=== PATIENT | female | born 1955 | race Caucasian/White ===

== ENCOUNTER 2018-05-04 01:37 | Outpatient (RCR) | payer MEDICARE, MEDICAID, SELFPAY | END 2018-05-29 01:37 | LOC: INF 01:37 | PROVIDERS: PCP General Practice; Visit Provider Internal Medicine Medical Oncology | DX: R69 Illness, unspecified (principal) ==

== ENCOUNTER 2018-06-25 01:37 | Outpatient (RCR) | payer MEDICARE, MEDICAID, SELFPAY ==
[2018-06-04 07:31] LABS: Abs Immature Grans 0.02 k/cumm (0.0-0.09); Absolute Basophil Count 0.03 k/cumm (0.0-0.2); Absolute Eosinophil Count 0.48 k/cumm (0.0-0.7); Absolute Lymphocyte Count 0.65 k/cumm (1.2-3.4); Absolute Monocyte Count 0.53 k/cumm (0.11-0.7); Basophils % 0.5; Eosinophils % 7.3; HCT 29.2 % (36.0-46.0); HGB 9.2 g/dL (12.0-15.5); Immature Grans % 0.3; Lymphocytes % 9.8; Mean Corp. HGB Concentration 31.5 g/dL (32.0-36.0); Mean Corpuscular Hemoglobin 34.3 pg (27.0-33.0); Mean Platelet Volume 8.9 fL (8.0-11.0); Neutrophils % 74.1; Platelet Count 253 x1000/uL (130-400); RBC 2.68 m/cumm (4.00-5.20); White Blood Cell Count 6.61 k/cumm (4.4-10.8)
[2018-06-04 07:45] LABS: ALT 14 U/L (12-78); AST 11 U/L (15-37); Albumin 3.4 g/dL (3.4-5.0); Alkaline Phosphatase 70 U/L (46-116); Anion Gap 6.7 mmol/L (3-11); BUN 18 mg/dL (7-18); Bilirubin, Total 0.5 mg/dL (0.2-1.0); CO2 29.3 mmol/L (21.0-32.0); CREATININE 1.54 mg/dL (0.55-1.02); Calcium 8.4 mg/dL (8.5-10.1); Chloride 104 mmol/L (98-107); Estimated GFR 33.92 (mL/min/1.73m2); Glucose 116 mg/dL (70-100); Potassium 4.2 mmol/L (3.5-5.1); Sodium 140 mmol/L (136-145)
[2018-06-04 07:49] LABS: Basophilic Stippling Present; Macrocytosis 1+; Polychromasia Present
[2018-06-04] MEDS: Normal Saline Flush 10 ML SYR IVP (13:23)
[2018-06-25] MEDS: Normal Saline Flush 10 ML SYR IVP (07:15)
[2018-06-25 07:29] LABS: Abs Immature Grans 0.02 k/cumm (0.0-0.09); Absolute Basophil Count 0.07 k/cumm (0.0-0.2); Absolute Eosinophil Count 0.04 k/cumm (0.0-0.7); Absolute Lymphocyte Count 0.68 k/cumm (1.2-3.4); Absolute Monocyte Count 0.74 k/cumm (0.11-0.7); Basophils % 1.1; Eosinophils % 0.6; HCT 26.1 % (36.0-46.0); HGB 8.2 g/dL (12.0-15.5); Immature Grans % 0.3; Lymphocytes % 10.2; Mean Corp. HGB Concentration 31.4 g/dL (32.0-36.0); Mean Corpuscular Hemoglobin 33.9 pg (27.0-33.0); Mean Corpuscular Volume 107.9 fL (80-95); Mean Platelet Volume 8.8 fL (8.0-11.0); Monocytes % 11.1; Neutrophils % 76.7; Platelet Count 236 x1000/uL (130-400); RBC 2.42 m/cumm (4.00-5.20); RBC Distribution Width 14.9 % (11.7-14.6); White Blood Cell Count 6.65 k/cumm (4.4-10.8)
[2018-06-25 07:39] LABS: ALT 14 U/L (12-78); AST 11 U/L (15-37); Albumin 3.3 g/dL (3.4-5.0); Alkaline Phosphatase 70 U/L (46-116); BUN 25 mg/dL (7-18); Bilirubin, Total 0.5 mg/dL (0.2-1.0); CREATININE 1.67 mg/dL (0.55-1.02); Calcium 8.7 mg/dL (8.5-10.1); Chloride 102 mmol/L (98-107); Estimated GFR 30.89 (mL/min/1.73m2); Glucose 131 mg/dL (70-100); Potassium 3.6 mmol/L (3.5-5.1); Sodium 140 mmol/L (136-145); Total Protein 6.8 g/dL (6.4-8.2)
== END 2018-06-28 23:59 | disposition home or self-care (01) ==
LOC: INF 01:37
PROVIDERS: PCP General Practice; Visit Provider Internal Medicine Medical Oncology
DX: C54.1 Malignant neoplasm of endometrium (principal); Z45.2 Encounter for adjustment and management of vascular access device
CPT/HCPCS: 36591; 80053; 85025

== ENCOUNTER 2018-07-13 11:47 | Emergency (ER) | payer MEDICARE, MEDICAID, SELFPAY ==
[2018-07-13] VITALS (36 sets, daily range): BP systolic 81–128; BP diastolic 46–81; PULSE 58–80; RESP 16–28; TEMP 36.1–36.4; O2SAT 84–100
--- NOTE | 2018-07-13 12:33 | DI.CT_ITS ---
SYMPTOM/DIAGNOSIS: H/O UTERINE CA, VERTIGO NONCONTRAST HEAD CT: A noncontrast cranial CT was performed. No previous examinations available for comparison. There is an area of decreased attenuation in the right frontotemporal region with question mild ex vacuo phenomenon of the right lateral ventricle frontal horn. The findings may represent an old infarction. The possibility that the findings are associated with a mass are not entirely excluded, particularly with patient's known history of uterine carcinoma. No evidence of acute hemorrhage. No midline shift. The orbital and temporal bone structures appear intact and visualized paranasal sinuses and mastoid air cells are well aerated. 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 Mass lesion not entirely excluded and correlation with brain MRI including post contrast imaging would be recommended.
--- NOTE | 2018-07-13 12:36 | W.ED.GENAD ---
Discharge Plan Disposition Patient Disposition: HOME Condition: Improving Discharge Details Chief Complaint: Dizzy/Sync Clinical Impression: Acute anemia Reason For Visit: dizzy Primary Care Provider: Ron De La Rosa ED Provider: Shayne Hobbs Home Meds and New Rx's Prescriptions: Continue losartan [Cozaar] 50 MG tablet 100 mg PO DAILY RF: 0 furosemide [Lasix] 40 MG tablet 80 mg PO DAILY RF: 0 metoprolol succinate [Toprol XL] 50 MG tablet extended release 24 hr 50 mg PO BID RF: 0 citalopram [Celexa] 10 MG tablet 30 mg PO DAILY RF: 0 isosorbide mononitrate 30 MG tablet extended release 24 hr 30 mg PO DAILY Qty: 0.5 RF: 0 simvastatin [Zocor] 10 MG tablet 20 mg PO DAILY RF: 0 metformin 1,000 MG tablet 1,000 mg PO BID RF: 0 loratadine 10 MG tablet 10 mg PO DAILY RF: 0 glipizide 5 MG tablet 2.5 mg PO DAILY Qty: 0.5 RF: 0 Discharge Instructions Instructions: Anemia (ED) Additional Instructions: Your MRI did not show any new findings. I discussed your case with the cancer center who will see on for your planned chemotherapy. Continue regular medications. Return to the emergency department for any acute concerns. Discharge Data Discharge Date/Time-TO BE ENTERED AT DEPARTURE: 07/13/18 19:10 Medical Decision Making <Nain Avitia MD - Last Filed: 07/13/18 15:11> This is a 62-year-old female who presents with intermittent episodes of vertiginous type symptoms over the weekend. She is being treated for uterine cancer. She is pleasant, afebrile, well-appearing. Exam is notable only for subtle left horizontal nystagmus. She does report recent URI symptoms. She has an exam consistent with peripheral vertigo. Differential diagnosis would include metastatic mass, bleed, dehydration, anemia. Patient IV access established, given small fluid bolus, 12.5 mg of meclizine, referred for noncontrast CT scan of the head. This reveals what appears to be old right frontal area of decreased attenuation. MRI was obtained which confirmed no evidence of acute findings. Labs are notable for new anemia with a hemoglobin of 6.9. She does not have depressed white blood cell count or thrombocytopenia. Case discussed with cancer center who recommended 2 units of packed red blood cells that do not need to be irradiated. Patient is stable for follow-up with them on for completion of her chemotherapy. Patient be signed out to Dr. Hobbs pending completion of her transfusion which I consented her for in the written form. Lab Data Lab results reviewed: Yes I reviewed the patient's lab results. Laboratory Tests Range/Units 07/13/18 07/13/18 07/13/18 13:20 13:20 13:41 WBC (4.4-10.8) k/cumm 5.85 RBC (4.00-5.20) m/cumm 1.97 L Hgb (12.0-15.5) g/dL 6.9 L* Hct (36.0-46.0) % 21.5 L MCV (80-95) fL 109.1 H MCH (27.0-33.0) pg 35.0 H MCHC (32.0-36.0) g/dL 32.1 RDW (11.7-14.6) % 17.8 H Plt Count (130-400) x1000/uL 175 MPV (8.0-11.0) fL 9.3 Immature Gran % 0.7 Neutrophils % 80.2 Lymphocytes % 9.2 Monocytes % 8.9 Eosinophils % 0.5 Basophils % 0.5 Absolute Neutrophils (1.2-6.7) k/cumm 4.69 Absolute Lymphocytes (1.2-3.4) k/cumm 0.54 L Absolute Monocytes (0.11-0.7) k/cumm 0.52 Absolute Eosinophils (0.0-0.7) k/cumm 0.03 Absolute Basophils (0.0-0.2) k/cumm 0.03 Differential Comment Rbc morph reviewed RBC Morphology See below Polychromasia Present Poikilocytosis 1+ Anisocytosis 2+ Microcytosis 1+ Macrocytosis 2+ Sodium (136-145) mmol/L 139 Potassium (3.5-5.1) mmol/L 4.5 Chloride (98-107) mmol/L 101 Carbon Dioxide (21.0-32.0) mmol/L 26.0 Anion Gap (3-11) mmol/L 12.0 H BUN (7-18) mg/dL 21 H Creatinine (0.55-1.02) mg/dL 1.69 H Estimated GFR/1.73 m2 (mL/min/1.73m2) 30.47 Glucose (70-100) mg/dL 171 H Calcium (8.5-10.1) mg/dL 8.0 L Magnesium (1.8-2.4) mg/dL 1.1 L Total Bilirubin (0.2-1.0) mg/dL 0.6 AST (15-37) U/L 12 L ALT (12-78) U/L 17 Alkaline Phosphatase (46-116) U/L 67 Total Protein (6.4-8.2) g/dL 6.5 Albumin (3.4-5.0) g/dL 3.1 L Crossmatch See Detail <Shayne Hobbs DO - Last Filed: 07/14/18 15:43> The patient has completed her transfusion. She appears hemodynamically stable, shows no signs of reaction, and appears very well. Patient will be discharged with the plan set and placed by Dr. Avitia. I have extensively reviewed the treatment plan and discharge instructions with the patient and their family. I have addressed all patient concerns at this time. The patient and family was made aware of what symptoms to monitor for that would warrant a return to the emergency department. Discussed the plan with the patient and family, they demonstrate verbal understanding and agreement with our assessment and plan at this time. HPI <Nain Avitia MD - Last Filed: 07/13/18 15:11> General Mode of arrival: wheelchair. Date/Time Provider Initiated Documentation: 07/13/18 12:21. Limitations to Documentation: no limitations. Information obtained by: patient and family. History of Present Illness 62 year old F presents to the emergency department with the chief complaint of Intermittent vertigo, described as moderate, Quality is described as other (Spinning), and is localized to the head. Patient reports no radiation. Patient started experiencing this day(s) and it has been intermittent and now resolved. Rest improves symptom(s), Movement worsens symptoms . HPI Narrative: This is a 62-year-old female who is undergoing her last round of chemotherapy for uterine cancer. She presents emerged from today on referral from her therapist. She states that over the course of the week and she said intermittent episodes of motion sensation is worse with movement of the head. It lasts 10-20 minutes and resolves on its own. She does not have a headache. She did not fall. Said no chest pain or palpitations. States she has had decreased p.o. intake. Related Data Home Medications Medication Instructions Recorded Confirmed citalopram [Celexa] 30 mg PO DAILY tab-cap 07/21/13 furosemide [Lasix] 80 mg PO DAILY tab-cap 07/21/13 07/13/18 glipizide 2.5 mg PO DAILY #0.5 07/21/13 07/13/18 isosorbide mononitrate 30 mg PO DAILY #0.5 tab-cap 07/21/13 07/13/18 loratadine 10 mg PO DAILY tab-cap 07/21/13 07/13/18 losartan [Cozaar] 100 mg PO DAILY tab-cap 07/21/13 07/13/18 metformin 1,000 mg PO BID tab-cap 07/21/13 07/13/18 metoprolol succinate [Toprol XL] 50 mg PO BID 07/21/13 07/13/18 simvastatin [Zocor] 20 mg PO DAILY tab-cap 07/21/13 07/13/18 Allergies Allergy/AdvReac Type Severity Reaction Status Date / Time Penicillins Allergy Severe ANAPHYLAXIS Unverified 11/13/17 13:07 acetaminophen [From Vicodin] AdvReac Unverified 07/13/18 12:03 hydrocodone [From Vicodin] AdvReac Unverified 07/13/18 12:03 General Stated Complaint: Dizzy/Sync RENY: 3 Review of Systems <Nain Avitia MD - Last Filed: 07/13/18 15:11> Review of Systems 8 systems reviewed and otherwise negative Exam <Nain Avitia MD - Last Filed: 07/13/18 15:11> Narrative Exam Narrative: GEN: awake, alert, oriented 3. Pleasant, well groomed, interactive. HEAD: Normocephalic, atraumatic ENT: Mucous membranes moist, oropharynx unremarkable, External ear exam unremarkable EYES: PERRL, EOMI, left lateral 2 beat horizontal nystatin NECK: Full ROM, no BERTRAND, no menigismus CHEST/RESP: Nontender, clear to auscultation bilateral, no wheeze/rhonchi/rales CARDIOVASCULAR: RRR, no murmur, rub claernce. 2+ Rad pulse bilateral ABDOMEN: Soft, nontender, no mass. +Bowel sounds EXT: Full ROM, no edema, no rash Neuro: Grossly normal neurologic exam, conversant, interactive. Cranial nerves II through XII grossly intact. Psych: Speech fluent, thoughts congruent, affect normal Course <Nain Avitia MD - Last Filed: 07/13/18 15:11> Vital Signs Temperature 36.1 C L 07/13/18 11:58 Pulse 78 07/13/18 11:58 Respiratory Rate 18 07/13/18 11:58 Blood Pressure 124/46 L 07/13/18 11:58 Pulse Oximetry 100 07/13/18 11:58 Temperature 36.1 C L 07/13/18 11:58 Temperature Source Temporal Artery Scan 07/13/18 11:58 Pulse 78 07/13/18 11:58 Respiratory Rate 18 07/13/18 11:58 Blood Pressure 124/46 L 07/13/18 11:58 Pulse Oximetry 100 07/13/18 11:58 Oxygen Delivery Method Room Air 07/13/18 11:58 Oxygen Flow Rate 0 07/13/18 11:58
--- NOTE | 2018-07-13 12:39 | ED.GENADUL_ITS ---
Discharge Plan Disposition Patient Disposition: HOME Condition: Improving Discharge Details Chief Complaint: Dizzy/Sync Clinical Impression: Acute anemia Reason For Visit: dizzy Primary Care Provider: Ron De La Rosa ED Provider: Shayne Hobbs Home Meds and New Rx's Prescriptions: Continue losartan [Cozaar] 50 MG tablet 100 mg PO DAILY RF: 0 furosemide [Lasix] 40 MG tablet 80 mg PO DAILY RF: 0 metoprolol succinate [Toprol XL] 50 MG tablet extended release 24 hr 50 mg PO BID RF: 0 citalopram [Celexa] 10 MG tablet 30 mg PO DAILY RF: 0 isosorbide mononitrate 30 MG tablet extended release 24 hr 30 mg PO DAILY Qty: 0.5 RF: 0 simvastatin [Zocor] 10 MG tablet 20 mg PO DAILY RF: 0 metformin 1,000 MG tablet 1,000 mg PO BID RF: 0 loratadine 10 MG tablet 10 mg PO DAILY RF: 0 glipizide 5 MG tablet 2.5 mg PO DAILY Qty: 0.5 RF: 0 Discharge Instructions Instructions: Anemia (ED) Additional Instructions: Your MRI did not show any new findings. I discussed your case with the cancer center who will see on for your planned chemotherapy. Continue regular medications. Return to the emergency department for any acute concerns. Discharge Data Discharge Date/Time-TO BE ENTERED AT DEPARTURE: 07/13/18 19:10 Medical Decision Making <Nain Avitia MD - Last Filed: 07/13/18 15:11> This is a 62-year-old female who presents with intermittent episodes of vertiginous type symptoms over the weekend. She is being treated for uterine cancer. She is pleasant, afebrile, well-appearing. Exam is notable only for subtle left horizontal nystagmus. She does report recent URI symptoms. She has an exam consistent with peripheral vertigo. Differential diagnosis would include metastatic mass, bleed , dehydration, anemia. Patient IV access established, given small fluid bolus, 12.5 mg of meclizine, referred for noncontrast CT scan of the head. This reveals what appears to be old right frontal area of decreased attenuation. MRI was obtained which confirmed no evidence of acute findings. Labs are notable for new anemia with a hemoglobin of 6.9. She does not have depressed white blood cell count or thrombocytopenia. Case discussed with cancer center who recommended 2 units of packed red blood cells that do not need to be irradiated. Patient is stable for follow-up with them on for completion of her chemotherapy. Patient be signed out to Dr. Hobbs pending completion of her transfusion which I consented her for in the written form. Lab Data Lab results reviewed: Yes I reviewed the patient's lab results. Laboratory Tests Range/Units 07/13/18 07/13/18 07/13/18 13:20 13:20 13:41 WBC (4.4-10.8) k/cumm 5.85 RBC (4.00-5.20) m/cumm 1.97 L Hgb (12.0-15.5) g/dL 6.9 L* Hct (36.0-46.0) % 21.5 L MCV (80-95) fL 109.1 H MCH (27.0-33.0) pg 35.0 H MCHC (32.0-36.0) g/dL 32.1 RDW (11.7-14.6) % 17.8 H Plt Count (130-400) x1000/uL 175 MPV (8.0-11.0) fL 9.3 Immature Gran % 0.7 Neutrophils % 80.2 Lymphocytes % 9.2 Monocytes % 8.9 Eosinophils % 0.5 Basophils % 0.5 Absolute Neutrophils (1.2-6.7) k/cumm 4.69 Absolute Lymphocytes (1.2-3.4) k/cumm 0.54 L Absolute Monocytes (0.11-0.7) k/cumm 0.52 Absolute Eosinophils (0.0-0.7) k/cumm 0.03 Absolute Basophils (0.0-0.2) k/cumm 0.03 Differential Comment Rbc morph reviewed RBC Morphology See below Polychromasia Present Poikilocytosis 1+ Anisocytosis 2+ Microcytosis 1+ Macrocytosis 2+ Sodium (136-145) mmol/L 139 Potassium (3.5-5.1) mmol/L 4.5 Chloride (98-107) mmol/L 101 Carbon Dioxide (21.0-32.0) mmol/L 26.0 Anion Gap (3-11) mmol/L 12.0 H BUN (7-18) mg/dL 21 H Creatinine (0.55-1.02) mg/dL 1.69 H Estimated GFR/1.73 m2 (mL/min/1.73m2) 30.47 Glucose (70-100) mg/dL 171 H Calcium (8.5-10.1) mg/dL 8.0 L Magnesium (1.8-2.4) mg/dL 1.1 L Total Bilirubin (0.2-1.0) mg/dL 0.6 AST (15-37) U/L 12 L ALT (12-78) U/L 17 Alkaline Phosphatase (46-116) U/L 67 Total Protein (6.4-8.2) g/dL 6.5 Albumin (3.4-5.0) g/dL 3.1 L Crossmatch See Detail <Shayne Hobbs DO - Last Filed: 07/14/18 15:43> The patient has completed her transfusion. She appears hemodynamically stable, shows no signs of reaction, and appears very well. Patient will be discharged with the plan set and placed by Dr. Avitia. I have extensively reviewed the treatment plan and discharge instructions with the patient and their family. I have addressed all patient concerns at this time. The patient and family was made aware of what symptoms to monitor for that would warrant a return to the emergency department. Discussed the plan with the patient and family, they demonstrate verbal understanding and agreement with our assessment and plan at this time. HPI <Nain Avitia MD - Last Filed: 07/13/18 15:11> General Mode of arrival: wheelchair . Date/Time Provider Initiated Documentation: 07/13/18 12:21 . Limitations to Documentation: no limitations . Information obtained by: patient and family . History of Present Illness 62 year old F presents to the emergency department with the chief complaint of Intermittent vertigo, described as moderate, Quality is described as other ( Spinning), and is localized to the head. Patient reports no radiation. Patient started experiencing this day(s) and it has been intermittent and now resolved. Rest improves symptom(s), Movement worsens symptoms . HPI Narrative: This is a 62-year-old female who is undergoing her last round of chemotherapy for uterine cancer. She presents emerged from today on referral from her therapist. She states that over the course of the week and she said intermittent episodes of motion sensation is worse with movement of the head. It lasts 10-20 minutes and resolves on its own. She does not have a headache. She did not fall. Said no chest pain or palpitations. States she has had decreased p.o. intake. Related Data Home Medications Medication Instructions Recorded Confirmed citalopram [Celexa] 30 mg PO DAILY tab-cap 07/21/13 furosemide [Lasix] 80 mg PO DAILY tab-cap 07/21/13 07/13/18 glipizide 2.5 mg PO DAILY #0.5 07/21/13 07/13/18 isosorbide mononitrate 30 mg PO DAILY #0.5 tab-cap 07/21/13 07/13/18 loratadine 10 mg PO DAILY tab-cap 07/21/13 07/13/18 losartan [Cozaar] 100 mg PO DAILY tab-cap 07/21/13 07/13/18 metformin 1,000 mg PO BID tab-cap 07/21/13 07/13/18 metoprolol succinate [Toprol XL] 50 mg PO BID 07/21/13 07/13/18 simvastatin [Zocor] 20 mg PO DAILY tab-cap 07/21/13 07/13/18 Allergies Allergy/AdvReac Type Severity Reaction Status Date / Time Penicillins Allergy Severe ANAPHYLAXIS Unverified 11/13/17 13:07 acetaminophen [From Vicodin] AdvReac Unverified 07/13/18 12:03 hydrocodone [From Vicodin] AdvReac Unverified 07/13/18 12:03 General Stated Complaint: Dizzy/Sync RENY: 3 Review of Systems <Nain Avitia MD - Last Filed: 07/13/18 15:11> Review of Systems 8 systems reviewed and otherwise negative Exam <Nain Avitia MD - Last Filed: 07/13/18 15:11> Narrative Exam Narrative: GEN: awake, alert, oriented 3. Pleasant, well groomed, interactive. HEAD: Normocephalic, atraumatic ENT: Mucous membranes moist, oropharynx unremarkable, External ear exam unremarkable EYES: PERRL, EOMI, left lateral 2 beat horizontal nystatin NECK: Full ROM, no BERTRAND, no menigismus CHEST/RESP: Nontender, clear to auscultation bilateral, no wheeze/rhonchi/rales CARDIOVASCULAR: RRR, no murmur, rub clarence. 2+ Rad pulse bilateral ABDOMEN: Soft, nontender, no mass. +Bowel sounds EXT: Full ROM, no edema, no rash Neuro: Grossly normal neurologic exam, conversant, interactive. Cranial nerves II through XII grossly intact. Psych: Speech fluent, thoughts congruent, affect normal Course <Nain Avitia MD - Last Filed: 07/13/18 15:11> Vital Signs Temperature 36.1 C L 07/13/18 11:58 Pulse 78 07/13/18 11:58 Respiratory Rate 18 07/13/18 11:58 Blood Pressure 124/46 L 07/13/18 11:58 Pulse Oximetry 100 07/13/18 11:58 Temperature 36.1 C L 07/13/18 11:58 Temperature Source Temporal Artery Scan 07/13/18 11:58 Pulse 78 07/13/18 11:58 Respiratory Rate 18 07/13/18 11:58 Blood Pressure 124/46 L 07/13/18 11:58 Pulse Oximetry 100 07/13/18 11:58 Oxygen Delivery Method Room Air 07/13/18 11:58 Oxygen Flow Rate 0 07/13/18 11:58
[2018-07-13] MEDS: Meclizine 12.5 MG TAB PO (12:43)
[2018-07-13 13:28] LABS: Abs Immature Grans 0.04 k/cumm (0.0-0.09); Absolute Basophil Count 0.03 k/cumm (0.0-0.2); Absolute Eosinophil Count 0.03 k/cumm (0.0-0.7); Absolute Lymphocyte Count 0.54 k/cumm (1.2-3.4); Absolute Monocyte Count 0.52 k/cumm (0.11-0.7); Absolute Neutrophil Count 4.69 k/cumm (1.2-6.7); Basophils % 0.5; Eosinophils % 0.5; HCT 21.5 % (36.0-46.0); Immature Grans % 0.7; Lymphocytes % 9.2; Mean Corp. HGB Concentration 32.1 g/dL (32.0-36.0); Mean Corpuscular Volume 109.1 fL (80-95); Mean Platelet Volume 9.3 fL (8.0-11.0); Monocytes % 8.9; Neutrophils % 80.2; Platelet Count 175 x1000/uL (130-400); RBC 1.97 m/cumm (4.00-5.20); RBC Distribution Width 17.8 % (11.7-14.6); White Blood Cell Count 5.85 k/cumm (4.4-10.8)
[2018-07-13] MEDS: Normal Saline 1,000 ML 500 ML IV (13:37)
[2018-07-13 13:41] LABS: HGB 6.9 g/dL (12.0-15.5)
[2018-07-13 13:42] LABS: Anisocytosis 2+; Diff Comment RBC Morph Reviewed; Macrocytosis 2+; Microcytosis 1+; Poikilocytes 1+; Polychromasia Present
[2018-07-13 13:43] LABS: ALT 17 U/L (12-78); AST 12 U/L (15-37); Albumin 3.1 g/dL (3.4-5.0); Alkaline Phosphatase 67 U/L (46-116); BUN 21 mg/dL (7-18); Bilirubin, Total 0.6 mg/dL (0.2-1.0); CREATININE 1.69 mg/dL (0.55-1.02); Chloride 101 mmol/L (98-107); Estimated GFR 30.47 (mL/min/1.73m2); Glucose 171 mg/dL (70-100); Magnesium 1.1 mg/dL (1.8-2.4); Potassium 4.5 mmol/L (3.5-5.1); Sodium 139 mmol/L (136-145); Total Protein 6.5 g/dL (6.4-8.2)
[2018-07-13] MEDS: LORazepam 2 MG/ML VIAL 0.5 MG IVP (14:05)
--- NOTE | 2018-07-13 15:00 | DI.MRI_ITS ---
SYMPTOMS/DIAGNOSIS: RT FRONTAL ABNORMALITY ON CT, VERTIGO SYMPTOMS BRAIN MRI: MRI examination of the brain was performed according to the usual protocol. There is mild generalized cerebral atrophy. There is an area of encephalomalacia involving the right frontal lobe with associated mildly abnormal signal seen on T 2 weight and FLAIR imaging consistent with an old infarct with areas of surrounding chronic ischemia. Diffusion weighted imaging shows no diffusion restriction in this area to suggest the presence of a subacute or acute infarction. No other focal signal abnormality identified in the brain. The orbital and temporal bone structures are grossly intact as visualized. There is normal flow void in the [place] vasculature. The pituitary appears intact as visualized. The examination is somewhat limited by motion artifact. Susceptibility weighted imaging is unremarkable. CONCLUSION: Findings consistent with old right frontal infarct with associated areas of chronic ischemia. No evidence of acute infarction or hemorrhage.
[2018-07-13] MEDS: Heparin 500 UNITS/5 ML SYRINGE (18:50)
== END 2018-07-13 19:10 | disposition home or self-care (01) ==
PROVIDERS: Emergency Medicine; Emergency Provider Student in an Organized Health Care Education/Training Program; PCP General Practice
DX: D64.9 Anemia, unspecified (principal); Z79.899 Other long term (current) drug therapy; C55 Malignant neoplasm of uterus, part unspecified
CPT/HCPCS: 36430; 36591; 80053; 86850; 86900; 86901; 86920; 96361; 96374; 99285; 70450; 70551; 83735; 85025; J2060; P9016

== ENCOUNTER 2018-07-16 01:59 | Outpatient (RCR) | payer MEDICARE, MEDICAID, SELFPAY ==
[2018-07-16] MEDS: Normal Saline Flush 10 ML SYR IVP (07:40)
[2018-07-16 08:02] LABS: Abs Immature Grans 0.01 k/cumm (0.0-0.09); Absolute Basophil Count 0.03 k/cumm (0.0-0.2); Absolute Eosinophil Count 0.01 k/cumm (0.0-0.7); Absolute Lymphocyte Count 0.47 k/cumm (1.2-3.4); Absolute Neutrophil Count 4.02 k/cumm (1.2-6.7); Basophils % 0.6; Eosinophils % 0.2; HCT 26.7 % (36.0-46.0); HGB 8.5 g/dL (12.0-15.5); Immature Grans % 0.2; Lymphocytes % 9.3; Mean Corp. HGB Concentration 31.8 g/dL (32.0-36.0); Mean Corpuscular Hemoglobin 32.6 pg (27.0-33.0); Mean Corpuscular Volume 102.3 fL (80-95); Mean Platelet Volume 8.8 fL (8.0-11.0); Monocytes % 9.9; Neutrophils % 79.8; Platelet Count 167 x1000/uL (130-400); RBC 2.61 m/cumm (4.00-5.20); RBC Distribution Width 21.3 % (11.7-14.6); White Blood Cell Count 5.04 k/cumm (4.4-10.8)
[2018-07-16 08:14] LABS: ALT 17 U/L (12-78); AST 13 U/L (15-37); Albumin 3.2 g/dL (3.4-5.0); Alkaline Phosphatase 63 U/L (46-116); Anion Gap 11.4 mmol/L (3-11); BUN 27 mg/dL (7-18); Bilirubin, Total 0.7 mg/dL (0.2-1.0); CO2 25.6 mmol/L (21.0-32.0); CREATININE 1.74 mg/dL (0.55-1.02); Calcium 8.3 mg/dL (8.5-10.1); Chloride 103 mmol/L (98-107); Estimated GFR 29.46 (mL/min/1.73m2); Glucose 133 mg/dL (70-100); Potassium 4.3 mmol/L (3.5-5.1); Sodium 140 mmol/L (136-145); Total Protein 6.4 g/dL (6.4-8.2)
== END 2018-07-29 23:59 | disposition home or self-care (01) ==
LOC: INF 01:59
PROVIDERS: PCP General Practice; Visit Provider Internal Medicine Medical Oncology
DX: C54.1 Malignant neoplasm of endometrium (principal); Z45.2 Encounter for adjustment and management of vascular access device
CPT/HCPCS: 36591; 80053; 85025

== ENCOUNTER 2018-07-27 17:42 | Emergency (ER) | payer MEDICARE, MEDICAID, SELFPAY ==
[2018-07-27] VITALS (18 sets, daily range): BP systolic 96–128; BP diastolic 38–60; PULSE 70–103; RESP 16–32; TEMP 36.5–37.6; O2SAT 90–99
--- NOTE | 2018-07-27 18:09 | W.ED.GENAD ---
Discharge Plan Disposition Patient Disposition: OTHER Condition: Stable Discharge Details Chief Complaint: Fever Clinical Impression: Anemia, Pyelonephritis, Hypomagnesemia, Generalized weakness, Fatigue Primary Care Provider: Ron De La Rosa ED Provider: Eufemia Montes Home Meds and New Rx's Prescriptions: No Action losartan [Cozaar] 50 MG tablet 100 mg PO DAILY RF: 0 furosemide [Lasix] 40 MG tablet 80 mg PO DAILY RF: 0 metoprolol succinate [Toprol XL] 50 MG tablet extended release 24 hr 50 mg PO BID RF: 0 citalopram [Celexa] 10 MG tablet 30 mg PO DAILY RF: 0 isosorbide mononitrate 30 MG tablet extended release 24 hr 30 mg PO DAILY Qty: 0.5 RF: 0 metformin 1,000 MG tablet 1,000 mg PO BID RF: 0 loratadine 10 MG tablet 10 mg PO DAILY RF: 0 glipizide 5 MG tablet 2.5 mg PO DAILY Qty: 0.5 RF: 0 simvastatin [Zocor] 40 mg Tablet 40 mg PO HS RF: 0 Medical Decision Making 62yo F w/ a h/o DM and endometrial cancer who recently finished chemo 07/16 at [facility] who presents for chills since yesterday, dysuria and urinary hesitancy times 1 month as well as cough with white/yellow sputum. Patient was seen here 2 weeks ago for dizziness and had hemoglobin of 6.9 for which she was given 2 units PRBCs and was discharged to home. Vitals within normal limits on arrival. Patient appears pale but otherwise nontoxic. Considering patient's history, will order an infectious and cardiac workup and give small bolus IV fluid. EKG notes a rate of 92, sinus, no acute ST elevation or depression, QTc 458, QRS 100. 2045: Labs and imaging reviewed. White blood cell count 8.06. Hemoglobin 7. Hematocrit 21.5. Platelets 129. Potassium 3.4. Creatinine 1.76. GFR 29. Magnesium 0.9. Troponin negative. Urinalysis notes greater than 50 WBCs, many bacteria, negative epithelial cells. Chest x-ray negative. 2 units PRBCs ordered. Will replete magnesium. With complaint of chills, nausea, vomiting, evidence of UTI, will treat for possible pyelonephritis. Patient is allergic to penicillin which causes anaphylaxis. There is an interaction with fluoroquinolones with her Celexa. We will give a dose of gentamicin IV. There are no beds available here. Will call area hospitals for transfer. Patient is okay with transfer to [facility] or [facility]. 2144 -- case d/w Dr. Serrano at [facility] - no beds available. 2199 --case discussed w/ MANAGER TALENT MANAGEMENT Humble Rush at [facility] - accepts pt for transfer. Informed that patient does not appear septic at this time. She is not neutropenic. Her abdomen was soft and very minimally tender in lower abdomen, no CT scan ordered at this time. 1 unit of PRBC running at this time. BP 102/44. Calyx likely may not be here for an hour. Do not want to push the first unit PRBC any faster as patient has a history of CHF. Goldy discussed with nursing supervisor keymodule assembly at [facility] and they likely will not take the second unit of blood with the patient. HPI General Mode of arrival: ambulatory. Date/Time Provider Initiated Documentation: 07/27/18 17:56. Limitations to Documentation: no limitations. Information obtained by: patient. HPI Narrative: Patient is a 62-year-old female with a history of diabetes and endometrial cancer who recently finished chemotherapy on July 16 who presents for chills since yesterday. Patient also states she has had a harsh cough with white and yellow sputum. She also admits to dysuria and sensation of decreased bladder emptying over the past month. She also admits to fatigue. Patient was seen here on July 13 for dizziness and was noted to be anemic and was given 2 units PRBCs blood transfusion. Patient states she is followed at [facility] and her last chemotherapy was July 16. States her next appointment with them is on July. Patient states her last radiation was on May 01, 2018. She also admits to decreased appetite over the past few days, 2 episodes of vomiting over the past 2 days. She states she has been drinking well. She denies chest pain, shortness of breath, diarrhea, recent antibiotics. Past medical history: Asthma, obesity, hypertension, hyperlipidemia, depression, anxiety, diabetes, endometrial cancer diagnosed in October 2017, CHF Surgical history: Tubal ligation, tonsillectomy, , carpal tunnel release, mitral valve replacement, CABG Social history: Denies tobacco, alcohol or drugs Medications: See list Allergies: See list PCP: Dr. De La Rosa Oncologist: Dr. Dasilva (spelling?) Related Data Home Medications Medication Instructions Recorded Confirmed citalopram [Celexa] 30 mg PO DAILY tab-cap 07/21/13 furosemide [Lasix] 80 mg PO DAILY tab-cap 07/21/13 07/27/18 glipizide 2.5 mg PO DAILY #0.5 07/21/13 07/27/18 isosorbide mononitrate 30 mg PO DAILY #0.5 tab-cap 07/21/13 07/27/18 loratadine 10 mg PO DAILY tab-cap 07/21/13 07/13/18 losartan [Cozaar] 100 mg PO DAILY tab-cap 07/21/13 07/27/18 metformin 1,000 mg PO BID tab-cap 07/21/13 07/27/18 metoprolol succinate [Toprol XL] 50 mg PO BID 07/21/13 07/27/18 simvastatin [Zocor] 40 mg PO HS 07/27/18 07/27/18 Allergies Allergy/AdvReac Type Severity Reaction Status Date / Time bee venom protein (honey bee) Allergy Severe anaphylaxis Unverified 07/27/18 17:51 Penicillins Allergy Severe anaphylaxis Unverified 07/27/18 17:51 hydrocodone [From Vicodin] AdvReac Intermediate vomiting Unverified 07/27/18 17:52 acetaminophen [From Vicodin] AdvReac Mild no problem Unverified 07/27/18 17:52 with tylenol General Stated Complaint: Fever RENY: 3 Review of Systems Review of Systems All systems reviewed & are unremarkable except as noted in HPI and below Constitutional Reports as per HPI, Reports chills, Reports fatigue, Denies fever(s) and Reports weakness Eyes Denies blurry vision ENT Denies dizziness, Denies sore throat and Denies throat swelling Cardiovascular Denies chest pain and Denies dyspnea Respiratory Denies dyspnea Gastrointestinal Denies abdominal pain, Denies diarrhea and Denies vomiting Genitourinary Denies hematuria, Reports dysuria and Reports urinary hesitancy Musculoskeletal Denies back pain and Denies numbness Integumentary/Breasts Denies lesions and Denies rash Neurologic Denies dizziness, Denies numbness and Reports weakness Endocrine Reports fatigue Allergic/Immunologic Denies throat swelling PFSH Family History Mother Diabetes Father Hyperlipidemia Sister Lung cancer Other Personal history of malignant neoplasm Medical History Anxiety Asthma Depression Diabetes mellitus, type 2 Hyperlipidemia Hypertension Obesity Seasonal allergic rhinitis Surgical History section Ligation of fallopian tube Mitral valve repair Open Carpal Tunnel release Tonsillectomy Exam Const General: cooperative Orientation: alert, awake and oriented x3 HENMT Head: normal to inspection Ears: hearing grossly normal bilaterally and external ears normal General nose exam: external nose normal Face and sinus: normal facial exam Mouth: oral mucosae normal Eyes General: appearance normal, both eyes and all related structures Eyelids: eyelids normal EOM: EOM intact bilaterally Neck Neck: normal visual inspection Lymphatic: no lymphadenopathy noted Chest Chest: normal inspection of the chest Resp Effort & Inspection: normal respiratory effort and able to speak in complete sentences Auscultation: clear to auscultation bilaterally Cardio Rate: regular rate Rhythm: regular rhythm GI Inspection: normal to inspection Palpation: soft, not firm, no guarding, no hepatosplenomegaly, no masses and tender (mild across lower abdomen) Auscultation: normal bowel sounds Back/Spine/Pelvis Back: CVA tenderness (R side) Skin General skin exam: no rashes or lesions noted Neuro General: alert and awake Cognition: normal cognition Speech: speech normal Gait: normal gait Motor: muscle tone normal throughout Sensory Exam: no sensory deficits noted Extrem General: normal to inspection, full ROM and normal capillary refill Psych Appearance: grossly normal Mental Status: mental status grossly normal Speech and Movement: speech and movement normal Affect: normal affect Thought Process: normal Course 07/27/18 19:15 Urine - Reflex from Ua Urine Culture - Pending 07/27/18 19:00 Nasopharynx Influenza Types A,B Antigen - Final - negative Laboratory Tests Range/Units 07/27/18 07/27/18 07/27/18 19:00 19:00 19:15 WBC (4.4-10.8) k/cumm 8.06 RBC (4.00-5.20) m/cumm 2.15 L Hgb (12.0-15.5) g/dL 7.0 L Hct (36.0-46.0) % 21.5 L MCV (80-95) fL 100.0 H MCH (27.0-33.0) pg 32.6 MCHC (32.0-36.0) g/dL 32.6 RDW (11.7-14.6) % 20.2 H Plt Count (130-400) x1000/uL 129 L MPV (8.0-11.0) fL 9.7 Immature Gran % 0.0 Neutrophils % 81.0 Lymphocytes % 11.0 Monocytes % 8.0 Eosinophils % 0.0 Basophils % 0.0 Absolute Neutrophils (1.2-6.7) k/cumm 6.53 Band Neutrophils % 0.0 Absolute Lymphocytes (1.2-3.4) k/cumm 0.89 L Absolute Monocytes (0.11-0.7) k/cumm 0.64 Absolute Eosinophils (0.0-0.7) k/cumm 0.00 Absolute Basophils (0.0-0.2) k/cumm 0.00 Nucleated RBCs /100WBC 1 Differential Comment Manual differential Atypical Lymphocytes 0 RBC Morphology See below Polychromasia Present Anisocytosis 1+ Sodium (136-145) mmol/L 136 Potassium (3.5-5.1) mmol/L 3.4 L Chloride (98-107) mmol/L 100 Carbon Dioxide (21.0-32.0) mmol/L 23.0 Anion Gap (3-11) mmol/L 13.0 H BUN (7-18) mg/dL 30 H Creatinine (0.55-1.02) mg/dL 1.76 H Estimated GFR/1.73 m2 (mL/min/1.73m2) 29.07 Glucose (70-100) mg/dL 190 H Calcium (8.5-10.1) mg/dL 8.6 Magnesium (1.8-2.4) mg/dL 0.9 L Total Bilirubin (0.2-1.0) mg/dL 0.6 Conjugated Bilirubin (0.00-0.20) mg/dL 0.22 H AST (15-37) U/L 11 L ALT (12-78) U/L 18 Alkaline Phosphatase (46-116) U/L 69 Troponin I (0.00-0.06) ng/mL < 0.02 Total Protein (6.4-8.2) g/dL 6.6 Albumin (3.4-5.0) g/dL 3.0 L Urine Color (Yellow) Yellow Urine Clarity Cloudy Urine pH (5-8) 6.0 Ur Specific [place] (1.005-1.025) 1.020 Urine Protein (Negative) mg/dL >=300 H Urine Ketones (Negative) mg/dL Negative Urine Blood (Negative) Moderate H Urine Nitrite (Negative) Negative Urine Bilirubin (Negative) Negative Urine Urobilinogen (Up TO 0.2) EU/dL 0.2 Ur Leukocyte Esterase (Negative) Small H Urine RBC (0-2) >50 H Urine WBC (0-5) HPF >50 Ur Epithelial Cells (Negative) HPF Negative Urine Crystals (Negative) HPF Negative Urine Bacteria (Negative) HPF Many Urine Casts (Negative) LPF Negative Urine Mucus (Negative) Negative Urine Other (Negative) Negative Ur Culture Indicated? Yes Urine Glucose (Negative) mg/dL Negative Patient ABO/Rh Antibody Screen Crossmatch Range/Units 07/27/18 07/27/18 19:50 19:50 WBC (4.4-10.8) k/cumm RBC (4.00-5.20) m/cumm Hgb (12.0-15.5) g/dL Hct (36.0-46.0) % MCV (80-95) fL MCH (27.0-33.0) pg MCHC (32.0-36.0) g/dL RDW (11.7-14.6) % Plt Count (130-400) x1000/uL MPV (8.0-11.0) fL Immature Gran % Neutrophils % Lymphocytes % Monocytes % Eosinophils % Basophils % Absolute Neutrophils (1.2-6.7) k/cumm Band Neutrophils % Absolute Lymphocytes (1.2-3.4) k/cumm Absolute Monocytes (0.11-0.7) k/cumm Absolute Eosinophils (0.0-0.7) k/cumm Absolute Basophils (0.0-0.2) k/cumm Nucleated RBCs /100WBC Differential Comment Atypical Lymphocytes RBC Morphology Polychromasia Anisocytosis Sodium (136-145) mmol/L Potassium (3.5-5.1) mmol/L Chloride (98-107) mmol/L Carbon Dioxide (21.0-32.0) mmol/L Anion Gap (3-11) mmol/L BUN (7-18) mg/dL Creatinine (0.55-1.02) mg/dL Estimated GFR/1.73 m2 (mL/min/1.73m2) Glucose (70-100) mg/dL Calcium (8.5-10.1) mg/dL Magnesium (1.8-2.4) mg/dL Total Bilirubin (0.2-1.0) mg/dL Conjugated Bilirubin (0.00-0.20) mg/dL AST (15-37) U/L ALT (12-78) U/L Alkaline Phosphatase (46-116) U/L Troponin I (0.00-0.06) ng/mL Total Protein (6.4-8.2) g/dL Albumin (3.4-5.0) g/dL Urine Color (Yellow) Urine Clarity Urine pH (5-8) Ur Specific [place] (1.005-1.025) Urine Protein (Negative) mg/dL Urine Ketones (Negative) mg/dL Urine Blood (Negative) Urine Nitrite (Negative) Urine Bilirubin (Negative) Urine Urobilinogen (Up TO 0.2) EU/dL Ur Leukocyte Esterase (Negative) Urine RBC (0-2) Urine WBC (0-5) HPF Ur Epithelial Cells (Negative) HPF Urine Crystals (Negative) HPF Urine Bacteria (Negative) HPF Urine Casts (Negative) LPF Urine Mucus (Negative) Urine Other (Negative) Ur Culture Indicated? Urine Glucose (Negative) mg/dL Patient ABO/Rh O Positive Cancelled Antibody Screen Negative Crossmatch See Detail See Detail Vital Signs Temperature 97.7 F 07/27/18 17:44 Pulse 103 H 07/27/18 17:44 Respiratory Rate 18 07/27/18 17:44 Blood Pressure 128/60 07/27/18 17:44 Pulse Oximetry 99 07/27/18 17:44 Temperature 97.7 F 07/27/18 17:44 Temperature Source Skin 07/27/18 17:44 Pulse 103 H 07/27/18 17:44 Respiratory Rate 18 07/27/18 17:44 Blood Pressure 128/60 07/27/18 17:44 Blood Pressure Position Sitting 07/27/18 17:44 Pulse Oximetry 99 07/27/18 17:44 Oxygen Delivery Method Room Air 10/29/18 17:44 Oxygen Flow Rate 0 07/27/18 17:44 Pain Level 0 07/27/18 17:44
[2018-07-27 19:14] LABS: Abs Immature Grans 0.13 k/cumm (0.0-0.09); HCT 21.5 % (36.0-46.0); Mean Corp. HGB Concentration 32.6 g/dL (32.0-36.0); Mean Corpuscular Hemoglobin 32.6 pg (27.0-33.0); Mean Platelet Volume 9.7 fL (8.0-11.0); Platelet Count 129 x1000/uL (130-400); RBC 2.15 m/cumm (4.00-5.20); RBC Distribution Width 20.2 % (11.7-14.6); White Blood Cell Count 8.06 k/cumm (4.4-10.8)
[2018-07-27 19:30] LABS: Bilirubin Negative (Negative); Blood Moderate (Negative); Clarity Cloudy; Glucose Negative (Negative); Ketones Negative (Negative); Leukocyte Esterase Small (Negative); Nitrite Negative (Negative); Urobilinogen 0.2 EU/dL (Up TO 0.2)
[2018-07-27 19:31] LABS: ALT 18 U/L (12-78); AST 11 U/L (15-37); Alkaline Phosphatase 69 U/L (46-116); BUN 30 mg/dL (7-18); Bilirubin, Direct 0.22 mg/dL (0.00-0.20); Bilirubin, Total 0.6 mg/dL (0.2-1.0); CREATININE 1.76 mg/dL (0.55-1.02); Calcium 8.6 mg/dL (8.5-10.1); Chloride 100 mmol/L (98-107); Estimated GFR 29.07 (mL/min/1.73m2); Glucose 190 mg/dL (70-100); Magnesium 0.9 mg/dL (1.8-2.4); Potassium 3.4 mmol/L (3.5-5.1); Sodium 136 mmol/L (136-145); Total Protein 6.6 g/dL (6.4-8.2)
[2018-07-27 19:38] LABS: Troponin I < 0.02 ng/mL (0.00-0.06)
--- NOTE | 2018-07-27 19:42 | DI.RAD_ITS ---
SYMPTOM/DIAGNOSIS: COUGH, FEVER, H/O CANCER PA AND LATERAL CHEST: Comparison CT is 09/01/12. Heart size and pulmonary vasculature are within normal limits. Note is made of a mitral valve replacement. Sternal wires are in place. There is a central venous catheter, the tip is seen in good position in the superior vena cava. The lungs are clear. No effusions or pneumothoraces are identified. Degenerative changes are seen in the spine. IMPRESSION: No acute pulmonary process.
[2018-07-27 19:49] LABS: Bacteria Many HPF (Negative); C & S Indicated? Yes; Casts Negative LPF (Negative); Crystals Negative HPF (Negative); Epithelial Cells Negative HPF (Negative); Mucus Negative (Negative); Other Cells Negative (Negative); RBC >50 (0-2); WBC >50 HPF (0-5)
[2018-07-27 19:54] LABS: Absolute Lymphocyte Count 0.89 k/cumm (1.2-3.4); Absolute Neutrophil Count 6.53 k/cumm (1.2-6.7)
[2018-07-27 19:55] LABS: Absolute Monocyte Count 0.64 k/cumm (0.11-0.7); Anisocytosis 1+; Atypical Lymphocytes % 0; Diff Comment Manual Differential; Nucleated RBC 1 /100WBC; Polychromasia Present
[2018-07-27] MEDS: Normal Saline 250 ML 500 ML IV (20:02)
--- NOTE | 2018-07-27 20:24 | DI.VRAD_ITS ---
EXAM: XR Chest, 2 Views EXAM DATE/TIME: 07/27/2018 6:09 PM CLINICAL HISTORY: 62 years old, female; Cough and fever; Prior surgery; HX cancer TECHNIQUE: XR of the chest, 2 views. COMPARISON: CT CHEST WITHOUT CONTRAST 09/01/2012 12:53 PM FINDINGS: Tubes, catheters and devices: Tip of right Yoodwe-h-Sjcy catheter in the SVC. Lungs: Unremarkable. No consolidation. Pleural space: Unremarkable. No pleural effusion. No pneumothorax. Heart/Mediastinum: Prior median sternotomy with mitral valve replacement. Bones/joints: Spinal degenerative changes. Soft tissues: Small calcification lateral to the right humeral head which could reflect calcific bursitis or calcific tendinitis. IMPRESSION: No active pulmonary disease. Dictated and Authenticated by: Matt Mac MD. Ordering:SHANDA GEIGER MD
[2018-07-27] MEDS: NORMAL SALINE IVPB (21:53)
[2018-07-27] MEDS: GENTAMICIN IVPB (21:53)
== END 2018-07-27 23:28 | disposition other institution (70) ==
PROVIDERS: Emergency Provider Physician Assistant; PCP General Practice
DX: D64.9 Anemia, unspecified (principal); E83.42 Hypomagnesemia; N10 Acute pyelonephritis; B96.1 Klebsiella pneumoniae [K. pneumoniae] as the cause of diseases classified elsewhere; R53.1 Weakness; R53.83 Other fatigue; C54.1 Malignant neoplasm of endometrium; Z79.899 Other long term (current) drug therapy; Z95.828 Presence of other vascular implants and grafts; E11.9 Type 2 diabetes mellitus without complications; Z79.84 Long term (current) use of oral hypoglycemic drugs; I10 Essential (primary) hypertension
CPT/HCPCS: 36430; 36591; 80053; 80076; 86850; 86900; 86901; 86920; 87077; 87449; 93005; 96361; 96365; 96367; 99285; 71046; 81003; 81015; 83735; 84484; 85025; 87086; 87186; 93010; J1580; J3475; P9016

== ENCOUNTER 2018-08-06 00:55 | Outpatient (RCR) | payer MEDICARE, MEDICAID, SELFPAY ==
[2018-08-06] MEDS: Normal Saline Flush 10 ML SYR IVP (08:20)
[2018-08-06 08:35] LABS: Abs Immature Grans 0.02 k/cumm (0.0-0.09); Absolute Basophil Count 0.04 k/cumm (0.0-0.2); Absolute Eosinophil Count 0.01 k/cumm (0.0-0.7); Absolute Lymphocyte Count 0.66 k/cumm (1.2-3.4); Absolute Neutrophil Count 3.35 k/cumm (1.2-6.7); Basophils % 0.9; Eosinophils % 0.2; HCT 29.2 % (36.0-46.0); HGB 9.2 g/dL (12.0-15.5); Immature Grans % 0.4; Lymphocytes % 14.4; Mean Corp. HGB Concentration 31.5 g/dL (32.0-36.0); Mean Corpuscular Hemoglobin 30.4 pg (27.0-33.0); Mean Corpuscular Volume 96.4 fL (80-95); Mean Platelet Volume 8.9 fL (8.0-11.0); Monocytes % 10.9; Neutrophils % 73.2; Platelet Count 171 x1000/uL (130-400); RBC 3.03 m/cumm (4.00-5.20); RBC Distribution Width 20.2 % (11.7-14.6); White Blood Cell Count 4.58 k/cumm (4.4-10.8)
[2018-08-06 08:53] LABS: ALT 17 U/L (12-78); AST 13 U/L (15-37); Albumin 2.8 g/dL (3.4-5.0); Alkaline Phosphatase 67 U/L (46-116); Anion Gap 13.9 mmol/L (3-11); BUN 20 mg/dL (7-18); Bilirubin, Total 0.6 mg/dL (0.2-1.0); CO2 22.1 mmol/L (21.0-32.0); CREATININE 1.94 mg/dL (0.55-1.02); Calcium 8.7 mg/dL (8.5-10.1); Chloride 104 mmol/L (98-107); Estimated GFR 25.98 (mL/min/1.73m2); Glucose 199 mg/dL (70-100); Potassium 3.6 mmol/L (3.5-5.1); Sodium 140 mmol/L (136-145); Total Protein 6.7 g/dL (6.4-8.2)
== END 2018-08-28 23:59 | disposition home or self-care (01) ==
LOC: INF 00:55
PROVIDERS: Internal Medicine Medical Oncology; PCP General Practice; Visit Provider General Practice
DX: C54.1 Malignant neoplasm of endometrium (principal); Z45.2 Encounter for adjustment and management of vascular access device
CPT/HCPCS: 36591; 80053; 86900; 86901; 85025

== ENCOUNTER 2018-08-13 14:47 | Emergency (ER) | payer MEDICARE, MEDICAID, SELFPAY ==
--- NOTE | 2018-08-13 15:11 | W.ED.GENAD ---
Discharge Plan Disposition Patient Disposition: HOME Condition: Good Discharge Details Chief Complaint: Dizzy/Sync Clinical Impression: Syncope Primary Care Provider: Ron De La Rosa ED Provider: Rigoberto Schmitt Home Meds and New Rx's Prescriptions: Continue losartan [Cozaar] 50 MG tablet 100 mg PO DAILY RF: 0 furosemide [Lasix] 40 MG tablet 80 mg PO DAILY RF: 0 metoprolol succinate [Toprol XL] 50 MG tablet extended release 24 hr 50 mg PO BID RF: 0 citalopram [Celexa] 10 MG tablet 30 mg PO DAILY RF: 0 isosorbide mononitrate 30 MG tablet extended release 24 hr 30 mg PO DAILY Qty: 0.5 RF: 0 metformin 1,000 MG tablet 1,000 mg PO BID RF: 0 loratadine 10 MG tablet 10 mg PO DAILY RF: 0 glipizide 5 MG tablet 2.5 mg PO DAILY Qty: 0.5 RF: 0 simvastatin [Zocor] 40 mg Tablet 40 mg PO HS RF: 0 Discharge Instructions Instructions: Syncope (ED), Hypomagnesemia (ED) Additional Instructions: follow up with your primary care provider within 2 weeks if you have chest pain/pressure, difficulty breathing, severe abdominal pain or back pain return to the emergency department Medical Decision Making 62 yo female with hx of ckd, endometrial cancer (last chemotherapy a month ago), dm, htn, who comes in with complaint of syncope x2 today. She states while getting up in the pcp's office she felt lightheaded and passed out for a few seconds. This also happened at home. She denies any symptoms such as chest pain or sob or [place] or abd pain or back pain. She is noted to be orthostatic on vitals, will give IVF. She did require transfusion a month ago for anemia so will check a cbc. No infectious symptoms to suggest underlying infection at this time. No chest pain/sob and unchanged ecg so doubt acs. No hypoxia, tachycardia or evidence of dvt and no cp/sob so do not feel eval for Pe indicated at this time pt's tele has remained normal here. She remains asymptomatic, labs show chronically low mag and otherwise no acute findings, chronic anemia without need for transfusion at this time. no pericardial effusion, no obvious wall motion abnormalities or dilated rv on bedside cardiac u/s. Will d/c home on zio patch after discussion of this vs admission pt after shared decision making chose d/c with zio. Advised f/u with pcp and return precautions given Differential Diagnosis syncope, anemia, orthostasis, acs Lab Data Lab results reviewed: Yes I reviewed the patient's lab results. ECG Data Attestation: I personally reviewed and interpreted this ECG (s) as follows: Prior ECG tracings: available for review Interpretation: sinus rhythm, rate of 76, normal pr, no acute st t wave changes HPI General Mode of arrival: ambulatory. Date/Time Provider Initiated Documentation: 08/13/18 14:48. Limitations to Documentation: no limitations. Information obtained by: patient. History of Present Illness 62 year old F presents to the emergency department with the chief complaint of syncope, Patient started experiencing this hour(s) (1) and it has been now resolved. No relieving factors improve symptom(s), Other factors that worsen symptoms (standing up ) . Patient did receive the following treatments prior to arrival, none Related Data Home Medications Medication Instructions Recorded Confirmed citalopram [Celexa] 30 mg PO DAILY tab-cap 07/21/13 furosemide [Lasix] 80 mg PO DAILY tab-cap 07/21/13 07/27/18 glipizide 2.5 mg PO DAILY #0.5 07/21/13 07/27/18 isosorbide mononitrate 30 mg PO DAILY #0.5 tab-cap 07/21/13 07/27/18 loratadine 10 mg PO DAILY tab-cap 07/21/13 07/13/18 losartan [Cozaar] 100 mg PO DAILY tab-cap 07/21/13 07/27/18 metformin 1,000 mg PO BID tab-cap 07/21/13 07/27/18 metoprolol succinate [Toprol XL] 50 mg PO BID 07/21/13 07/27/18 simvastatin [Zocor] 40 mg PO HS 07/27/18 07/27/18 Allergies Allergy/AdvReac Type Severity Reaction Status Date / Time bee venom protein (honey bee) Allergy Severe anaphylaxis Unverified 07/27/18 17:51 Penicillins Allergy Severe anaphylaxis Unverified 07/27/18 17:51 hydrocodone [From Vicodin] AdvReac Intermediate vomiting Unverified 07/27/18 17:52 acetaminophen [From Vicodin] AdvReac Mild no problem Unverified 07/27/18 17:52 with tylenol General RENY: 3 Review of Systems Review of Systems All systems reviewed & are unremarkable except as noted in HPI and below Constitutional Denies chills, Denies fever(s) and Denies weakness ENT Denies change in voice Cardiovascular Denies chest pain and Denies dyspnea Respiratory Denies dyspnea Gastrointestinal Denies abdominal pain, Denies nausea and Denies vomiting Genitourinary Denies dysuria Musculoskeletal Denies joint swelling Integumentary/Breasts Denies rash Neurologic Denies weakness Exam Const General: no acute distress Orientation: alert HENNE Head: normal to inspection Ears: external ears normal General nose exam: external nose normal Mouth: moist mucous membranes Eyes General: appearance normal, both eyes and all related structures Neck Neck: normal visual inspection Resp Effort & Inspection: normal respiratory effort and able to speak in complete sentences Cardio Rate: regular rate Skin General skin exam: no rashes or lesions noted Neuro General: alert and oriented x3 Extrem General: normal to inspection Psych Mental Status: mental status grossly normal
--- NOTE | 2018-08-13 15:20 | ED.GENADUL_ITS ---
Discharge Plan Disposition Patient Disposition: HOME Condition: Good Discharge Details Chief Complaint: Dizzy/Sync Clinical Impression: Syncope Primary Care Provider: Ron De La Rosa ED Provider: Rigoberto Schmitt Home Meds and New Rx's Prescriptions: Continue losartan [Cozaar] 50 MG tablet 100 mg PO DAILY RF: 0 furosemide [Lasix] 40 MG tablet 80 mg PO DAILY RF: 0 metoprolol succinate [Toprol XL] 50 MG tablet extended release 24 hr 50 mg PO BID RF: 0 citalopram [Celexa] 10 MG tablet 30 mg PO DAILY RF: 0 isosorbide mononitrate 30 MG tablet extended release 24 hr 30 mg PO DAILY Qty: 0.5 RF: 0 metformin 1,000 MG tablet 1,000 mg PO BID RF: 0 loratadine 10 MG tablet 10 mg PO DAILY RF: 0 glipizide 5 MG tablet 2.5 mg PO DAILY Qty: 0.5 RF: 0 simvastatin [Zocor] 40 mg Tablet 40 mg PO HS RF: 0 Discharge Instructions Instructions: Syncope (ED), Hypomagnesemia (ED) Additional Instructions: follow up with your primary care provider within 2 weeks if you have chest pain/pressure, difficulty breathing, severe abdominal pain or back pain return to the emergency department Medical Decision Making 62 yo female with hx of ckd, endometrial cancer (last chemotherapy a month ago) , dm, htn, who comes in with complaint of syncope x2 today. She states while getting up in the pcp's office she felt lightheaded and passed out for a few seconds. This also happened at home. She denies any symptoms such as chest pain or sob or [place] or abd pain or back pain. She is noted to be orthostatic on vitals , will give IVF. She did require transfusion a month ago for anemia so will check a cbc. No infectious symptoms to suggest underlying infection at this time. No chest pain/sob and unchanged ecg so doubt acs. No hypoxia, tachycardia or evidence of dvt and no cp/sob so do not feel eval for Pe indicated at this time pt's tele has remained normal here. She remains asymptomatic, labs show chronically low mag and otherwise no acute findings, chronic anemia without need for transfusion at this time. no pericardial effusion, no obvious wall motion abnormalities or dilated rv on bedside cardiac u/s. Will d/c home on zio patch after discussion of this vs admission pt after shared decision making chose d/c with zio. Advised f/u with pcp and return precautions given Differential Diagnosis syncope, anemia, orthostasis, acs Lab Data Lab results reviewed: Yes I reviewed the patient's lab results. ECG Data Attestation: I personally reviewed and interpreted this ECG (s) as follows: Prior ECG tracings: available for review Interpretation: sinus rhythm, rate of 76, normal pr, no acute st t wave changes HPI General Mode of arrival: ambulatory . Date/Time Provider Initiated Documentation: 08/13/18 14:48 . Limitations to Documentation: no limitations . Information obtained by: patient . History of Present Illness 62 year old F presents to the emergency department with the chief complaint of syncope, Patient started experiencing this hour(s) (1) and it has been now resolved. No relieving factors improve symptom(s), Other factors that worsen symptoms (standing up ) . Patient did receive the following treatments prior to arrival, none Related Data Home Medications Medication Instructions Recorded Confirmed citalopram [Celexa] 30 mg PO DAILY tab-cap 07/21/13 furosemide [Lasix] 80 mg PO DAILY tab-cap 07/21/13 07/27/18 glipizide 2.5 mg PO DAILY #0.5 07/21/13 07/27/18 isosorbide mononitrate 30 mg PO DAILY #0.5 tab-cap 07/21/13 07/27/18 loratadine 10 mg PO DAILY tab-cap 07/21/13 07/13/18 losartan [Cozaar] 100 mg PO DAILY tab-cap 07/21/13 07/27/18 metformin 1,000 mg PO BID tab-cap 07/21/13 07/27/18 metoprolol succinate [Toprol XL] 50 mg PO BID 07/21/13 07/27/18 simvastatin [Zocor] 40 mg PO HS 07/27/18 07/27/18 Allergies Allergy/AdvReac Type Severity Reaction Status Date / Time bee venom protein (honey bee) Allergy Severe anaphylaxis Unverified 07/27/18 17: 51 Penicillins Allergy Severe anaphylaxis Unverified 07/27/18 17:51 hydrocodone [From Vicodin] AdvReac Intermediate vomiting Unverified 07/27/18 17: 52 acetaminophen [From Vicodin] AdvReac Mild no problem Unverified 07/27/18 17:52 with tylenol General RENY: 3 Review of Systems Review of Systems All systems reviewed & are unremarkable except as noted in HPI and below Constitutional Denies chills, Denies fever(s) and Denies weakness ENT Denies change in voice Cardiovascular Denies chest pain and Denies dyspnea Respiratory Denies dyspnea Gastrointestinal Denies abdominal pain, Denies nausea and Denies vomiting Genitourinary Denies dysuria Musculoskeletal Denies joint swelling Integumentary/Breasts Denies rash Neurologic Denies weakness Exam Const General: no acute distress Orientation: alert HENAL Head: normal to inspection Ears: external ears normal General nose exam: external nose normal Mouth: moist mucous membranes Eyes General: appearance normal, both eyes and all related structures Neck Neck: normal visual inspection Resp Effort & Inspection: normal respiratory effort and able to speak in complete sentences Cardio Rate: regular rate Skin General skin exam: no rashes or lesions noted Neuro General: alert and oriented x3 Extrem General: normal to inspection Psych Mental Status: mental status grossly normal
[2018-08-13] MEDS: Normal Saline 1,000 ML 1000 ML IV (15:40)
[2018-08-13 15:44] VITALS: BP 103/38; PULSE 71; RESP 18; TEMP 36.8; O2SAT 95
[2018-08-13 15:52] LABS: Abs Immature Grans 0.05 k/cumm (0.0-0.09); Absolute Basophil Count 0.02 k/cumm (0.0-0.2); Absolute Eosinophil Count 0.14 k/cumm (0.0-0.7); Absolute Lymphocyte Count 0.73 k/cumm (1.2-3.4); Absolute Monocyte Count 0.48 k/cumm (0.11-0.7); Absolute Neutrophil Count 3.42 k/cumm (1.2-6.7); Basophils % 0.4; Eosinophils % 2.9; HCT 27.8 % (36.0-46.0); HGB 9.2 g/dL (12.0-15.5); Lymphocytes % 15.1; Mean Corp. HGB Concentration 33.1 g/dL (32.0-36.0); Mean Corpuscular Hemoglobin 32.2 pg (27.0-33.0); Mean Corpuscular Volume 97.2 fL (80-95); Mean Platelet Volume 9.2 fL (8.0-11.0); Monocytes % 9.9; Neutrophils % 70.7; Platelet Count 170 x1000/uL (130-400); RBC 2.86 m/cumm (4.00-5.20); RBC Distribution Width 21.5 % (11.7-14.6); White Blood Cell Count 4.84 k/cumm (4.4-10.8)
[2018-08-13 16:07] LABS: INR 1.1 (1.0-3.5); PTT Activated 28.2 sec (21.0-31.4); Prothrombin Time 10.5 sec (9.3-10.8)
[2018-08-13 16:08] LABS: ALT 19 U/L (12-78); AST 21 U/L (15-37); Albumin 3.3 g/dL (3.4-5.0); Alkaline Phosphatase 72 U/L (46-116); Anion Gap 10.6 mmol/L (3-11); BUN 40 mg/dL (7-18); Bilirubin, Total 0.9 mg/dL (0.2-1.0); CO2 25.4 mmol/L (21.0-32.0); CREATININE 1.94 mg/dL (0.55-1.02); Calcium 9.4 mg/dL (8.5-10.1); Chloride 99 mmol/L (98-107); Estimated GFR 25.98 (mL/min/1.73m2); Glucose 155 mg/dL (70-100); Magnesium 1.2 mg/dL (1.8-2.4); Sodium 135 mmol/L (136-145); Total Protein 6.8 g/dL (6.4-8.2)
[2018-08-13 16:10] LABS: Troponin I < 0.02 ng/mL (0.00-0.06)
[2018-08-13 17:56] VITALS: BP 133/85; PULSE 80; RESP 18; TEMP 36.9; O2SAT 99
--- NOTE | 2018-09-07 09:50 | ZIOP_ITS ---
ZIO Patch MONITOR DATE OF DICTATION September 07, [address] 12 days 23 hours, August 13-2017 INTERPRETATION Baseline rhythm sinus. Frequent single PAC. 106 burst SVT, longest 11.7 seconds, fastest 197 beats per minute. Rare single PVC. Rare couplet. 1 burst nonsustained VT, 4 beat duration at 162 beats per minute. No bradycardia or block. 3 triggered events all during sinus rhythm +/- single PAC, 73-89 beats per minute. SYMPTOMS No symptoms. Triggered events x2 during sinus rhythm. Average heart rate sinus 76 beats per minute, range 65-106 beats per minute. Rigoberto Leiva M.D. ZAYDA/inge T- 09/07/2018
== END 2018-08-13 17:17 | disposition home or self-care (01) ==
PROVIDERS: Emergency Provider Emergency Medicine; PCP General Practice
DX: R42 Dizziness and giddiness (principal); I10 Essential (primary) hypertension; E11.9 Type 2 diabetes mellitus without complications; Z79.84 Long term (current) use of oral hypoglycemic drugs
CPT/HCPCS: 36415; 80053; 86850; 86900; 86901; 93005; 93225; 96360; 99284; 83735; 84484; 85025; 85610; 85730; 86870; 93010

== ENCOUNTER 2018-09-07 08:50 | Outpatient (CLI) | payer MEDICARE, MEDICAID, SELFPAY | END 2018-09-07 09:10 | PROVIDERS: PCP General Practice; Referring Provider Emergency Medicine; Visit Provider Internal Medicine Interventional Cardiology | DX: R42 Dizziness and giddiness (principal); I49.1 Atrial premature depolarization; I47.1 Supraventricular tachycardia | CPT/HCPCS: 0298T ==

== ENCOUNTER 2018-10-26 12:21 | Outpatient (CLI) | payer MEDICARE, MEDICAID, SELFPAY ==
[2018-10-26 13:00] LABS: Abs Immature Grans 0.01 k/cumm (0.0-0.09); Absolute Basophil Count 0.03 k/cumm (0.0-0.2); Absolute Eosinophil Count 0.22 k/cumm (0.0-0.7); Absolute Lymphocyte Count 0.66 k/cumm (1.2-3.4); Absolute Monocyte Count 0.54 k/cumm (0.11-0.7); Absolute Neutrophil Count 3.82 k/cumm (1.2-6.7); Basophils % 0.6; Eosinophils % 4.2; HCT 31.4 % (36.0-46.0); HGB 9.7 g/dL (12.0-15.5); Immature Grans % 0.2; Lymphocytes % 12.5; Mean Corp. HGB Concentration 30.9 g/dL (32.0-36.0); Mean Corpuscular Hemoglobin 33.4 pg (27.0-33.0); Mean Corpuscular Volume 108.3 fL (80-95); Mean Platelet Volume 9.5 fL (8.0-11.0); Monocytes % 10.2; Neutrophils % 72.3; Platelet Count 194 x1000/uL (130-400); RBC Distribution Width 13.8 % (11.7-14.6); White Blood Cell Count 5.28 k/cumm (4.4-10.8)
[2018-10-26 14:57] LABS: Diff Comment RBC Morph Reviewed
[2018-10-26 14:58] LABS: Macrocytosis 2+; Polychromasia Present
== END 2018-10-26 12:41 ==
PROVIDERS: PCP General Practice; Visit Provider General Practice
DX: R06.02 Shortness of breath (principal)
CPT/HCPCS: 36415; 85025

== ENCOUNTER 2018-11-02 11:29 | Outpatient (CLI) | payer MEDICARE, MEDICAID, SELFPAY ==
[2018-11-02 14:28] LABS: Folate 17.2 ng/mL (8.6-20.0); Vitamin B12 247 pg/mL (193-986)
== END 2018-11-02 11:49 ==
PROVIDERS: PCP General Practice; Visit Provider General Practice
DX: D75.89 Other specified diseases of blood and blood-forming organs (principal); D64.9 Anemia, unspecified
CPT/HCPCS: 36415; 82607; 82746

== ENCOUNTER 2018-11-12 00:27 | Outpatient (CLI) | payer MEDICARE, MEDICAID, SELFPAY ==
--- NOTE | 2018-11-12 09:25 | DI.MAMMO_ITS ---
SYMPTOM/DIAGNOSIS: SCREENING, Z12.31 MAMMOGRAMS: Mammograms were interpreted according to the usual protocol including computer analysis with CAD system, tomosynthesis and C view imaging. The breasts are of moderate density with fairly symmetrical distribution of fibroglandular tissue. No dominant mass or clumped microcalcification is identified in either breast. The current examination is compared with the previous examinations including 10/2017 and there has been no gross interval change in appearance in comparison with the previous studies. CONCLUSION: No specific evidence of malignancy at this time. Routine screening examinations are suggested at yearly intervals due to the family history of breast carcinoma. Category 1. Breast density, category B. MQSA ASSESSMENT OF FINDINGS: Negative. Category 1. Patient will receive a letter notifying them of these results. BI-RADS category B. There are scattered areas of fibroglandular density.
== END 2018-11-12 00:47 ==
PROVIDERS: PCP General Practice; Visit Provider Nurse Practitioner Family
DX: Z12.31 Encounter for screening mammogram for malignant neoplasm of breast (principal); Z80.3 Family history of malignant neoplasm of breast
CPT/HCPCS: 77063; 77067

== ENCOUNTER 2019-01-01 10:33 | Outpatient (CLI) | payer MEDICARE, MEDICAID, SELFPAY ==
[2019-01-01 12:11] LABS: Albumin 3.4 g/dL (3.4-5.0); NT-proBNP 6505 pg/mL
== END 2019-01-01 10:53 ==
PROVIDERS: PCP General Practice; Visit Provider General Practice
DX: I50.9 Heart failure, unspecified (principal); R18.8 Other ascites
CPT/HCPCS: 36415; 82040; 83880

== ENCOUNTER 2019-01-19 00:35 | Outpatient (CLI) | payer MEDICARE, MEDICAID, SELFPAY ==
--- NOTE | 2019-01-19 13:55 | MERGE_ITS ---
*[facility]* *[facility]* [address] [place] [address] Date of study: 01/19/2019 Transthoracic Echocardiography M-mode, complete 2D, complete spectral Doppler, and color Doppler *STUDY CONCLUSIONS* Summary: 1. Left ventricle: The cavity size was normal. Wall thickness was normal. Systolic function was at the lower limits of normal. The estimated ejection fraction was 50-55%. Wall motion was normal; there were no regional wall motion abnormalities. Doppler parameters are consistent with high ventricular filling pressure. 2. Mitral valve: Prior procedures included surgical repair. An annular ring prosthesis was present. Mean gradient (D): 2.7mm Hg. 3. Left atrium: The atrium was severely dilated. 4. Right ventricle: The cavity size was severely dilated (apex forming). Wall thickness was normal. Systolic function was low normal by visual assessment. 5. Right atrium: The atrium was severely dilated. 6. Tricuspid valve: There was malcoaptation of the valve leaflets. There was severe regurgitation. 7. Pulmonic valve: There was moderate regurgitation. 8. Pulmonary arteries: Pulmonary systolic pressure was severely increased. PA peak pressure: 70mm Hg (S) plus right atrial pressure. *PATIENT PRESENTATION* Height: 157.5cm ((62in) ) S/D Pressure: 125 / 76 Weight: 108.9kg ((239.5lb) ) BSA: 2.25m^2 Test start time: 02:10 PM. Test stop time: 03:15 PM. ORDERING Ron De La Rosa REFERRING Ron De La Rosa PERFORMING Unknown PERFORMING [facility] [employer]ONEC[employer] RT Natali (R)(CT), RDCS *PROCEDURE DATA* Procedure information: The patient was identified by two identifiers. This study was interpreted by [facility]. Pertinent images and digital data are archived for permanent storage and are available for subsequent review. Comparison was made to the study of 2009. Study status: Routine. Transthoracic echocardiography. M-mode, complete 2D, complete spectral Doppler, and color Doppler. A Transthoracic Echocardiogram was performed. Scanning was performed from the parasternal, apical, subcostal, and suprasternal notch acoustic windows. Images were obtained using an [id number] cardiac ultrasound machine. Study completion: The patient tolerated the procedure well. There were no complications. History: PMH: CHF I50.9 *CARDIAC ANATOMY* Left ventricle: The cavity size was normal. Wall thickness was normal. Systolic function was at the lower limits of normal. The estimated ejection fraction was 50-55%. Wall motion was normal; there were no regional wall motion abnormalities. Findings consistent with diastolic dysfunction. Doppler parameters are consistent with high ventricular filling pressure. Aortic valve: Trileaflet; normal thickness leaflets. Mobility was not restricted. Doppler: Transvalvular velocity was within the normal range. There was no stenosis. There was no significant regurgitation. VTI ratio of LVOT to aortic valve: 0.67. Valve area (VTI): 2.5cm^2. Indexed valve area (VTI): 1.1cm^2/m^2. Peak velocity ratio of LVOT to aortic valve: 0.64. Valve area (Vmax): 2.4cm^2. Indexed valve area (Vmax): 1.1cm^2/m^2. Mean velocity ratio of LVOT to aortic valve: 0.65. Valve area (Vmean): 2.4cm^2. Indexed valve area (Vmean): 1.1cm^2/m^2. Mean gradient (S): 4.1mm Hg. Peak gradient (S): 6.5mm Hg. Aorta: Aortic root: The aortic root was normal in size. Mitral valve: Prior procedures included surgical repair. An annular ring prosthesis was present. Mobility was not restricted. Doppler: There was no evidence for stenosis. There was no significant regurgitation. Valve area by pressure half-time: 4cm^2. Indexed valve area by pressure half-time: 1.8cm^2/m^2. Mean gradient (D): 2.7mm Hg. Peak gradient (D): 8.2mm Hg. Left atrium: The atrium was severely dilated. Right ventricle: The cavity size was severely dilated (apex forming). Wall thickness was normal. Systolic function was low normal by visual assessment. Pulmonic valve: The pulmonary valve appears to be grossly normal. Doppler: Transvalvular velocity was within the normal range. There was no evidence for stenosis. There was moderate regurgitation. Tricuspid valve: Structurally normal valve. There was malcoaptation of the valve leaflets. Doppler: Transvalvular velocity was within the normal range. There was no evidence for stenosis. There was severe regurgitation. Pulmonary artery: Pulmonary systolic pressure was severely increased. Right atrium: The atrium was severely dilated. Pericardium: There was no pericardial effusion. Systemic veins: Inferior vena cava: Well visualized. The vessel was patent and normal in size. The respirophasic diameter changes were blunted (less than 50%). Measurements Left ventricle Value Reference LV ID, ED, PLAX 4.7 cm 3.5 - 6.0 LV ID, ES, PLAX 3.7 cm 2.1 - 4.0 LV PW thickness, ED, PLAX 1.2 cm LV end-diastolic volume, 1-p A2C 68 ml LV ejection fraction, 1-p A2C 51 % LV end-diastolic volume, 1-p A4C 75 ml LV ejection fraction, 1-p A4C 56 % LV e', lateral 0.106 m/sec LV E/e', lateral 14 LV e', medial 0.084 m/sec LV E/e', medial 17 LV e', average 0.095 m/sec LV E/e', average 15 Ventricular septum Value Reference IVS thickness, ED, PLAX 1.0 cm LVOT Value Reference LVOT ID, A-P 2.2 cm LVOT area 3.7 cm^2 LVOT peak velocity, S 0.81 m/sec LVOT mean velocity, S 0.62 m/sec LVOT VTI, S 16.8 cm LVOT peak gradient, S 2.7 mm Hg LVOT mean gradient, S 1.7 mm Hg Stroke volume (SV), LVOT DP 62 ml Stroke index (SV/bsa), LVOT DP 28 ml/m^2 Aortic valve Value Reference Aortic valve peak velocity, S 1.3 m/sec Aortic valve mean velocity, S 0.96 m/sec Aortic valve VTI, S 25.0 cm Aortic mean gradient, S 4.1 mm Hg Aortic peak gradient, S 6.5 mm Hg VTI ratio, LVOT/AV 0.67 Aortic valve area, VTI 2.5 cm^2 Velocity ratio, peak, LVOT/AV 0.64 Aortic valve area, peak velocity 2.4 cm^2 Velocity ratio, mean, LVOT/AV 0.65 Aortic valve area, mean velocity 2.4 cm^2 Aortic valve area/bsa, mean velocity 1.1 cm^2/m^2 Aorta Value Reference Aortic root ID, ED 3.2 cm Ascending aorta ID, A-P, S 3.3 cm Left atrium Value Reference LA ID, A-P, ES 4.5 cm LA ID/bsa, A-P 2.0 cm/m^2 <=2.2 LA area, ES, A4C (H) 28.1 cm^2 8.8 - 23.4 LA area, ES, A2C 18 cm^2 LA volume/bsa, ES, 1-p A4C 52 ml/m^2 LA volume, ES, 2-p 77 ml LA volume/bsa, ES, 2-p 34 ml/m^2 LA/aortic root ratio 1.38 Mitral valve Value Reference Mitral E-wave peak velocity 1.43 m/sec Mitral A-wave peak velocity 0.8 m/sec Mitral deceleration time 189 ms 150 - 230 Mitral pressure half-time 55 ms Mitral mean gradient, D 2.7 mm Hg Mitral peak gradient, D 8.2 mm Hg Mitral E/A ratio, peak 1.78 Mitral valve area, PHT, DP 4 cm^2 Pulmonary arteries Value Reference PA pressure, S, DP (H) 70 mm Hg <=30 Tricuspid valve Value Reference Tricuspid regurg peak velocity 4.9 m/sec Tricuspid peak RV-RA gradient 95.6 mm Hg Right atrium Value Reference RA area, ES, A4C (H) 27.4 cm^2 8.3 - 19.5 Pulmonic valve Value Reference Pulmonic regurg velocity, ED 1.63 m/sec Pulmonic regurg gradient, ED 11 mm Hg Legend: (L) and (H) hina values outside specified reference range. I have personally reviewed the images and have reviewed and edited the reported findings. Electronically signed by Darnell Reyes 01/19/2019 16:22
== END 2019-01-19 00:55 ==
PROVIDERS: PCP General Practice; Visit Provider General Practice
DX: I50.9 Heart failure, unspecified (principal); I51.7 Cardiomegaly; I10 Essential (primary) hypertension; Z95.828 Presence of other vascular implants and grafts
CPT/HCPCS: 93306

== ENCOUNTER 2019-01-21 11:04 | Outpatient (CLI) | payer MEDICARE, MEDICAID, SELFPAY ==
--- NOTE | 2019-01-21 12:00 | DI.US_ITS ---
SYMPTOMS/DIAGNOSIS: BILATERAL LEG SWELLING, COR PULMONALE, ? DVT BILATERAL LEG ULTRASOUND: The study was limited due to the presence of bilateral leg edema. There is no evidence of DVT, or superficial thrombophlebitis or a Pike's cyst involving the right or left leg.
[2019-01-21 13:01] LABS: Anion Gap 11.5 mmol/L (3-11); BUN 15 mg/dL (7-18); CO2 25.5 mmol/L (21.0-32.0); Chloride 104 mmol/L (98-107); Estimated GFR 34.85 (mL/min/1.73m2); Sodium 141 mmol/L (136-145)
== END 2019-01-21 11:24 ==
PROVIDERS: PCP General Practice; Visit Provider General Practice
DX: R22.43 Localized swelling, mass and lump, lower limb, bilateral (principal); R60.0 Localized edema; I27.81 Cor pulmonale (chronic)
CPT/HCPCS: 36415; 80051; 84520; 82565; 93970

== ENCOUNTER 2019-02-02 02:57 | Outpatient (CLI) | payer OTHER, MEDICAID, SELFPAY ==
--- NOTE | 2019-02-02 | PFT_ITS ---
PULMONARY FUNCTION TEST REPORT Patient - Anjana Cobian 1955 DATE OF SERVICE February 02, 2019 REQUESTING PROVIDER Ron De La Rosa M.D. INTERPRETATION OF STUDY Spirometry shows moderately severe obstructive airways disease with no significant bronchodilator response. LUNG VOLUMES - Lung volumes show no evidence of restriction. DIFFUSION CAPACITY- Severely reduced, which is mildly reduced when corrected to alveolar volume. AIRWAY RESISTANCE Normal. IMPRESSION Moderately severe obstructive airways disease with no significant bronchodilator response. This is associated with severe diffusion defect. Clinical correlation recommended. Demetrice Castro M.D. Stephane DD 02/03/2019 DT - 02/03/2019
[2019-02-02] MEDS: Inhaler, Assist Device 1 EACH MC (14:36)
[2019-02-02] MEDS: Albuterol HFA 18 GM 200 PUFF INH IH (14:36)
== END 2019-02-02 03:17 ==
PROVIDERS: PCP General Practice; Visit Provider General Practice
DX: R06.09 Other forms of dyspnea (principal); I27.81 Cor pulmonale (chronic); Z87.891 Personal history of nicotine dependence
CPT/HCPCS: 94060; 94150; 94726; 94729

== ENCOUNTER → 2019-03-01 02:27 | Outpatient (CLI) | payer OTHER, MEDICAID, SELFPAY ==
[2019-03-01 10:21] LABS: HCO3 20 mmol/L (22-28); pCO2 36 mmHg (34-47); pH 7.37 (7.35-7.45); pO2 74 mmHg (83-108); sO2 95 % (94-98); tCO2 20 mmol/L (22-29)
[2019-03-01 10:32] LABS: BE -4.9 mmol/L (-3-3)
[2019-03-01 10:33] LABS: FIO2 RA %
[2019-03-01 10:34] LABS: Site Right Radial
== END ==
PROVIDERS: PCP General Practice; Visit Provider General Practice
DX: I27.20 Pulmonary hypertension, unspecified (principal)
CPT/HCPCS: 82805; 36600

== ENCOUNTER 2019-03-29 10:32 | Outpatient (CLI) | payer OTHER, MEDICAID, SELFPAY ==
[2019-03-29 12:08] LABS: Anion Gap 13.2 mmol/L (3-11); BUN 23 mg/dL (7-18); CO2 25.8 mmol/L (21.0-32.0); CREATININE 1.98 mg/dL (0.55-1.02); Chloride 106 mmol/L (98-107); Potassium 3.7 mmol/L (3.5-5.1); Sodium 145 mmol/L (136-145)
== END 2019-03-29 10:52 ==
PROVIDERS: PCP General Practice; Visit Provider General Practice
DX: I50.9 Heart failure, unspecified (principal)
CPT/HCPCS: 36415; 80051; 84520; 82565

== ENCOUNTER 2019-04-07 13:13 | Emergency (ER) | payer OTHER, MEDICAID, SELFPAY ==
[2019-04-07 13:21] VITALS: BP 133/60; PULSE 73; RESP 20; TEMP 36.8; O2SAT 94
[2019-04-07 13:26] VITALS: RESP 24
--- NOTE | 2019-04-07 13:37 | ED.GENADUL_ITS ---
Discharge Plan Disposition Patient Disposition: HOME Condition: Stable Discharge Details Chief Complaint: SOB Clinical Impression: Ascites Primary Care Provider: Ron De La Rosa ED Provider: Rigoberto Schmitt Home Meds and New Rx's Prescriptions: No Action metoprolol succinate [Toprol XL] 50 MG tablet extended release 24 hr 50 mg PO BID RF: 0 metformin 1,000 MG tablet 1,000 mg PO BID RF: 0 loratadine 10 MG tablet 10 mg PO DAILY RF: 0 glipizide 5 MG tablet 2.5 mg PO DAILY Qty: 0.5 RF: 0 simvastatin [Zocor] 40 mg Tablet 40 mg PO HS RF: 0 furosemide [Lasix] 40 mg Tablet 40 mg PO BID RF: 0 Viibryd 10 mg Tablet 20 mg PO DAILY RF: 0 Discharge Instructions Instructions: Ascites (ED), Hypomagnesemia (ED) Additional Instructions: you have an appointment on Friday at 945am with Dr. Nichols, the general surgeon If you have high fevers, severe abdominal pain or feel more ill return to the emergency department for reevaluation follow up with your primary care provider in 1-2 weeks and discuss repeating your thyroid function studies Medical Decision Making 63 yo female with hx of endometrial cancer who finished chemotherpay last june per pt, DM, htn, who has had fluid drained from her abdomen in the past comes in with increasing shortness of breath and general weakness over a month. She states her pcp started her on lasix last week but still has symptoms and was seeing [facility] today who sent her here. She denies fevers, chest pain or pressure. She is in no distress with clear lungs on exam, does have significant abdominal distention on exam without tenderness. Suspect her symptoms are due to recurrent ascites. No fevers or pain so doubt sbp. Will obtain lab work and imaging and monitor. No evidence of dvt on exam and no tachycardia so doubt PE at this time. labs show chronically low magnesium and free t4 of 16 with normal free t4, and ct confirms ascites without other acute pathology per Dr. Owen. She remains stable and at this time would prefer to have this drained with a surgeon outpatient. Given lack of fever and abdominal pain do not feel she requires emergent drainage. She had ascites drained twice at [facility] [place], [place] last year but would prefer to have it done up here so will refer to gen surgery here. Return precautions given to the patient Differential Diagnosis ascites, chf, asthma Medical Records Medical records reviewed: Yes I reviewed the patient's medical records. Imaging Data Radiologic Study: Attestation: I personally reviewed and interpreted this imaging study as follows: Imaging: X-Ray My impression: no acute findings Radiologic Study #2: Attestation: I personally reviewed and interpreted this imaging study as follows: Imaging: CT Scan Radiologist's impression: ascites Lab Data Lab results reviewed: Yes I reviewed the patient's lab results. ECG Data Attestation: I personally reviewed and interpreted this ECG (s) as follows: Prior ECG tracings: available for review Interpretation: sinus rhythm, rate of 70, no acute st t wave ischemic changes HPI General Mode of arrival: wheelchair . Date/Time Provider Initiated Documentation: 04/07/19 13:17 . Limitations to Documentation: no limitations . Information obtained by: patient . History of Present Illness 63 year old F presents to the emergency department with the chief complaint of shortness of breath, described as moderate, Patient reports no radiation. Patient started experiencing this month(s) (1) and it has been constant. No reli eving factors improve symptom(s), No exacerbating factors reported . Patient notes weakness. Patient did receive the following treatments prior to arrival, none Related Data Home Medications Medication Instructions Recorded Confirmed glipizide 2.5 mg PO DAILY #0.5 07/21/13 04/07/19 loratadine 10 mg PO DAILY tab-cap 07/21/13 04/07/19 metformin 1,000 mg PO BID tab-cap 07/21/13 04/07/19 metoprolol succinate [Toprol XL] 50 mg PO BID 07/21/13 04/07/19 simvastatin [Zocor] 40 mg PO HS 07/27/18 04/07/19 furosemide [Lasix] 40 mg PO BID 04/07/19 04/07/19 vilazodone [Viibryd] 20 mg PO DAILY 04/07/19 04/07/19 Allergies Allergy/AdvReac Type Severity Reaction Status Date / Time bee venom protein (honey bee) Allergy Severe anaphylaxis Verified 04/07/19 13:24 Penicillins Allergy Severe anaphylaxis Verified 04/07/19 13:24 hydrocodone [From Vicodin] AdvReac Intermediate vomiting Verified 04/07/19 13:24 acetaminophen [From Vicodin] AdvReac Mild no problem Verified 04/07/19 13:24 with tylenol General Stated Complaint: SOB RENY: 3 Review of Systems Review of Systems All systems reviewed & are unremarkable except as noted in HPI and below Constitutional Denies chills, Denies fever(s) and Denies weakness ENT Denies change in voice Cardiovascular Denies chest pain and Denies dyspnea Respiratory Denies dyspnea Gastrointestinal Denies abdominal pain, Denies nausea and Denies vomiting Integumentary/Breasts Denies rash Neurologic Denies weakness PFSH Medical History History of endometrial cancer (Chronic) Diabetes mellitus, type 2 (Acute) Anxiety (Acute) Depression (Acute) Hyperlipidemia (Acute) Seasonal allergic rhinitis (Acute) Hypertension (Acute) Obesity (Acute) Asthma (Acute) Surgical History section Ligation of fallopian tube Mitral valve repair Open Carpal Tunnel release Tonsillectomy Social History Smoking/Tobacco Use Status: Never Alcohol Intake: never Drug use: Never Substance use type: does not use Do you feel safe at home: Yes Do you feel safe in your relationship?: Yes History History 2 Para 2 Hx # Term Pregnancies Multiple births Hx # Pregnancies Ectopic pregnancies AB induced Hx Number of Living Children AB spontaneous Exam Const General: no acute distress Orientation: alert HENMT Head: normal to inspection Ears: external ears normal General nose exam: external nose normal Mouth: moist mucous membranes Eyes General: appearance normal, both eyes and all related structures Neck Neck: normal visual inspection Resp Effort & Inspection: normal respiratory effort and able to speak in complete sentences Cardio Rate: regular rate Skin General skin exam: no rashes or lesions noted Neuro General: alert and oriented x3 Extrem General: normal to inspection Psych Mental Status: mental status grossly normal Course Vital Signs Temperature 36.8 C 04/07/19 13:21 Pulse 73 04/07/19 13:21 Respiratory Rate 20 04/07/19 13:21 Blood Pressure 133/60 04/07/19 13:21 Pulse Oximetry 94 L 04/07/19 13:21 Temperature 36.8 C 04/07/19 13:21 Temperature Source Temporal Artery Scan 04/07/19 13:21 Pulse 73 04/07/19 13:21 Respiratory Rate 24 04/07/19 13:26 Respiratory Effort 04/07/19 13:26 Respiratory Depth Normal 04/07/19 13:26 Respiratory Pattern Normal 04/07/19 13:26 Blood Pressure 133/60 04/07/19 13:21 Pulse Oximetry 94 L 04/07/19 13:21 Oxygen Delivery Method Room Air 04/07/19 13:21 Oxygen Flow Rate 0 04/07/19 13:21 Pain Level 0 04/07/19 13:21
[2019-04-07 13:54] LABS: Abs Immature Grans 0.01 k/cumm (0.0-0.09); Absolute Basophil Count 0.04 k/cumm (0.0-0.2); Absolute Eosinophil Count 0.48 k/cumm (0.0-0.7); Absolute Lymphocyte Count 0.45 k/cumm (1.2-3.4); Absolute Monocyte Count 0.47 k/cumm (0.11-0.7); Absolute Neutrophil Count 3.76 k/cumm (1.2-6.7); Basophils % 0.8; Eosinophils % 9.2; HCT 29.7 % (36.0-46.0); HGB 8.8 g/dL (12.0-15.5); Immature Grans % 0.2; Lymphocytes % 8.6; Mean Corp. HGB Concentration 29.6 g/dL (32.0-36.0); Mean Corpuscular Hemoglobin 30.4 pg (27.0-33.0); Mean Corpuscular Volume 102.8 fL (80-95); Mean Platelet Volume 9.5 fL (8.0-11.0); Neutrophils % 72.2; Platelet Count 248 x1000/uL (130-400); RBC 2.89 m/cumm (4.00-5.20); RBC Distribution Width 15.8 % (11.7-14.6); White Blood Cell Count 5.21 k/cumm (4.4-10.8)
[2019-04-07 14:08] LABS: INR 1.2 (0.9-1.1); PTT Activated 23.4 sec (21.0-31.4)
[2019-04-07 14:10] LABS: Anisocytosis 1+; Diff Comment RBC Morph Reviewed; Hypochromasia 1+; Macrocytosis 1+; Polychromasia Present
--- NOTE | 2019-04-07 14:11 | DI.CT_ITS ---
SYMPTOMS/DIAGNOSIS: ABDOMINAL DISTENTION, ASCITES ABDOMINAL AND PELVIC CT: CT examination of the abdomen and pelvis was performed without contrast administration. Images obtained through the lung bases are unremarkable. There is cardiomegaly and apparent mitral valvular replacement. There is marked abdominal ascites. No bowel distention seen. No gross abdominal mass. Question nodular hepatic contour, consider cirrhosis. Pancreas grossly unremarkable. No biliary dilatation. Left renal low attenuation mass noted measuring about 3 cm in diameter consistent with cyst. No nephrolithiasis or hydronephrosis. Abdominal aorta is of normal diameter. No gross abdominal or pelvic adenopathy. Adrenals are unremarkable in appearance. No significant abdominal wall hernia seen. Diffuse soft tissue edema noted. CONCLUSION: Limited scan due to patient body habitus. Marked ascites, question hepatic cirrhosis.
[2019-04-07 14:18] LABS: ALT 7 U/L (12-78); AST 16 U/L (15-37); Albumin 3.5 g/dL (3.4-5.0); Alkaline Phosphatase 111 U/L (46-116); Anion Gap 12.9 mmol/L (3-11); BUN 27 mg/dL (7-18); Bilirubin, Total 0.8 mg/dL (0.2-1.0); CO2 24.1 mmol/L (21.0-32.0); CREATININE 2.12 mg/dL (0.55-1.02); Calcium 8.4 mg/dL (8.5-10.1); Chloride 106 mmol/L (98-107); Estimated GFR 23.38 (mL/min/1.73m2); Glucose 83 mg/dL (70-100); Magnesium 1.1 mg/dL (1.8-2.4); NT-proBNP 6669 pg/mL; Potassium 3.9 mmol/L (3.5-5.1); Sodium 143 mmol/L (136-145); TSH (W/Ref FT4) 16.16 uIU/mL (0.358-3.74); Total Protein 7.3 g/dL (6.4-8.2)
[2019-04-07 14:19] LABS: Troponin I < 0.05 ng/mL (0.00-0.06)
--- NOTE | 2019-04-07 14:19 | DI.RAD_ITS ---
SYMPTOMS/DIAGNOSIS: SHORTNESS OF BREATH PA AND LATERAL CHEST: The heart is enlarged. There is a mitral valve prosthesis. Lungs are grossly clear. No pleural effusion seen. CONCLUSION: No evidence of acute intrapulmonary process.
[2019-04-07 14:36] LABS: FREE T4 1.35 ng/dL (0.76-1.46)
[2019-04-07 15:26] VITALS: BP 133/60; PULSE 73; RESP 24; TEMP 36.8; O2SAT 94
== END 2019-04-07 15:10 | disposition home or self-care (01) ==
PROVIDERS: Emergency Provider Emergency Medicine; PCP General Practice
DX: R18.8 Other ascites (principal); E83.42 Hypomagnesemia; Z92.21 Personal history of antineoplastic chemotherapy; E11.9 Type 2 diabetes mellitus without complications; Z79.84 Long term (current) use of oral hypoglycemic drugs; I10 Essential (primary) hypertension
CPT/HCPCS: 36415; 80053; 93005; 99285; 71046; 74176; 83735; 83880; 84439; 84443; 84484; 85025; 85610; 85730; 93010

== ENCOUNTER → 2019-04-13 11:07 | Outpatient (BNVA) | payer OTHER, MEDICAID, SELFPAY | PROVIDERS: PCP General Practice; Visit Provider Surgery | DX: R69 Illness, unspecified (principal) ==

== ENCOUNTER 2019-05-04 12:10 | Outpatient (REF) | payer OTHER, MEDICAID, SELFPAY ==
[2019-05-04 13:05] LABS: Anion Gap 13.4 mmol/L (3-11); BUN 47 mg/dL (7-18); CO2 23.6 mmol/L (21.0-32.0); Calcium 8.7 mg/dL (8.5-10.1); Chloride 102 mmol/L (98-107); Glucose 70 mg/dL (70-100); Sodium 139 mmol/L (136-145)
[2019-05-04 14:05] LABS: CREATININE 3.98 mg/dL (0.55-1.02)
== END 2019-05-04 12:30 ==
LOC: LBN 12:10
PROVIDERS: PCP General Practice; Visit Provider General Practice
DX: I50.33 Acute on chronic diastolic (congestive) heart failure (principal); N18.3 Chronic kidney disease, stage 3 (moderate)
CPT/HCPCS: 36415; 80048

== ENCOUNTER 2019-05-05 11:18 | Inpatient (IN) | payer OTHER, MEDICAID, SELFPAY ==
[2019-05-05] VITALS (76 sets, daily range): BP systolic 82–125; BP diastolic 46–96; PULSE 78–153; RESP 14–30; TEMP 35.8–36.9; O2SAT 90–97
--- NOTE | 2019-05-05 11:26 | DI.RAD_ITS ---
SYMPTOMS/DIAGNOSIS: SHORTNESS OF BREATH, WEIGHT GAIN PA AND LATERAL CHEST: Comparison is made with [id number]. The heart is grossly enlarged, unchanged. Sternal wires and mitral valve prosthesis are again noted. There are tiny bilateral pleural effusions. There is mild vascular prominence. There is no overt pulmonary edema. No focal infiltrate is seen. IMPRESSION: Cardiomegaly and tiny bilateral pleural effusions.
--- NOTE | 2019-05-05 11:29 | ED.GENADUL_ITS ---
Discharge Plan Disposition Patient Disposition: [facility] INPATIENT Condition: Improving Discharge Details Chief Complaint: SOB Clinical Impression: Acute diastolic CHF (congestive heart failure) Admit Date/Time: 05/05/19 15:22 Admit Provider: Salas Lamb Attending Provider: Salas Lamb Primary Care Provider: Ron De La Rosa ED Provider: Nain Avitia Discharge Data Discharge Date/Time-TO BE ENTERED AT DEPARTURE: 05/05/19 17:09 Medical Decision Making 63-year-old female referred by cardiology. She has had slow and chronic weight gain of 20 to 30 pounds over weeks time with associated orthopnea. Her outpatient oral diuretics were increased (Bumex and every 3 day metolazone ) 1 week ago and while she has had some good urine output, she had ongoing fluid retention and therefore recommended by cardiology that she present for admission for IV diuresis. Recent Echo in December: 1. Left ventricle: The cavity size was normal. Wall thickness was normal. Systolic function was at the lower limits of normal. The estimated ejection fraction was 50-55%. Wall motion was normal; there were no regional wall motion abnormalities. Doppler parameters are consistent with high ventricular filling pressure. 2. Mitral valve: Prior procedures included surgical repair. An annular ring prosthesis was present. Mean gradient (D): 2.7mm Hg. 3. Left atrium: The atrium was severely dilated. 4. Right ventricle: The cavity size was severely dilated (apex forming). Wall thickness was normal. Systolic function was low normal by visual assessment 5. Right atrium: The atrium was severely dilated. 6. Tricuspid valve: There was malcoaptation of the valve leaflets. There was severe regurgitation. 7. Pulmonic valve: There was moderate regurgitation. 8. Pulmonary arteries: Pulmonary systolic pressure was severely increased. PA peak pressure: 70mm Hg (S) plus right atrial pressure. She arrives with mild tachycardia approximately 110, blood pressure 114/73, speaking in full sentences with good oxygenation. She has underlying atrial fibrillation, status post sternotomy, status post endometrial cancer. Her differential diagnosis today includes worsening acute on chronic congestive heart failure, cor pulmonale, acute renal failure, electrode abnormality. She certainly does appear fluid overloaded. Her exam is notable for a right pretibial shallow ulceration. IV placed, labs obtained, referred for chest x- ray. Diuresis initiated with 100 mg of Lasix. +UOP. Labs are notable for a BNP of nearly 18,000. Her renal function is somewhat worsened with a creatinine of 4. I did discuss the case with Dr. Reyes of cardiology who feels a trial of inpatient, parenteral diuresis is the best next step given the chronicity of her fluid retention. Discussed with Dr Lamb, and given rising Cr, I discussed the patients findings, hx, and presentation with on-call Cardiology at [facility] ([facility]). As patient has made urine in the emergency department, [facility] cardiology service feels local admission for ongoing parenteral diuretics including lasix drip plus metolazone as indicated. They state that she has rising creatinine, hyperkalemia, develops pulmonary edema or other acute changes, that they should be contacted. Lab Data Lab results reviewed: Yes I reviewed the patient's lab results. Laboratory Results - last 24 hr 05/05/19 05/05/19 05/05/19 11:50 11:50 11:50 WBC RBC Hgb Hct MCV MCH MCHC RDW Plt Count MPV Immature Gran % Neutrophils % Lymphocytes % Monocytes % Eosinophils % Basophils % Absolute Neutrophils Absolute Lymphocytes Absolute Monocytes Absolute Eosinophils Absolute Basophils Differential Comment RBC Morphology Polychromasia Anisocytosis PT 15.5 H INR 1.5 H APTT 28.4 Sodium 138 Potassium 3.8 Chloride 101 Carbon Dioxide 21.6 Anion Gap 15.4 H BUN 48 H Creatinine 4.24 H* Estimated GFR/1.73 m2 10.51 Glucose 69 L Calcium 8.7 Magnesium 1.6 L Total Bilirubin 0.8 AST 11 L ALT 8 L Alkaline Phosphatase 101 Troponin I < 0.05 NT-Pro-B Natriuret Pep 40366 H Total Protein 7.2 Albumin 3.4 05/05/19 11:50 WBC 5.14 RBC 3.16 L Hgb 9.7 L Hct 31.6 L MCV 100.0 H MCH 30.7 MCHC 30.7 L RDW 15.6 H Plt Count 261 MPV 9.8 Immature Gran % 0.0 Neutrophils % 76.6 Lymphocytes % 7.6 Monocytes % 10.7 Eosinophils % 4.5 Basophils % 0.6 Absolute Neutrophils 3.94 Absolute Lymphocytes 0.39 L Absolute Monocytes 0.55 Absolute Eosinophils 0.23 Absolute Basophils 0.03 Differential Comment Rbc morph reviewed RBC Morphology See below Polychromasia Present Anisocytosis 1+ PT INR APTT Sodium Potassium Chloride Carbon Dioxide Anion Gap BUN Creatinine Estimated GFR/1.73 m2 Glucose Calcium Magnesium Total Bilirubin AST ALT Alkaline Phosphatase Troponin I NT-Pro-B Natriuret Pep Total Protein Albumin ECG Data Attestation: I personally reviewed and interpreted this ECG (s) as follows: Interpretation: Irregularly irregular with a rate of 120, QRS is narrow, there is no ST segment elevation HPI General Mode of arrival: ambulatory . Date/Time Provider Initiated Documentation: 05/05/19 11:24 . Limitations to Documentation: no limitations . Information obtained by: patient . History of Present Illness 63 year old F presents to the emergency department with the chief complaint of Referred by cardiology for SOB, weight gain, described as mild and similar to prior episodes, and is localized to the chest. Patient reports no radiation. Patient started experiencing this week(s) and it has been intermittent. Rest improves symptom(s), Movement worsens symptoms . Patient notes other (Lower extremity and abdominal swelling); denies chest pain, cough and fever/chills. Patient did receive the following treatments prior to arrival, other (1 week increased diuretics) Related Data Home Medications Medication Instructions Recorded Confirmed glipizide 2.5 mg PO DAILY #0.5 07/21/13 05/05/19 loratadine 10 mg PO DAILY tab-cap 07/21/13 05/05/19 metformin 1,000 mg PO BID tab-cap 07/21/13 05/05/19 metoprolol succinate [Toprol XL] 50 mg PO BID 07/21/13 05/05/19 simvastatin [Zocor] 40 mg PO HS 07/27/18 05/05/19 furosemide [Lasix] 40 mg PO BID 04/07/19 05/05/19 vilazodone [Viibryd] 20 mg PO DAILY 04/07/19 05/05/19 apixaban [Eliquis] 5 mg PO BID 05/05/19 05/05/19 bumetanide 1 mg PO BID 05/05/19 05/05/19 isosorbide mononitrate 30 mg PO DAILY 05/05/19 05/05/19 metolazone See Rx Instructions .ROUTE .COMPLEX 05/05/19 05/05/19 Allergies Allergy/AdvReac Type Severity Reaction Status Date / Time bee venom protein (honey bee) Allergy Severe anaphylaxis Verified 05/05/19 12:48 Penicillins Allergy Severe anaphylaxis Verified 05/05/19 12:48 hydrocodone [From Vicodin] AdvReac Intermediate vomiting Verified 05/05/19 12:48 acetaminophen [From Vicodin] AdvReac Mild no problem Verified 05/05/19 12:48 with tylenol General RENY: 3 Review of Systems Review of Systems 6 systems reviewed and otherwise negative. [facility] Medical History Anxiety (Acute) Asthma (Acute) Depression (Acute) Diabetes mellitus, type 2 (Acute) History of endometrial cancer (Chronic) Hyperlipidemia (Acute) Hypertension (Acute) Obesity (Acute) Seasonal allergic rhinitis (Acute) Surgical History section Ligation of fallopian tube Mitral valve repair Open Carpal Tunnel release Tonsillectomy Family History Mother Diabetes Father Hyperlipidemia Sister Lung cancer Endometrial cancer Other Personal history of malignant neoplasm Social History Smoking/Tobacco Use Status: Never Alcohol Intake: never Drug use: Never Substance use type: does not use Do you feel safe at home: Yes Do you feel safe in your relationship?: Yes History History 2 Para 2 Hx # Term Pregnancies Multiple births Hx # Pregnancies Ectopic pregnancies AB induced Hx Number of Living Children AB spontaneous Exam Narrative Exam Narrative: GEN: awake, alert, oriented 3. Pleasant, well groomed, interactive. HEAD: Normocephalic, atraumatic ENT: Mucous membranes moist, oropharynx unremarkable, External ear exam unremarkable EYES: PERRL, EOMI NECK: Full ROM, no BERTRAND, no menigismus CHEST/RESP: Nontender, fine bibasilar rales CARDIOVASCULAR: Distant, irregularly irregular, no murmur, rub clarence. 2+ Rad pulse bilateral ABDOMEN: Soft, nontender, no mass. Distended +Bowel sounds EXT: Full ROM, 3+ symmetric bilateral pretibial edema, no rash. Right lower pretibial area with small 1 to 2 cm ulceration that is covered by Mepilex with border. No significant surrounding erythema or tenderness. Neuro: Grossly normal neurologic exam, conversant, interactive. Psych: Speech fluent, thoughts congruent, affect normal
[2019-05-05 11:59] LABS: Absolute Basophil Count 0.03 k/cumm (0.0-0.2); Absolute Eosinophil Count 0.23 k/cumm (0.0-0.7); Absolute Lymphocyte Count 0.39 k/cumm (1.2-3.4); Absolute Monocyte Count 0.55 k/cumm (0.11-0.7); Absolute Neutrophil Count 3.94 k/cumm (1.2-6.7); Basophils % 0.6; Eosinophils % 4.5; HCT 31.6 % (36.0-46.0); HGB 9.7 g/dL (12.0-15.5); Lymphocytes % 7.6; Mean Corp. HGB Concentration 30.7 g/dL (32.0-36.0); Mean Corpuscular Hemoglobin 30.7 pg (27.0-33.0); Mean Platelet Volume 9.8 fL (8.0-11.0); Monocytes % 10.7; Neutrophils % 76.6; Platelet Count 261 x1000/uL (130-400); RBC 3.16 m/cumm (4.00-5.20); RBC Distribution Width 15.6 % (11.7-14.6); White Blood Cell Count 5.14 k/cumm (4.4-10.8)
[2019-05-05 12:09] LABS: INR 1.5 (0.9-1.1); PTT Activated 28.4 sec (21.0-31.4); Prothrombin Time 15.5 sec (9.3-11.0)
[2019-05-05 12:13] LABS: Anisocytosis 1+; Diff Comment RBC Morph Reviewed
[2019-05-05 12:14] LABS: Polychromasia Present
[2019-05-05 12:19] LABS: ALT 8 U/L (12-78); AST 11 U/L (15-37); Albumin 3.4 g/dL (3.4-5.0); Alkaline Phosphatase 101 U/L (46-116); Anion Gap 15.4 mmol/L (3-11); BUN 48 mg/dL (7-18); Bilirubin, Total 0.8 mg/dL (0.2-1.0); CO2 21.6 mmol/L (21.0-32.0); Calcium 8.7 mg/dL (8.5-10.1); Chloride 101 mmol/L (98-107); Estimated GFR 10.51 (mL/min/1.73m2); Glucose 69 mg/dL (70-100); Potassium 3.8 mmol/L (3.5-5.1); Sodium 138 mmol/L (136-145); Total Protein 7.2 g/dL (6.4-8.2)
[2019-05-05 12:21] LABS: Troponin I < 0.05 ng/mL (0.00-0.06)
[2019-05-05 12:22] LABS: CREATININE 4.24 mg/dL (0.55-1.02)
[2019-05-05 12:25] LABS: Magnesium 1.6 mg/dL (1.8-2.4); NT-proBNP 17919 pg/mL
[2019-05-05] MEDS: Furosemide 100 MG/10 ML VIAL IVP (12:43)
[2019-05-05 16:39] LABS: TSH (W/Ref FT4) 8.76 uIU/mL (0.36-3.74)
[2019-05-05 16:57] LABS: FREE T4 1.65 ng/dL (0.76-1.46)
--- NOTE | 2019-05-05 18:06 | W.PM.HP.N ---
Date of service: 05/05/19 Time of Service: 18:06 Assessment and Plan (1) CHF (congestive heart failure): Current visit: Yes Status: Chronic History of Diastolic CHF, with MV repair and no mention of dysfunction by last ECHO. However, patient also with significantly elevated PA Pressures and severe Tricuspid Valve Regurgitation, with complaints of significant LE edema and ascites. - Failed outpatient oral diuretic therapy with change to Bumex and addition of Metolazone. - Initiate Furosemide gtt in attempt for more effective diuresis, especially in setting of AMBREEN. Titrate to maintain 100 cc/hr UOP to start. - Will benefit from improved rate control. Will continue BB therapy, and initiate Cardizem gtt as well, and monitor closely in the ICU. (2) AMBREEN (acute kidney injury): Current visit: Yes Status: Acute AMBREEN superimposed on CKD. In setting of attempts at diuresis and Afib with RVR. Patient likely with component of cardiorenal syndrome at baseline, now with worsening renal function. - Attempt gentle diuresis and improved HR control, with hopes that decrease in volume and improved rate will increase forward flow and improve renal function. Lytes appear normal. Low threshold for transfer if renal function worsens. (3) Atrial fibrillation: Current visit: Yes Status: Chronic Continue BB and initiate Cardizem gtt as above. Also on Apixaban - creatinine is >1.5, but age and weight appropriate for full dose administration. (4) History of endometrial cancer: Current visit: No Status: Chronic S/p Lap Hysterectomy, with adjuvant chemotherapy consisting of 3 cycles of Carbo/Taxol prior to and after XRT. Follows at [facility]. (5) Diabetes mellitus, type 2: Current visit: No Status: Acute Hold Metformin and Glipizide, initiate sensitive scale ISS, and ADA diet. (6) DVT prophylaxis: Current visit: Yes Status: Acute On active anticoagulation. Continue PPI therapy. History of Present Illness Chief Complaint: Worsening Edema Narrative: 63 year old woman with a prior history significant for Diastolic CHF, PHTN, and Tricuspid Regurg, admitted from [facility] Emergency Department on 05/05 with a diagnosis of CHF Exacerbation. Mrs. Cobian has a past Medical History significant for Diastolic CHF, MV Repair, significant PHTN, and severe TR. She was treated for Endometrial Ca with a laparoscopic Hysterectomy and Chemo/XRT, and reportedly has been having difficulty with swelling, Fluid retention, and ascites since that time. She has undergone treatment with diuretic therapy, and prior Paracenteses X3 for this. Her other medical history included untreated VIMAL (CPAP intolerant), Obesity, COPD, CKD 3, HTN, DM, and recently diagnosed Afib on anticoagulation. The patient has been struggling with edema, ascites, and overall fluid retention since her cancer diagnosis in 2018. However, over the recent weeks her symptoms have been gradually worsening, to include orthopnea necessitating use of her recliner, as well as worsening abdominal distention. She was seen by her Commercial Driver Dr. Darnell Reyes in his office on 04/30, and at that time her furosemide was changed to low dose Bumetanide. She was also initiated on Q72 hour Metolazone 3 days prior to that office visit. Despite this she presented to the ED with continued and worsening edema and dyspnea, with what her also described as overall fatigue. Labwork was remarkable for a significant climb in creatinine (1.5 in December, 2 in March, 4.24 today) but with stable electrolytes, significantly worsening BNP, and normal troponin. EKG was interpreted as Afib with Tachycardia, and troponin was negative. She was referred for admission for further evaluation and treatment. Review of Systems Review of Systems All systems reviewed & are unremarkable except as noted in HPI and below PFSH Medical History Anxiety (Acute) Asthma (Acute) Depression (Acute) Diabetes mellitus, type 2 (Acute) History of endometrial cancer (Chronic) Hyperlipidemia (Acute) Hypertension (Acute) Obesity (Acute) Seasonal allergic rhinitis (Acute) Surgical History section Ligation of fallopian tube Mitral valve repair Open Carpal Tunnel release Tonsillectomy Family History Mother Diabetes Father Hyperlipidemia Sister Lung cancer Endometrial cancer Other Personal history of malignant neoplasm Social History Smoking/Tobacco Use Status: Never Alcohol Intake: never Drug use: Never Substance use type: does not use Do you feel safe at home: Yes Do you feel safe in your relationship?: Yes History History 2 Para 2 Hx # Term Pregnancies Multiple births Hx # Pregnancies Ectopic pregnancies AB induced Hx Number of Living Children AB spontaneous Meds Home Medications Medication Instructions Recorded Confirmed Type glipizide 2.5 mg PO DAILY #0.5 07/21/13 05/05/19 History loratadine 10 mg PO DAILY tab-cap 07/21/13 05/05/19 History metformin 1,000 mg PO BID tab-cap 07/21/13 05/05/19 History metoprolol succinate [Toprol XL] 50 mg PO BID 07/21/13 05/05/19 History simvastatin [Zocor] 40 mg PO HS 07/27/18 05/05/19 History furosemide [Lasix] 40 mg PO BID 04/07/19 05/05/19 History vilazodone [Viibryd] 20 mg PO DAILY 04/07/19 05/05/19 History apixaban [Eliquis] 5 mg 05/05/19 History bumetanide 1 mg PO BID 05/05/19 05/05/19 History isosorbide mononitrate 30 mg PO DAILY 05/05/19 05/05/19 History metolazone See Rx Instructions .ROUTE .COMPLEX 05/05/19 05/05/19 History Allergies Allergy/AdvReac Type Severity Reaction Status Date / Time bee venom protein (honey bee) Allergy Severe anaphylaxis Verified 05/05/19 12:48 Penicillins Allergy Severe anaphylaxis Verified 05/05/19 12:48 hydrocodone [From Vicodin] AdvReac Intermediate vomiting Verified 05/05/19 12:48 acetaminophen [From Vicodin] AdvReac Mild no problem Verified 05/05/19 12:48 with tylenol Exam Narrative Exam Narrative: General: Patient appears comfortable, AAOX3, NAD Neck: Supple CV: Regular at time of exam, tachycardic, S1S2, 3/6 LLSB murmur. Pulmonary: Clear to auscultation bilaterally, no crackles, wheezing, or rhonchi Abdomen: + Bowel Sounds, soft, nontender, nondistended Vascular: No lower extremity edema Psych: Normal mood and affect. Results Imaging Chest x-ray: report reviewed Additional studies: Exam(s) a RAD:XR chest 2V PA & lateral SYMPTOMS/DIAGNOSIS: SHORTNESS OF BREATH, WEIGHT GAIN PA AND LATERAL CHEST: Comparison is made with [id number]. The heart is grossly enlarged, unchanged. Sternal wires and mitral valve prosthesis are again noted. There are tiny bilateral pleural effusions. There is mild vascular prominence. There is no overt pulmonary edema. No focal infiltrate is seen. IMPRESSION: Cardiomegaly and tiny bilateral pleural effusions. Labs : 05/05/19 11:50 05/05/19 11:50 Laboratory Results - last 24 hr 05/05/19 05/05/19 05/05/19 11:50 11:50 11:50 WBC RBC Hgb Hct MCV MCH MCHC RDW Plt Count MPV Immature Gran % Neutrophils % Lymphocytes % Monocytes % Eosinophils % Basophils % Absolute Neutrophils Absolute Lymphocytes Absolute Monocytes Absolute Eosinophils Absolute Basophils Differential Comment RBC Morphology Polychromasia Anisocytosis PT 15.5 H INR 1.5 H APTT 28.4 Sodium 138 Potassium 3.8 Chloride 101 Carbon Dioxide 21.6 Anion Gap 15.4 H BUN 48 H Creatinine 4.24 H* Estimated GFR/1.73 m2 10.51 Glucose 69 L Calcium 8.7 Magnesium 1.6 L Total Bilirubin 0.8 AST 11 L ALT 8 L Alkaline Phosphatase 101 Troponin I < 0.05 NT-Pro-B Natriuret Pep 56661 H Total Protein 7.2 Albumin 3.4 TSH Free T4 05/05/19 05/05/19 11:50 11:50 WBC 5.14 RBC 3.16 L Hgb 9.7 L Hct 31.6 L MCV 100.0 H MCH 30.7 MCHC 30.7 L RDW 15.6 H Plt Count 261 MPV 9.8 Immature Gran % 0.0 Neutrophils % 76.6 Lymphocytes % 7.6 Monocytes % 10.7 Eosinophils % 4.5 Basophils % 0.6 Absolute Neutrophils 3.94 Absolute Lymphocytes 0.39 L Absolute Monocytes 0.55 Absolute Eosinophils 0.23 Absolute Basophils 0.03 Differential Comment Rbc morph reviewed RBC Morphology See below Polychromasia Present Anisocytosis 1+ PT INR APTT Sodium Potassium Chloride Carbon Dioxide Anion Gap BUN Creatinine Estimated GFR/1.73 m2 Glucose Calcium Magnesium Total Bilirubin AST ALT Alkaline Phosphatase Troponin I NT-Pro-B Natriuret Pep Total Protein Albumin TSH 8.76 H Free T4 1.65 H Last Vital Signs Pulse 120 H 05/05/19 17:22 Resp 19 05/05/19 17:22 BP 97/80 L 05/05/19 17:22 Pulse Ox 94 L 05/05/19 13:41
[2019-05-05] MEDS: dilTIAZem 125 MG in Normal Saline 100 ML 7.5 MG IV (19:04)
[2019-05-05] MEDS: Normal Saline Flush 10 ML SYR IVP (20:01)
[2019-05-05] MEDS: Pantoprazole 40 MG VIAL IVP (20:03)
[2019-05-05] MEDS: Simvastatin 40 MG TAB PO (21:02)
[2019-05-05] MEDS: Apixaban 5 MG TAB PO (21:02)
[2019-05-06] VITALS (69 sets, daily range): BP systolic 83–110; BP diastolic 45–75; PULSE 73–116; RESP 15–30; TEMP 36.3–36.6; O2SAT 89–97
[2019-05-06] MEDS: metOLazone 2.5 MG TAB 5 MG PO (00:10)
[2019-05-06 07:25] LABS: Abs Immature Grans 0.01 k/cumm (0.0-0.09); Absolute Basophil Count 0.02 k/cumm (0.0-0.2); Absolute Eosinophil Count 0.23 k/cumm (0.0-0.7); Absolute Lymphocyte Count 0.36 k/cumm (1.2-3.4); Absolute Monocyte Count 0.55 k/cumm (0.11-0.7); Absolute Neutrophil Count 3.62 k/cumm (1.2-6.7); Basophils % 0.4; Eosinophils % 4.8; HCT 29.3 % (36.0-46.0); HGB 8.9 g/dL (12.0-15.5); Immature Grans % 0.2; Lymphocytes % 7.5; Mean Corp. HGB Concentration 30.4 g/dL (32.0-36.0); Mean Corpuscular Hemoglobin 30.4 pg (27.0-33.0); Mean Platelet Volume 9.9 fL (8.0-11.0); Monocytes % 11.5; Neutrophils % 75.6; Platelet Count 219 x1000/uL (130-400); RBC 2.93 m/cumm (4.00-5.20); RBC Distribution Width 15.6 % (11.7-14.6); White Blood Cell Count 4.79 k/cumm (4.4-10.8)
--- NOTE | 2019-05-06 07:28 | SAO2N_ITS ---
SAO2 with Exercise Patient:FRANCIS COLON Date/Time: 05/06/19 0728 [id number] Tech: KT
[2019-05-06 07:40] LABS: Anion Gap 15.9 mmol/L (3-11); BUN 52 mg/dL (7-18); CO2 20.1 mmol/L (21.0-32.0); Calcium 8.5 mg/dL (8.5-10.1); Chloride 102 mmol/L (98-107); Estimated GFR 10.17 (mL/min/1.73m2); Glucose 97 mg/dL (70-100); Magnesium 1.4 mg/dL (1.8-2.4); Potassium 3.8 mmol/L (3.5-5.1); Sodium 138 mmol/L (136-145)
[2019-05-06 07:44] LABS: CREATININE 4.36 mg/dL (0.55-1.02)
[2019-05-06] MEDS: Loratidine 10 MG TAB PO (08:15)
[2019-05-06] MEDS: Metoprolol CR 50 MG TABCR PO (08:15)
[2019-05-06] MEDS: Apixaban 5 MG TAB PO (08:15)
--- NOTE | 2019-05-06 08:24 | PDOC.CMIN ---
- If Service Date Differs Date of service: 05/06/19 Time of Service: 08:24 Care Management Initial Assess REASON FOR HOSPITALIZATION:: CHF PAST MEDICAL HISTORY/PAST SURGICAL HISTORY:: Medical History: Anxiety (Acute). Asthma (Acute). Depression (Acute). Diabetes mellitus, type 2 (Acute). History of endometrial cancer (Chronic). Hyperlipidemia (Acute). Hypertension (Acute). Obesity (Acute). Seasonal allergic rhinitis (Acute). Surgical History: section. Ligation of fallopian tube. Mitral valve repair. Open Carpal Tunnel release. Tonsillectomy PREVIOUS FUNCTIONAL STATUS/SOCIAL/FAMILY SUPPORTS:: Anjana lives with her partner Nain in [place], [place] She states she has not felt really well for the past year since she was treated for endometrial cancer. She describes Brady as being very supportive and helpful. He assists with housework, meal preparation and shopping when needed. Anjana has 2 children and Brady has 2 daughters. She is able to care for herself but tires easily . CURRENT FUNCTIONAL STATUS:: Anjana was sitting up in a chair having lunch when CM came to visit. She was pleasant and friendly and readily engaged in conversation. She is waiting for a bed at [facility] [place] has been accepted in transfer. She states she really hopes that they can figure out what is wrong and treat it so that she can enjoy life more. She shared that she longs to be outside working in her garden. ADVANCE DIRECTIVES:: none on file at [facility] Has patient been provided with information about the portal?: No Did the patient sign up for the portal?: No CODE STATUS:: Full Code INSURANCE COVERAGE / FINANCIAL ISSUES:: [facility] MCR replacement. Medicaid [place] CURRENT HOME/COMMUNITY SERVICES/EQUIPMENT:: none currently PRIMARY CARE PHYSICIAN:: Ron De La Rosa POTENTIAL DISCHARGE NEEDS:: Transferring to [facility] PATIENT/FAMILY EDUCATION NEEDS:: Discharge plan, limitations, follow up plan, Ask Me Three. TRANSPORTATION:: via ambulance to be coordinated by nursing protective signal operations supervisor PLAN:: Anjana is being transferrred to [facility]. She will be transported by ambulance.
--- NOTE | 2019-05-06 09:00 | MERGE_ITS ---
*[facility]* *[facility]* [address] [place] [address] Date of study: 05/06/2019 Transthoracic Echocardiography M-mode, complete 2D, complete spectral Doppler, and color Doppler *STUDY CONCLUSIONS* Summary: 1. Left ventricle: The cavity size was normal. Systolic function was moderately to severely reduced. The estimated ejection fraction was 30-35%. Diffuse hypokinesis. 2. Ventricular septum: The contour showed diastolic flattening and systolic flattening. These changes are consistent with RV volume and RV pressure overload. 3. Mitral valve: An annular ring prosthesis was present. There was mild regurgitation. 4. Right ventricle: The cavity size was severely dilated. Systolic function was severely reduced. 5. Right atrium: The atrium was severely dilated. 6. Atrial septum: No defect or patent foramen ovale was identified. 7. Tricuspid valve: There was severe regurgitation. 8. Pulmonary arteries: Pulmonary systolic pressure was in the range of 50mm Hg to 65mm Hg. 9. Inferior vena cava: The vessel was patent and dilated. The respirophasic diameter changes were blunted (less than 50%), consistent with elevated central venous pressure. RAP est 10-20 mmHg. *PATIENT PRESENTATION* Height: 154.9cm (61in ) S/D Pressure: 95 / 63 Weight: 111.6kg (245.5lb ) BSA: 2.26m^2 Test start time: 09:20 AM. Test stop time: 10:10 AM. 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 This study was interpreted by [facility]. Pertinent images and digital data are archived for permanent storage and are available for subsequent review. Comparison was made to the study of 01/19/2019. Study status: Routine. Transthoracic echocardiography. M-mode, complete 2D, complete spectral Doppler, and color Doppler. A Transthoracic Echocardiogram was performed. Scanning was performed from the parasternal, apical, subcostal, and suprasternal notch acoustic windows. Images were obtained using an [id number] cardiac ultrasound machine. Image quality was adequate. Study completion: The patient tolerated the procedure well. History: PMH: Worsening CHF. *CARDIAC ANATOMY* Left ventricle: The cavity size was normal. Systolic function was moderately to severely reduced. The estimated ejection fraction was 30-35%. Diffuse hypokinesis. Aortic valve: Trileaflet. Doppler: There was no stenosis. There was no significant regurgitation. VTI ratio of LVOT to aortic valve: 0.87. Valve area (VTI): 3cm^2. Indexed valve area (VTI): 1.3cm^2/m^2. Peak velocity ratio of LVOT to aortic valve: 0.83. Valve area (Vmax): 2.9cm^2. Indexed valve area (Vmax): 1.3cm^2/m^2. Mean velocity ratio of LVOT to aortic valve: 0.8. Valve area (Vmean): 2.8cm^2. Indexed valve area (Vmean): 1.2cm^2/m^2. Mean gradient (S): 3.3mm Hg. Peak gradient (S): 5.1mm Hg. Aorta: Aortic root: The aortic root was normal in size. Ascending aorta: The ascending aorta was mildly dilated. Mitral valve: An annular ring prosthesis was present. Doppler: There was no evidence for stenosis. There was mild regurgitation. Valve area by pressure half-time: 2.6cm^2. Indexed valve area by pressure half-time: 1.1cm^2/m^2. Peak gradient (D): 9.4mm Hg. Left atrium: The atrium was at the upper limits of normal in size. Atrial septum: No defect or patent foramen ovale was identified. Right ventricle: The cavity size was severely dilated. Systolic function was severely reduced. Ventricular septum: The contour showed diastolic flattening and systolic flattening. These changes are consistent with RV volume and RV pressure overload. Pulmonic valve: Doppler: There was no evidence for stenosis. There was mild regurgitation. Peak gradient (S): 2.2mm Hg. Tricuspid valve: Doppler: There was severe regurgitation. Pulmonary artery: Poorly visualized. Pulmonary systolic pressure was in the range of 50mm Hg to 65mm Hg. Right atrium: The atrium was severely dilated. Pericardium: There was no pericardial effusion. Systemic veins: Inferior vena cava: Well visualized. The vessel was patent and dilated. The respirophasic diameter changes were blunted (less than 50%), consistent with elevated central venous pressure. RAP est 10-20 mmHg. Measurements Left ventricle Value 01/19/2019 Reference LV ID, ED, PLAX 4.3 cm 4.7 3.5 - 6.0 LV ID, ES, PLAX 3.6 cm 3.7 2.1 - 4.0 LV PW thickness, ED, PLAX 1.2 cm 1.2 LV end-diastolic volume, 57 ml 68 1-p A2C LV ejection fraction, 1-p 32 % 51 A2C LV end-diastolic volume, 34 ml 75 1-p A4C LV ejection fraction, 1-p 33 % 56 A4C LV e', lateral 0.1 m/sec 0.106 LV E/e', lateral 15 14 LV e', medial 0.071 m/sec 0.084 LV E/e', medial 22 17 LV e', average 0.086 m/sec 0.095 LV E/e', average 18 15 Ventricular septum Value 01/19/2019 Reference IVS thickness, ED, PLAX 1.0 cm 1.0 LVOT Value 01/19/2019 Reference LVOT ID, A-P 2.1 cm 2.2 LVOT area 3.5 cm^2 3.7 LVOT peak velocity, S 0.93 m/sec 0.81 LVOT mean velocity, S 0.71 m/sec 0.62 LVOT VTI, S 17.4 cm 16.8 LVOT peak gradient, S 3.5 mm Hg 2.7 LVOT mean gradient, S 2.2 mm Hg 1.7 Stroke volume (SV), LVOT 61 ml 62 DP Stroke index (SV/bsa), 27 ml/m^2 28 LVOT DP Aortic valve Value 01/19/2019 Reference Aortic valve peak 1.1 m/sec 1.3 velocity, S Aortic valve mean 0.9 m/sec 1 velocity, S Aortic valve VTI, S 20.0 cm 25.0 Aortic mean gradient, S 3.3 mm Hg 4.1 Aortic peak gradient, S 5.1 mm Hg 6.5 VTI ratio, LVOT/AV 0.87 0.67 Aortic valve area, VTI 3 cm^2 2.5 Velocity ratio, peak, 0.83 0.64 LVOT/AV Aortic valve area, peak 2.9 cm^2 2.4 velocity Velocity ratio, mean, 0.8 0.65 LVOT/AV Aortic valve area, mean 2.8 cm^2 2.4 velocity Aortic valve area/bsa, 1.2 cm^2/m^2 1.1 mean velocity Aorta Value 01/19/2019 Reference Aortic root ID, ED 3.2 cm 3.2 Ascending aorta ID, A-P, S 3.3 cm 3.3 Left atrium Value 01/19/2019 Reference LA volume/bsa, ES, 1-p A4C 31 ml/m^2 52 LA volume, ES, 2-p 76 ml 77 LA volume/bsa, ES, 2-p 34 ml/m^2 34 Mitral valve Value 01/19/2019 Reference Mitral E-wave peak 1.54 m/sec 1.43 velocity Mitral deceleration time (H) 295 ms 189 150 - 230 Mitral pressure half-time 85 ms 55 Mitral peak gradient, D 9.4 mm Hg 8.2 Mitral valve area, PHT, DP 2.6 cm^2 4 Pulmonary veins Value 01/19/2019 Reference Pulmonary vein peak 0.22 m/sec velocity, S Pulmonary vein peak 0.43 m/sec velocity, D Pulmonary vein velocity 0.51 ratio, peak, S/D Tricuspid valve Value 01/19/2019 Reference Tricuspid regurg peak 3 m/sec 4.9 velocity Tricuspid peak RV-RA 37 mm Hg 95.6 gradient Right atrium Value 01/19/2019 Reference RA area, ES, A4C (H) 26.6 cm^2 27.4 8.3 - 19.5 Pulmonic valve Value 01/19/2019 Reference Pulmonic peak gradient, S 2.2 mm Hg Legend: (L) and (H) hina values outside specified reference range. I have personally reviewed the images and have reviewed and edited the reported findings. Electronically signed by Rigoberto Leiva MD 05/06/2019 11:31
[2019-05-06] MEDS: Potassium Chloride 20 MEQ TABCR PO (10:32)
[2019-05-06] MEDS: MAGNESIUM SULFATE 1 GM/100 ML BAG IVPB (10:32)
--- NOTE | 2019-05-06 11:30 | PHARADMIT ---
Admission Pharmacy Clinical Review ACUTE DIASTOLIC CHF EXACERBATION Code Status Full Code Current Weight Wgt-109 kg Renally Cleared and Narrow Therapeutic Index Meds CrCl~ 9.70 mL/min Meds-OK QTc Value / Action Taken QTc-508 (Protonix, Metolazone, Lasix) BP Control, Fever BP- 108/62 Tmax- 36.3C Electrolytes reviewed Na- 138. K+3.8 Mag-1.4 DVT Prophylaxis Apixaban Opiate Usage / Scheduled Bowel Regimen Ordered No Yes Plt/SCr for Heparin / Enoxaparin Plts-219 SCr-4.36 INR for Warfarin INR-1.5 H/H stable, WBC/Bands H&H- 8.9/29.3 WBC- 4.79 Antibiotic appropriateness none Cultures and Sensitivities none Surgical ABX d/c within 24 hr NA DM control / Insulin Dosing BG-97 Aspart Heart Failure (Check EF%) (LIZBET's, B-Block, Diuretics) Diltiazem Drip, Lasix Drip, Toprol-XL IV to PO Switch No Home Meds Reviewed Yes Home Meds Not Ordered Bumex, Metolazone, Glipizide, Metformin, Comments
[2019-05-06] MEDS: Insulin Aspart 300 UNITS/3 ML PEN SC (11:54)
[2019-05-06] MEDS: Normal Saline Flush 10 ML SYR IVP (12:02)
--- NOTE | 2019-05-06 13:10 | W.PM.DS.N ---
Date of service: 05/06/19 Time of Service: 13:11 DS: Diagnosis Discharge Diagnosis (1) CHF (congestive heart failure): Status: Chronic (2) AMBREEN (acute kidney injury): Status: Acute (3) Atrial fibrillation: Status: Chronic (4) History of endometrial cancer: Status: Chronic (5) Diabetes mellitus, type 2: Status: Acute Discharge Plan Disposition Patient Disposition: [facility] Condition: Poor Discharge Details Chief Complaint: SOB Clinical Impression: Acute diastolic CHF (congestive heart failure) Reason For Visit: ACUTE CHF EXACERBATION Admit Date/Time: 05/05/19 15:22 Admit Provider: Salas Lamb Attending Provider: Salas Lamb Primary Care Provider: Ron De La Rosa ED Provider: Nain Avitia Hospital Course Hospital Course: Chief Complaint: Worsening Edema HPI: 63 year old woman with a prior history significant for Diastolic CHF, PHTN, and Tricuspid Regurgitation, admitted from [facility] Emergency Department on 05/05 with a diagnosis of CHF Exacerbation. Mrs. Cobian has a past Medical History significant for Diastolic CHF, MV Repair, severe biatrial enlargement, significant PHTN, and severe TR. She was treated for Endometrial Ca with a laparoscopic Hysterectomy and Chemo/XRT, and reportedly has been having difficulty with swelling, Fluid retention, and ascites since that time. She has undergone treatment with diuretic therapy, and prior Paracenteses X3 for this. Her other medical history included untreated VIMAL (CPAP intolerant), Obesity, COPD, CKD 3, HTN, DM, and recently diagnosed Afib on anticoagulation. The patient has been struggling with edema, ascites, and overall fluid retention since her cancer diagnosis in 2018. However, over the recent weeks her symptoms have been gradually worsening, to include orthopnea necessitating use of her recliner, as well as worsening abdominal distention. She was seen by her Liner Worker Dr. Darnell Reyes in his office on 04/30, and at that time her furosemide was changed to low dose Bumetanide. She was also initiated on Q72 hour Metolazone 3 days prior to that office visit. Despite this she presented to the ED with continued and worsening edema and dyspnea, with what her also described as overall fatigue. Labwork was remarkable for a significant climb in creatinine (1.5 in December, 2 in March, 4.24 today) but with stable electrolytes, significantly worsening BNP, and normal troponin. EKG was interpreted as Afib with Tachycardia, and troponin was negative. She was referred for admission for further evaluation and treatment. A total of 100mg IV Furosemide were administered initially in the ED, and following admission Mrs. Cobian was placed on a lasix drip. Her diuretic therapy was uptitrated (currently at 30mg/hr), and finally 5mg of Metolazone were administered overnight. Despite this she has had minimal output (300-400 cc's) and is actually net positive this morning. Her creatinine has worsened slightly as well. Repeat ECHO was obtained this morning, confirming significant PHTN and severe biatrial enlargement, but now with biventricular failure and LVEF 30%. She reports no significant change in her symptoms. Hospital Course: (1) CHF (congestive heart failure): Previously with Diastolic CHF, now with new biventricular heart failure. - Failed outpatient oral diuretic therapy with change to Bumex and addition of Metolazone. - Currently not diuresing despite 100mg IV Lasix in the ED followed by Furosemide gtt at 30/hr with added Metolazone, and renal function a concern. - Discussed with [facility] cardiology and patient has been accepted in transfer. (2) AMBREEN (acute kidney injury): AMBREEN superimposed on CKD. In setting of attempts at diuresis and Afib with RVR. Patient likely with component of cardiorenal syndrome at baseline, now with worsening renal function. - Attempt at gentle diuresis and improved HR control ineffective in diuresis and improvement in renal function overnight. Potassium remains unchanged and stable. (3) Atrial fibrillation: Continue BB - given new LV dysfunction recommendations by cardiology to discontinue Cardizem gtt. Also on Apixaban - creatinine is >1.5, but age and weight appropriate for full dose administration. (4) History of endometrial cancer: S/p Lap Hysterectomy, with adjuvant chemotherapy consisting of 3 cycles of Carbo/Taxol prior to and after XRT. Follows at [facility]. (5) Diabetes mellitus, type 2: Hold Metformin and Glipizide, initiate sensitive scale ISS, and ADA diet. (6) DVT prophylaxis: On active anticoagulation. Continue PPI therapy. Home Meds and New Rx's Prescriptions: Continued metoprolol succinate [Toprol XL] 50 MG tablet extended release 24 hr 50 mg PO BID RF: 0 metformin 1,000 MG tablet 1,000 mg PO BID RF: 0 loratadine 10 MG tablet 10 mg PO DAILY RF: 0 glipizide 5 MG tablet 2.5 mg PO DAILY Qty: 0.5 RF: 0 simvastatin [Zocor] 40 mg Tablet 40 mg PO HS RF: 0 furosemide [Lasix] 40 mg Tablet 40 mg PO BID RF: 0 Viibryd 10 mg Tablet 20 mg PO DAILY RF: 0 Eliquis 5 mg Tablet 5 mg PO BID RF: 0 bumetanide 1 mg Tablet 1 mg PO BID RF: 0 isosorbide mononitrate 30 mg Tablet Extended Release 24 Hr 30 mg PO DAILY RF: 0 metolazone 2.5 mg Tablet See Rx Instructions .ROUTE .COMPLEX RF: 0 Discharge Instructions Activity:: OOB to chair with assistance Diet:: Low sodium, ADA diet Discharge Orders Discharge Orders: Discharge Order (Routine); Ordered 05/06/19 Ordered By: Salas Lamb Exam Narrative Exam Narrative: General: Patient appears comfortable, AAOX3, NAD Neck: Supple CV: Irregular but nontachycardic at time of exam, S1S2, 3/6 LLSB murmur. Pulmonary: Perhaps minimal bibasilar crackles, no wheezing, or rhonchi Abdomen: + Bowel Sounds, soft, nontender, distended Vascular: +3-4 b/l lower extremity edema Psych: Normal mood and affect. DS: Data Vitals/I&O Vitals and I&O: Vital Signs Temperature 36.6 C 05/06/19 12:50 Temperature Source Temporal Artery Scan 05/06/19 12:50 Pulse 76 05/06/19 11:54 Pulse 83 05/06/19 11:54 Respiratory Rate 20 05/06/19 11:54 Respiratory Effort 05/06/19 04:24 Respiratory Depth Normal 05/06/19 04:24 Respiratory Pattern Tachypnea 05/06/19 04:24 Blood Pressure 83/45 L 05/06/19 11:54 Blood Pressure Mean 53 05/06/19 11:54 Blood Pressure Position Supine 05/05/19 23:30 Pulse Oximetry 89 L 05/06/19 06:30 Oxygen Delivery Method Room Air 05/06/19 04:24 Oxygen Flow Rate 0 05/06/19 04:24 Pain Level 0 05/06/19 04:24 Intake & Output 05/05/19 05/06/19 05/06/19 23:59 11:59 23:59 Intake Total 69.917 / 69.917 464.167 / 704.167 240 / 704.167 Output Total 100 / 100 496 / 496 Balance -30.083 / -30.083 -31.833 / 208.167 240 / 208.167 Weight 111.584 kg 109 kg Intake: IV 69.917 / 69.917 264.167 / 264.167 Oral 200 / 440 240 / 440 Output: Urine 100 / 100 496 / 496 Other: Urine Color Light Laila Yellow Urine Appearance Sediment Clear Comment miranda to gravity with 38cc's of pink urine in the last hour with lasix gtt running in at 20mg/h. Dr. Murillo texted with this info Approximately 40 cc/hr over the last 4 hours. Completed studies during hospitalization [Text1]: Exam(s) 05/05/2019 a RAD:XR chest 2V PA & lateral SYMPTOMS/DIAGNOSIS: SHORTNESS OF BREATH, WEIGHT GAIN PA AND LATERAL CHEST: Comparison is made with [id number]. The heart is grossly enlarged, unchanged. Sternal wires and mitral valve prosthesis are again noted. There are tiny bilateral pleural effusions. There is mild vascular prominence. There is no overt pulmonary edema. No focal infiltrate is seen. IMPRESSION: Cardiomegaly and tiny bilateral pleural effusions. -------- Exam(s) a US:US echocardiogram Date of study: 05/06/2019 Transthoracic Echocardiography M-mode, complete 2D, complete spectral Doppler, and color Doppler *STUDY CONCLUSIONS* Summary: 1. Left ventricle: The cavity size was normal. Systolic function was moderately to severely reduced. The estimated ejection fraction was 30-35%. Diffuse hypokinesis. 2. Ventricular septum: The contour showed diastolic flattening and systolic flattening. These changes are consistent with RV volume and RV pressure overload. 3. Mitral valve: An annular ring prosthesis was present. There was mild regurgitation. 4. Right ventricle: The cavity size was severely dilated. Systolic function was severely reduced. 5. Right atrium: The atrium was severely dilated. 6. Atrial septum: No defect or patent foramen ovale was identified. 7. Tricuspid valve: There was severe regurgitation. 8. Pulmonary arteries: Pulmonary systolic pressure was in the range of 50mm Hg to 65mm Hg. 9. Inferior vena cava: The vessel was patent and dilated. The respirophasic diameter changes were blunted (less than 50%), consistent with elevated central venous pressure. RAP est 10-20 mmHg. Exam(s) a US:US echocardiogram Date of study: 01/19/2019 Transthoracic Echocardiography M-mode, complete 2D, complete spectral Doppler, and color Doppler *STUDY CONCLUSIONS* Summary: 1. Left ventricle: The cavity size was normal. Wall thickness was normal. Systolic function was at the lower limits of normal. The estimated ejection fraction was 50-55%. Wall motion was normal; there were no regional wall motion abnormalities. Doppler parameters are consistent with high ventricular filling pressure. 2. Mitral valve: Prior procedures included surgical repair. An annular ring prosthesis was present. Mean gradient (D): 2.7mm Hg. 3. Left atrium: The atrium was severely dilated. 4. Right ventricle: The cavity size was severely dilated (apex forming). Wall thickness was normal. Systolic function was low normal by visual assessment. 5. Right atrium: The atrium was severely dilated. 6. Tricuspid valve: There was malcoaptation of the valve leaflets. There was severe regurgitation. 7. Pulmonic valve: There was moderate regurgitation. 8. Pulmonary arteries: Pulmonary systolic pressure was severely increased. PA peak pressure: 70mm Hg (S) plus right atrial pressure. Labs on day of discharge: Labs from last 24 hours 05/06/19 05/06/19 05/05/19 06:30 06:30 11:50 WBC 4.79 RBC 2.93 L Hgb 8.9 L Hct 29.3 L MCV 100.0 H MCH 30.4 MCHC 30.4 L RDW 15.6 H Plt Count 219 MPV 9.9 Immature Gran % 0.2 Neutrophils % 75.6 Lymphocytes % 7.5 Monocytes % 11.5 Eosinophils % 4.8 Basophils % 0.4 Absolute Neutrophils 3.62 Absolute Lymphocytes 0.36 L Absolute Monocytes 0.55 Absolute Eosinophils 0.23 Absolute Basophils 0.02 Sodium 138 Potassium 3.8 Chloride 102 Carbon Dioxide 20.1 L Anion Gap 15.9 H BUN 52 H Creatinine 4.36 H* Estimated GFR/1.73 m2 10.17 Glucose 97 Calcium 8.5 Magnesium 1.4 L TSH 8.76 H Free T4 1.65 H PFSH Medical History Anxiety (Acute) Asthma (Acute) Depression (Acute) Diabetes mellitus, type 2 (Acute) History of endometrial cancer (Chronic) Hyperlipidemia (Acute) Hypertension (Acute) Obesity (Acute) Seasonal allergic rhinitis (Acute) Surgical History section Ligation of fallopian tube Mitral valve repair Open Carpal Tunnel release Tonsillectomy Family History Mother Diabetes Father Hyperlipidemia Sister Lung cancer Endometrial cancer Other Personal history of malignant neoplasm Social History Smoking/Tobacco Use Status: Never Alcohol Intake: never Drug use: Never Substance use type: does not use Do you feel safe at home: Yes Do you feel safe in your relationship?: Yes History History 2 Para 2 Hx # Term Pregnancies Multiple births Hx # Pregnancies Ectopic pregnancies AB induced Hx Number of Living Children AB spontaneous
--- NOTE | 2019-05-06 14:34 | CHAPLAIN ---
Anjana was sitting up in her chair when I visited. Her boyfriend and son were with her. Her son arrived from [place] with his girlfriend to spend a few days with his mom for his birthday so they are disappointed that she is in the hospital. Anjana said said she may be transferred to [facility], and is waiting to hear when a bed is available. She shared some personal history, telling me that her protestant heritage is a mix of Temple [place], and Witch. We talked about the gifts she has received because of that, especially lessons from her grandmother about herbal healing.
== END 2019-05-06 14:40 | disposition short-term general hospital (02) | DRG 292 ==
LOC: ER 16:07 → ICU 17:12
PROVIDERS: Admitting Provider Internal Medicine; Emergency Provider Emergency Medicine; PCP General Practice; Visit Provider Internal Medicine
DX: I50.33 Acute on chronic diastolic (congestive) heart failure (principal); I13.0 Hypertensive heart and chronic kidney disease with heart failure and stage 1 through stage 4 chronic kidney disease, or unspecified chronic kidney disease; N17.9 Acute kidney failure, unspecified; Z68.42 Body mass index [BMI] 45.0-49.9, adult; I50.814 Right heart failure due to left heart failure; N18.9 Chronic kidney disease, unspecified; E11.22 Type 2 diabetes mellitus with diabetic chronic kidney disease; I48.91 Unspecified atrial fibrillation; I07.1 Rheumatic tricuspid insufficiency; Z85.42 Personal history of malignant neoplasm of other parts of uterus; Z92.21 Personal history of antineoplastic chemotherapy; Z92.3 Personal history of irradiation; Z79.84 Long term (current) use of oral hypoglycemic drugs; E78.5 Hyperlipidemia, unspecified; E66.9 Obesity, unspecified; I27.22 Pulmonary hypertension due to left heart disease
CPT/HCPCS: 36415; 36416; 51702; 80048; 80053; 82962; 93005; 93306; 99223; 99239; 99285; 71046; 83735; 83880; 84439; 84443; 84484; 85025; 85610; 85730; 93010; 94762; 99284; J1940; J3475

== ENCOUNTER 2019-05-20 10:06 | Outpatient (CLI) | payer OTHER, MEDICAID, SELFPAY ==
[2019-05-20 12:31] LABS: Anion Gap 13.2 mmol/L (3-11); BUN 64 mg/dL (7-18); CO2 28.8 mmol/L (21.0-32.0); Chloride 96 mmol/L (98-107); Estimated GFR 14.54 (mL/min/1.73m2); NT-proBNP 7975 pg/mL; Potassium 3.4 mmol/L (3.5-5.1); Sodium 138 mmol/L (136-145)
== END 2019-05-20 10:26 ==
PROVIDERS: PCP General Practice; Visit Provider General Practice
DX: I50.9 Heart failure, unspecified (principal); N18.9 Chronic kidney disease, unspecified
CPT/HCPCS: 36415; 80051; 84520; 82565; 83735; 83880

== ENCOUNTER 2019-05-28 18:59 | Emergency (ER) | payer OTHER, MEDICAID, SELFPAY ==
[2019-05-28 19:10] VITALS: BP 91/47; PULSE 125; RESP 18; TEMP 37.1; O2SAT 100
[2019-05-28 19:18] VITALS: RESP 18
--- NOTE | 2019-05-28 19:47 | ED.GENADUL_ITS ---
Discharge Plan Disposition Patient Disposition: HOME Discharge Details Chief Complaint: Vascular Clinical Impression: Avulsed toenail, Nailbed injury Primary Care Provider: Ron De La Rosa ED Provider: Carlitos Orozco Home Meds and New Rx's Prescriptions: No Action metoprolol succinate [Toprol XL] 50 MG tablet extended release 24 hr 50 mg PO BID RF: 0 metformin 1,000 MG tablet 1,000 mg PO BID RF: 0 loratadine 10 MG tablet 10 mg PO DAILY RF: 0 glipizide 5 MG tablet 2.5 mg PO DAILY Qty: 0.5 RF: 0 simvastatin [Zocor] 40 mg Tablet 40 mg PO HS RF: 0 furosemide [Lasix] 40 mg Tablet 80 mg PO BID RF: 0 Viibryd 10 mg Tablet 20 mg PO DAILY RF: 0 Eliquis 5 mg Tablet 5 mg PO BID RF: 0 bumetanide 1 mg Tablet 1 mg PO BID RF: 0 metolazone 2.5 mg Tablet See Rx Instructions .ROUTE .COMPLEX RF: 0 potassium 99 mg Tablet 5 meq PO BID RF: 0 mag [id number] rt xt 500-3,000-150 mg-unit-mg Tablet 2 tab PO BID RF: 0 Discharge Instructions Instructions: Nail Avulsion (ED) Referrals: Ron De La Rosa MD [Primary Care Provider] - 5 days Discharge Data Discharge Date/Time-TO BE ENTERED AT DEPARTURE: 05/28/19 19:57 Medical Decision Making This is a nontoxic-appearing 63-year-old female anticoagulated with a left second nailbed injury status post clipping her toes. Bleeding now to a slow ooze. Able to maintain hemodynamic stability status post direct pressure with Surgifoam soaked in TXA. Discussed wound care and return precautions. In relation to her hypertension here per chart review reveals similar readings dating back to 2 years ago. She states that she normally runs a low blood pressure secondary to her diuretic use. She denies any symptoms of dizziness, chest pain or shortness of breath. HPI General Date/Time Provider Initiated Documentation: 05/28/19 19:09 . HPI Narrative: Patient is a 63-year-old female on Eliquis for A. fib who presents to the emergency department for bleeding of the left second digit on her foot after cutting her toenail off. She states that she removed her toenail however continued to have bleeding for several hours afterwards. She has been unable to get the bleeding to stop. Related Data Home Medications Medication Instructions Recorded Confirmed glipizide 2.5 mg PO DAILY #0.5 07/21/13 05/28/19 loratadine 10 mg PO DAILY tab-cap 07/21/13 05/28/19 metformin 1,000 mg PO BID tab-cap 07/21/13 05/28/19 metoprolol succinate [Toprol XL] 50 mg PO BID 07/21/13 05/28/19 simvastatin [Zocor] 40 mg PO HS 07/27/18 05/28/19 Viibryd 20 mg PO DAILY 04/07/19 05/28/19 furosemide [Lasix] 80 mg PO BID 04/07/19 05/28/19 Eliquis 5 mg PO BID 05/05/19 05/28/19 bumetanide 1 mg PO BID 05/05/19 05/28/19 metolazone See Rx Instructions .ROUTE .COMPLEX 05/05/19 05/28/19 mag [id number] rt xt 2 tab PO BID 05/28/19 05/28/19 potassium 5 meq PO BID 05/28/19 05/28/19 Allergies Allergy/AdvReac Type Severity Reaction Status Date / Time bee venom protein (honey bee) Allergy Severe anaphylaxis Verified 05/28/19 19:14 Penicillins Allergy Severe anaphylaxis Verified 05/28/19 19:14 hydrocodone [From Vicodin] AdvReac Intermediate vomiting Verified 05/28/19 19:14 acetaminophen [From Vicodin] AdvReac Mild no problem Verified 05/28/19 19:14 with tylenol General Stated Complaint: Vascular RENY: 3 Review of Systems Constitutional Denies fever(s), Denies lethargy, Denies malaise and Denies weakness ENT Denies dizziness Musculoskeletal Denies numbness Neurologic Denies dizziness, Denies numbness, Denies paresthesias and Denies weakness Hematologic/Lymphatic Reports easy bleeding and Reports easy bruising [facility] Medical History Anxiety (Acute) Asthma (Acute) Depression (Acute) Diabetes mellitus, type 2 (Acute) History of endometrial cancer (Chronic) Adjuvant therapy-3 cycles of carboplatinum and Taxol followed by radiation therapy and then repeat post radiation carboplatinum and Taxol Hyperlipidemia (Acute) Hypertension (Acute) Obesity (Acute) Seasonal allergic rhinitis (Acute) Surgical History section 1982 Ligation of fallopian tube 1984 Mitral valve repair 2006 Open Carpal Tunnel release Right 2009 Tonsillectomy 1964 Family History Mother Diabetes Father Hyperlipidemia Sister Lung cancer Endometrial cancer Other Personal history of malignant neoplasm Social History Smoking/Tobacco Use Status: Former Tobacco Use Alcohol Intake: current Alcohol Intake frequency: holidays/special occasions only Drug use: Never Substance use type: does not use Do you feel safe at home: Yes Do you feel safe in your relationship?: Yes History History 2 Para 2 Hx # Term Pregnancies Multiple births Hx # Pregnancies Ectopic pregnancies AB induced Hx Number of Living Children AB spontaneous Exam Const General: cooperative, healthy appearing, comfortable and no acute distress Extrem General: full ROM and normal capillary refill Left lower extremity: foot Details: laceration and other (complete avulsion of the nail of the 2nd toe on left foot. Slow bleeding from the nail bed. NV int act) Course Vital Signs Temperature 37.1 C 05/28/19 19:10 Pulse 125 H 05/28/19 19:10 Respiratory Rate 18 05/28/19 19:10 Blood Pressure 91/47 L 05/28/19 19:10 Pulse Oximetry 100 05/28/19 19:10 Temperature 37.1 C 05/28/19 19:10 Temperature Source Tympanic 05/28/19 19:10 Pulse 125 H 05/28/19 19:10 Respiratory Rate 18 05/28/19 19:18 Respiratory Effort Non-Labored 05/28/19 19:18 Blood Pressure 91/47 L 05/28/19 19:10 Pulse Oximetry 100 05/28/19 19:10 Oxygen Delivery Method Room Air 05/28/19 19:10 Oxygen Flow Rate 0 05/28/19 19:10 Pain Level 0 05/28/19 19:18
[2019-05-28 20:00] VITALS: BP 91/47; PULSE 125; RESP 18; O2SAT 100
== END 2019-05-28 19:57 | disposition home or self-care (01) ==
PROVIDERS: Emergency Provider Physician Assistant; PCP General Practice
DX: S91.215A Laceration without foreign body of left lesser toe(s) with damage to nail, initial encounter (principal); W27.1XXA Contact with garden tool, initial encounter; Z79.01 Long term (current) use of anticoagulants; I48.91 Unspecified atrial fibrillation; I10 Essential (primary) hypertension; E11.9 Type 2 diabetes mellitus without complications; Z79.84 Long term (current) use of oral hypoglycemic drugs
CPT/HCPCS: 99283

== ENCOUNTER 2019-06-08 10:42 | Outpatient (CLI) | payer OTHER, MEDICAID, SELFPAY ==
[2019-06-08 11:47] LABS: Anion Gap 12.6 mmol/L (3-11); CO2 28.4 mmol/L (21.0-32.0); CREATININE 3.11 mg/dL (0.55-1.02); Chloride 90 mmol/L (98-107); Estimated GFR 15.02 (mL/min/1.73m2); Potassium 3.7 mmol/L (3.5-5.1); Sodium 131 mmol/L (136-145)
[2019-06-08 11:55] LABS: BUN 83 mg/dL (7-18)
== END 2019-06-08 11:02 ==
PROVIDERS: PCP General Practice; Visit Provider General Practice
DX: I50.9 Heart failure, unspecified (principal)
CPT/HCPCS: 36415; 80051; 84520; 82565

== ENCOUNTER 2019-06-17 14:53 | Outpatient (CLI) | payer OTHER, MEDICAID, SELFPAY ==
[2019-06-17 15:24] LABS: Bilirubin Negative (Negative); Blood Small (Negative); Clarity Sl Cloudy (Clear); Glucose 100 mg/dL (Negative); Ketones Negative (Negative); Leukocyte Esterase Small (Negative); Nitrite Negative (Negative); Specific Gravity 1.015 (1.005-1.025); Urobilinogen 0.2 EU/dL (Up TO 0.2); pH 7.5 (5-8)
[2019-06-17 15:26] LABS: HCT 30.3 % (36.0-46.0); HGB 9.7 g/dL (12.0-15.5)
[2019-06-17 15:57] LABS: WBC 20-50 HPF (0-5)
[2019-06-17 15:58] LABS: Bacteria Many HPF (Negative); C & S Indicated? No/Sq. Contamination; Casts Negative LPF (Negative); Crystals Negative HPF (Negative); Epithelial Cells Many HPF (Negative); Mucus Trace (Negative)
[2019-06-17 16:45] LABS: Anion Gap 12.3 mmol/L (3-11); CO2 29.7 mmol/L (21.0-32.0); CREATININE 3.17 mg/dL (0.55-1.02); Chloride 86 mmol/L (98-107); Digoxin 1.45 ng/mL (0.90-2.00); Potassium 4.8 mmol/L (3.5-5.1); Sodium 128 mmol/L (136-145)
[2019-06-17 18:19] LABS: BUN 88 mg/dL (7-18)
== END 2019-06-17 15:13 ==
PROVIDERS: PCP General Practice; Visit Provider General Practice
DX: I10 Essential (primary) hypertension (principal); I48.91 Unspecified atrial fibrillation; I50.9 Heart failure, unspecified; R31.9 Hematuria, unspecified; Z51.81 Encounter for therapeutic drug level monitoring; Z79.899 Other long term (current) drug therapy
CPT/HCPCS: 36415; 80051; 84520; 80162; 81003; 81015; 82565; 85014; 85018

== ENCOUNTER 2019-06-22 10:45 | Outpatient (CLI) | payer OTHER, MEDICAID, SELFPAY ==
[2019-06-22 11:03] LABS: HCT 31.5 % (36.0-46.0); HGB 10.5 g/dL (12.0-15.5); Mean Corp. HGB Concentration 33.3 g/dL (32.0-36.0); Mean Corpuscular Hemoglobin 31.2 pg (27.0-33.0); Mean Corpuscular Volume 93.5 fL (80-95); Mean Platelet Volume 9.2 fL (8.0-11.0); Platelet Count 324 x1000/uL (130-400); RBC 3.37 m/cumm (4.00-5.20); RBC Distribution Width 15.3 % (11.7-14.6); White Blood Cell Count 7.87 k/cumm (4.4-10.8)
[2019-06-22 13:15] LABS: Anion Gap 13.5 mmol/L (3-11); CO2 27.5 mmol/L (21.0-32.0); CREATININE 3.34 mg/dL (0.55-1.02); Chloride 89 mmol/L (98-107); Digoxin 0.64 ng/mL (0.90-2.00); Estimated GFR 13.84 (mL/min/1.73m2); Potassium 4.8 mmol/L (3.5-5.1); Sodium 130 mmol/L (136-145)
[2019-06-22 13:33] LABS: BUN 99 mg/dL (7-18)
== END 2019-06-22 11:05 ==
PROVIDERS: PCP General Practice; Visit Provider General Practice
DX: D64.9 Anemia, unspecified (principal); I48.91 Unspecified atrial fibrillation; Z79.899 Other long term (current) drug therapy; Z51.81 Encounter for therapeutic drug level monitoring; I50.9 Heart failure, unspecified
CPT/HCPCS: 36415; 80051; 84520; 85027; 80162; 82565

== ENCOUNTER 2019-07-19 09:59 | Outpatient (CLI) | payer OTHER, MEDICAID, SELFPAY ==
[2019-07-19 11:29] LABS: BUN 36 mg/dL (7-18); CREATININE 2.21 mg/dL (0.55-1.02); Chloride 105 mmol/L (98-107); Estimated GFR 22.28 (mL/min/1.73m2); NT-proBNP 7016 pg/mL; Potassium 4.6 mmol/L (3.5-5.1); Sodium 141 mmol/L (136-145)
== END 2019-07-19 10:19 ==
PROVIDERS: PCP General Practice; Visit Provider General Practice
DX: I50.9 Heart failure, unspecified (principal)
CPT/HCPCS: 36415; 80051; 84520; 82565; 83880

== ENCOUNTER 2019-09-23 10:00 | Outpatient (RCR) | payer SELFPAY ==
--- NOTE | 2019-09-10 07:19 | PR3E_ITS ---
63 year old female referred to Phase 3 by [facility]. Patient referred for diagnosis of heart failure and new atrial fibrillation. April echocardiogram revealed an ejection fraction of 40%, therefore qualifying Anjana for our maintenance program, two days per week. PMH: Arthritis, right sided heart failure, atrial fibrillation, CABG/MVR(2006), hypertension, endometrial CA, hysterectomy, oopherectomy, edema, VIMAL, DM II, obesity, depression. Medications: Toprol XL, ProAir, Lasiz, Aspirin, Eliquis, Magnesium Oxide Vilazodone, Nitro, KCL, Simvastatin, Glipizide, Loratadine, Tylenol Anjana presented to her pre program intake on 08/31/19. She completed the intake assessment forms and signed program consents w/ A. Day RN. Her first day of exercise was 09/02/19. Her first day o/f exercise consisted of the following: Resting: BP 118/74, HR 86, weight 187.6 lbs Treadmill - 2 - 3 minutes, NuStep- 7-8 minutes, Stationary bike 4 minutes, and UBE for 5-6 minutes. HR w/ exercise- 98-105 bpm, BP's 102-108/56-66. Cool down HR 94 bpm. GLORIA scale ratings: 11 Patient tolerated her first day of exercise without any adverse signs or symptoms. Will continue to supervise and progress as tolerated.
== END 2019-09-28 23:59 | disposition home or self-care (01) ==
LOC: CR 10:00
PROVIDERS: PCP Nurse Practitioner; Visit Provider Family Medicine
DX: Z51.89 Encounter for other specified aftercare (principal)

== ENCOUNTER 2019-10-28 10:00 | Outpatient (RCR) | payer SELFPAY | END 2019-10-29 23:59 | disposition home or self-care (01) | LOC: CR 10:00 | PROVIDERS: PCP Nurse Practitioner; Visit Provider Family Medicine | DX: Z51.89 Encounter for other specified aftercare (principal) ==

== ENCOUNTER 2019-10-28 10:30 | Outpatient (CLI) | payer OTHER, MEDICAID, SELFPAY ==
[2019-10-28 11:16] LABS: Hemoglobin A1C 11.8 % (3.8-5.6)
[2019-10-28 12:25] LABS: Calculated LDL 80 mg/dL (<100); Cholesterol 152 mg/dL (<200); HDL Cholesterol 53 mg/dL (40-60); Triglyceride 98 mg/dL (<150)
== END 2019-10-28 10:50 ==
PROVIDERS: PCP Nurse Practitioner; Visit Provider Nurse Practitioner
DX: E11.9 Type 2 diabetes mellitus without complications (principal); E78.2 Mixed hyperlipidemia
CPT/HCPCS: 36415; 80061; 83036

== ENCOUNTER 2019-10-30 04:08 | Outpatient (RCR) | payer SELFPAY | END 2019-11-27 23:59 | disposition home or self-care (01) | LOC: CR 04:08 | PROVIDERS: PCP Nurse Practitioner; Visit Provider Family Medicine | DX: Z51.89 Encounter for other specified aftercare (principal) ==

== ENCOUNTER 2019-11-16 02:37 | Outpatient (CLI) | payer OTHER, MEDICAID, SELFPAY ==
--- NOTE | 2019-11-16 11:00 | DIABASSESS_ITS ---
DESCRIPTION/ASSESSMENT: Anjana Cobian presents for medical nutrition therapy for diabetes with A1c now at 11.8 taking Glipizide. She has just initiated Levemir at 13u nightly. She has had symptoms of hyperglycemia which have improved since starting Levemir. Anjana states she follows a low sodium diet with goal of less than 1200mg daily and states it has helped with bloating. She has oatmeal or cheerios and cranberries for breakfast ; peanut butter sandwich or chicken noodle soup for lunch; fruit (apples) or rice cakes for snacks; pork roast, buttered noodles and carrots for supper. She likes many vegetables including broccoli, brussel sprouts, cabbage. Anjana has attended cardiac rehab but finds she is hungry after, so she is now using her treadmill 5-10 minutes a day. Anjana monitors blood sugars in the morning. Fasting blood sugars have dropped from 260mg/dl to 180mg/dl with 13u Levemir in addition to her usual 5mg Glyburide. Anjana denies stress except for her pets who she cares about deeply, and cardiovascular health concerns. INTERVENTION: Food - Reviewed diabetes food guide focused on carbohydrate sources, portions and distribution; label reading; plate method focused on increased vegetables. Physical Activity - emphasized importance of cardiovascular as well as strengthening and balance activities. Demonstrated chair exercises. Monitoring - Discussed monitoring blood sugars for meaning in pairs. Anjana is engaged in conversation and motivated to make some changes. She will be in touch with her PCP regarding her insulin management. ACTION PLAN: Anjana will: Look at carbohydrate sources and portions; increase vegetables at lunch and supper; stick with cooked cereal at breakfast. increase her physical activity by 5 minutes a day adding chair exercises monitor blood sugars by pre/post meal a couple of times to determine impact of food on blood sugar. Individual MNT _2__ units billed for 40 minutes face to face No DM group education series being offered at this time.
== END 2019-11-16 02:57 ==
PROVIDERS: PCP Nurse Practitioner; Visit Provider Dietitian, Registered
DX: E11.9 Type 2 diabetes mellitus without complications (principal); Z79.4 Long term (current) use of insulin; Z71.3 Dietary counseling and surveillance
CPT/HCPCS: 97802

== ENCOUNTER 2019-11-28 03:47 | Outpatient (RCR) | payer SELFPAY | END 2019-12-28 23:59 | disposition home or self-care (01) | LOC: CR 03:47 | PROVIDERS: PCP Nurse Practitioner; Visit Provider Family Medicine | DX: Z51.89 Encounter for other specified aftercare (principal) ==

== ENCOUNTER 2019-12-22 01:31 | Outpatient (CLI) | payer OTHER, SELFPAY ==
--- NOTE | 2019-12-22 14:53 | DI.MAMMO_ITS ---
EXAM: MG MAMMO SCREENING CLINICAL HISTORY: SCREENING, Z12.39 TECHNIQUE: Bilateral full field digital CC and MLO mammographic images were obtained with 3D tomosyn thesis and utilizing computer aided detection (CAD). COMPARISON: Available for comparison. FINDINGS: Masses/Architectural Distortion: None seen. Microcalcifications: No suspicious pleomorphic-type are seen. Skin Thickening/Nipple Retraction: None. IMPRESSION: 1. No significant interval change with no specific features of malignancy noted. 2. Unless there is more urgent need, screening mammography is recommended, as per [employer] guidelines. BI-RADS Cat 1 - Negative Breast Density - Category B - Scattered areas of fibroglandular density A negative radiographic report should not delay biopsy if a dominant or clinically suspicious mass is present. Up to ten percent of cancers are not identified on mammography. A negative report may reinforce clinical impression. Adenosis and dense breasts may obscure an underlying neoplasm. False positive reports average 6 to 10%. Patient will receive a letter notifying them of these results.
== END 2019-12-22 01:51 ==
PROVIDERS: PCP Nurse Practitioner; Visit Provider Nurse Practitioner Family
DX: Z12.31 Encounter for screening mammogram for malignant neoplasm of breast (principal)
CPT/HCPCS: 77063; 77067

== ENCOUNTER 2020-05-18 19:26 | Outpatient (REF) | payer OTHER, MEDICAID, SELFPAY ==
[2020-05-18 21:14] LABS: CREATININE 2.79 mg/dL (0.55-1.02); Estimated GFR 16.98 (mL/min/1.73m2); Hemoglobin A1C 8.6 % (3.8-5.6); Potassium 4.2 mmol/L (3.5-5.1)
== END 2020-05-18 19:46 ==
LOC: LBN 19:26
PROVIDERS: PCP Nurse Practitioner; Visit Provider Nurse Practitioner
DX: E11.9 Type 2 diabetes mellitus without complications (principal); I50.9 Heart failure, unspecified; N17.9 Acute kidney failure, unspecified
CPT/HCPCS: 82565; 83036; 84132

== ENCOUNTER 2020-11-22 02:50 | Outpatient (CLI) | payer OTHER, MEDICAID, SELFPAY ==
[2020-11-22 10:15] LABS: CREATININE 3.2 mg/dL (0.55-1.02); Calculated LDL 89 mg/dL (<100); Cholesterol 168 mg/dL (<200); Estimated GFR 14.49 (mL/min/1.73m2); HDL Cholesterol 62 mg/dL (40-60); Potassium 3.2 mmol/L (3.5-5.1); Triglyceride 87 mg/dL (<150)
== END 2020-11-22 02:51 | disposition home or self-care (01) ==
LOC: LBO 02:51
PROVIDERS: PCP Nurse Practitioner; Visit Provider Nurse Practitioner
DX: I10 Essential (primary) hypertension (principal); E78.2 Mixed hyperlipidemia; E11.9 Type 2 diabetes mellitus without complications
CPT/HCPCS: 36415; 80061; 82565; 84132

== ENCOUNTER 2020-12-11 03:06 | Outpatient (CLI) | payer OTHER, MEDICAID, SELFPAY ==
[2020-12-11 12:35] LABS: Anion Gap 10.2 mmol/L (3-11); BUN 50 mg/dL (7-18); CO2 27.8 mmol/L (21.0-32.0); CREATININE 2.9 mg/dL (0.55-1.02); Calcium 8.8 mg/dL (8.5-10.1); Chloride 103 mmol/L (98-107); Estimated GFR 16.19 (mL/min/1.73m2); Glucose 80 mg/dL (74-106); Potassium 3.8 mmol/L (3.5-5.1); Sodium 141 mmol/L (136-145); Uric Acid 6.3 mg/dL (2.6-6.0)
== END 2020-12-11 03:07 | disposition home or self-care (01) ==
LOC: LOS 03:07
PROVIDERS: PCP Nurse Practitioner; Visit Provider Internal Medicine Nephrology
DX: N18.4 Chronic kidney disease, stage 4 (severe) (principal)
CPT/HCPCS: 36415; 80048; 84550

== ENCOUNTER 2020-12-25 02:12 | Outpatient (CLI) | payer OTHER, MEDICAID, SELFPAY ==
--- NOTE | 2020-12-25 07:15 | DI.MAMMO_ITS ---
EXAM: MG MAMMO SCREENING CLINICAL HISTORY: screening,Z12.39. TECHNIQUE: Bilateral full field digital CC and MLO mammographic images were obtained with 3D tomosyn thesis and utilizing computer aided detection (CAD). COMPARISON: Prior mammograms dating back to 2012, the most recent being November 2019. FINDINGS: Asymmetric benign-appearing densities anteriorly in the right breast are unchanged. There benign-petey earing microcalcifications again noted. There are no new spiculated masses nor malignant appearing microcalcification groups. There is no significant architectural distortion nor skin thickening-retraction. IMPRESSION: Stable benign findings. No radiographic evidence of malignancy. BI-RADS Category 2 - Benign Findings Breast Density - Category B - Scattered areas of fibroglandular density Breast density Category C or D implies that the patient has dense breast tissue. Dense breast tissue can make it harder to find cancer on a mammogram. Dense breast tissue is also associated with an incr eased risk of breast cancer. This information about the result of the mammogram report was provided to the patient to raise their awareness. Use this report when you speak with the patient about their risks for breast cancer, which includes their family history. At that time, you may recommend additional screening tests (Ultrasoun d or MRI) as these tests may add significant information. A negative radiographic report should not delay biopsy if a dominant or clinically suspicious mass is present. Up to ten percent of cancers are not identified on mammography. A negative report may reinforce clinical impression. Adenosis and dense breasts may obscure an underlying neoplasm. False positive reports average 6 to 10%. Patient will receive a letter notifying them of these results.
== END 2020-12-25 02:32 ==
PROVIDERS: PCP Nurse Practitioner; Visit Provider Nurse Practitioner
DX: Z12.31 Encounter for screening mammogram for malignant neoplasm of breast (principal)
CPT/HCPCS: 77063; 77067

== ENCOUNTER 2021-01-03 03:26 | Outpatient (CLI) | payer OTHER, MEDICAID, SELFPAY ==
[2021-01-03 10:53] LABS: Anion Gap 7.7 mmol/L (3-11); BUN 46 mg/dL (7-18); CO2 28.3 mmol/L (21.0-32.0); Calcium 9.3 mg/dL (8.5-10.1); Chloride 104 mmol/L (98-107); Estimated GFR 15.57 (mL/min/1.73m2); Glucose 95 mg/dL (74-106); Potassium 4.1 mmol/L (3.5-5.1); Sodium 140 mmol/L (136-145); Uric Acid 5.6 mg/dL (2.6-6.0)
== END 2021-01-03 03:27 | disposition home or self-care (01) ==
LOC: LBO 03:26
PROVIDERS: PCP Nurse Practitioner; Visit Provider Internal Medicine Nephrology
DX: N18.4 Chronic kidney disease, stage 4 (severe) (principal)
CPT/HCPCS: 36415; 80048; 84550

== ENCOUNTER 2021-02-28 03:19 | Outpatient (CLI) | payer OTHER, MEDICAID, SELFPAY ==
[2021-02-28 09:41] LABS: Calcium 9.4 mg/dL (8.5-10.1); Chloride 97 mmol/L (98-107); Estimated GFR 11.85 (mL/min/1.73m2); Glucose 107 mg/dL (74-106); NT-proBNP 1318 pg/mL (<300); Potassium 3.1 mmol/L (3.5-5.1); Sodium 140 mmol/L (136-145)
[2021-02-28 09:51] LABS: BUN 86 mg/dL (7-18); CREATININE 3.8 mg/dL (0.55-1.02)
== END 2021-02-28 03:20 | disposition home or self-care (01) ==
LOC: LBO 03:19
PROVIDERS: PCP Nurse Practitioner; Visit Provider Nurse Practitioner Adult Health
DX: I50.22 Chronic systolic (congestive) heart failure (principal); R60.0 Localized edema
CPT/HCPCS: 36415; 80048; 83880

== ENCOUNTER 2021-06-08 02:57 | Outpatient (CLI) | payer OTHER, MEDICAID, SELFPAY ==
[2021-06-08 10:34] LABS: Abs Immature Grans 0.02 10^3/uL (0.0-0.06); Absolute Basophil Count 0.03 10^3/uL (0.0-0.2); Absolute Eosinophil Count 0.39 10^3/uL (0.0-0.7); Absolute Lymphocyte Count 0.78 10^3/uL (1.2-3.4); Absolute Neutrophil Count 3.49 10^3/uL (1.2-6.7); Basophils % 0.6; Eosinophils % 7.3; HCT 36.3 % (36.0-46.0); Immature Grans % 0.4; Lymphocytes % 14.7; MCH 31.7 pg (27.0-33.0); MCHC 30.3 % (32.0-36.0); MCV 104.6 fL (80-95); MPV 10.3 fL (8.0-11.0); Monocytes % 11.3; Neutrophils % 65.7; Nucleated RBC 0 %; Platelet Count 168 10^3/uL (130-400); RBC 3.47 10^6/uL (3.93-5.22); RDW 14.1 % (11.7-14.6); RDW-SD 54.2 fL; WBC 5.31 10^3/uL (4.4-10.8)
[2021-06-08 11:05] LABS: COMMENT (LAB VIEW ONLY) 64.29 mg/dL; PROTEIN 12.2 mg/dL; Prot/Crea Ur Ratio 0.18
[2021-06-08 11:40] LABS: Albumin 3.8 g/dL (3.4-5.0); Anion Gap 7.2 mmol/L (3-11); BUN 51 mg/dL (7-18); CO2 30.8 mmol/L (21.0-32.0); CREATININE 3.1 mg/dL (0.55-1.02); Chloride 106 mmol/L (98-107); Estimated GFR 14.99 (mL/min/1.73m2); Glucose 92 mg/dL (74-106); PHOSPHORUS 4.6 mg/dL (2.6-4.7); Potassium 4.2 mmol/L (3.5-5.1); Sodium 144 mmol/L (136-145); Uric Acid 6.5 mg/dL (2.6-6.0)
[2021-06-11 11:55] LABS: Parathyroid Hormone,Intact 283 pg/mL (19-88)
== END 2021-06-08 02:58 | disposition home or self-care (01) ==
LOC: LBO 02:57
PROVIDERS: PCP Nurse Practitioner; Visit Provider Internal Medicine Nephrology
DX: N18.4 Chronic kidney disease, stage 4 (severe) (principal); I50.22 Chronic systolic (congestive) heart failure
CPT/HCPCS: 36415; 80048; 82040; 82565; 83970; 84100; 84156; 84550; 85025

== ENCOUNTER 2021-07-20 02:00 | Outpatient (CLI) | payer MEDICARE, MEDICAID, SELFPAY ==
[2021-07-20 10:51] LABS: FREE T4 1.86 ng/dL (0.76-1.46); TSH 4.02 uIU/mL (0.36-3.74)
[2021-07-20 16:44] LABS: T3, Total 103 ng/dL (97-169)
[2021-07-28 14:55] LABS: 1,25-Dihydroxyvitamin D 34 pg/mL (18-78)
== END 2021-07-20 02:01 | disposition home or self-care (01) ==
LOC: LBO 02:00
PROVIDERS: PCP Nurse Practitioner; Visit Provider Internal Medicine Endocrinology, Diabetes & Metabolism
DX: E03.9 Hypothyroidism, unspecified (principal); E55.9 Vitamin D deficiency, unspecified; N25.81 Secondary hyperparathyroidism of renal origin; N18.4 Chronic kidney disease, stage 4 (severe)
CPT/HCPCS: 36415; 82652; 84439; 84443; 84480

== ENCOUNTER 2021-08-27 02:35 | Outpatient (CLI) | payer MEDICARE, MEDICAID, SELFPAY ==
[2021-08-27 16:02] LABS: ALT 19 U/L (14-59); AST 18 U/L (15-37); Albumin 3.8 g/dL (3.4-5.0); Alkaline Phosphatase 110 U/L (46-116); BUN 34 mg/dL (7-18); Bilirubin, Total 0.8 mg/dL (0.2-1.0); CREATININE 2.9 mg/dL (0.55-1.02); Calcium 8.8 mg/dL (8.5-10.1); Chloride 104 mmol/L (98-107); Estimated GFR 16.19 (mL/min/1.73m2); Glucose 110 mg/dL (74-106); Potassium 3.9 mmol/L (3.5-5.1); Sodium 143 mmol/L (136-145); Total Protein 6.9 g/dL (6.4-8.2); Uric Acid 7.2 mg/dL (2.6-6.0)
== END 2021-08-27 02:36 | disposition home or self-care (01) ==
LOC: LBO 02:36
PROVIDERS: PCP Nurse Practitioner; Visit Provider Nurse Practitioner Family
DX: N18.4 Chronic kidney disease, stage 4 (severe) (principal); C54.1 Malignant neoplasm of endometrium
CPT/HCPCS: 36415; 80053; 84550

== ENCOUNTER 2021-09-27 13:58 | Emergency (ER) | payer MEDICARE, MEDICAID, SELFPAY ==
[2021-09-27 14:04] VITALS: BP 156/84; PULSE 56; RESP 18; TEMP 36.5; O2SAT 96
--- NOTE | 2021-09-27 14:30 | DI.RAD_ITS ---
Exam(s) XR LUMBAR SPINE AP, LAT EXAM: XR LUMBAR SPINE COMPLETE CLINICAL HISTORY: pain lumbar spine. TECHNIQUE: 2D digital imaging was performed. COMPARISON: No exams were available for comparison FINDINGS: No evidence of acute fracture. Advanced disc space narrowing at L4-5 and L5-S1 levels noted mild deg enerative anterolisthesis of L4 upon L5 noted approximately 3 millimeters. Disc spaces above this le wicho exhibit normal height. Mild facet arthropathy. No osseous lesions. Calcified abdominal aorta a nd iliac arteries noted. IMPRESSION: Chronic advanced degenerative disc disease in the lower LS spine as described above. DATA REPOSITORY: RADIATION DOSE DELIVERED:
--- NOTE | 2021-09-27 14:30 | DI.RAD_ITS ---
Exam(s) XR KNEE LT 3V AP,LAT,JOSE GUADALUPE EXAM: XR KNEE LT 3V AP,LAT,JOSE GUADALUPE CLINICAL HISTORY: pain post fall. TECHNIQUE: 2D digital imaging was performed. COMPARISON: CR LEFT KNEE LIMITED 1 OR 2 VIEWS from 08/05/2011 FINDINGS: No evidence fracture although there does appear to be a small joint effusion. Mild degenerative ruiz ges compartment. No prominent joint space narrowing. Degenerative cysts noted in the mid tibial erendira teau. IMPRESSION: Mild findings as described above. No fracture evident. DATA REPOSITORY: RADIATION DOSE DELIVERED:
--- NOTE | 2021-09-27 14:30 | DI.RAD_ITS ---
Exam(s) XR HIP RT COMPLETE AP PELVIS EXAM: XR HIP RT COMPLETE AP PELVIS CLINICAL HISTORY: pain post fall. TECHNIQUE: 2D digital imaging was performed. COMPARISON: CR LEFT HIP COMPLETE from 08/05/2011 FINDINGS: No evidence of pelvic nor hip fracture. Additional views of the right hip do not reveal obvious dege nerative changes. Sacroiliac joints appear unremarkable. No osseous lesions. When compared to 2010 there is now significant decreased disc height at L4-5 and L5-S1 levels. IMPRESSION: DATA REPOSITORY: RADIATION DOSE DELIVERED:
[2021-09-27] MEDS: Acetaminophen 325 MG TAB 650 MG PO (14:52)
[2021-09-27 15:05] LABS: Abs Immature Grans 0.03 10^3/uL (0.0-0.06); Absolute Basophil Count 0.08 10^3/uL (0.0-0.2); Absolute Eosinophil Count 0.39 10^3/uL (0.0-0.7); Absolute Lymphocyte Count 0.68 10^3/uL (1.2-3.4); Absolute Monocyte Count 0.67 10^3/uL (0.1-0.8); Absolute Neutrophil Count 4.33 10^3/uL (1.2-6.7); Basophils % 1.3; Eosinophils % 6.3; HGB 11.1 g/dL (11.2-15.7); Immature Grans % 0.5; MCH 33.2 pg (27.0-33.0); MCHC 30.8 % (32.0-36.0); MCV 107.8 fL (80-95); MPV 10.1 fL (8.0-11.0); Monocytes % 10.8; Neutrophils % 70.1; Nucleated RBC 0 %; Platelet Count 157 10^3/uL (130-400); RBC 3.34 10^6/uL (3.93-5.22); WBC 6.18 10^3/uL (4.4-10.8)
[2021-09-27 15:08] LABS: Bilirubin Negative (Negative); Blood Negative (Negative); Clarity Clear (Clear); Glucose Negative (Negative); Ketones Negative (Negative); Leukocyte Esterase Negative (Negative); Nitrite Negative (Negative); Urobilinogen 0.2 EU/dL (Up TO 0.2)
[2021-09-27 15:25] LABS: Macrocytosis 1+
[2021-09-27 15:41] LABS: ALT 17 U/L (14-59); AST 17 U/L (15-37); Albumin 3.9 g/dL (3.4-5.0); Alkaline Phosphatase 123 U/L (46-116); Anion Gap 8.9 mmol/L (3-11); BUN 40 mg/dL (7-18); Bilirubin, Total 0.8 mg/dL (0.2-1.0); CO2 30.1 mmol/L (21.0-32.0); CREATININE 3.1 mg/dL (0.55-1.02); Chloride 102 mmol/L (98-107); Estimated GFR 14.99 (mL/min/1.73m2); Glucose 154 mg/dL (74-106); Potassium 3.9 mmol/L (3.5-5.1); Sodium 141 mmol/L (136-145); Total Protein 7.7 g/dL (6.4-8.2)
[2021-09-27 15:42] LABS: Creatine Kinase 71 U/L (26-192)
--- NOTE | 2021-09-27 16:07 | ED.GENADUL_ITS ---
Discharge Plan Disposition Patient Disposition: HOME Condition: Stable Discharge Details Clinical Impression: Hematoma and contusion, Leg pain, bilateral Primary Care Provider: [facility] Provider: Melany Hernandez Home Meds and New Rx's Prescriptions: Continued (DME) pen needle, diabetic [BD Ultra-Fine Rhoda Pen Needle] 32 gauge x 5/32 needle See Rx Instructions .ROUTE .MEDSUPPLY Qty: 30 RF: 11 metolazone 2.5 mg tablet 2.5 mg PO DAILY PRNRF: 0 aspirin 81 mg tablet,delayed release (DR/EC) 81 mg PO DAILY RF: 0 nitroglycerin 0.4 mg tablet, sublingual 0.4 mg SL Q5-15M PRNRF: 0 ferrous sulfate [FeroSul] 325 mg (65 mg iron) tablet 325 mg PO DAILY RF: 0 levothyroxine 125 mcg tablet 125 mcg PO DAILY RF: 0 allopurinol 100 mg tablet 100 mg PO DAILY RF: 0 torsemide 20 mg tablet 100 mg PO DAILY RF: 0 amiodarone 200 mg tablet 200 mg PO DAILY Qty: 90 RF: 0 loratadine 10 mg tablet 10 mg PO DAILY PRNRF: 0 glipizide 5 mg tablet 5 mg PO DAILY Qty: 30 RF: 12 Levemir FlexTouch U-100 Insuln 100 unit/mL (3 mL) insulin pen 15 unit SC QHS 90 Days Qty: 15 RF: 3 (DME) BD Eclipse 21 gauge x 1 needle See Rx Instructions .ROUTE .MEDSUPPLY Qty: 100 RF: 3 simvastatin [Zocor] 40 mg tablet 40 mg PO HS Qty: 90 RF: 3 (DME) blood sugar diagnostic Strip See Rx Instructions .ROUTE .MEDSUPPLY Qty: 100 RF: 3 metoprolol succinate [Toprol XL] 50 mg tablet extended release 24 hr 50 mg PO DAILY RF: 0 potassium chloride 10 mEq capsule, extended release 10 meq PO BID Qty: 180 RF: 3 Viibryd 10 mg Tablet 20 mg PO DAILY RF: 0 Eliquis 5 mg tablet 2.5 mg PO BID RF: 0 mag [id number] rt xt 500-3,000-150 mg-unit-mg tablet 2 tab PO BID RF: 0 Discharge Instructions Instructions: Leg Pain (ED), Hematoma (ED) Additional Instructions: You have a fracture on your legs when you are at rest, you may wrap your leg starting by your feet and wrapping for compression You may take Tylenol 650 mg [id number] every 4-6 hours as needed for discomfort Use your walker with ambulation I recommend reassessment with your primary care physician in 2 to 3 days Return earlier should you have fever, chills, inability to safely ambulate around your home Or should you have new or worsening complaints Discharge Data Discharge Date/Time-TO BE ENTERED AT DEPARTURE: 09/27/21 16:37 Medical Decision Making Hemodynamically stable, creatinine consistent with prior CKD, no significant acute change No indication for immediate reversal of patient Eliquis at this time Ice and elevation with Aron wrap applied to bilateral lower extremities for compression Patient is safe for discharge home at this time, the event occurred 3 days ago and I see no indication for additional evaluation No indication for CT head or cervical spine 3 days prior injury and no headache, dizziness, with a nonfocal neurological exam, nontender cervical spine exam He has outpatient follow-up to ensure improvement No evidence of fracture per radiology interpretation of x-rays of right hip, left knee, and lumbar spine, all results reviewed were available Return precautions discussed and patient expressed understanding, discharged home in stable condition with stable vitals Medical Records Medical records reviewed: Yes I reviewed the patient's medical records. HPI General Mode of arrival: ambulatory . Date/Time Provider Initiated Documentation: 09/27/21 14:21 . Limitations to Documentation: no limitations . Information obtained by: patient . HPI Narrative: This 65-year-old female with history of CKD, pulmonary hypertension, CHF presents with report of bilateral lower extremity pain and swelling. Reports fall 3 days prior to arrival. Pr esents with persistent pain and persistent swelling to bilateral lower extremities. Denies any head injury or neck pain. Is chronically anticoagulated on Eliquis. Currently denies headache, dizziness, neck pain, chest pain, abdominal pain or pelvic pain. Denies any hematuria. Denies any strength or sensation change to bilateral lower extremities. Does have pain with flexion extension of her left knee and right hip. Landed on her buttocks when she fell. Did not lose consciousness. Has taken all of her medications including her Eliquis today. Denies any palpitations. Feels as though she is getting around her home safely. Related Data Home Medications Medication Instructions Recorded Confirmed Viibryd 20 mg PO DAILY 04/07/19 09/27/21 aspirin 81 mg tablet,delayed 81 mg PO DAILY 10/14/19 09/27/21 release nitroglycerin 0.4 mg sublingual 0.4 mg SL Q5-15M PRN 10/14/19 09/27/21 tablet pen needle, diabetic 32 gauge x #30 each 02/01/20 09/27/21 amiodarone 200 mg tablet 200 mg PO DAILY #90 tab 03/30/20 09/27/21 ferrous sulfate 325 mg (65 mg 325 mg PO DAILY 08/01/20 09/27/21 iron) tablet loratadine 10 mg tablet 10 mg PO DAILY PRN tab-cap 08/01/20 09/27/21 magnesium oxide 500 mg-vit D3 2 tab PO BID 11/16/20 09/27/21 3,000 unit-turmeric root 150 mg tablet metolazone 2.5 mg tablet 2.5 mg PO DAILY PRN tab 11/16/20 09/27/21 glipizide 5 mg tablet 5 mg PO DAILY #30 tab 01/18/21 09/27/21 insulin detemir U-100 100 unit/mL 15 unit SC QHS 90 Days #15 ml 02/06/21 1 (3 mL) subcutaneous pen safety needles 21 gauge x 1 #100 each 03/06/21 09/27/21 simvastatin 40 mg tablet 40 mg PO HS #90 tab 04/10/21 09/27/21 blood sugar diagnostic #100 each 04/27/21 09/27/21 allopurinol 100 mg tablet 100 mg PO DAILY 05/31/21 09/27/21 apixaban 5 mg tablet 2.5 mg PO BID tab 05/31/21 09/27/21 levothyroxine 125 mcg tablet 125 mcg PO DAILY 05/31/21 09/27/21 metoprolol succinate 50 mg 50 mg PO DAILY tab 05/31/21 09/27/21 tablet,extended release 24 hr potassium chloride 10 mEq 10 meq PO BID #180 cap 06/14/21 09/27/21 capsule,extended release torsemide 20 mg tablet 100 mg PO DAILY tab 07/05/21 09/27/21 Previous Rx's Medication Instructions Recorded pen needle, diabetic 32 gauge x #30 each 02/01/20 amiodarone 200 mg tablet 200 mg PO DAILY #90 tab 03/30/20 glipizide 5 mg tablet 5 mg PO DAILY #30 tab 01/18/21 insulin detemir U-100 100 unit/mL 15 unit SC QHS 90 Days #15 ml 02/06/21 (3 mL) subcutaneous pen safety needles 21 gauge x 1 #100 each 03/06/21 simvastatin 40 mg tablet 40 mg PO HS #90 tab 04/10/21 blood sugar diagnostic #100 each 04/27/21 potassium chloride 10 mEq 10 meq PO BID #180 cap 06/14/21 capsule,extended release Allergies Allergy/AdvReac Type Severity Reaction Status Date / Time bee venom protein (honey bee) Allergy Severe anaphylaxis Verified 09/27/21 14:10 Penicillins Allergy Severe anaphylaxis Verified 09/27/21 14:10 hydrocodone [From Vicodin] AdvReac Intermediate vomiting Verified 09/27/21 14:10 General Stated Complaint: Trauma RENY: 3 Review of Systems All systems reviewed & are unremarkable except as noted in HPI and below PFSH All Active Problems (Updated 09/27/21 @ 16:11 by JORDAN Sanders) Hematoma and contusion (Acute) Leg pain, bilateral (Acute) Palliative care patient (Acute) History of endometrial cancer (Acute) Adjuvant therapy-3 cycles of carboplatinum and Taxol followed by radiation therapy and then repeat post radiation carboplatinum and Taxol CHF (congestive heart failure) (Chronic) [place] [facility] [facility] [place] possible partiocipation in a study for device to control regurg (tricuspid) Pulmonary hypertension (Acute) [place] [facility] [place] (chronic kidney disease) stage 4, GFR 15-29 ml/min (Acute) Diabetic retinopathy of both eyes (Acute ~02/10/20) 02/10/20 AMY (MILD), appt in May 2021 Atrial fibrillation (Chronic) Diabetes mellitus, type 2 (Acute) Anxiety (Acute) Depression (Acute) Hyperlipidemia (Acute) Seasonal allergic rhinitis (Acute) Hypertension (Acute) Obesity (Acute) Asthma (Acute) Medical History DVT prophylaxis Surgical History section 1982 Ligation of fallopian tube 1984 Mitral valve repair 2006 Open Carpal Tunnel release Right 2009 Tonsillectomy 1964 Family History Mother , age 81 Diabetes Father , age 82 Hyperlipidemia Alcohol abuse Hypertension Sister , agae 57 Lung cancer Endometrial cancer Substance abuse Sister , age 5 No problems noted. Sister No problems noted. Brother , age 63 Alcohol abuse Asthma Diabetes Hyperlipidemia Brother , age 71 No problems noted. Brother , age 63 Alcohol abuse Hyperlipidemia Hypertension Son No problems noted. Daughter No problems noted. Other Personal history of malignant neoplasm Social History Smoking/Tobacco Use Status: Former Tobacco Use tobacco type: cigarettes Quit Date: 09/29/80 Tobacco: How many years used: 38 Second Hand Exposure: Yes Smoking risk assessment performed?: Yes Alcohol Intake: current Alcohol Intake frequency: holidays/special occasions only Alcohol type: wine Drug use: Rarely Substance use type: marijuana Caregiver/Support person: No Household members: significant other and children Housing: house Communication Needs: Corrective Lenses Do you need help understanding health information?: Rarely Pets and animals: Yes Pets and animals: cat(s) and dog(s) Sexually active: No Do you think of yourself as: straight/heterosexual Current gender identity: female What is your relationship status?: living with partner How often do you talk on the phone with friends or family?: twice per week How often do you get together with friends or relatives?: decline to answer How often do you attend baptism or quaker services?: decline to answer Do you belong to any clubs or organized social groups?: no Panel score (0-1 are the most socially isolated patients): 1 What type of physical activity do you participate in: decline to answer Duration: < 15 minutes/day Frequency: 3-4 times per week Patricia/Caodaism: Other Special patricia needs: No Seatbelt use: sometimes Helmet use: Yes Helmet use: sometimes Drive intox or ride w/intox commercial front load driver: No Do you feel safe at home: Yes Do you feel safe in your relationship?: Yes Female Reproductive History Menstrual Menopause type: natural History History 2 Para 2 Hx # Term Pregnancies Multiple births Hx # Pregnancies Ectopic pregnancies AB induced Hx Number of Living Children AB spontaneous Exam Const General: cooperative, comfortable and no acute distress HENMT Other: No hematoma, no visible sign of trauma, nontender exam, no hemotympanum Eyes Pupils: PERRL Neck Other: No midline tenderness, no sign of trauma Resp Effort & Inspection: normal respiratory effort Auscultation: clear to auscultation bilaterally Other: No visible sign of trauma,, lungs clear to auscultation Cardio Rate: regular rate Rhythm: regular rhythm GI Other: Nontender abdominal exam, no CVA tenderness Skin General skin exam: no rashes or lesions noted Neuro General: patient alert and patient oriented x3 Cranial Nerves: CN's II-XI intact bilaterally Other: Strength and sensation intact distally, GCS 15 Extrem Other: No bruising to right hip with tenderness with palpation, left knee tenderness, palpable lumbar spine tenderness, mostly paraspinal, very benign exam Significant ecchymosis to bilateral lower extremities, tenderness, no evidence of secondary infection, no evidence of compartment syndrome, neurovascularly intact Ambulatory with antalgic steady gait GCS 15 Course Vital Signs Vital signs: Vital Signs Temperature 36.5 C 09/27/21 14:04 Pulse 56 L 09/27/21 14:04 Respiratory Rate 18 09/27/21 14:04 Blood Pressure 156/84 H 09/27/21 14:04 Pulse Oximetry 96 09/27/21 14:04 Temperature 36.5 C 09/27/21 14:04 Temperature Source Oral 09/27/21 14:04 Pulse 56 L 09/27/21 14:04 Respiratory Rate 18 09/27/21 14:04 Respiratory Effort Non-Labored 09/27/21 14:18 Respiratory Depth Normal 09/27/21 14:18 Respiratory Pattern Normal 09/27/21 14:18 Blood Pressure 156/84 H 09/27/21 14:04 Blood Pressure Position Sitting 09/27/21 14:04 Pulse Oximetry 96 09/27/21 14:04 Oxygen Delivery Method Room Air 09/27/21 14:04 Oxygen Flow Rate 0 09/27/21 14:04 Pain Level 7 09/27/21 14:52 Lab/Test Results Lab/Test Results: Laboratory Tests Range/Units 09/27/21 09/27/21 09/27/21 14:45 14:50 14:50 WBC (4.4-10.8) 10^3/uL 6.18 RBC (3.93-5.22) 10^6/uL 3.34 L Hgb (11.2-15.7) g/dL 11.1 L Hct (36.0-46.0) % 36.0 MCV (80-95) fL 107.8 H MCH (27.0-33.0) pg 33.2 H MCHC (32.0-36.0) % 30.8 L RDW (11.7-14.6) % 15.0 H Plt Count (130-400) 10^3/uL 157 MPV (8.0-11.0) fL 10.1 Immature Gran % 0.5 Neutrophils % 70.1 Lymphocytes % 11.0 Monocytes % 10.8 Eosinophils % 6.3 Basophils % 1.3 Nucleated RBC % % 0 Absolute Neutrophils (1.2-6.7) 10^3/uL 4.33 Absolute Lymphocytes (1.2-3.4) 10^3/uL 0.68 L Absolute Monocytes (0.1-0.8) 10^3/uL 0.67 Absolute Eosinophils (0.0-0.7) 10^3/uL 0.39 Absolute Basophils (0.0-0.2) 10^3/uL 0.08 RBC Morphology See Below Macrocytosis 1+ Sodium (136-145) mmol/L 141 Potassium (3.5-5.1) mmol/L 3.9 Chloride (98-107) mmol/L 102 Carbon Dioxide (21.0-32.0) mmol/L 30.1 Anion Gap (3-11) mmol/L 8.9 BUN (7-18) mg/dL 40 H Creatinine (0.55-1.02) mg/dL 3.1 H Estimated GFR/1.73 m2 (mL/min/1.73m2) 14.99 Glucose (74-106) mg/dL 154 H Calcium (8.5-10.1) mg/dL 9.0 Total Bilirubin (0.2-1.0) mg/dL 0.8 AST (15-37) U/L 17 ALT (14-59) U/L 17 Alkaline Phosphatase (46-116) U/L 123 H Creatine Kinase (26-192) U/L Total Protein (6.4-8.2) g/dL 7.7 Albumin (3.4-5.0) g/dL 3.9 Urine Color (Yellow) Yellow Urine Clarity (Clear) Clear Urine pH (5-8) 7.0 Ur Specific [place] (1.005-1.025) 1.020 Urine Protein (Negative) mg/dL Negative Urine Ketones (Negative) mg/dL Negative Urine Blood (Negative) Negative Urine Nitrite (Negative) Negative Urine Bilirubin (Negative) Negative Urine Urobilinogen (Up TO 0.2) EU/dL 0.2 Ur Leukocyte Esterase (Negative) Negative Urine Glucose (Negative) mg/dL Negative Patient ABO/Rh Antibody Screen Range/Units 09/27/21 09/27/21 14:50 14:50 WBC (4.4-10.8) 10^3/uL RBC (3.93-5.22) 10^6/uL Hgb (11.2-15.7) g/dL Hct (36.0-46.0) % MCV (80-95) fL MCH (27.0-33.0) pg MCHC (32.0-36.0) % RDW (11.7-14.6) % Plt Count (130-400) 10^3/uL MPV (8.0-11.0) fL Immature Gran % Neutrophils % Lymphocytes % Monocytes % Eosinophils % Basophils % Nucleated RBC % % Absolute Neutrophils (1.2-6.7) 10^3/uL Absolute Lymphocytes (1.2-3.4) 10^3/uL Absolute Monocytes (0.1-0.8) 10^3/uL Absolute Eosinophils (0.0-0.7) 10^3/uL Absolute Basophils (0.0-0.2) 10^3/uL RBC Morphology Macrocytosis Sodium (136-145) mmol/L Potassium (3.5-5.1) mmol/L Chloride (98-107) mmol/L Carbon Dioxide (21.0-32.0) mmol/L Anion Gap (3-11) mmol/L BUN (7-18) mg/dL Creatinine (0.55-1.02) mg/dL Estimated GFR/1.73 m2 (mL/min/1.73m2) Glucose (74-106) mg/dL Calcium (8.5-10.1) mg/dL Total Bilirubin (0.2-1.0) mg/dL AST (15-37) U/L ALT (14-59) U/L Alkaline Phosphatase (46-116) U/L Creatine Kinase (26-192) U/L 71 Total Protein (6.4-8.2) g/dL Albumin (3.4-5.0) g/dL Urine Color (Yellow) Urine Clarity (Clear) Urine pH (5-8) Ur Specific [place] (1.005-1.025) Urine Protein (Negative) mg/dL Urine Ketones (Negative) mg/dL Urine Blood (Negative) Urine Nitrite (Negative) Urine Bilirubin (Negative) Urine Urobilinogen (Up TO 0.2) EU/dL Ur Leukocyte Esterase (Negative) Urine Glucose (Negative) mg/dL Patient ABO/Rh O Positive Antibody Screen NEGATIVE
[2021-09-27 16:41] VITALS: BP 168/82; PULSE 56; RESP 18; TEMP 36.9; O2SAT 95
== END 2021-09-27 16:37 | disposition home or self-care (01) ==
PROVIDERS: Emergency Provider Physician Assistant; PCP Nurse Practitioner
DX: M25.551 Pain in right hip (principal); S80.12XA Contusion of left lower leg, initial encounter; M25.562 Pain in left knee; M54.50 Low back pain, unspecified; R22.43 Localized swelling, mass and lump, lower limb, bilateral; S80.11XA Contusion of right lower leg, initial encounter; W00.2XXA Other fall from one level to another due to ice and snow, initial encounter; I13.0 Hypertensive heart and chronic kidney disease with heart failure and stage 1 through stage 4 chronic kidney disease, or unspecified chronic kidney disease; N18.9 Chronic kidney disease, unspecified; I50.9 Heart failure, unspecified
CPT/HCPCS: 36415; 73562; 80053; 82550; 86850; 86900; 86901; 99284; 72100; 73502; 81003; 85025

== ENCOUNTER 2021-10-16 02:30 | Outpatient (CLI) | payer MEDICARE, MEDICAID, SELFPAY ==
[2021-10-16 13:33] LABS: Abs Immature Grans 0.02 10^3/uL (0.0-0.06); Absolute Basophil Count 0.06 10^3/uL (0.0-0.2); Absolute Eosinophil Count 0.31 10^3/uL (0.0-0.7); Absolute Lymphocyte Count 0.67 10^3/uL (1.2-3.4); Absolute Monocyte Count 0.56 10^3/uL (0.1-0.8); Absolute Neutrophil Count 3.78 10^3/uL (1.2-6.7); Basophils % 1.1; Eosinophils % 5.7; HCT 35.3 % (36.0-46.0); HGB 10.6 g/dL (11.2-15.7); Immature Grans % 0.4; Lymphocytes % 12.4; MCH 32.2 pg (27.0-33.0); MCV 107.3 fL (80-95); MPV 10.3 fL (8.0-11.0); Monocytes % 10.4; Nucleated RBC 0 %; Platelet Count 189 10^3/uL (130-400); RBC 3.29 10^6/uL (3.93-5.22); RDW 14.9 % (11.7-14.6); RDW-SD 58.8 fL
[2021-10-16 13:50] LABS: Hemoglobin A1C 7.1 % (<5.7)
[2021-10-16 14:00] LABS: COMMENT (LAB VIEW ONLY) 19.71 mg/dL; PROTEIN 10.4 mg/dL; Prot/Crea Ur Ratio 0.52
[2021-10-16 14:29] LABS: Anion Gap 10.2 mmol/L (3-11); BUN 46 mg/dL (7-18); CO2 30.8 mmol/L (21.0-32.0); CREATININE 3.4 mg/dL (0.55-1.02); Calcium 9.2 mg/dL (8.5-10.1); Chloride 101 mmol/L (98-107); Estimated GFR 13.47 (mL/min/1.73m2); Glucose 139 mg/dL (74-106); PHOSPHORUS 3.7 mg/dL (2.6-4.7); Potassium 3.4 mmol/L (3.5-5.1); Sodium 142 mmol/L (136-145); Uric Acid 8.5 mg/dL (2.6-6.0)
[2021-10-16 14:42] LABS: Iron 60 ug/dL (50-170); Total Iron Binding Capacity 337 ug/dL (250-450); Transferrin Sat 18 % (15-50)
[2021-10-16 14:55] LABS: Calculated LDL 47 mg/dL (<100); Cholesterol 114 mg/dL (<200); Ferritin 122 ng/mL (8-252); HDL Cholesterol 54 mg/dL (40-60); Triglyceride 65 mg/dL (<150)
[2021-10-17 10:25] LABS: Parathyroid Hormone,Intact 245 pg/mL (19-88)
== END 2021-10-16 02:31 | disposition home or self-care (01) ==
LOC: LBO 02:30
PROVIDERS: PCP Nurse Practitioner; Visit Provider Internal Medicine Nephrology
DX: N18.4 Chronic kidney disease, stage 4 (severe) (principal); E79.0 Hyperuricemia without signs of inflammatory arthritis and tophaceous disease; D63.1 Anemia in chronic kidney disease; R79.89 Other specified abnormal findings of blood chemistry; N25.81 Secondary hyperparathyroidism of renal origin; E78.00 Pure hypercholesterolemia, unspecified; E11.9 Type 2 diabetes mellitus without complications
CPT/HCPCS: 36415; 80048; 80061; 82040; 82565; 82728; 83036; 83540; 83550; 83970; 84100; 84156; 84550; 85025

== ENCOUNTER 2021-11-13 01:00 | Outpatient (CLI) | payer MEDICARE, MEDICAID, SELFPAY ==
[2021-11-13] MEDS: Albuterol HFA 18 GM 200 PUFF INH IH (14:20)
[2021-11-13] MEDS: Inhaler, Assist Device 1 EACH MC (14:20)
--- NOTE | 2021-11-14 15:30 | W.PFT ---
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 There is a significant bronchodilator response. There is also a restrictive pattern to spirometry. Lung Volumes: Normal lung volumes. Diffusion Capacity: Diffusion is reduced Airway Pressure: Normal airways resistance Impression Moderate airflow obstruction with a significant bronchodilator response. Restrictive pattern on spirometry likely represent pseudo-restriction from obesity. There is a decreased diffusion. This could represent COPD with emphysema in the correct clinical context. Note: When compared to 02/02/19 the FEV1 and FVC are unchanged. There is now a bronchodilator response. Diffusion is unchanged. Clinical Correlation therefore is recommended.
== END 2021-11-13 01:01 | disposition home or self-care (01) ==
LOC: RT 01:00
PROVIDERS: PCP Nurse Practitioner; Visit Provider Nurse Practitioner Adult Health
DX: R06.09 Other forms of dyspnea (principal); Z79.899 Other long term (current) drug therapy; R94.2 Abnormal results of pulmonary function studies; E66.9 Obesity, unspecified; Z87.891 Personal history of nicotine dependence
CPT/HCPCS: 94060; 94726; 94729

== ENCOUNTER 2021-11-15 00:47 | Outpatient (CLI) | payer MEDICARE, MEDICAID, SELFPAY ==
--- NOTE | 2021-11-15 | DI.RAD_ITS ---
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 Two images were obtained. PA and lateral views were obtained. COMPARISON: CR XR CHEST 2V PA LATERAL from 05/05/2019 FINDINGS: MEDIASTINUM: Normal. HEART: There is cardiomegaly. There is again seen a mitral valve replacement. PULMONARY VASCULATURE: Normal. LUNGS: Clear. PLEURAL SPACE: No pleural effusion or pneumothorax. There is stable blunting of both costophrenic ang les posteriorly which likely reflect scarring. BONE:Within normal limits for the patient's age. OTHER FINDINGS:Normal. IMPRESSION: No acute pulmonary findings. DATA REPOSITORY: RADIATION DOSE DELIVERED:
== END 2021-11-15 01:07 ==
PROVIDERS: PCP Nurse Practitioner; Visit Provider Nurse Practitioner Adult Health
DX: Z79.899 Other long term (current) drug therapy (principal)
CPT/HCPCS: 71046

== ENCOUNTER 2021-11-15 01:24 | Outpatient (RCR) | payer MEDICARE, MEDICAID, SELFPAY ==
[2021-11-01] MEDS: IRON SUCROSE COMPLEX 300 MG in Normal Saline 250 ML 176.667 MG IVPB (11:00)
[2021-11-01] MEDS: Normal Saline Flush 10 ML SYR IVP (11:05)
[2021-11-08] MEDS: Normal Saline Flush 10 ML SYR IVP (10:57)
[2021-11-08] MEDS: IRON SUCROSE COMPLEX 300 MG in Normal Saline 250 ML 176.667 MG IVPB (10:57)
[2021-11-15] MEDS: IRON SUCROSE COMPLEX 300 MG in Normal Saline 250 ML 176.667 MG IVPB (11:21)
[2021-11-15] MEDS: Normal Saline Flush 10 ML SYR IVP (11:22)
[2021-11-15 11:44] LABS: Anion Gap 9.6 mmol/L (3-11); BUN 49 mg/dL (7-18); CO2 28.4 mmol/L (21.0-32.0); Calcium 9.4 mg/dL (8.5-10.1); Chloride 102 mmol/L (98-107); Estimated GFR 12.61 (mL/min/1.73m2); Glucose 122 mg/dL (74-106); Potassium 3.8 mmol/L (3.5-5.1); Sodium 140 mmol/L (136-145); Uric Acid 7.9 mg/dL (2.6-6.0)
[2021-11-15 12:12] LABS: CREATININE 3.6 mg/dL (0.55-1.02)
== END 2021-11-26 23:59 | disposition home or self-care (01) ==
LOC: INF 01:24
PROVIDERS: Internal Medicine Nephrology; PCP Nurse Practitioner; Visit Provider Nurse Practitioner Family
DX: N18.4 Chronic kidney disease, stage 4 (severe) (principal)
CPT/HCPCS: 36415; 80048; 96365; 96366; 84550; J1756

== ENCOUNTER 2021-11-22 10:36 | Outpatient (REF) | payer MEDICARE, MEDICAID, SELFPAY ==
[2021-11-23 13:10] LABS: COVID-19 RT-PCR UVMMC Result Negative (Negative)
== END 2021-11-22 10:37 | disposition home or self-care (01) ==
LOC: LBN 10:36
PROVIDERS: PCP Nurse Practitioner; Visit Provider Nurse Practitioner
DX: R05.8 Other specified cough (principal); Z20.822 Contact with and (suspected) exposure to COVID-19
CPT/HCPCS: U0003; U0005

== ENCOUNTER 2021-12-05 04:25 | Outpatient (CLI) | payer MEDICARE, MEDICAID, SELFPAY ==
[2021-12-05 13:26] LABS: ALT 16 U/L (14-59); AST 16 U/L (15-37); Albumin 3.8 g/dL (3.4-5.0); Alkaline Phosphatase 147 U/L (46-116); Anion Gap 10.7 mmol/L (3-11); BUN 38 mg/dL (7-18); Bilirubin, Total 0.9 mg/dL (0.2-1.0); CO2 29.3 mmol/L (21.0-32.0); CREATININE 3.3 mg/dL (0.55-1.02); Calcium 9.2 mg/dL (8.5-10.1); Chloride 105 mmol/L (98-107); Glucose 177 mg/dL (74-106); NT-proBNP 2952 pg/mL (<300); Potassium 4.4 mmol/L (3.5-5.1); Sodium 145 mmol/L (136-145); TSH 5.18 uIU/mL (0.36-3.74)
== END 2021-12-05 04:26 | disposition home or self-care (01) ==
PROVIDERS: PCP Nurse Practitioner; Visit Provider Nurse Practitioner Adult Health
DX: I50.22 Chronic systolic (congestive) heart failure (principal); Z79.899 Other long term (current) drug therapy
CPT/HCPCS: 36415; 80053; 83880; 84443

== ENCOUNTER 2021-12-28 00:31 | Outpatient (CLI) | payer MEDICARE, MEDICAID, SELFPAY ==
--- NOTE | 2021-12-28 11:40 | DI.MAMMO_ITS ---
Exam(s) MAMMO SCREENING EXAM: MAMMO SCREENING CLINICAL HISTORY: screening,Z12.39 TECHNIQUE: Bilateral full field digital CC and MLO mammographic images were obtained with 3D tomosyn thesis and utilizing computer aided detection (CAD). COMPARISON: Available for comparison. FINDINGS: Masses/Architectural Distortion: None seen. Microcalcifications: No suspicious pleomorphic-type are seen. Skin Thickening/Nipple Retraction: None. IMPRESSION: 1. No significant interval change with no specific features of malignancy noted. 2. Unless there is more urgent need, screening mammography is recommended, as per [place] [employer] guidelines. BI-RADS Category 1 - Negative Breast Density - Category B - Scattered areas of fibroglandular density Breast density category C or D implies that the patient has dense breast tissue. Dense breast tissue is very common and is not abnormal but dense breast tissue can make it harder to find cancer on a ma mmogram. Also, dense breast tissue may increase their breast cancer risk. This information about the result of the mammogram report was provided to the patient to raise their awareness. Use this report when you speak with the patient about their risks for breast cancer, which includes their family hist ory. At that time, you may recommend for more screening tests (Ultrasound or MRI) as they might be us eful based on their risk. A negative radiographic report should not delay biopsy if a dominant or clinically suspicious mass is present. Up to ten percent of cancers are not identified on mammography. A negative report may reinforce clinical impression. Adenosis and dense breasts may obscure an underlying neoplasm. False positive reports average 6 to 10%. Patient will receive a letter notifying them of these results.
== END 2021-12-28 00:51 ==
PROVIDERS: PCP Nurse Practitioner; Visit Provider Nurse Practitioner
DX: Z12.31 Encounter for screening mammogram for malignant neoplasm of breast (principal)
CPT/HCPCS: 77063; 77067

== ENCOUNTER 2022-01-21 05:06 | Outpatient (CLI) | payer MEDICARE, MEDICAID, SELFPAY ==
[2022-01-21 12:37] LABS: Abs Immature Grans 0.03 10^3/uL (0.0-0.06); Absolute Basophil Count 0.04 10^3/uL (0.0-0.2); Absolute Eosinophil Count 0.33 10^3/uL (0.0-0.7); Absolute Lymphocyte Count 0.64 10^3/uL (1.2-3.4); Absolute Monocyte Count 0.79 10^3/uL (0.1-0.8); Absolute Neutrophil Count 5.11 10^3/uL (1.2-6.7); Basophils % 0.6; Eosinophils % 4.8; HCT 35.4 % (36.0-46.0); Immature Grans % 0.4; Lymphocytes % 9.2; MCH 33.7 pg (27.0-33.0); MCHC 31.1 % (32.0-36.0); MCV 108.6 fL (80-95); MPV 11.1 fL (8.0-11.0); Monocytes % 11.4; Neutrophils % 73.6; Platelet Count 146 10^3/uL (130-400); RBC 3.26 10^6/uL (3.93-5.22); RDW 14.5 % (11.7-14.6); RDW-SD 57.5 fL; WBC 6.94 10^3/uL (4.4-10.8)
[2022-01-21 12:50] LABS: Hemoglobin A1C 7.9 % (<5.7)
[2022-01-21 13:16] LABS: PROTEIN 15.8 mg/dL; Prot/Crea Ur Ratio 0.39
[2022-01-21 13:21] LABS: Iron 43 ug/dL (50-170); Total Iron Binding Capacity 285 ug/dL (250-450)
[2022-01-21 13:50] LABS: Albumin 3.9 g/dL (3.4-5.0); Anion Gap 8.4 mmol/L (3-11); BUN 51 mg/dL (7-18); CO2 30.6 mmol/L (21.0-32.0); CREATININE 3.2 mg/dL (0.55-1.02); Calculated LDL 51 mg/dL (<100); Chloride 102 mmol/L (98-107); Cholesterol 114 mg/dL (<200); Ferritin 428 ng/mL (8-252); Folate 17.4 ng/mL (8.6-20.0); Glucose 265 mg/dL (74-106); HDL Cholesterol 45 mg/dL (40-60); Potassium 4.2 mmol/L (3.5-5.1); Sodium 141 mmol/L (136-145); Triglyceride 93 mg/dL (<150); Vitamin B12 738 pg/mL (193-986)
[2022-01-21 14:01] LABS: PHOSPHORUS 3.9 mg/dL (2.6-4.7); Uric Acid 7.4 mg/dL (2.6-6.0)
[2022-01-22 09:17] LABS: Parathyroid Hormone,Intact 240 pg/mL (19-88)
== END 2022-01-21 05:07 | disposition home or self-care (01) ==
LOC: LBO 05:07
PROVIDERS: PCP Nurse Practitioner; Visit Provider Internal Medicine Nephrology
DX: E79.0 Hyperuricemia without signs of inflammatory arthritis and tophaceous disease; N18.4 Chronic kidney disease, stage 4 (severe); E11.9 Type 2 diabetes mellitus without complications; E78.00 Pure hypercholesterolemia, unspecified; D64.9 Anemia, unspecified; N25.81 Secondary hyperparathyroidism of renal origin; Z79.899 Other long term (current) drug therapy
CPT/HCPCS: 36415; 80048; 80061; 82040; 82565; 82607; 82728; 82746; 83036; 83540; 83550; 83970; 84100; 84156; 84550; 85025

== ENCOUNTER 2022-03-25 03:39 | Outpatient (CLI) | payer MEDICARE, MEDICAID, SELFPAY ==
[2022-03-25 13:45] LABS: Anion Gap 16.8 mmol/L (3-11); CO2 26.2 mmol/L (21.0-32.0); Calcium 10.1 mg/dL (8.5-10.1); Chloride 96 mmol/L (98-107); Estimated GFR 8.41 (mL/min/1.73m2); Glucose 106 mg/dL (74-106); Potassium 4.1 mmol/L (3.5-5.1); Sodium 139 mmol/L (136-145)
[2022-03-25 14:06] LABS: BUN 100 mg/dL (7-18)
[2022-03-25 14:07] LABS: CREATININE 5.1 mg/dL (0.55-1.02)
== END 2022-03-25 03:40 | disposition home or self-care (01) ==
LOC: LOS 03:39
PROVIDERS: Physician Assistant; PCP Nurse Practitioner
DX: I50.22 Chronic systolic (congestive) heart failure (principal)
CPT/HCPCS: 36415; 80048

== ENCOUNTER 2022-03-27 02:02 | Outpatient (CLI) | payer MEDICARE, MEDICAID, SELFPAY ==
[2022-03-27 12:46] LABS: Anion Gap 6.6 mmol/L (3-11); CO2 29.4 mmol/L (21.0-32.0); Calcium 9.7 mg/dL (8.5-10.1); Chloride 99 mmol/L (98-107); Estimated GFR 8.81 (mL/min/1.73m2); Glucose 179 mg/dL (74-106); Sodium 135 mmol/L (136-145)
[2022-03-27 13:02] LABS: BUN 97 mg/dL (7-18); CREATININE 4.9 mg/dL (0.55-1.02)
== END 2022-03-27 02:03 | disposition home or self-care (01) ==
LOC: LOS 02:02
PROVIDERS: PCP Nurse Practitioner; Visit Provider Nurse Practitioner Adult Health
DX: I50.32 Chronic diastolic (congestive) heart failure (principal)
CPT/HCPCS: 36415; 80048

== ENCOUNTER → 2022-04-02 00:51 | Outpatient (CLI) | payer MEDICARE, MEDICAID, SELFPAY ==
--- NOTE | 2022-04-02 | DI.CT_ITS ---
Exam(s) CT ABDOMEN PELVIS WO EXAM: CT ABDOMEN PELVIS WO CLINICAL HISTORY: ENDOMETRIAL CA,H/O XRT 04/30/18,C54.1. TECHNIQUE: Imaging Protocol: Axial computed tomography images with coronal and sagittal reformatted images were created and reviewed CONTRAST MATERIAL: Intravenous: none Oral: None COMPARISON: CT CT ABDOMEN PELVIS WO from 04/07/2019 FINDINGS: VISUALIZED LUNG BASES: Cardiomegaly again noted. No infiltrates nor pleural effusions in the visuali zed lung bases.. ABDOMEN: There is no ascites at this time. The previously present ascites and anasarca seen in March 2019 has resolved. However, there is prominence of the IVC and intrahepatic veins, this indicating an element of right heart failure.. LIVER: There are no obvious focal hepatic lesions evident of this noninfused study. GALLBLADDER/BILIARY: Gallbladder appears contracted and contains a density which is possibly a gallst one. CBD is not dilated. PANCREAS: No evidence of pancreatic mass nor dilatation of the pancreatic duct. SPLEEN: Spleen is not enlarged. No obvious intrasplenic lesions. ADRENALS: There are no significant adrenal masses. KIDNEYS:Exophytic density off the posterior aspect of superior pole left kidney noted, this measuring 9 x 8 millimeters, probably hemorrhagic cyst. No other focal renal findings. No calculi. No hydro nephrosis nor hydroureter. No calculi in the nondistended urinary bladder.. ABDOMINAL AORTA: Abdominal aorta is not enlarged. LYMPH NODES: There is no retroperitoneal nor paraaortic adenopathy. ABDOMINAL WALL: There is a midline anterior abdominal wall supraumbilical or hernia which contains fa t. Does not contain bowel loops therein. There is no bowel obstruction. GI: There is no evidence of bowel obstruction, free air, nor abscess. PELVIS: LYMPH NODES: There is no intrapelvic nor inguinal adenopathy. GI: No evidence of appendicitis.Sigmoid diverticuli but no evidence of acute diverticulitis URINARY BLADDER: Collapsed. Difficult to assess REPRODUCTIVE: Prostate not enlarged. Seminal vesicles unremarkable OSSEOUS: Multilevel chronic degenerative disc disease. Lucent area in the posterior superior left side of L4 vertebral body. This represents a significant change when compared to 2019., Possibly Schmorl's node invagination but cannot exclude lytic lesion. IMPRESSION: 1. Compared to the prior CT scan of March 2019 there is a new well-defined lucent area in the posterio r superior left side of L4 vertebral body. This probably represents Schmorl's node; less likely lyti c osseous lesion. No other similar osseous findings in the field of view this study. 2. Previously present ascites and anasarca as resolved. There is presently no ascites. However, the re is prominence of the intrahepatic IVC and hepatic veins, indicating element of right heart failure . 3. Contracted gallbladder which probably contains calculi. This can be further studied with ultrasou nd. Midline Kristine umbilical fat containing hernia. No bowel obstruction RADIATION DOSE DELIVERED: 1,250.53mGy.cm Total DLP DATA REPOSITORY: All CT scans at this facility are submitted to the National Radiology Data Registry (NRDR) Dose Index Registry (DIR) with the [employer] (ACR). RADIATION OPTIMIZATION: All CT scans at this facility use at least one of these dose optimization te chniques: automated exposure control; mA and/or kV adjustment per patient size (includes targeted exa ms where dose is matched to clinical indication); or iterative reconstruction.
[2022-04-02 10:16] LABS: Anion Gap 10.8 mmol/L (3-11); BUN 50 mg/dL (7-18); CO2 14.2 mmol/L (21.0-32.0); CREATININE 2.2 mg/dL (0.55-1.02); Chloride 117 mmol/L (98-107); Glucose 98 mg/dL (74-106); Potassium 3.2 mmol/L (3.5-5.1); Sodium 142 mmol/L (136-145)
[2022-04-02 10:25] LABS: Calcium 5.7 mg/dL (8.5-10.1)
== END ==
PROVIDERS: PCP Nurse Practitioner; Visit Provider Nurse Practitioner Family
DX: K82.0 Obstruction of gallbladder (principal); C54.1 Malignant neoplasm of endometrium; I50.32 Chronic diastolic (congestive) heart failure; Z92.3 Personal history of irradiation
CPT/HCPCS: 36415; 80048; 74176

== ENCOUNTER 2022-04-05 02:32 | Outpatient (CLI) | payer MEDICARE, MEDICAID, SELFPAY ==
[2022-04-05 11:37] LABS: Anion Gap 12.1 mmol/L (3-11); BUN 59 mg/dL (7-18); CO2 23.9 mmol/L (21.0-32.0); Calcium 8.9 mg/dL (8.5-10.1); Chloride 104 mmol/L (98-107); Estimated GFR 15.52 (mL/min/1.73m2); Glucose 146 mg/dL (74-106); Potassium 4.4 mmol/L (3.5-5.1); Sodium 140 mmol/L (136-145)
[2022-04-08 09:07] LABS: CA 125 13 U/mL (<30)
== END 2022-04-05 02:33 | disposition home or self-care (01) ==
PROVIDERS: Physician Assistant; PCP Nurse Practitioner; Visit Provider Nurse Practitioner Family
DX: C54.1 Malignant neoplasm of endometrium (principal); I50.22 Chronic systolic (congestive) heart failure
CPT/HCPCS: 36415; 80048; 86304

== ENCOUNTER 2022-04-10 03:19 | Outpatient (CLI) | payer MEDICARE, MEDICAID, SELFPAY | END 2022-04-10 03:20 | disposition home or self-care (01) | LOC: LBO 03:20 | PROVIDERS: PCP Nurse Practitioner; Visit Provider Nurse Practitioner Adult Health ==

== ENCOUNTER 2022-05-10 15:20 | Outpatient (REF) | payer MEDICARE, MEDICAID, SELFPAY | END 2022-05-10 15:21 | disposition home or self-care (01) | LOC: NCHCN 15:20 | PROVIDERS: PCP Nurse Practitioner; Visit Provider Nurse Practitioner Family | DX: S81.802A Unspecified open wound, left lower leg, initial encounter (principal) | CPT/HCPCS: 87070; 87205 ==

== ENCOUNTER → 2022-05-14 13:04 | Outpatient (BNVA) | payer MEDICARE, MEDICAID, SELFPAY | PROVIDERS: PCP Nurse Practitioner; Referring Provider Nurse Practitioner; Visit Provider Surgery | DX: S81.802A Unspecified open wound, left lower leg, initial encounter (principal); X58.XXXA Exposure to other specified factors, initial encounter; Z51.89 Encounter for other specified aftercare | CPT/HCPCS: 11042; 99203 ==

== ENCOUNTER 2022-05-14 19:01 | Outpatient (REF) | payer MEDICARE, MEDICAID, SELFPAY | END 2022-05-14 19:02 | disposition home or self-care (01) | LOC: LBN 19:01 | PROVIDERS: PCP Nurse Practitioner; Visit Provider Surgery | DX: S80.12XA Contusion of left lower leg, initial encounter; L98.8 Other specified disorders of the skin and subcutaneous tissue; Z79.01 Long term (current) use of anticoagulants | CPT/HCPCS: 87070; 87205 ==

== ENCOUNTER → 2022-05-17 09:01 | Outpatient (BNVA) | payer MEDICARE, MEDICAID, SELFPAY | PROVIDERS: PCP Nurse Practitioner; Referring Provider Nurse Practitioner; Visit Provider Surgery | DX: S81.802A Unspecified open wound, left lower leg, initial encounter (principal); X58.XXXA Exposure to other specified factors, initial encounter | CPT/HCPCS: 99213 ==

== ENCOUNTER → 2022-05-21 13:20 | Outpatient (BNVA) | payer MEDICARE, MEDICAID, SELFPAY | PROVIDERS: PCP Nurse Practitioner; Referring Provider Nurse Practitioner; Visit Provider Surgery | DX: Z51.89 Encounter for other specified aftercare (principal); S81.802A Unspecified open wound, left lower leg, initial encounter; X58.XXXA Exposure to other specified factors, initial encounter | CPT/HCPCS: 99212; 99213 ==

== ENCOUNTER → 2022-05-28 11:14 | Outpatient (BNVA) | payer MEDICARE, MEDICAID, SELFPAY | PROVIDERS: PCP Nurse Practitioner; Referring Provider Nurse Practitioner; Visit Provider Surgery | DX: X58.XXXA Exposure to other specified factors, initial encounter (principal); R29.6 Repeated falls; S81.802A Unspecified open wound, left lower leg, initial encounter | CPT/HCPCS: 99213 ==

== ENCOUNTER → 2022-05-31 10:48 | Outpatient (BNVA) | payer MEDICARE, MEDICAID, SELFPAY | PROVIDERS: PCP Nurse Practitioner; Referring Provider Nurse Practitioner; Visit Provider Surgery | DX: S80.12XD Contusion of left lower leg, subsequent encounter (principal); X58.XXXD Exposure to other specified factors, subsequent encounter; Z51.89 Encounter for other specified aftercare | CPT/HCPCS: 99212 ==

== ENCOUNTER → 2022-06-07 11:18 | Outpatient (BNVA) | payer MEDICARE, MEDICAID, SELFPAY | PROVIDERS: PCP Nurse Practitioner; Referring Provider Nurse Practitioner; Visit Provider Surgery | DX: S81.802A Unspecified open wound, left lower leg, initial encounter (principal); X58.XXXA Exposure to other specified factors, initial encounter; Z79.01 Long term (current) use of anticoagulants; Z51.89 Encounter for other specified aftercare | CPT/HCPCS: 99212 ==

== ENCOUNTER → 2022-06-21 10:47 | Outpatient (BNVA) | payer MEDICARE, MEDICAID, SELFPAY | PROVIDERS: PCP Nurse Practitioner; Referring Provider Nurse Practitioner; Visit Provider Surgery | DX: S81.802A Unspecified open wound, left lower leg, initial encounter (principal); X58.XXXA Exposure to other specified factors, initial encounter; Z51.89 Encounter for other specified aftercare | CPT/HCPCS: 99212 ==

== ENCOUNTER → 2022-06-28 10:18 | Outpatient (BNVA) | payer MEDICARE, MEDICAID, SELFPAY | PROVIDERS: PCP Nurse Practitioner; Referring Provider Nurse Practitioner; Visit Provider Surgery | DX: S81.802A Unspecified open wound, left lower leg, initial encounter (principal); X58.XXXA Exposure to other specified factors, initial encounter; Z51.89 Encounter for other specified aftercare | CPT/HCPCS: 99211 ==

== ENCOUNTER → 2022-07-09 10:34 | Outpatient (BNVA) | payer MEDICARE, MEDICAID, SELFPAY | PROVIDERS: PCP Nurse Practitioner; Referring Provider Nurse Practitioner; Visit Provider Surgery | DX: S81.802A Unspecified open wound, left lower leg, initial encounter (principal); X58.XXXA Exposure to other specified factors, initial encounter; Z51.89 Encounter for other specified aftercare | CPT/HCPCS: 99212; 99213 ==

== ENCOUNTER → 2022-08-06 08:25 | Outpatient (BNVA) | payer MEDICARE, MEDICAID, SELFPAY | PROVIDERS: PCP Nurse Practitioner Family; Referring Provider Nurse Practitioner; Visit Provider Surgery | DX: S80.12XA Contusion of left lower leg, initial encounter (principal); X58.XXXA Exposure to other specified factors, initial encounter; Z79.01 Long term (current) use of anticoagulants | CPT/HCPCS: 99212 ==

== ENCOUNTER 2023-03-06 01:20 | Outpatient (CLI) | payer MEDICARE, MEDICAID, SELFPAY ==
--- NOTE | 2023-03-06 08:00 | DI.MAMMO_ITS ---
Exam(s) MAMMO SCREENING EXAM: MAMMO SCREENING CLINICAL HISTORY: screening,Z12.39 TECHNIQUE: Bilateral full field digital CC and MLO mammographic images were obtained with 3D tomosyn thesis and utilizing computer aided detection (CAD). COMPARISON: Available for comparison. FINDINGS: Masses/Architectural Distortion: None seen. Microcalcifications: No suspicious pleomorphic-type are seen. Skin Thickening/Nipple Retraction: None. IMPRESSION: 1. No significant interval change with no specific features of malignancy noted. 2. Unless there is more urgent need, screening mammography is recommended, as per [employer] guidelines. BI-RADS Category 1 - Negative Breast Density - Category B - Scattered areas of fibroglandular density Breast density category C or D implies that the patient has dense breast tissue. Dense breast tissue is very common and is not abnormal but dense breast tissue can make it harder to find cancer on a ma mmogram. Also, dense breast tissue may increase their breast cancer risk. This information about the result of the mammogram report was provided to the patient to raise their awareness. Use this report when you speak with the patient about their risks for breast cancer, which includes their family hist ory. At that time, you may recommend for more screening tests (Ultrasound or MRI) as they might be us eful based on their risk. A negative radiographic report should not delay biopsy if a dominant or clinically suspicious mass is present. Up to ten percent of cancers are not identified on mammography. A negative report may reinforce clinical impression. Adenosis and dense breasts may obscure an underlying neoplasm. False positive reports average 6 to 10%. Patient will receive a letter notifying them of these results.
--- NOTE | 2023-03-06 10:10 | DI.RAD_ITS ---
Exam(s) XR SHOULDER RT COMPLETE 2+V EXAM: XR SHOULDER RT COMPLETE 2+V CLINICAL HISTORY: atraumatic RT SHOULDER PAIN,M25.511. TECHNIQUE: 2D digital imaging was performed of the right shoulder. Five images were obtained. AP, Grashey, Y-view and axillary views were obtained. COMPARISON: CR XR CHEST 2V PA LATERAL from 05/05/2019 FINDINGS: BONES: No acute fracture is present. No bony destructive lesion is seen. JOINTS: No dislocation present. SOFT TISSUE: Normal. IMPRESSION: No acute abnormality. DATA REPOSITORY: RADIATION DOSE DELIVERED:
== END 2023-03-06 01:40 ==
LOC: DI 01:20
PROVIDERS: PCP Nurse Practitioner Family; Visit Provider Nurse Practitioner Family
DX: M25.511 Pain in right shoulder (principal); Z12.31 Encounter for screening mammogram for malignant neoplasm of breast
CPT/HCPCS: 77063; 77067; 73030

== ENCOUNTER 2023-05-08 02:56 | Outpatient (CLI) | payer MEDICARE, MEDICAID, SELFPAY ==
[2023-05-09 09:47] LABS: CA 125 35 U/mL (<30)
== END 2023-05-08 02:57 | disposition home or self-care (01) ==
LOC: LBO 02:56
PROVIDERS: PCP Nurse Practitioner Family; Visit Provider Nurse Practitioner Family
DX: C54.1 Malignant neoplasm of endometrium (principal)
CPT/HCPCS: 86304

== ENCOUNTER 2023-08-22 12:11 | Outpatient (REF) | payer MEDICARE, MEDICAID, SELFPAY ==
[2023-08-22 21:15] LABS: Bilirubin Negative (Negative); Blood Small (Negative); Clarity Clear (Clear); Glucose Negative (Negative); Ketones Negative (Negative); Leukocyte Esterase Negative (Negative); Nitrite Negative (Negative); Specific Gravity 1.015 (1.005-1.025); Urobilinogen 0.2 mg/dL (Up to 0.2); pH 6.5 (5-8)
[2023-08-22 21:18] LABS: Abs Immature Grans 0.03 10^3/uL (0.0-0.06); Absolute Eosinophil Count 0.13 10^3/uL (0.0-0.7); Absolute Lymphocyte Count 0.72 10^3/uL (1.2-3.4); Absolute Monocyte Count 0.79 10^3/uL (0.1-0.8); Absolute Neutrophil Count 5.19 10^3/uL (1.2-6.7); Basophils % 1.4; Eosinophils % 1.9; HCT 22.3 % (36.0-46.0); Immature Grans % 0.4; Lymphocytes % 10.3; MCH 31.6 pg (27.0-33.0); MCHC 29.6 % (32.0-36.0); MCV 107 fL (80-95); MPV 10.3 fL (8.0-11.0); Monocytes % 11.4; Neutrophils % 74.6; Platelet Count 289 10^3/uL (130-400); RBC 2.09 10^6/uL (3.93-5.22); RDW-SD 62.4 fL; WBC 6.96 10^3/uL (4.4-10.8)
[2023-08-22 21:22] LABS: ALT 17 U/L (14-59); AST 16 U/L (15-37); Albumin 3.5 g/dL (3.4-5.0); Alkaline Phosphatase 84 U/L (46-116); Anion Gap 8.3 mmol/L (3-11); BUN 54 mg/dL (7-18); Bilirubin, Total 0.9 mg/dL (0.2-1.0); CO2 25.7 mmol/L (21.0-32.0); CREATININE 3.4 mg/dL (0.55-1.02); Calcium 9.1 mg/dL (8.5-10.1); Chloride 102 mmol/L (98-107); Estimated GFR 14.04 (mL/min/1.73m2); Glucose 153 mg/dL (74-106); Potassium 4.2 mmol/L (3.5-5.1); Sodium 136 mmol/L (136-145); Total Protein 6.5 g/dL (6.4-8.2)
[2023-08-22 21:43] LABS: HGB 6.6 g/dL (11.2-15.7)
[2023-08-22 21:44] LABS: Anisocytosis 1+; Diff Comment RBC Morph Reviewed; Macrocytosis 1+; Polychromasia Present
[2023-08-22 21:45] LABS: Poikilocytes 1+
[2023-08-22 21:47] LABS: Bacteria Rare HPF (Negative); C & S Indicated? No; Casts 0-2 Hyaline LPF (Negative); Crystals Negative HPF (Negative); Epithelial Cells Rare HPF (Negative); Mucus Negative (Negative); RBC 0-2 HPF (0-2); WBC 0-2 HPF (0-5)
== END 2023-08-22 12:12 | disposition home or self-care (01) ==
LOC: LBN 12:11
PROVIDERS: PCP Nurse Practitioner Family; Visit Provider Family Medicine
DX: M54.9 Dorsalgia, unspecified (principal); R53.83 Other fatigue
CPT/HCPCS: 80053; 81003; 81015; 85025

== ENCOUNTER 2023-08-23 09:54 | Inpatient (IN) | payer MEDICARE, MEDICAID, SELFPAY ==
[2023-08-23] VITALS (117 sets, daily range): BP systolic 47–131; BP diastolic 19–74; PULSE 59–110; RESP 13–30; TEMP 36.6–37.1; O2SAT 81–100
[2023-08-23 10:51] LABS: Abs Immature Grans 0.02 10^3/uL (0.0-0.06); Absolute Basophil Count 0.06 10^3/uL (0.0-0.2); Absolute Eosinophil Count 0.18 10^3/uL (0.0-0.7); Absolute Monocyte Count 0.64 10^3/uL (0.1-0.8); Absolute Neutrophil Count 4.35 10^3/uL (1.2-6.7); Eosinophils % 3.1; HCT 23.4 % (36.0-46.0); HGB 7.1 g/dL (11.2-15.7); Immature Grans % 0.3; Lymphocytes % 10.3; MCHC 30.3 % (32.0-36.0); MCV 105 fL (80-95); MPV 10.3 fL (8.0-11.0); Monocytes % 10.9; Neutrophils % 74.4; Nucleated RBC 0.3 % (0.0-0.3); RBC 2.22 10^6/uL (3.93-5.22); RDW-SD 61.4 fL; WBC 5.85 10^3/uL (4.4-10.8)
[2023-08-23 11:07] LABS: ALT 18 U/L (14-59); AST 24 U/L (15-37); Albumin 3.6 g/dL (3.4-5.0); Alkaline Phosphatase 87 U/L (46-116); Anion Gap 9.5 mmol/L (3-11); BUN 53 mg/dL (7-18); Bilirubin, Total 1.2 mg/dL (0.2-1.0); CO2 24.5 mmol/L (21.0-32.0); Calcium 9.2 mg/dL (8.5-10.1); Chloride 101 mmol/L (98-107); Estimated GFR 13.11 (mL/min/1.73m2); Glucose 143 mg/dL (74-106); Magnesium 2.6 mg/dL (1.8-2.4); Potassium 4.4 mmol/L (3.5-5.1); Sodium 135 mmol/L (136-145); Total Protein 7.1 g/dL (6.4-8.2)
--- NOTE | 2023-08-23 11:15 | DI.CT_ITS ---
Exam(s) CT ABDOMEN PELVIS WO EXAM: CT ABDOMEN PELVIS WO CLINICAL HISTORY: gi bleed. TECHNIQUE: Imaging Protocol: Axial computed tomography images with coronal and sagittal reformatted images were created and reviewed. COMPARISON: CT CT ABDOMEN PELVIS WO from 04/02/2022 FINDINGS: ABDOMEN: Lung Bases: Coronary artery calcification is present. Cardiomegaly is present. Liver: Normal density. No measurable mass. There is enlargement of the inferior vena cava and hepatic veins. This may reflect poor cardiac function status. Gallbladder and biliary tract: There is no biliary ductal dilatation. Pancreas: Normal density, no abnormal calcifications or inflammatory process. Spleen: Normal. Kidneys: Bilateral renal atrophy.No radiodense stones or obstructive uropathy. No masses seen. Adrenal glands: No mass is seen. Lymph nodes: Within normal limits. Abdominal Aorta: Abdominal portion non-dilated. Atherosclerosis. PELVIS: Bladder:Symmetric distention, no gross wall thickening. Bowel: There is diverticulosis of the colon without evidence of acute diverticulitis. No evidence of bowel obstruction or bowel wall thickening. No evidence of appendicitis. Peritoneal cavity: There is a small amount of abdominal pelvic ascites. No free air. Reproductive organs: Status post hysterectomy. Bones: Within normal limits for the patient's age. Soft Tissues: There is edema seen in the subcutaneous tissues throughout the abdomen. There is a fat containing umbilical hernia. IMPRESSION: 1. There is mild anasarca which may be due to the patient's heart failure. There is cardiomegaly and dilatation of the [place] and inferior vena cava. 2. Abdominal ascites. 3. Colonic diverticulosis without evidence of acute diverticulitis. RADIATION DOSE DELIVERED: Total DLP DATA REPOSITORY: All CT scans at this facility are submitted to the National Radiology Data Registry (NRDR) Dose Index Registry (DIR) with the [employer] [place] [employer] (ACR). RADIATION OPTIMIZATION: All CT scans at this facility use at least one of these dose optimization te chniques: automated exposure control; mA and/or kV adjustment per patient size (includes targeted exa ms where dose is matched to clinical indication); or iterative reconstruction.
[2023-08-23 11:17] LABS: Diff Comment Diff Reviewed; Hypochromasia 3+; Macrocytosis 2+; Platelet Count 323 10^3/uL (130-400); Polychromasia Present
[2023-08-23 11:23] LABS: CREATININE 3.6 mg/dL (0.55-1.02)
[2023-08-23] MEDS: Normal Saline 500 ML IV (12:21)
--- NOTE | 2023-08-23 12:53 | DI.VRAD_ITS ---
PROCEDURE INFORMATION: Exam: CT Abdomen And Pelvis Without Contrast Exam date and time: 08/23/2023 12:03 PM Age: 67 years old Clinical indication: Abdominal pain TECHNIQUE: Imaging protocol: Computed tomography of the abdomen and pelvis without contrast. COMPARISON: CT ABDOMEN PELVIS WO 04/02/2022 11:11 AM FINDINGS: Lungs: No consolidations or pleural effusions. Heart: Moderate multi chamber cardiac enlargement. No pericardial effusion. There is calcification within the mitral valve annulus. There is enlargement of the inferior vena cava and hepatic veins worrisome for tricuspid regurgitation. Liver: Enlargement of the portal and hepatic veins. No cysts or masses. Gallbladder and bile ducts: Not clearly identified if present. Pancreas: Normal. No ductal dilation. Spleen: The spleen is normal. Adrenal glands: The adrenal glands are normal. Kidneys and ureters: Normal. No hydronephrosis. Stomach and bowel: Unremarkable. No obstruction. No mucosal thickening. Appendix: The appendix is not identified, but there are no inflammatory changes in its expected region. Intraperitoneal space: Small amount of free fluid throughout peritoneal cavity. No free air. Vasculature: The vasculature demonstrates diffuse moderate atherosclerotic calcification. No aneurysm. Probable 50% stenosis of the origin of the left renal artery. Lymph nodes: Unremarkable. No enlarged lymph nodes. Urinary bladder: Unremarkable as visualized. Reproductive: There has been a hysterectomy. Bones/joints: Moderate to severe degenerative changes L3-S1. No acute fracture. Soft tissues: Grvj-qy-honieaue amount of soft tissue edema especially along the back.. IMPRESSION: 1. Findings compatible with tricuspid regurgitation and dilatation of the hepatic veins and inferior vena cava. There is likely passive congestion within the portal system resulting in ascites. The mild anasarca could be due to the patient's heart failure. 2. Moderate atherosclerotic peripheral vascular disease with moderate stenosis of the left renal artery. Dictated and Authenticated by: Blaze Esteban MD. Ordering:ALLEGRA Rodarte MD
--- NOTE | 2023-08-23 14:19 | SCONE_ITS ---
Date of service: 08/23/23 Time of Service: 14:19 Assessment and Plan Assessment and plan (1) Upper GI bleeding: Status: Acute Assessment and plan: Fortunately, she had a favorable response to the blood transfusion, and with regards to her symptoms leading to the presentation, they are basically all resolved. She is quite eager to be discharged. I tried to explain in some detail some possibilities as a source of gastrointestinal blood loss. Although some of the character of the stools that she describes support the diagnosis of upper gastrointestinal hemorrhage, certainly, the bright red blood seen initially, the presence of hemorrhoids, and the fact that she has never had a colonoscopy before already for the possibility of colonic blood loss as well. she does tell me that she has not undergone upper GI in the past, but she is not exactly sure which hospital, and she does not know of any specific abnormalities that may have been seen. At this point, EGD and colonoscopy are probably the best options to evaluate the source of any gastrointestinal bleeding. although she does not have much in the way of upper gastrointestinal symptoms such as dyspepsia or other forms of abdominal pain, the cirrhotic appearance of her liver and the dilation of her portal venous system suggest the possibility of esophageal varices, or portal hypertensive gastropathy as potential causes of upper GI bleeding. And, having never undergone a colonoscopy before, the differential for colonic blood loss is quite extensive as well. We talked about the nature of both procedures. At this point, she does not want to move forward with either EGD or colonoscopy. I think she has a good understanding of the risks of that decision, and I told her I be happy to see her again at any point if she reconsiders. History of Present Illness History of Present Illness Chief Complaint: GIB Narrative: Anjana is 67 years old. She came to the ER yeterday after several days of blood in her stools and a feeing of fatigue or malaise. She first noticed that her stool has some bright red coloration on it. She thought it might have been hemorrhoids. It quickly turned more maroon in color and had a slightly tarry or sticky consistency to it. This became less frequent but did not stop and she might have felt a little more tired than usual. She went to urgent care and was diagnosed with hemorrhoids. She started using a cream, but became more tired over the next 24 hours, which she attributed to her atrial fibrillation. She came to the emergency department, was found to have a hemoglobin of 7.1, which was generally concordant with the hemoglobin tested the day prior. She also had some increase from her baseline creatinine suggesting some exacerbation of her chronic kidney failure. She underwent a CAT scan of the abdomen and pelvis that demonstrated slightly cirrhotic appearing liver, some new abdominal ascites, and some dilated portal veins. She was transfused packed red blood cells and admitted to the hospital. I am consulted regarding her gastrointestinal bleeding. Review of Systems Constitutional Constitutional: Reports fatigue, Denies fever(s), Denies increased appetite, Reports lethargy, Reports malaise, Reports weakness and Denies weight loss Eyes Eyes: Reports system reviewed and no additional complaints, except as documented ENT Ears, Nose, Mouth, and Throat: Reports system reviewed and no additional complaints, except as documented Cardiovascular Cardiovascular: Denies chest pain, Denies syncope, Reports irregular heart rhythm and Reports dyspnea on exertion Respiratory Respiratory: Reports cough and Reports dyspnea on exertion Gastrointestinal Gastrointestinal: Denies abdominal pain, Reports melena, Denies coffee ground emesis, Denies dyspepsia, Denies heartburn and Denies hematemesis Genitourinary Genitourinary: Reports system reviewed and no additional complaints, except as documented Musculoskeletal Musculoskeletal: Reports muscle weakness Neurologic Neurologic: Reports as per HPI, Denies confusion, Denies syncope and Reports weakness Psychiatric Psychiatric: Denies confusion Endocrine Endocrine: Reports fatigue Hematologic/Lymphatic Hematologic/Lymphatic: Denies easy bruising and Denies lymphadenopathy [facility] All Active Problems (Updated 08/23/23 @ 19:27 by Humble Murillo MD) Chronic HFrEF (heart failure with reduced ejection fraction) (Acute) Upper GI bleeding (Acute) Chronic anticoagulation (Acute) Anemia (Chronic) GI bleed (Chronic) Fatigue (Acute) Right shoulder pain (Acute) Gout (Chronic) Type 2 diabetes mellitus with retinopathy (Acute) Leg wound, left (Acute) CKD (chronic kidney disease) stage 4, GFR 15-29 ml/min (Acute) Pulmonary hypertension (Acute) [place] [facility] [place] Atrial fibrillation (Chronic) CHF (congestive heart failure) (Chronic) [place] [facility] [place] Asthma (Acute) Obesity (Acute) Hypertension (Acute) Seasonal allergic rhinitis (Acute) Hyperlipidemia (Acute) Depression (Acute) Anxiety (Acute) Medical History Traumatic hematoma Cellulitis Traumatic hematoma of face History of endometrial cancer 2018. Adenocarcinoma of uterus. IIIC1. Adjuvant therapy-3 cycles of carboplatinum and Taxol followed by radiation therapy and then repeat post radiation carboplatinum and Taxol Surgical History Ligation of fallopian tube 1984 Tonsillectomy 1964 section 1982 Open Carpal Tunnel release Right 2009 Mitral valve repair 2006 Family History Mother , age 81 Diabetes Father , age 82 Hyperlipidemia Alcohol abuse Hypertension Sister , agae 57 Lung cancer Endometrial cancer Substance abuse Sister , age 5 No problems noted. Sister No problems noted. Brother , age 63 Alcohol abuse Asthma Diabetes Hyperlipidemia Brother , age 71 No problems noted. Brother , age 63 Alcohol abuse Hyperlipidemia Hypertension Son No problems noted. Daughter No problems noted. Other Personal history of malignant neoplasm Social History Smoking/Tobacco Use Status: Former Tobacco Use tobacco type: cigarettes Quit Date: 09/29/80 Tobacco: How many years used: 10 Second Hand Exposure: Yes Smoking risk assessment performed?: Yes Alcohol Intake: current Alcohol Intake frequency: holidays/special occasions only Alcohol type: wine Drug use: Rarely Substance use type: marijuana Caregiver/Support person: No Household members: friend(s) Housing: house Communication Needs: Corrective Lenses Do you need help understanding health information?: Rarely Pets and animals: Yes Pets and animals: cat(s) and dog(s) Sexually active: No Do you think of yourself as: straight/heterosexual Current gender identity: female What is your relationship status?: living with partner How often do you talk on the phone with friends or family?: twice per week How often do you get together with friends or relatives?: decline to answer How often do you attend gnosticist or anabaptism services?: decline to answer Do you belong to any clubs or organized social groups?: no Panel score (0-1 are the most socially isolated patients): 1 What type of physical activity do you participate in: none Frequency: does not exercise Patricia/Restoration: Other Special patricia needs: No Seatbelt use: sometimes Helmet use: Yes Helmet use: sometimes Drive intox or ride w/intox transit bus driver: No Do you feel safe at home: Yes Do you feel safe in your relationship?: Yes Female Reproductive History Menstrual Menopause type: natural History History 2 2 Para 2 Hx # Term Pregnancies Multiple births Hx # Pregnancies Ectopic pregnancies AB induced Hx Number of Living Children AB spontaneous Results Last Vital Signs Temp 98.5 F 08/23/23 14:02 Pulse 86 08/23/23 14:01 Resp 23 08/23/23 14:01 BP 100/42 L 08/23/23 14:01 Pulse Ox 100 08/23/23 14:01 Labs 08/24/23 05:58 08/24/23 05:58 Labs: Laboratory Results - last 24 hr 08/23/23 10:20 WBC 5.85 RBC 2.22 L Hgb 7.1 L Hct 23.4 L MCV 105 H MCH 32.0 MCHC 30.3 L RDW 16.0 H Plt Count 323 MPV 10.3 Immature Gran % 0.3 Neutrophils % 74.4 Lymphocytes % 10.3 Monocytes % 10.9 Eosinophils % 3.1 Basophils % 1.0 Nucleated RBC % 0.3 Absolute Neutrophils 4.35 Absolute Lymphocytes 0.60 L Absolute Monocytes 0.64 Absolute Eosinophils 0.18 Absolute Basophils 0.06 RBC Morphology See Below Polychromasia Present Hypochromasia 3+ Macrocytosis 2+ Sodium 135 L Potassium 4.4 Chloride 101 Carbon Dioxide 24.5 Anion Gap 9.5 BUN 53 H Creatinine 3.6 H* Est GFR (CKD-EPI 2020) 13.11 Glucose 143 H Calcium 9.2 Magnesium 2.6 H Total Bilirubin 1.2 H AST 24 ALT 18 Alkaline Phosphatase 87 Total Protein 7.1 Albumin 3.6 Patient ABO/Rh O Positive Antibody Screen NEGATIVE Crossmatch See Detail
--- NOTE | 2023-08-23 14:22 | ED.GENADUL_ITS ---
Discharge Plan Disposition Patient Disposition: Admit to [facility] Discharge Details Clinical Impression: GI bleed, CKD (chronic kidney disease) stage 4, GFR 15-29 ml/min, Anemia, Chronic anticoagulation Primary Care Provider: Jamari Presley ED Provider: Cayden Palomares Home Meds and New Rx's Prescriptions: No Action potassium chloride 10 mEq capsule, extended release 20 meq PO BID Levemir FlexTouch U100 Insulin 100 unit/mL (3 mL) insulin pen 10 unit SC QHS Rx Instructions: 10-12 units (DME) OneTouch Ultra Test Strip See Rx Instructions .Route Qty: 200 12RF Rx Instructions: Test BID aspirin 81 mg tablet,delayed release (DR/EC) 81 mg PO DAILY nitroglycerin 0.4 mg tablet, sublingual 0.4 mg SL Q5-15M PRN ferrous sulfate [FeroSul] 325 mg (65 mg iron) tablet 325 mg PO DAILY levothyroxine 112 mcg capsule 112 mcg PO DAILY allopurinol 100 mg tablet 100 mg PO DAILY Qty: 90 3RF amiodarone 200 mg tablet 200 mg PO DAILY bumetanide 1 mg tablet 1 mg PO DAILY Hold Instructions: Home Medication placed on hold at Doctor's office repaglinide 0.5 mg tablet 0.5 mg PO TID Qty: 270 3RF Rx Instructions: administer within 30 minutes of a meal or snack loratadine 10 mg tablet 10 mg PO DAILY PRN cholecalciferol (vitamin D3) 25 mcg (1,000 unit) capsule 25 mcg PO DAILY simvastatin [Zocor] 40 mg tablet 40 mg PO HS Qty: 90 3RF (DME) pen needle, diabetic [BD Ultra-Fine Rhoda Pen Needle] 32 gauge x 5/32 needle See Rx Instructions .ROUTE .MEDSUPPLY Qty: 100 11RF Rx Instructions: daily vilazodone [Viibryd] 20 mg tablet 20 mg PO DAILY Qty: 90 3RF Rx Instructions: must administer with a meal/food Eliquis 5 mg tablet 5 mg PO BID mag [id number] rt xt 500-3,000-150 mg-unit-mg tablet 2 tab PO BID Medical Decision Making Patient presenting to the emergency department for chief complaint of low hemoglobin. Patient reports that she has been feeling more weak and malaise with some shortness of breath during activity for the past couple weeks. She denies any injury or trauma, infectious symptoms, cough fever chills abdominal pain. Does state that she has had some dark tarry stools and some bright red stools couple weeks ago contributed from a hemorrhoid that is resolved. She does take a daily iron. Patient is on Eliquis for her A-fib but denies any bleeding gums, abnormal bruising or all other symptoms. Physical exam shows slight hypotension but normal mentation, upper limits of normal for heart rate, soft nontender abdomen, gross black tarry stool that is Hemoccult positive almost instantaneously on Hemoccult test, otherwise noncontributory exam. I am concerned for a significant GI bleed due to patient being symptomatic, having hemoglobin reported in the 6s yesterday and gross Hemoccult positive stool test. Patient did state that she held her Eliquis this morning and came straight to the emergency department. She does have a history of chronic kidney disease, uterine cancer with hysterectomy, A-fib, CHF, obesity, and anxiety. We will plan on checking labs. Did obtain consent for blood transfusion as patient's normal hemoglobin is between 10 and 11 along with her being symptomatic. Reviewed patient's labs that do show a anemia with hemoglobin of 7.1, hematocrit of 23.4, platelet count is within normal range with result of 323, patient does have significant renal dysfunction with a BUN of 53 and a creatinine of 3.6, GFR of 13. Magnesium slightly high at 2.6 and bilirubin of 1.2 otherwise LFTs are within normal range. Patient given 1 unit of blood and some fluids. CT imaging performed without contrast and shows findings concerning with dilation of hepatic veins and inferior vena cava along with some passive congestion within the portal system and some noted ascites. There is also findings noted of patient's CHF and peripheral or vascular disease with some stenosis of the left renal artery. No other emergent findings noted. Did consult with Dr. Titus Guzman general surgeon who after full discussion of the case stated that he was agreeable to consultation but requested given patient's multiple medical comorbidities that patient primarily be managed by hospital medicine which I feel is more than appropriate given her chronic kidney disease, A-fib, anticoagulation. Spoke with Dr. Cross who agreed to admit patient and patient is in agreement with this plan of care. Imaging Data Radiologic Study: Imaging: CT Scan Radiologist's impression: Exam(s) PROCEDURE INFORMATION: Exam: CT Abdomen And Pelvis Without Contrast Exam date and time: 08/23/2023 12:03 PM Age: 67 years old Clinical indication: Abdominal pain TECHNIQUE: Imaging protocol: Computed tomography of the abdomen and pelvis without contrast. COMPARISON: CT ABDOMEN PELVIS WO 04/02/2022 11:11 AM FINDINGS: Lungs: No consolidations or pleural effusions. Heart: Moderate multi chamber cardiac enlargement. No pericardial effusion. There is calcification within the mitral valve annulus. There is enlargement of the inferior vena cava and hepatic veins worrisome for tricuspid regurgitation. Liver: Enlargement of the portal and hepatic veins. No cysts or masses. Gallbladder and bile ducts: Not clearly identified if present. Pancreas: Normal. No ductal dilation. Spleen: The spleen is normal. Adrenal glands: The adrenal glands are normal. Kidneys and ureters: Normal. No hydronephrosis. Stomach and bowel: Unremarkable. No obstruction. No mucosal thickening. Appendix: The appendix is not identified, but there are no inflammatory changes in its expected region. Intraperitoneal space: Small amount of free fluid throughout peritoneal cavity. No free air. Vasculature: The vasculature demonstrates diffuse moderate atherosclerotic calcification. No aneurysm. Probable 50% stenosis of the origin of the left renal artery. Lymph nodes: Unremarkable. No enlarged lymph nodes. Urinary bladder: Unremarkable as visualized. Reproductive: There has been a hysterectomy. Bones/joints: Moderate to severe degenerative changes L3-S1. No acute fracture. Soft tissues: [id number] amount of soft tissue edema especially along the back.. IMPRESSION: 1. Findings compatible with tricuspid regurgitation and dilatation of the hepatic veins and inferior vena cava. There is likely passive congestion within the portal system resulting in ascites. The mild anasarca could be due to the patient's heart failure. 2. Moderate atherosclerotic peripheral vascular disease with moderate stenosis of the left renal artery. Lab Data Lab results reviewed: Yes I reviewed the patient's lab results. HPI General Mode of arrival: ambulatory . Date/Time Provider Initiated Documentation: 08/23/23 09:56 . Limitations to Documentation: no limitations . Information obtained by: patient and RN notes reviewed . History of Present Illness 67 year old F presents to the emergency department with the chief complaint of Malaise, fatigue, shortness of breath with activity, described as moderate, Patient started experiencing this week(s) and it has been constant. No relieving factors improve symptom(s), No exacerbating factors reported . Patient did receive the following treatments prior to arrival, none Related Data Home Medications Medication Instructions Recorded Confirmed aspirin 81 mg tablet,delayed 81 mg PO DAILY 10/14/19 08/22/23 release nitroglycerin 0.4 mg sublingual 0.4 mg sublingual Q5-15M PRN 10/14/19 08/22/23 tablet ferrous sulfate 325 mg (65 mg 325 mg PO DAILY 08/01/20 08/22/23 iron) tablet (FeroSul) loratadine 10 mg tablet 10 mg PO DAILY PRN 08/01/20 08/22/23 magnesium oxide 500 mg-vit D3 2 tab PO BID 11/16/20 08/22/23 3,000 unit-turmeric root 150 mg tablet cholecalciferol (vitamin D3) 25 25 mcg PO DAILY 12/20/21 08/22/23 mcg (1,000 unit) capsule apixaban 5 mg tablet (Eliquis) 5 mg PO BID 03/22/22 08/22/23 allopurinol 100 mg tablet 100 mg PO DAILY #90 tabs 08/30/22 08/22/23 amiodarone 200 mg tablet 200 mg PO DAILY 08/30/22 08/22/23 bumetanide 1 mg tablet 1 mg PO DAILY 08/30/22 08/22/23 levothyroxine 112 mcg capsule 112 mcg PO DAILY 08/30/22 08/22/23 potassium chloride 10 mEq 20 meq PO BID 08/31/22 08/22/23 capsule,extended release repaglinide 0.5 mg tablet 0.5 mg PO TID #270 tabs 10/01/22 08/22/23 blood sugar diagnostic (OneTouch #200 ea 11/27/22 08/22/23 Ultra Test strips) insulin detemir U-100 100 unit/mL 10 unit subcut QHS 11/27/22 08/22/23 (3 mL) subcutaneous pen (Levemir FlexTouch U-100 Insulin) simvastatin 40 mg tablet (Zocor) 40 mg PO HS #90 tabs 04/22/23 08/22/23 pen needle, diabetic 32 gauge x #100 ea 07/15/23 08/22/23 (BD Ultra-Fine Rhoda Pen Needle) vilazodone 20 mg tablet (Viibryd) 20 mg PO DAILY #90 tabs 07/28/23 08/22/23 Previous Rx's Medication Instructions Recorded allopurinol 100 mg tablet 100 mg PO DAILY #90 tabs 08/30/22 repaglinide 0.5 mg tablet 0.5 mg PO TID #270 tabs 10/01/22 blood sugar diagnostic (OneTouch #200 ea 11/27/22 Ultra Test strips) simvastatin 40 mg tablet (Zocor) 40 mg PO HS #90 tabs 04/22/23 pen needle, diabetic 32 gauge x #100 ea 07/15/23 (BD Ultra-Fine Rhoda Pen Needle) vilazodone 20 mg tablet (Viibryd) 20 mg PO DAILY #90 tabs 07/28/23 Allergies Allergy/AdvReac Type Severity Reaction Status Date / Time bee venom protein (honey bee) Allergy Severe anaphylaxis Verified 08/22/23 10:45 Penicillins Allergy Severe anaphylaxis Verified 08/22/23 10:45 codeine Allergy Verified 08/22/23 10:45 hydrocodone [From Vicodin] AdvReac Intermediate vomiting Verified 08/22/23 10:45 General Stated Complaint: GI Bleed RENY: 3 Review of Systems Constitutional Constitutional: Denies chills, Denies fever(s), Denies headache(s), Reports lethargy, Reports malaise and Reports poor appetite ENT Ears, Nose, Mouth, and Throat: Denies dizziness and Denies headache(s) Cardiovascular Cardiovascular: Denies chest pain, Denies syncope, Denies irregular heart rhythm and Reports dyspnea on exertion Respiratory Respiratory: Denies cough and Reports dyspnea on exertion Gastrointestinal Gastrointestinal: Denies abdominal pain, Reports melena, Denies diarrhea, Denies nausea and Denies vomiting Genitourinary Genitourinary: Denies hematuria Integumentary/Breasts Skin/Breast: Denies unusual bruising Neurologic Neurologic: Denies confusion, Denies dizziness, Denies syncope and Denies headache(s) Psychiatric Psychiatric: Denies confusion PFSH All Active Problems (Updated 08/23/23 @ 14:58 by Cayden Palomares NP) Chronic anticoagulation (Acute) Anemia (Chronic) GI bleed (Chronic) Fatigue (Acute) Right shoulder pain (Acute) Gout (Chronic) Type 2 diabetes mellitus with retinopathy (Acute) Leg wound, left (Acute) CKD (chronic kidney disease) stage 4, GFR 15-29 ml/min (Acute) Pulmonary hypertension (Acute) follows with [facility] [place]- stable Atrial fibrillation (Chronic) CHF (congestive heart failure) (Chronic) 2019 [facility] [place] (Dr. Zhang) Asthma (Acute) Obesity (Acute) Hypertension (Acute) Seasonal allergic rhinitis (Acute) Hyperlipidemia (Acute) Depression (Acute) Anxiety (Acute) Medical History Traumatic hematoma Cellulitis Traumatic hematoma of face History of endometrial cancer 2018. Adenocarcinoma of uterus. IIIC1. Adjuvant therapy-3 cycles of carboplatinum and Taxol followed by radiation therapy and then repeat post radiation carboplatinum and Taxol Surgical History Ligation of fallopian tube 1984 Tonsillectomy 1964 section 1982 Open Carpal Tunnel release Right 2009 Mitral valve repair 2005 Family History Mother , age 81 Diabetes Father , age 82 Hyperlipidemia Alcohol abuse Hypertension Sister , agae 57 Lung cancer Endometrial cancer Substance abuse Sister , age 5 No problems noted. Sister No problems noted. Brother , age 63 Alcohol abuse Asthma Diabetes Hyperlipidemia Brother , age 71 No problems noted. Brother , age 63 Alcohol abuse Hyperlipidemia Hypertension Son No problems noted. Daughter No problems noted. Other Personal history of malignant neoplasm Social History Smoking/Tobacco Use Status: Former Tobacco Use tobacco type: cigarettes Quit Date: 09/29/80 Tobacco: How many years used: 10 Second Hand Exposure: Yes Smoking risk assessment performed?: Yes Alcohol Intake: current Alcohol Intake frequency: holidays/special occasions only Alcohol type: wine Drug use: Rarely Substance use type: marijuana Caregiver/Support person: No Household members: friend(s) Housing: house Communication Needs: Corrective Lenses Do you need help understanding health information?: Rarely Pets and animals: Yes Pets and animals: cat(s) and dog(s) Sexually active: No Do you think of yourself as: straight/heterosexual Current gender identity: female What is your relationship status?: living with partner How often do you talk on the phone with friends or family?: twice per week How often do you get together with friends or relatives?: decline to answer How often do you attend christian or advent services?: decline to answer Do you belong to any clubs or organized social groups?: no Panel score (0-1 are the most socially isolated patients): 1 What type of physical activity do you participate in: none Frequency: does not exercise Patricia/Evangelical: Other Special patricia needs: No Seatbelt use: sometimes Helmet use: Yes Helmet use: sometimes Drive intox or ride w/intox cdl bulk driver: No Do you feel safe at home: Yes Do you feel safe in your relationship?: Yes Female Reproductive History Menstrual Menopause type: natural History History 2 Para 2 Hx # Term Pregnancies Multiple births Hx # Pregnancies Ectopic pregnancies AB induced Hx Number of Living Children AB spontaneous Exam Const General: cooperative Orientation: alert, awake and oriented x3 Resp Effort & Inspection: normal respiratory effort and able to speak in complete sentences Auscultation: clear to auscultation bilaterally Cardio Rate: regular rate Rhythm: regular rhythm Heart Sounds: S1 normal and S2 normal GI Inspection: obesity Palpation: soft, not firm, no guarding, no masses, no pulsatile masses, not rigid, no splenomegaly and nontender Auscultation: normal bowel sounds Rectal Exam - female: heme positive stool Rectal exam heme positive - female: 3+, No lesions and No tenderness Neuro General: patient alert, patient awake, patient oriented x3 and moves all extremities Cognition: normal cognition Speech: speech normal Course Vital Signs Vital signs: Vital Signs Temperature 36.7 C 08/23/23 09:59 Pulse 99 H 08/23/23 09:59 Respiratory Rate 22 08/23/23 09:59 Blood Pressure 105/39 L 08/23/23 09:59 Temperature 36.9 C 08/23/23 14:02 Temperature Source Tympanic 08/23/23 09:59 Pulse 86 08/23/23 14:01 Pulse 98 H 08/23/23 14:01 Respiratory Rate 23 08/23/23 14:01 Respiratory Effort Normal 08/23/23 13:42 Blood Pressure 100/42 L 08/23/23 14:01 Blood Pressure Mean 58 08/23/23 14:01 Blood Pressure Position Supine 08/23/23 09:59 Pulse Oximetry 100 08/23/23 14:01 Oxygen Delivery Method Nasal Cannula 08/23/23 13:19 Oxygen Flow Rate 2 08/23/23 13:19 Pain Level 3 08/23/23 09:59 Lab/Test Results Lab/Test Results: Laboratory Tests Range/Units 08/23/23 10:20 WBC (4.4-10.8) 10^3/uL 5.85 RBC (3.93-5.22) 10^6/uL 2.22 L Hgb (11.2-15.7) g/dL 7.1 L Hct (36.0-46.0) % 23.4 L MCV (80-95) fL 105 H MCH (27.0-33.0) pg 32.0 MCHC (32.0-36.0) % 30.3 L RDW (11.7-14.6) % 16.0 H Plt Count (130-400) 10^3/uL 323 MPV (8.0-11.0) fL 10.3 Immature Gran % 0.3 Neutrophils % 74.4 Lymphocytes % 10.3 Monocytes % 10.9 Eosinophils % 3.1 Basophils % 1.0 Nucleated RBC % (0.0-0.3) % 0.3 Absolute Neutrophils (1.2-6.7) 10^3/uL 4.35 Absolute Lymphocytes (1.2-3.4) 10^3/uL 0.60 L Absolute Monocytes (0.1-0.8) 10^3/uL 0.64 Absolute Eosinophils (0.0-0.7) 10^3/uL 0.18 Absolute Basophils (0.0-0.2) 10^3/uL 0.06 RBC Morphology See Below Polychromasia Present Hypochromasia 3+ Macrocytosis 2+ Sodium (136-145) mmol/L 135 L Potassium (3.5-5.1) mmol/L 4.4 Chloride (98-107) mmol/L 101 Carbon Dioxide (21.0-32.0) mmol/L 24.5 Anion Gap (3-11) mmol/L 9.5 BUN (7-18) mg/dL 53 H Creatinine (0.55-1.02) mg/dL 3.6 H* Est GFR (CKD-EPI 2020) (mL/min/1.73m2) 13.11 Glucose (74-106) mg/dL 143 H Calcium (8.5-10.1) mg/dL 9.2 Magnesium (1.8-2.4) mg/dL 2.6 H Total Bilirubin (0.2-1.0) mg/dL 1.2 H AST (15-37) U/L 24 ALT (14-59) U/L 18 Alkaline Phosphatase (46-116) U/L 87 Total Protein (6.4-8.2) g/dL 7.1 Albumin (3.4-5.0) g/dL 3.6 Patient ABO/Rh O Positive Antibody Screen NEGATIVE Crossmatch See Detail Critical Care Time Critical Care Time Critical Care Time: Yes Total Critical Care Time: 30 Attestation: Due to GI bleed on anticoagulation with high probability of imminent or life threatening deterioration in the patient?s condition without intervention and treatment. Time spent documenting, reviewing labs and radiographs, monitoring titration/ Vital signs, and speaking with general surgeon and hospitalist for admission.
--- NOTE | 2023-08-23 14:57 | NUR.NOTE ---
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 Nursing Note:
[2023-08-23] MEDS: Pantoprazole 40 MG VIAL IVP (15:02)
[2023-08-23 15:29] LABS: INR 1.5 (0.9-1.1)
--- NOTE | 2023-08-23 18:25 | HPE_ITS ---
Date of service: 08/23/23 Time of Service: 18:25 Assessment and Plan Assessment and plan (1) Upper GI bleeding: Status: Acute Assessment and plan: I had made her NPO however she insisted on eating something. I have ordered clear liquid diet, explained to her that she may need urgent upper endoscopy (none pursued in past 4 yrs), ordered iv protonix, surgical consult w/ Dr. Guzman (notified by ED provider and he indicated he was willing to consult but deferred admission to mecidine service). I have held her apixaban for now until we determine if she is still actively bleeding, she was anticoagulated for the afib, her MVR is bioprosthetic so anticoagulation is not as crucial as mechanical valve I have dc'ed her iv fluids given her hx of HFREF and cor pulmonale I will transfuse to Hb of 8 gm, given 1 unit of PRBC from the ED, if repeat is under 8 gm then will give another unit of blood tonight Critical care time spent interviewing and examining the patient, reviewing studies, discussing case with patient's nurse and consulting physicians was 60 minutes (2) Chronic anticoagulation: Status: Acute Assessment and plan: hold apixaban in light of her GIB (3) Anemia: Status: Chronic Qualifiers: Anemia type: unspecified type Qualified Code(s): D64.9 - Anemia, unspecified (4) Chronic HFrEF (heart failure with reduced ejection fraction): Status: Acute Assessment and plan: She is showing some signs of fluid overload now w/ ascites on her CT abdomen and pelvis and her pedal edema and JVD. Although her BUN and creatinine are high, the BUN may be artificially elevated from GI bleeding rather than azotemia. the creatinine is not that far off her baseline which is 3 to 3.5. I will give her lasix 40 mg ivp now and put her on scheduled dose of lasix (5) Atrial fibrillation: Status: Chronic Assessment and plan: continud amiodarone but hold her apixaban, continue telemetry Qualifiers: Atrial fibrillation type: longstanding persistent Qualified Code(s): I 48.11 - Longstanding persistent atrial fibrillation (6) Hypertension: Status: Acute Qualifiers: Hypertension type: essential hypertension Qualified Code(s): I10 - Essential (primary) hypertension (7) Pulmonary hypertension: Status: Acute (8) CKD (chronic kidney disease) stage 4, GFR 15-29 ml/min: Status: Acute (9) Type 2 diabetes mellitus with retinopathy: Status: Acute Assessment and plan: basal/bolus insulin w/ slding scale and CHO coverage Qualifiers: Diabetes mellitus long term acute care registered nurse insulin use: with detention use Diabetic retinopathy severity: with unspecified retinopathy severity Diabetes mellitus macular edema: macular edema presence unspecified Laterality: bilateral Qualified Code(s): E11.319 - Type 2 diabetes mellitus with unspecified diabetic retinopathy without macular edema; Z79.4 - long term acute care registered nurse (current) use of insulin History of Present Illness History of Present Illness Chief Complaint: Anemia and GI bleeding Narrative: 67-year-old female with history of chronic atrial fibrillation anticoagulated on apixaban who also has a history of HFrEF with biventricular heart failure pulmonary hypertension has had previous porcine bioprosthetic mitral valve replacement type 2 diabetes mellitus has had intermittent GI bleeding and presented to the outpatient clinic yesterday with complaints of bloody diarrhea for the past week. She has a history of hemorrhoids and was started on hemorrhoidal cream stat blood work was ordered she was called with the blood work today and told to present to the emergency department. Her hemoglobin was down to 6.6 g whereas her baseline hemoglobin is around 10-11 g. She reports last EGD was about 4 years ago and [facility]. She has never had a colonoscopy and she is always refused to have this done. She had a negative Cologuard test performed on 03/12/2023. She denies any abdominal pain or hematemesis or hematochezia. She tells me it started with runny stools that became black but over the last day that seems to have cleared up. She has had some lightheadedness but no syncope. She denies any chest pain or pressure. She gets short of breath but no more than her usual with mild to moderate exertion. Her last echo on file was performed at [facility] on 12/13/2019 at that time showed mildly reduced ejection fraction of 50% with septal and anteroseptal wall motion abnormalities of hypokinesis. Right ventricle was mild to moderately dilated with mildly reduced function of the pulmonary artery systolic pressure estimated 70 mm with severe left atrial and mild right atrial enlargement and severe tricuspid regurgitation. Mitral valve annuloplasty had a mean gradient across the valve of 4 mm. Evaluation emergency department today included routine labs as well as an abdominal pelvic CT scan. Abdominal pelvic CT showed mild anasarca and cardiomegaly with abdominal ascites and colonic diverticulosis without diverticulitis. Labs were repeated and confirmed her anemia hemoglobin 7.1 g hematocrit 23% with macrocytic indices. No leukocytosis no thrombocytopenia. Pro time is elevated at 15 seconds INR 1.5. Chemistry panel from yesterday was repeated again today and shows azotemia with a BUN of 53 creatinine 3.6. Her baseline creatinine is around 3. Baseline BUN is around 50. LFTs were normal. Urinalysis was unremarkable. Patient is admitted to the intensive care unit for close monitoring for recurrent bleeding. She was transfused 1 unit of packed red cells we will repeat her hemoglobin if she remains below 8 g we will give her another unit of blood tonight. She has been started IV Protonix. Surgical consultation requested with Dr. Guzman for consideration of an EGD. Review of Systems Constitutional Constitutional: Reports as per HPI ENT Ears, Nose, Mouth, and Throat: Reports system reviewed and no additional complaints, except as documented Cardiovascular Cardiovascular: Denies chest pain, Reports pedal edema, Reports lightheadedness, Denies radiating jaw, neck or arm pain, Denies palpitations, Reports dyspnea and Reports dyspnea on exertion Respiratory Respiratory: Denies cough, Denies hemoptysis, Reports dyspnea and Reports dyspnea on exertion Gastrointestinal Gastrointestinal: Reports as per HPI, Reports melena, Denies nausea, Denies vomiting and Denies hematemesis Genitourinary Genitourinary: Reports system reviewed and no additional complaints, except as documented Musculoskeletal Musculoskeletal: Reports system reviewed and no additional complaints, except as documented Integumentary/Breasts Skin/Breast: Reports system reviewed and no additional complaints, except as documented Neurologic Neurologic: Reports system reviewed and no additional complaints, except as documented Endocrine Endocrine: Reports system reviewed and no additional complaints, except as documented and Denies palpitations Hematologic/Lymphatic Hematologic/Lymphatic: Reports system reviewed and no additional complaints, except as documented PFSH All Active Problems (Updated 08/23/23 @ 19:27 by Humble Murillo MD) Chronic HFrEF (heart failure with reduced ejection fraction) (Acute) Upper GI bleeding (Acute) Chronic anticoagulation (Acute) Anemia (Chronic) GI bleed (Chronic) Fatigue (Acute) Right shoulder pain (Acute) Gout (Chronic) Type 2 diabetes mellitus with retinopathy (Acute) Leg wound, left (Acute) CKD (chronic kidney disease) stage 4, GFR 15-29 ml/min (Acute) Pulmonary hypertension (Acute) follows with [facility]- stable Atrial fibrillation (Chronic) CHF (congestive heart failure) (Chronic) 2019 [facility] (Dr. Zhang) Asthma (Acute) Obesity (Acute) Hypertension (Acute) Seasonal allergic rhinitis (Acute) Hyperlipidemia (Acute) Depression (Acute) Anxiety (Acute) Medical History Traumatic hematoma Cellulitis Traumatic hematoma of face History of endometrial cancer 2018. Adenocarcinoma of uterus. IIIC1. Adjuvant therapy-3 cycles of carboplatinum and Taxol followed by radiation therapy and then repeat post radiation carboplatinum and Taxol Surgical History Ligation of fallopian tube 1984 Tonsillectomy 1964 section 1982 Open Carpal Tunnel release Right 2009 Mitral valve repair 2006 Family History Mother , age 81 Diabetes Father , age 82 Hyperlipidemia Alcohol abuse Hypertension Sister , agae 57 Lung cancer Endometrial cancer Substance abuse Sister , age 5 No problems noted. Sister No problems noted. Brother , age 63 Alcohol abuse Asthma Diabetes Hyperlipidemia Brother , age 71 No problems noted. Brother , age 63 Alcohol abuse Hyperlipidemia Hypertension Son No problems noted. Daughter No problems noted. Other Personal history of malignant neoplasm Social History Smoking/Tobacco Use Status: Former Tobacco Use tobacco type: cigarettes Quit Date: 09/29/80 Tobacco: How many years used: 10 Second Hand Exposure: Yes Smoking risk assessment performed?: Yes Alcohol Intake: current Alcohol Intake frequency: holidays/special occasions only Alcohol type: wine Drug use: Rarely Substance use type: marijuana Caregiver/Support person: No Household members: friend(s) Housing: house Communication Needs: Corrective Lenses Do you need help understanding health information?: Rarely Pets and animals: Yes Pets and animals: cat(s) and dog(s) Sexually active: No Do you think of yourself as: straight/heterosexual Current gender identity: female What is your relationship status?: living with partner How often do you talk on the phone with friends or family?: twice per week How often do you get together with friends or relatives?: decline to answer How often do you attend cheondoism or mormonism services?: decline to answer Do you belong to any clubs or organized social groups?: no Panel score (0-1 are the most socially isolated patients): 1 What type of physical activity do you participate in: none Frequency: does not exercise Patricia/Uatsdin: Other Special patricia needs: No Seatbelt use: sometimes Helmet use: Yes Helmet use: sometimes Drive intox or ride w/intox road train driver: No Do you feel safe at home: Yes Do you feel safe in your relationship?: Yes Female Reproductive History Menstrual Menopause type: natural History History 2 2 Para 2 Hx # Term Pregnancies Multiple births Hx # Pregnancies Ectopic pregnancies AB induced Hx Number of Living Children AB spontaneous Meds Allergies and Home Medications Allergies Allergy/AdvReac Type Severity Reaction Status Date / Time bee venom protein (honey bee) Allergy Severe anaphylaxis Verified 08/22/23 10:45 Penicillins Allergy Severe anaphylaxis Verified 08/22/23 10:45 codeine Allergy Verified 08/22/23 10:45 hydrocodone [From Vicodin] AdvReac Intermediate vomiting Verified 08/22/23 10:45 Home Medications Medication Instructions Recorded Confirmed Type aspirin 81 mg tablet,delayed 81 mg PO DAILY 10/14/19 08/23/23 History release nitroglycerin 0.4 mg sublingual 0.4 mg sublingual Q5-15M PRN 10/14/19 08/23/23 History tablet ferrous sulfate 325 mg (65 mg 325 mg PO DAILY 08/01/20 08/23/23 History iron) tablet (FeroSul) loratadine 10 mg tablet 10 mg PO DAILY PRN 08/01/20 08/23/23 History magnesium oxide 500 mg-vit D3 2 tab PO BID 11/16/20 08/23/23 History 3,000 unit-turmeric root 150 mg tablet cholecalciferol (vitamin D3) 25 25 mcg PO DAILY 12/20/21 08/23/23 History mcg (1,000 unit) capsule apixaban 5 mg tablet (Eliquis) 5 mg PO BID 03/22/22 08/23/23 History allopurinol 100 mg tablet 100 mg PO DAILY #90 tabs 08/30/22 08/23/23 Rx amiodarone 200 mg tablet 200 mg PO DAILY 08/30/22 08/23/23 History bumetanide 1 mg tablet 1 mg PO DAILY 08/30/22 08/23/23 History levothyroxine 112 mcg capsule 112 mcg PO DAILY 08/30/22 08/23/23 History potassium chloride 10 mEq 20 meq PO BID 08/31/22 08/23/23 History capsule,extended release repaglinide 0.5 mg tablet 0.5 mg PO TID #270 tabs 10/01/22 08/23/23 Rx blood sugar diagnostic (OneTouch #200 ea 11/27/22 08/22/23 Rx Ultra Test strips) insulin detemir U-100 100 unit/mL 10 unit subcut QHS 11/27/22 08/23/23 History (3 mL) subcutaneous pen (Levemir FlexTouch U-100 Insulin) simvastatin 40 mg tablet (Zocor) 40 mg PO HS #90 tabs 04/22/23 08/23/23 Rx pen needle, diabetic 32 gauge x #100 ea 07/15/23 08/22/23 Rx 5/32 (BD Ultra-Fine Rhoda Pen Needle) vilazodone 20 mg tablet (Viibryd) 20 mg PO DAILY #90 tabs 07/28/23 08/23/23 Rx Exam Narrative Exam Narrative: Alert and oriented x4 HEENT: Atraumatic normocephalic, pupils equally round reactive to light and accommodation, extraocular motion intact, TMs intact, nares moist and patent without exudate or bleeding, oropharynx noninjected without exudate, teeth in good repair Neck: Supple, nontender, without thyromegaly or lymphadenopathy with JVD to half way up her SCM, normal carotid pulses w/ soft bruit bilaterally Lungs: Clear to auscultation anteriorly but diminished posterior bases Heart: regular rate and rhythm w/ soft systolic murmur over apex, no thrill or heave Abdomen: Nondistended, normal bowel sounds, nontender to palpation or percussion, no organomegaly, no bruits, no palpable masses Genitalia and rectal exam: Deferred Breasts: Deferred Extremities: Normal range of motion with normal strength. No peripheral cyanosis, diminished but palpable pedal pulses, 1+ pedal and pretibial edema Neurologic: Cranial nerves II through XII grossly within normal limits. Normal strength and sensation over the face trunk and extremities. Results Labs 08/23/23 10:20 08/23/23 10:20 Labs: Laboratory Results - last 24 hr 08/23/23 08/23/23 10:20 15:12 WBC 5.85 RBC 2.22 L Hgb 7.1 L Hct 23.4 L MCV 105 H MCH 32.0 MCHC 30.3 L RDW 16.0 H Plt Count 323 MPV 10.3 Immature Gran % 0.3 Neutrophils % 74.4 Lymphocytes % 10.3 Monocytes % 10.9 Eosinophils % 3.1 Basophils % 1.0 Nucleated RBC % 0.3 Absolute Neutrophils 4.35 Absolute Lymphocytes 0.60 L Absolute Monocytes 0.64 Absolute Eosinophils 0.18 Absolute Basophils 0.06 RBC Morphology See Below Polychromasia Present Hypochromasia 3+ Macrocytosis 2+ PT 15.0 H INR 1.5 H Sodium 135 L Potassium 4.4 Chloride 101 Carbon Dioxide 24.5 Anion Gap 9.5 BUN 53 H Creatinine 3.6 H* Est GFR (CKD-EPI 2020) 13.11 Glucose 143 H Calcium 9.2 Magnesium 2.6 H Total Bilirubin 1.2 H AST 24 ALT 18 Alkaline Phosphatase 87 Total Protein 7.1 Albumin 3.6 Patient ABO/Rh O Positive Antibody Screen NEGATIVE Crossmatch See Detail Last Vital Signs Temp 36.6 C 08/23/23 17:31 Pulse 97 H 08/23/23 17:31 Resp 29 H 08/23/23 16:50 BP 113/58 L 08/23/23 17:31 Pulse Ox 98 08/23/23 17:31 Time Spent Time spent with Patient: 55-74 minutes Time was spent: preparing to see the patient(eg.review tests), obtaining and/or reviewing separately otained hiistory, ordering medications,tests, procedures, referring, communicating with other health career transition specialist (ED provider), indepentently interpreting results, counseling the patient and care coordination
[2023-08-23 19:23] LABS: HGB 6.7 g/dL (11.2-15.7)
[2023-08-23] MEDS: Furosemide 40 MG/4 ML VIAL IVP (20:07)
[2023-08-24] VITALS (62 sets, daily range): BP systolic 84–123; BP diastolic 41–90; PULSE 83–116; RESP 15–31; TEMP 36.4–36.9; O2SAT 90–98
[2023-08-24] MEDS: Pantoprazole 40 MG VIAL IVP ×2 (02:36→17:53)
[2023-08-24 06:53] LABS: Abs Immature Grans 0.03 10^3/uL (0.0-0.06); Absolute Basophil Count 0.06 10^3/uL (0.0-0.2); Absolute Eosinophil Count 0.17 10^3/uL (0.0-0.7); Absolute Lymphocyte Count 0.51 10^3/uL (1.2-3.4); Absolute Monocyte Count 0.79 10^3/uL (0.1-0.8); Absolute Neutrophil Count 4.63 10^3/uL (1.2-6.7); Eosinophils % 2.7; HCT 26.5 % (36.0-46.0); HGB 8.3 g/dL (11.2-15.7); Immature Grans % 0.5; Lymphocytes % 8.2; MCH 31.1 pg (27.0-33.0); MCHC 31.3 % (32.0-36.0); MCV 99 fL (80-95); MPV 10.1 fL (8.0-11.0); Monocytes % 12.8; Neutrophils % 74.8; Nucleated RBC 0.3 % (0.0-0.3); Platelet Count 248 10^3/uL (130-400); RBC 2.67 10^6/uL (3.93-5.22); RDW 18.6 % (11.7-14.6); RDW-SD 67.1 fL; WBC 6.19 10^3/uL (4.4-10.8)
[2023-08-24 07:15] LABS: ALT 14 U/L (14-59); AST 16 U/L (15-37); Alkaline Phosphatase 77 U/L (46-116); Anion Gap 7.6 mmol/L (3-11); BUN 44 mg/dL (7-18); Bilirubin, Total 2.9 mg/dL (0.2-1.0); CO2 26.4 mmol/L (21.0-32.0); CREATININE 3.1 mg/dL (0.55-1.02); Calcium 8.5 mg/dL (8.5-10.1); Chloride 100 mmol/L (98-107); Estimated GFR 15.69 (mL/min/1.73m2); Glucose 134 mg/dL (74-106); Potassium 3.7 mmol/L (3.5-5.1); Sodium 134 mmol/L (136-145); Total Protein 5.8 g/dL (6.4-8.2)
[2023-08-24] MEDS: Levothyroxine 112 MCG TAB PO (08:48)
[2023-08-24] MEDS: Furosemide 40 MG/4 ML VIAL IVP ×3 (08:48→23:53)
[2023-08-24] MEDS: Amiodarone 200 MG TAB PO (08:48)
[2023-08-24] MEDS: Normal Saline Flush 10 ML SYR IVP ×2 (08:49→20:33)
[2023-08-24 08:57] LABS: Lab Add On Test DONE
[2023-08-24 09:20] LABS: NT-proBNP 3186 pg/mL (<300)
[2023-08-24] MEDS: Insulin Aspart 300 UNITS/3 ML PEN SC ×2 (12:35→12:36)
--- NOTE | 2023-08-24 14:44 | PGE_ITS ---
Date of Service Date of service: 08/24/23 Time of Service: 14:44 Assessment and Plan Assessment and plan (1) Upper GI bleeding: Status: Acute Assessment and plan: Patient was put on clear liquids last night as it did not appear that she was going to have an EGD, however in light of her recurrent melanotic stools patient is now reconsidering having EGD. We will keep her on clear liquids for today and make n.p.o. tonight. I have notified Dr. Guzman that the patient is going to have an EGD. In the interim she has been put on Carafate and Cytotec in addition to the Protonix. Critical care time spent interviewing and examining the patient, reviewing studies, discussing case with patient's nurse and consulting physicians was 30 minutes (2) Chronic anticoagulation: Status: Acute Assessment and plan: hold apixaban in light of her GIB (3) Anemia: Status: Chronic Assessment and plan: Hemoglobin up to 8.3 today after being transfused 3 units of packed red cells yesterday. We will recheck her H&H this afternoon and if she is dropped below 8 g I will transfuse her further. Continue GI protection as noted above. Proceed with EGD for tomorrow morning. Qualifiers: Anemia type: unspecified type Qualified Code(s): D64.9 - Anemia, unspecified (4) Chronic HFrEF (heart failure with reduced ejection fraction): Status: Acute Assessment and plan: Patient continues to exhibit evidence of heart failure with bilateral leg edema although her lung sounds are pretty clear and she is not requiring any supplemental oxygen. Continue diuresis with IV Lasix particularly in light of needing transfusions. (5) Atrial fibrillation: Status: Chronic Assessment and plan: continud amiodarone but hold her apixaban, continue telemetry Qualifiers: Atrial fibrillation type: longstanding persistent Qualified Code(s): I48.11 - Longstanding persistent atrial fibrillation (6) Hypertension: Status: Acute Qualifiers: Hypertension type: essential hypertension Qualified Code(s): I10 - Essential (primary) hypertension (7) Pulmonary hypertension: Status: Acute (8) CKD (chronic kidney disease) stage 4, GFR 15-29 ml/min: Status: Acute (9) Type 2 diabetes mellitus with retinopathy: Status: Acute Assessment and plan: basal/bolus insulin w/ slding scale and CHO coverage Qualifiers: Diabetes mellitus statement clerks supervisor insulin use: with fci use Diabetic retinopathy severity: with unspecified retinopathy severity Diabetes mellitus macular edema: macular edema presence unspecified Laterality: bilateral Qualified Code(s): E11.319 - Type 2 diabetes mellitus with unspecified diabetic retinopathy without macular edema; Z79.4 - cat operator (current) use of insulin Subjective Subjective Interval history since last seen: Patient was seen earlier around noontime. She had another large black bowel movement but no rony hematochezia. Stool was heme positive. She has had not hypotension today, HR in the 90's. No abdominal pains. Exam Narrative Exam Narrative: Obese female who is alert and oriented P.O.L.S.T. Circumstance in no acute distress denies abdominal pain nausea vomiting Lungs are clear Heart regular rate and rhythm Abdomen obese soft nontender nondistended normal bowel sounds Lower extremities 3+ pitting pedal and pretibial edema Objective Last Vital Signs Temp 36.4 C L 08/24/23 11:46 Pulse 88 08/24/23 12:01 Resp 25 H 08/24/23 12:01 BP 93/73 L 08/24/23 12:01 Pulse Ox 93 08/24/23 04:02 Laboratory Results - last 24 hr 08/23/23 08/23/23 08/23/23 10:20 15:12 19:12 WBC RBC Hgb 6.7 L* Hct 22.0 L MCV MCH MCHC RDW Plt Count MPV Immature Gran % Neutrophils % Lymphocytes % Monocytes % Eosinophils % Basophils % Nucleated RBC % Absolute Neutrophils Absolute Lymphocytes Absolute Monocytes Absolute Eosinophils Absolute Basophils PT 15.0 H INR 1.5 H Sodium Potassium Chloride Carbon Dioxide Anion Gap BUN Creatinine Est GFR (CKD-EPI 2020) Glucose Calcium Total Bilirubin AST ALT Alkaline Phosphatase NT-Pro-B Natriuret Pep Total Protein Albumin Add-On Test Request Patient ABO/Rh O Positive Antibody Screen NEGATIVE Crossmatch See Detail 08/24/23 05:58 WBC 6.19 RBC 2.67 L Hgb 8.3 L Hct 26.5 L MCV 99 H D MCH 31.1 MCHC 31.3 L RDW 18.6 H Plt Count 248 MPV 10.1 Immature Gran % 0.5 Neutrophils % 74.8 Lymphocytes % 8.2 Monocytes % 12.8 Eosinophils % 2.7 Basophils % 1.0 Nucleated RBC % 0.3 Absolute Neutrophils 4.63 Absolute Lymphocytes 0.51 L Absolute Monocytes 0.79 Absolute Eosinophils 0.17 Absolute Basophils 0.06 PT INR Sodium 134 L Potassium 3.7 Chloride 100 Carbon Dioxide 26.4 Anion Gap 7.6 BUN 44 H Creatinine 3.1 H Est GFR (CKD-EPI 2020) 15.69 Glucose 134 H Calcium 8.5 Total Bilirubin 2.9 H AST 16 ALT 14 Alkaline Phosphatase 77 NT-Pro-B Natriuret Pep 3186 H Total Protein 5.8 L Albumin 3.0 L Add-On Test Request DONE Patient ABO/Rh Antibody Screen Crossmatch Time Spent with Patient Time Spent with Patient: 25-34 minutes Time was spent: preparing to see the patient(eg.review tests), ordering medications,tests, procedures, referring, communicating with other health resident care associate (Case discussed with Dr. Guzman), indepentently interpreting results, counseling the patient and care coordination
[2023-08-24 14:55] LABS: HCT 28.4 % (36.0-46.0)
--- NOTE | 2023-08-24 15:03 | PDOC.CMIN ---
Date of service: 08/24/23 Time of Service: 15:03 Care Management Initial Assmt Initial Assessment REASON FOR HOSPITALIZATION:: UGI Bleed PREVIOUS FUNCTIONAL STATUS/SOCIAL/FAMILY SUPPORTS:: Anjana lives in [place] with a friend, Nain. She is originally from [place], [place], which is where her son and daughter live, who are supportive, but not local. 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 She is no longer working, but enjoys bringing perico to others through cooking and baking. She reports that she is very independent at home, and does not require support, although her male rn discharge is available and willing to help, if needed. CURRENT FUNCTIONAL STATUS:: Anjana was sitting up in her chair when CM met with her. She stated that she is doing better now than she was earlier today. She expressed that her goals are to get healthy and get home. She stated that she loves this time of year because she does a lot of baking for her friends and family. She reported that she is very independent and she does not anticipate the need for any services or support in the community. She requested a book to keep her busy while she is in the hospital. CM will continue to follow. ADVANCE DIRECTIVES:: Not on file at [facility]. Has patient been provided with info about the portal/API?: Yes Did the patient sign up for the portal?: Yes (active) CODE STATUS:: Full Code INSURANCE COVERAGE / FINANCIAL ISSUES:: [facility] MCR replacement. TG. CURRENT HOME/COMMUNITY SERVICES/EQUIPMENT:: None. PRIMARY CARE PHYSICIAN:: Jamari Liao POTENTIAL DISCHARGE NEEDS:: Follow up appointments. PATIENT/FAMILY EDUCATION NEEDS:: Review discharge instructions and limitations, discussion of self care needs including ask me three. ANTICIPATED BARRIERS TO DISCHARGE:: None. TRANSPORTATION:: Via private vehicle by friend. PLAN:: Anticipate Anjana will return home once medically cleared. Her friend will drive her home via private vehicle. She will follow up with her PCP and discharge plan of care. CM will continue to follow. PFSH All Active Problems (Updated 08/23/23 @ 19:27 by Humble Murillo MD) Chronic HFrEF (heart failure with reduced ejection fraction) (Acute) Upper GI bleeding (Acute) Chronic anticoagulation (Acute) Anemia (Chronic) GI bleed (Chronic) Fatigue (Acute) Right shoulder pain (Acute) Gout (Chronic) Type 2 diabetes mellitus with retinopathy (Acute) Leg wound, left (Acute) CKD (chronic kidney disease) stage 4, GFR 15-29 ml/min (Acute) Pulmonary hypertension (Acute) [place] [facility] Atrial fibrillation (Chronic) CHF (congestive heart failure) (Chronic) 2019 [facility] [place] ([place]. Zhang) Asthma (Acute) Obesity (Acute) Hypertension (Acute) Seasonal allergic rhinitis (Acute) Hyperlipidemia (Acute) Depression (Acute) Anxiety (Acute) Medical History Traumatic hematoma Cellulitis Traumatic hematoma of face History of endometrial cancer 2018. Adenocarcinoma of uterus. IIIC1. Adjuvant therapy-3 cycles of carboplatinum and Taxol followed by radiation therapy and then repeat post radiation carboplatinum and Taxol Surgical History Ligation of fallopian tube 1984 Tonsillectomy 1964 section 1982 Open Carpal Tunnel release Right 2009 Mitral valve repair 2006 Family History Mother , age 81 Diabetes Father , age 82 Hyperlipidemia Alcohol abuse Hypertension Sister , agae 57 Lung cancer Endometrial cancer Substance abuse Sister , age 5 No problems noted. Sister No problems noted. Brother , age 63 Alcohol abuse Asthma Diabetes Hyperlipidemia Brother , age 71 No problems noted. Brother , age 63 Alcohol abuse Hyperlipidemia Hypertension Son No problems noted. Daughter No problems noted. Other Personal history of malignant neoplasm Social History Smoking/Tobacco Use Status: Former Tobacco Use tobacco type: cigarettes Quit Date: 09/29/80 Tobacco: How many years used: 10 Second Hand Exposure: Yes Smoking risk assessment performed?: Yes Alcohol Intake: current Alcohol Intake frequency: holidays/special occasions only Alcohol type: wine Drug use: Rarely Substance use type: marijuana Caregiver/Support person: No Household members: friend(s) Housing: house Communication Needs: Corrective Lenses Do you need help understanding health information?: Rarely Pets and animals: Yes Pets and animals: cat(s) and dog(s) Sexually active: No Do you think of yourself as: straight/heterosexual Current gender identity: female What is your relationship status?: living with partner How often do you talk on the phone with friends or family?: twice per week How often do you get together with friends or relatives?: decline to answer How often do you attend adventism or synagogue services?: decline to answer Do you belong to any clubs or organized social groups?: no Panel score (0-1 are the most socially isolated patients): 1 What type of physical activity do you participate in: none Frequency: does not exercise Patricia/Religious: Other Special patricia needs: No Seatbelt use: sometimes Helmet use: Yes Helmet use: sometimes Drive intox or ride w/intox double bottom driver: No Do you feel safe at home: Yes Do you feel safe in your relationship?: Yes Female Reproductive History Menstrual Menopause type: natural History History 2 Para 2 Hx # Term Pregnancies Multiple births Hx # Pregnancies Ectopic pregnancies AB induced Hx Number of Living Children AB spontaneous
[2023-08-24] MEDS: miSOPROStol 100 MCG TAB PO ×2 (17:53→20:32)
[2023-08-24] MEDS: Sucralfate 1 GM TAB PO ×2 (17:54→20:32)
[2023-08-24 20:13] LABS: HCT 26.1 % (36.0-46.0); HGB 8.3 g/dL (11.2-15.7)
[2023-08-25] VITALS (67 sets, daily range): BP systolic 92–119; BP diastolic 41–78; PULSE 69–108; RESP 15–30; TEMP 36–37.4; O2SAT 94–98
[2023-08-25] MEDS: Normal Saline Flush 10 ML SYR IVP ×5 (03:59→21:48)
[2023-08-25] MEDS: Pantoprazole 40 MG VIAL IVP ×2 (05:01→19:10)
[2023-08-25] MEDS: Levothyroxine 112 MCG TAB PO (05:02)
[2023-08-25 07:04] LABS: Abs Immature Grans 0.02 10^3/uL (0.0-0.06); Absolute Basophil Count 0.05 10^3/uL (0.0-0.2); Absolute Eosinophil Count 0.28 10^3/uL (0.0-0.7); Absolute Lymphocyte Count 0.63 10^3/uL (1.2-3.4); Absolute Monocyte Count 0.84 10^3/uL (0.1-0.8); Absolute Neutrophil Count 4.56 10^3/uL (1.2-6.7); Basophils % 0.8; Eosinophils % 4.4; HCT 24.2 % (36.0-46.0); HGB 7.8 g/dL (11.2-15.7); Immature Grans % 0.3; Lymphocytes % 9.9; MCH 31.8 pg (27.0-33.0); MCHC 32.2 % (32.0-36.0); MCV 99 fL (80-95); Monocytes % 13.2; Neutrophils % 71.4; Platelet Count 241 10^3/uL (130-400); RBC 2.45 10^6/uL (3.93-5.22); RDW 17.6 % (11.7-14.6); RDW-SD 63.7 fL; WBC 6.38 10^3/uL (4.4-10.8)
[2023-08-25 07:27] LABS: ALT 16 U/L (14-59); AST 16 U/L (15-37); Alkaline Phosphatase 83 U/L (46-116); Anion Gap 10.8 mmol/L (3-11); BUN 43 mg/dL (7-18); Bilirubin, Total 1.9 mg/dL (0.2-1.0); CO2 28.2 mmol/L (21.0-32.0); CREATININE 3.3 mg/dL (0.55-1.02); Calcium 8.5 mg/dL (8.5-10.1); Chloride 99 mmol/L (98-107); Estimated GFR 14.55 (mL/min/1.73m2); Glucose 107 mg/dL (74-106); Sodium 138 mmol/L (136-145)
--- NOTE | 2023-08-25 09:02 | PGE_ITS ---
Date of Service Date of service: 08/25/23 Time of Service: 09:02 Assessment and Plan Assessment and plan (1) Upper GI bleeding: Status: Acute Assessment and plan: patient remains NPO.Nurse rail track maintainer will discuss patient's case w/ Dr. Guzman and the rest of the anesthesia team. Patient is refusing to be transferred for her EGD. If EGD is not to be done here then I can only continue aggressive medical treatment protonix twice a day and carafate and cytoteck 4 x per day. Critical care time spent interviewing and examining the patient, reviewing studies, discussing case with patient's nurse and consulting physicians was 30 minutes (2) Chronic anticoagulation: Status: Acute Assessment and plan: hold apixaban in light of her GIB. give vitamin K. recheck her INR (3) Anemia: Status: Chronic Assessment and plan: Hemoglobin up to 8.3 today after being transfused 3 units of packed red cells yesterday. We will recheck her H&H this afternoon and if she is dropped below 8 g I will transfuse her further. Continue GI protection as noted above. Will give Venofer Qualifiers: Anemia type: unspecified type Qualified Code(s): D64.9 - Anemia, unspecified (4) Chronic HFrEF (heart failure with reduced ejection fraction): Status: Acute Assessment and plan: Patient continues to exhibit evidence of heart failure with bilateral leg edema although her lung sounds are pretty clear and she is not requiring any supplemental oxygen. Continue diuresis with IV Lasix particularly in light of needing transfusions. (5) Atrial fibrillation: Status: Chronic Assessment and plan: continud amiodarone but hold her apixaban, continue telemetry Qualifiers: Atrial fibrillation type: longstanding persistent Qualified Code(s): I48.11 - Longstanding persistent atrial fibrillation (6) Hypertension: Status: Acute Qualifiers: Hypertension type: essential hypertension Qualified Code(s): I10 - Essential (primary) hypertension (7) Pulmonary hypertension: Status: Acute (8) CKD (chronic kidney disease) stage 4, GFR 15-29 ml/min: Status: Acute (9) Type 2 diabetes mellitus with retinopathy: Status: Acute Assessment and plan: basal/bolus insulin w/ slding scale and CHO coverage Qualifiers: Diabetes mellitus continuous churn buttermaker insulin use: with continuous churn buttermaker use Diabetic retinopathy severity: with unspecified retinopathy severity Diabetes mellitus macular edema: macular edema presence unspecified Laterality: bilateral Qualified Code(s): E11.319 - Type 2 diabetes mellitus with unspecified diabetic retinopathy without macular edema; Z79.4 - terminal worker (current) use of insulin Subjective Subjective Interval history since last seen: Patient's Hb is down again today to 7.8 gm. Per nurse rail track maintainer, she is too high risk for anesthesia for EGD to be done here. [place] is [place] [facility] [place] [facility]. She will not go to [facility] period. She is willing to go [place] [facility] but not until after [place]. I explained to her that she needs the EGD done now and to not wait until after [place]. She will not be put back on her apixaban until we get and EGD and find the source of her GIB. Exam Narrative Exam Narrative: Anjana is sitting up in her chair, alert and oriented, no acute distress, no abdominal pain or nausea or vomiting. Lungs: clear Heart: regular w/ harsh systolic murmur over apex Abdomen: obese, soft, nontender Legs: 3+ pedal edema from feet to just below her knees. Objective Last Vital Signs Temp 37.4 C 08/25/23 05:09 Pulse 89 08/25/23 00:01 Resp 17 08/25/23 05:09 BP 109/65 08/25/23 00:01 Pulse Ox 93 08/24/23 04:02 Laboratory Results - last 24 hr 08/24/23 08/24/23 08/24/23 05:58 14:49 20:07 WBC RBC Hgb 9.0 L 8.3 L Hct 28.4 L 26.1 L MCV MCH MCHC RDW Plt Count MPV Immature Gran % Neutrophils % Lymphocytes % Monocytes % Eosinophils % Basophils % Nucleated RBC % Absolute Neutrophils Absolute Lymphocytes Absolute Monocytes Absolute Eosinophils Absolute Basophils Sodium Potassium Chloride Carbon Dioxide Anion Gap BUN Creatinine Est GFR (CKD-EPI 2020) Glucose Calcium Total Bilirubin AST ALT Alkaline Phosphatase NT-Pro-B Natriuret Pep 3186 H Total Protein Albumin 08/25/23 05:38 WBC 6.38 RBC 2.45 L Hgb 7.8 L Hct 24.2 L MCV 99 H MCH 31.8 MCHC 32.2 RDW 17.6 H Plt Count 241 MPV 10.0 Immature Gran % 0.3 Neutrophils % 71.4 Lymphocytes % 9.9 Monocytes % 13.2 Eosinophils % 4.4 Basophils % 0.8 Nucleated RBC % 0.0 Absolute Neutrophils 4.56 Absolute Lymphocytes 0.63 L Absolute Monocytes 0.84 H Absolute Eosinophils 0.28 Absolute Basophils 0.05 Sodium 138 Potassium 3.0 L Chloride 99 Carbon Dioxide 28.2 Anion Gap 10.8 BUN 43 H Creatinine 3.3 H Est GFR (CKD-EPI 2020) 14.55 Glucose 107 H Calcium 8.5 Total Bilirubin 1.9 H AST 16 ALT 16 Alkaline Phosphatase 83 NT-Pro-B Natriuret Pep Total Protein 6.0 L Albumin 3.0 L Time Spent with Patient Time Spent with Patient: 25-34 minutes Time was spent: preparing to see the patient(eg.review tests), ordering medications,tests, procedures, referring, communicating with other health career transition specialist (Dr. Guzman and anesthesia team), indepentently interpreting re sults, counseling the patient and care coordination
[2023-08-25] MEDS: Amiodarone 200 MG TAB PO (09:08)
[2023-08-25] MEDS: miSOPROStol 100 MCG TAB PO (09:08)
[2023-08-25] MEDS: POTASSIUM CHLORIDE 20 MEQ/100 ML BAG 50 MEQ IVPB ×2 (09:09→11:42)
[2023-08-25 10:15] LABS: HCT 26.9 % (36.0-46.0); HGB 8.5 g/dL (11.2-15.7)
[2023-08-25] MEDS: Bumetanide 1 MG/4 ML VIAL 2 MG IVP (10:52)
[2023-08-25] MEDS: Phytonadione 1 MG/0.5 ML AMP 5 MG IM (11:41)
[2023-08-25] MEDS: miSOPROStol 100 MCG TAB 200 MCG PO ×3 (11:42→21:59)
--- NOTE | 2023-08-25 11:53 | PHA.REVIEW2 ---
Pharmacy Admission Review Admission Clinical Review Admission Pharmacy Review: (Updated 08/23/23 @ 19:27 by Humble Murillo MD) Chronic HFrEF (heart failure with reduced ejection fraction) (Acute) Upper GI bleeding (Acute) Chronic anticoagulation (Acute) Type 2 diabetes mellitus with retinopathy (Acute) CKD (chronic kidney disease) stage 4, GFR 15-29 ml/min (Acute) Pulmonary hypertension (Acute) Hypertension (Acute) bee venom protein (honey bee) Allergy (Severe, Verified 08/22/23 10:45) anaphylaxis Penicillins Allergy (Severe, Verified 08/22/23 10:45) anaphylaxis codeine Allergy (Verified 08/22/23 10:45) hydrocodone [From Vicodin] Adverse Reaction (Intermediate, Verified 08/22/23 10:45) vomiting Resuscitation Status Full Code Height 5 ft 2 in Weight 99.1 kg Pharmacy Admission Review Renal Dosing Renal Dosing: BUN 43 mg/dL (7-18) H 08/25/23 05:38 Creatinine 3.3 mg/dL (0.55-1.02) H 08/25/23 05:38 Medications needing adjustments: Reviewed (CrCL 17.68) List of meds needing interventions: Current meds okay Anticoagulation Anticoagulation: Hgb 8.5 g/dL (11.2-15.7) L 08/25/23 10:06 Hct 26.9 % (36.0-46.0) L 08/25/23 10:06 Plt Count 241 10^3/uL (130-400) 08/25/23 05:38 INR 1.5 (0.9-1.1) H 08/23/23 15:12 Creatinine 3.3 mg/dL (0.55-1.02) H 08/25/23 05:38 Therapeutic Anticoagulation: Reviewed Medications: Apixaban (Takes for A. Fib, currently on hold due to GI bleed) Opiate Usage Evaluate Pain Scale/Pains Meds: N/A Relevant Labs Relevant Labs: Sodium 138 mmol/L (136-145) 08/25/23 05:38 Potassium 3.0 mmol/L (3.5-5.1) L 08/25/23 05:38 Chloride 99 mmol/L (98-107) 08/25/23 05:38 Magnesium 2.6 mg/dL (1.8-2.4) H 08/23/23 10:20 Electrolytes, C-Reactive P, ESR: Reviewed (Hgb 7.8 (repeat lab pending), K 3 (repeat lab pending, has order now for 20 mEq IV Q2H)) DM Control DM Control: Reviewed (type 2) Insulin Dosing, Diabetic Medication: Sliding scale and CHO coverage Cardiac Review Cardiac Review: NT-Pro-B Natriuret Pep 3186 pg/mL (<300) H 08/24/23 05:58 BP, HR, EF%: Reviewed (BP 92/69, HR 87) QTc Review QTc: N/A (No recent EKG) IV to PO Switch IV Medications: Reviewed Home Meds Home Med List reviewed: Reviewed Relevent Home Meds Not ordered & why?: Vilazodone, loratadine, allopurinol, repaglinide (diabetes meds on hold while in hospital) Current Meds Current Medication Order Review: Reviewed
[2023-08-25 14:47] LABS: Potassium 3.1 mmol/L (3.5-5.1)
--- NOTE | 2023-08-25 16:01 | W.PALLCONSUL ---
Date of service: 08/25/23 Time of Service: 14:00 History of Present Illness Narrative: Ms. Yeung is a 67 y/o F currently inpt in ICU 2/2 suspected upper GI bleed; PMHx sig for A fib (on apixaban), HFrEF w/biventricular HF (last EF 50% 2019, h/o MV replacement), pulmonary HTN, CKD, DM, hemorrhoids Hospital course: presented to [facility] ED on 08/23 after 1 wk blood diarrheal symptoms, outpatient labs w/low Hbg and was told to present to ED; ED work up w/mild anasarca, cardiomegaly, abdominal ascites, labs demonstrate azotemia, transfued 1 unit RBC, transferred to ED for close monitoring for suspected upper GIB; Hbg stabilizing over last two days, 8.3 yesterday (received 3 units), 8.5 this morning, no reported melena or hematemesis; on max GI protection currently, holding apixaban, will trial iron sucrose; per staff clinically she is fine, however she has shown increased agitation/irritation w/care plan which makes her lash out, able to be redirected - not candidate for EGD here d/t too high risk per anesthesia, Anjana refusing transfer to any tertiary facility, would consider [facility] after [place] Anjana is adamant that she will not be transferred prior to [place] d/t fear of remaining hospitalized and missing holidays/preparation for grandchildren. She feels more stable today and would like to return home [place]. She denies stools w/melena today, reports stool dark brown w/o black. denies vomiting, does not vomit often. Reports her current edema is her baseline, sometimes a little worse, sometimes better She is worried about her BS and NPO status, would like to be able to eating now that she is not getting a EGD here She moved here to [place] from [facility] where her family still lives. son Jak. She now lives w/boyfriend Nain. She loves baking and being festive w/holidays which she is very much looking forward to taking care of at home ACP: Anjana would like to be discharged home as soon as possible. She states that if she were to get worse (returning fatigue, melena, diarrhea w/black color, any vomit w/blood or coffee grounds, worsening SOB, pre-sycopal episodes) she would re-present to hospital setting, w/preference for driving to [facility] ED bc she knows she would be transferred there for EGD anyway. She is willing to have the EGD done in an outpatient setting, after holidays. - She has never completed an AD, right now she feels like she would want Nain as her HCA, however does not want to complete this paperwork today - She wants everything done for LST, including CPR at this time. She would not want to be kept alive on machines if after a trial it appears she would not recover to her baseline. - goal so living to 75 or better Assessment and Plan Assessment and plan (1) Upper GI bleeding: Status: Acute Assessment and plan: continue max GI protection protonix twice a day and carafate and cytoteck 4 x per day refusing transfer for EGD at [facility] potentially stabilizing, will continue to monitor 4p and 10p labs today, transfusions as needed; if remains stable, consider discharge home tomorrow resume diet, no long requiring NPO d/t no EGD study today (2) Anemia: Status: Chronic Assessment and plan: as above Qualifiers: Anemia type: unspecified type Qualified Code(s): D64.9 - Anemia, unspecified (3) Chronic HFrEF (heart failure with reduced ejection fraction): Status: Acute (4) Chronic anticoagulation: Status: Acute Assessment and plan: apixaban on hold d/t UGIB (5) Fatigue: Status: Acute (6) CKD (chronic kidney disease) stage 4, GFR 15-29 ml/min: Status: Acute (7) Type 2 diabetes mellitus with retinopathy: Status: Acute Qualifiers: Diabetes mellitus alf insulin use: with alf use Diabetic retinopathy severity: with unspecified retinopathy severity Diabetes mellitus macular edema: macular edema presence unspecified Laterality: bilateral Qualified Code(s): E11.319 - Type 2 diabetes mellitus with unspecified diabetic retinopathy without macular edema; Z79.4 - halfway (current) use of insulin (8) Atrial fibrillation: Status: Chronic Qualifiers: Atrial fibrillation type: longstanding persistent Qualified Code(s): I48.11 - Longstanding persistent atrial fibrillation (9) Anxiety: Status: Acute (10) Full code status: Status: Acute Assessment and plan: Discussion regarding Code Status preferences - patient wants to be a Full Code would not want to be kept alive on machines if no change of returning to baseline (11) ACP (advance care planning): Status: Acute Assessment and plan: -reviewed POC, concerns w/ongoing GI bleed w/o known source, Anjana understands this is a possibility and despite this would like to return home; plan to return to ED or [facility] ED if sxs return -reviewed AD, HCA and care preferences; would consider partner Nain, defers paperwork at this time spent 25 mins w/ACP (12) Palliative care encounter: Status: Acute Assessment and plan: PC will continue to follow Anjana w/david for outpatient f/u in September after the holidays - need for review/completion of AD, especially HCA - review of chronic conditions: HF w/a fib, CKD Review of Systems Narrative: as per HPI PFSH All Active Problems (Updated 08/25/23 @ 16:23 by Kirsten Wilson NP) Palliative care encounter (Acute) Full code status (Acute) ACP (advance care planning) (Acute) Chronic HFrEF (heart failure with reduced ejection fraction) (Acute) Upper GI bleeding (Acute) Chronic anticoagulation (Acute) Anemia (Chronic) GI bleed (Chronic) Fatigue (Acute) Right shoulder pain (Acute) Gout (Chronic) Type 2 diabetes mellitus with retinopathy (Acute) Leg wound, left (Acute) CKD (chronic kidney disease) stage 4, GFR 15-29 ml/min (Acute) Pulmonary hypertension (Acute) follows with [facility]- [place] Atrial fibrillation (Chronic) CHF (congestive heart failure) (Chronic) 2019 [facility] (Dr. Zhang) Asthma (Acute) Obesity (Acute) Hypertension (Acute) Seasonal allergic rhinitis (Acute) Hyperlipidemia (Acute) Depression (Acute) Anxiety (Acute) Medical History Traumatic hematoma Cellulitis Traumatic hematoma of face History of endometrial cancer 2018. Adenocarcinoma of uterus. IIIC1. Adjuvant therapy-3 cycles of carboplatinum and Taxol followed by radiation therapy and then repeat post radiation carboplatinum and Taxol Surgical History Ligation of fallopian tube 1984 Tonsillectomy 1964 section 1982 Open Carpal Tunnel release Right 2009 Mitral valve repair 2006 Family History Mother , age 81 Diabetes Father , age 82 Hyperlipidemia Alcohol abuse Hypertension Sister , agae 57 Lung cancer Endometrial cancer Substance abuse Sister , age 5 No problems noted. Sister No problems noted. Brother , age 63 Alcohol abuse Asthma Diabetes Hyperlipidemia Brother , age 71 No problems noted. Brother , age 63 Alcohol abuse Hyperlipidemia Hypertension Son No problems noted. Daughter No problems noted. Other Personal history of malignant neoplasm Social History Smoking/Tobacco Use Status: Former Tobacco Use tobacco type: cigarettes Quit Date: 09/29/80 Tobacco: How many years used: 10 Second Hand Exposure: Yes Smoking risk assessment performed?: Yes Alcohol Intake: current Alcohol Intake frequency: holidays/special occasions only Alcohol type: wine Drug use: Rarely Substance use type: marijuana Caregiver/Support person: No Household members: friend(s) Housing: house Communication Needs: Corrective Lenses Do you need help understanding health information?: Rarely Pets and animals: Yes Pets and animals: cat(s) and dog(s) Sexually active: No Do you think of yourself as: straight/heterosexual Current gender identity: female What is your relationship status?: living with partner How often do you talk on the phone with friends or family?: twice per week How often do you get together with friends or relatives?: decline to answer How often do you attend gnosticist or shinto services?: decline to answer Do you belong to any clubs or organized social groups?: no Panel score (0-1 are the most socially isolated patients): 1 What type of physical activity do you participate in: none Frequency: does not exercise Patricia/Religious: Other Special patricia needs: No Seatbelt use: sometimes Helmet use: Yes Helmet use: sometimes Drive intox or ride w/intox hole digger truck driver: No Do you feel safe at home: Yes Do you feel safe in your relationship?: Yes Female Reproductive History Menstrual Menopause type: natural History History 2 Para 2 Hx # Term Pregnancies Multiple births Hx # Pregnancies Ectopic pregnancies AB induced Hx Number of Living Children AB spontaneous Exam Narrative Exam Narrative: General: overweight female, sitting upright in bedside chair throughout visit; AAOx3 HEENT: hearing WNL, MMM, normocephalic/atraumatic Neck: supple, no JVD, no masses Resp: even and unlabored at rest, increased w/agitation resolves spontaneously; speaks full sentences w/limited SOB; no audible cough/wheeze Skin: scattered bruising, dry, atrophy, hair try w/ Ext: pedal edema, slight erythema, blister LLE anterior robb, covered/intact Psych: cooperative, irritable, tangential, thought process normal/loose association; insight/judgment fair Results Last Vital Signs Temp 98.2 F 08/25/23 14:12 Pulse 86 08/25/23 14:12 Resp 20 08/25/23 14:12 BP 113/70 08/25/23 14:12 Pulse Ox 95 08/25/23 06:39 Labs 08/25/23 10:06 08/25/23 14:13 Labs: Laboratory Results - last 24 hr 08/24/23 08/25/23 08/25/23 20:07 05:38 10:06 WBC 6.38 RBC 2.45 L Hgb 8.3 L 7.8 L 8.5 L Hct 26.1 L 24.2 L 26.9 L MCV 99 H MCH 31.8 MCHC 32.2 RDW 17.6 H Plt Count 241 MPV 10.0 Immature Gran % 0.3 Neutrophils % 71.4 Lymphocytes % 9.9 Monocytes % 13.2 Eosinophils % 4.4 Basophils % 0.8 Nucleated RBC % 0.0 Absolute Neutrophils 4.56 Absolute Lymphocytes 0.63 L Absolute Monocytes 0.84 H Absolute Eosinophils 0.28 Absolute Basophils 0.05 Sodium 138 Potassium 3.0 L Chloride 99 Carbon Dioxide 28.2 Anion Gap 10.8 BUN 43 H Creatinine 3.3 H Est GFR (CKD-EPI 2020) 14.55 Glucose 107 H Calcium 8.5 Total Bilirubin 1.9 H AST 16 ALT 16 Alkaline Phosphatase 83 Total Protein 6.0 L Albumin 3.0 L 08/25/23 14:13 WBC RBC Hgb Hct MCV MCH MCHC RDW Plt Count MPV Immature Gran % Neutrophils % Lymphocytes % Monocytes % Eosinophils % Basophils % Nucleated RBC % Absolute Neutrophils Absolute Lymphocytes Absolute Monocytes Absolute Eosinophils Absolute Basophils Sodium Potassium 3.1 L Chloride Carbon Dioxide Anion Gap BUN Creatinine Est GFR (CKD-EPI 2020) Glucose Calcium Total Bilirubin AST ALT Alkaline Phosphatase Total Protein Albumin
[2023-08-25] MEDS: IRON SUCROSE COMPLEX 400 MG in Normal Saline 250 ML 100 MG IVPB (16:20)
[2023-08-25 16:28] LABS: HCT 27.8 % (36.0-46.0); HGB 8.6 g/dL (11.2-15.7)
--- NOTE | 2023-08-25 17:54 | CMPROGNOTE_ITS ---
Date of service: 08/25/23 Time of Service: 17:54 Care Management Progress Note Progress Note Text Progress Note Text: S/O: Anjana was sitting up in her chair when CM met with her. Her s/o, Nian was in the room visiting. Anjana stated that she is doing well, and is looking forward to returning home, hopefully tomorrow. Per report, her H&H is stabilizing, so she may be ready for discharge tomorrow. Anjana is not a candidate for an EGD at [facility], therefore she will have to go to [facility] for the procedure. She is agreeable to this, but not until after the holidays. Anjana met with palliative care today to discuss code status and goals of care. Anjana reported that she had a good conversation; palliaitve will continue to follow outpatient. A: Anjana is a 67 year old female admitted to [facility] on 08/23/23 with a GI bleed. P: Anticipate Anjana will return home once medically cleared. Her friend will drive her home via private vehicle. She will follow up with her PCP and discharge plan of care. CM will continue to follow.
[2023-08-25] MEDS: Sucralfate 1 GM TAB PO ×2 (18:05→21:48)
[2023-08-25] MEDS: Simvastatin 40 MG TAB PO (21:48)
[2023-08-25] MEDS: Bumetanide 1 MG/4 ML VIAL IVP (21:59)
[2023-08-25 22:14] LABS: HGB 8.1 g/dL (11.2-15.7)
[2023-08-25] MEDS: Insulin Aspart 300 UNITS/3 ML PEN SC (22:15)
[2023-08-26] VITALS (27 sets, daily range): BP systolic 103–120; BP diastolic 51–68; PULSE 69–105; RESP 16–31; TEMP 37–37.8; O2SAT 94–100
[2023-08-26] MEDS: Pantoprazole 40 MG VIAL IVP ×2 (05:02→17:16)
[2023-08-26] MEDS: Normal Saline Flush 10 ML SYR IVP ×2 (05:03→17:15)
[2023-08-26] MEDS: Levothyroxine 112 MCG TAB PO (05:45)
[2023-08-26 06:56] LABS: Abs Immature Grans 0.02 10^3/uL (0.0-0.06); Absolute Basophil Count 0.05 10^3/uL (0.0-0.2); Absolute Eosinophil Count 0.21 10^3/uL (0.0-0.7); Absolute Lymphocyte Count 0.45 10^3/uL (1.2-3.4); Absolute Monocyte Count 0.87 10^3/uL (0.1-0.8); Absolute Neutrophil Count 4.55 10^3/uL (1.2-6.7); Basophils % 0.8; Eosinophils % 3.4; HCT 24.2 % (36.0-46.0); HGB 7.8 g/dL (11.2-15.7); Immature Grans % 0.3; Lymphocytes % 7.3; MCH 32.1 pg (27.0-33.0); MCHC 32.2 % (32.0-36.0); MCV 100 fL (80-95); MPV 9.8 fL (8.0-11.0); Monocytes % 14.1; Neutrophils % 74.1; Nucleated RBC 0.5 % (0.0-0.3); Platelet Count 250 10^3/uL (130-400); RBC 2.43 10^6/uL (3.93-5.22); RDW 17.3 % (11.7-14.6); WBC 6.15 10^3/uL (4.4-10.8)
[2023-08-26 07:24] LABS: Anion Gap 10.7 mmol/L (3-11); BUN 40 mg/dL (7-18); CO2 28.3 mmol/L (21.0-32.0); CREATININE 3.5 mg/dL (0.55-1.02); Calcium 8.3 mg/dL (8.5-10.1); Chloride 100 mmol/L (98-107); Estimated GFR 13.56 (mL/min/1.73m2); Glucose 108 mg/dL (74-106); Sodium 139 mmol/L (136-145)
[2023-08-26 07:32] LABS: Potassium 2.6 mmol/L (3.5-5.1)
[2023-08-26] MEDS: miSOPROStol 100 MCG TAB 200 MCG PO ×4 (07:50→21:17)
[2023-08-26] MEDS: Amiodarone 200 MG TAB PO (07:50)
[2023-08-26] MEDS: Sucralfate 1 GM TAB PO ×4 (07:50→21:17)
[2023-08-26] MEDS: IRON SUCROSE COMPLEX 400 MG in Normal Saline 250 ML 100 MG IVPB (08:36)
--- NOTE | 2023-08-26 09:58 | IN_ITS ---
PT Notes Visit Reasons: UGI Bleed Physical Therapy Inpatient Initial Evaluation Date: 08/26/2023 Referring Doctor: Humble Murillo MD PT Orders: PT CONSULT: Extended Stay Weakness Precautions: Fall. Standard. Activity as tolerated. Patient Profile/Admitting Diagnosis: Anjana is a 67-year-old female on chronic anticoagulation admitted on 08/23/2023 for management of upper GI bleeding, anemia, AF, HTN, CKD, and type 2 diabetes mellitus. PMHX: All Active Problems (Updated 08/23/23 @ 19:27 by Humble Murillo MD) Chronic HFrEF (heart failure with reduced ejection fraction) (Acute) Upper GI bleeding (Acute) Chronic anticoagulation (Acute) Anemia (Chronic) GI bleed (Chronic) Fatigue (Acute) Right shoulder pain (Acute) Gout (Chronic) Type 2 diabetes mellitus with retinopathy (Acute) Leg wound, left (Acute) CKD (chronic kidney disease) stage 4, GFR 15-29 ml/min (Acute) Pulmonary hypertension (Acute) [place] with [facility] Atrial fibrillation (Chronic) CHF (congestive heart failure) (Chronic) 2019 [facility] [place]. Zhang) Asthma (Acute) Obesity (Acute) Hypertension (Acute) Seasonal allergic rhinitis (Acute) Hyperlipidemia (Acute) Depression (Acute) Anxiety (Acute) Medical History Traumatic hematoma Cellulitis Traumatic hematoma of face History of endometrial cancer 2018. Adenocarcinoma of uterus. IIIC1. Adjuvant therapy-3 cycles of carboplatinum and Taxol followed by radiation therapy and then repeat post radiation carboplatinum and Taxol Surgical History Ligation of fallopian tube 1984 Tonsillectomy 1964 section 1982 Open Carpal Tunnel release Right 2009 Mitral valve repair 2006 Social History/Home Situation: Lives with housemate in a private home with no steps to enter. There is a step down leading to the laundry room and another step down needing to the living room of the house with a grab bar to hold onto at each location. No longer drives. House mate is very supportive. Independent with all indoor ambulation without an AD. Uses walker occasionally. Equipment Owned/DME: FWW, multiple canes Subjective: Feels much better. States that swelling in both legs has stayed the same. Agreeable to home health PT services. Denies headache, chest pain, and lightheadedness throughout short ICU hallway walk. Objective: General Observation: Resting on bedside chair. IV through left UE. Receiving iron infusion when PT came in. Swelling in the legs and feet noted with right more affected than left, skin discoloration changes seen on B legs Mental Status: Alert and oriented as to person, place, time, and purpose. Able to pay attention, focus, and respond appropriately. Pain: Denies Vital Signs: BP 106/57 mmHg, HR 97 bpm ROM: Right Upper Extremity: Shoulder Flexion WFL. Shoulder abduction WFL. Elbow flexion WFL. Wrist flexion WFL. Functional opening and closing of hand WFL. Left Upper Extremity: Shoulder Flexion WFL. Shoulder abduction WFL. Elbow flex ion WFL. Wrist flexion WFL. Functional opening and closing of hand WFL. Right Lower Extremity: Hip flexion WFL. Hip abduction WFL. Knee flexion WFL. Ankle dorsiflexion WFL. Ankle plantarflexion WFL. Left Lower Extremity: Hip flexion WFL. Hip abduction WFL. Knee flexion WFL. Ankle dorsiflexion WFL. Ankle plantarflexion WFL. Strength: Right Upper Extremity: Shoulder flexors 4/5. Shoulder abductors 4/5. Elbow flexors 4/5. Elbow extensors 4/5. Hand Sewer strong. Left Upper Extremity: Shoulder flexors 4/5. Shoulder abductors 4/5. Elbow flexors 4/5. Elbow extensors 4/5. Hand Sewer strong. Right Lower Extremity: Hip flexors 4/5. Hip abductors 4/5. Knee flexors 5/5. Knee extensors 4/5. Ankle dorsiflexors 4/5. Ankle plantarflexors 4/5. Left Lower Extremity: Hip flexors 4/5. Hip abductors 4/5. Knee flexors 5/5. Knee extensors 4/5. Ankle dorsiflexors 4/5. Ankle plantarflexors 4/5. Bed Mobility/Transfers: Minimal cues provided for AD management and activity pacing Sit to stand with stand by assist with FWW Stand to sit with stand by assist with FWW Bed to bedside commode with stand by assist with FWW Bedside commode to bed with stand by assist with FWW Bed to reclining chair with with stand by assist with FWW Reclining chair to bed with with stand by assist with FWW Gait: Facilitated safe and correct performance of level surface ambulation covering a distance of 10 feet +10 feet +20 feet using front wheeled walker with no report of lightheadedness, chest pain, and undue fatigue requiring only standby assist and minimal verbal cueing for activity pacing and walker management during directional changes. Balance: Static Sitting: Normal Dynamic Sitting: Normal Static Standing: Fair Dynamic Standing: Fair Special Tests: Mobility Limitations Standardized Measure [facility] AM-PAC 6 clicks Basic Mobility Inpatient Short Form: Raw Score: 23 CMS Score: 11% deficit Informed Consent/Education: Patient was instructed in purpose of PT consult and plan of care. Agreeable to proceed with established PT POC to achieve personal goals. ASSESSMENT: Patient presents with clinical signs and symptoms consistent with current/admitting diagnoses that have resulted to mobility limitations, gait instability, generalized weakness, and overall ADL decline as demonstrated by the following impairment level findings: 1. Decreased strength to B LE major muscle groups 2. Impaired sitting/standing balance 3. Impaired activity tolerance 4. Swelling in B legs Impairments are contributing to the following functional limitations: 1. Difficulty with ambulation without assistive device 2. Increased completion time for mobility ADL performance 3. Increased risk for falls Patient is assessed as a 86007 moderate complexity based on the following: History: 67-year-old female with past medical history as indicated above Examination: Demonstrable impairment in strength, balance, and mobility level with underlying impairments and functional limitations as exhibited above as well as deficit score of 11% utilizing the [facility] Mobility Inpatient Short Form Presentation: Evolving Decision Makin moderate complexity Goals: Goals X1 week 1. Supine-Sit independent 2. Sit-Supine independent 3. Sit-Stand independent 4. Stand-Sit independent with FWW 5. Bed-Chair independent with FWW 6. Chair-Bed independent with FWW 7. Independent gait on level surface with use of FWW for at least 300 feet without report of pain nor dyspnea 8. Good static and dynamic standing balance/tolerance Plan of Care/Treatment Plan: 1-2x/day, 7 days/week x 1 week. Plan of care has been reviewed with the VIDEO OPERATOR providing the service under Physical Therapy direction. Initiate Physical Therapy intervention for pain management as needed, strengthening, bed mobility, transfers, gait, stairs, balance training, and use of assistive device. DISCHARGE RECOMMENDATIONS: [] Home with no services [] [X] Home with services . Patient will benefit from home health PT services in order to progress mobility level using least restrictive assistive ambulatory device, assess home safety, identify additional equipment needs, and establish a functional maintenance program that will increase ability of patient to remain at home. [] Home with outpatient PT [] [] SNF for continued rehabilitation [] [] [facility] Care [] [] SNF versus LTC based on ability to participate and progress [] TREATMENT CODE/TIME: 9716 2 x 23 minutes for 1 unit beginning at 9:33 AM. Thank you for the opportunity to participate in the care of this patient. Zoë Arambula PT, DPT, CLT [facility] [place], [place]
[2023-08-26] MEDS: POTASSIUM CHLORIDE 10 MEQ/100 ML BAG 100 MEQ IVPB ×2 (11:26→12:40)
[2023-08-26 12:29] LABS: HCT 25.3 % (36.0-46.0)
[2023-08-26] MEDS: Insulin Aspart 300 UNITS/3 ML PEN SC ×2 (12:33→22:00)
--- NOTE | 2023-08-26 15:57 | CHAPLAIN ---
Anjana was just getting off the phone with a friend when I visited. She told she didn't think she needed a greenhouse technician visit, but maybe later. She said she's in touch with family and friends. According to Care Management notes she moved to [facility] to live with her friend Nain and two children live in [facility]. Her son visited yesterday. Anjana said they want me to go to a bigger hospital, but I said 'no.' There's no way I'm going to miss [place]. Her friends has advised her to go if it's medically necessary as it's not August and it would only be one [place] anyway, Anjana said her friend told her, so she's considering that. I will continue to visit.
--- NOTE | 2023-08-26 17:27 | W.PM.PROGNOT ---
Date of Service Date of service: 08/26/23 Time of Service: 17:28 Assessment and Plan Assessment and plan (1) Upper GI bleeding: Status: Acute Assessment and plan: -patient remains NPO -Nurse upholstery sewer discussed patient with Dr. Guzman, they do not feel patient is safe to have EGD done at this facility -Patient is refusing to be transferred for her EGD. -continue aggressive medical treatment protonix twice a day and carafate and cytoteck 4 x per day. -Hemoglobin this morning 7.8, down from 8.6 yesterday, but was 8.0 on repeat -Will follow-up a.m. CBC (2) Chronic anticoagulation: Status: Acute Assessment and plan: -hold apixaban in light of her GIB. give vitamin K. recheck her INR (3) Anemia: Status: Chronic Assessment and plan: -Hb as noted above -s/p Venofer Qualifiers: Anemia type: unspecified type Qualified Code(s): D64.9 - Anemia, unspecified (4) Chronic HFrEF (heart failure with reduced ejection fraction): Status: Acute Assessment and plan: -Patient continues to exhibit evidence of heart failure with bilateral leg edema although her lung sounds are pretty clear and she is not requiring any supplemental oxygen. -Continue diuresis with IV Lasix particularly in light of needing transfusions. (5) Atrial fibrillation: Status: Chronic Assessment and plan: -continud amiodarone but hold her apixaban, continue telemetry Qualifiers: Atrial fibrillation type: longstanding persistent Qualified Code(s): I48.11 - Longstanding persistent atrial fibrillation (6) Hypertension: Status: Acute Qualifiers: Hypertension type: essential hypertension Qualified Code(s): I10 - Essential (primary) hypertension (7) Pulmonary hypertension: Status: Acute (8) CKD (chronic kidney disease) stage 4, GFR 15-29 ml/min: Status: Acute (9) Type 2 diabetes mellitus with retinopathy: Status: Acute Assessment and plan: -basal/bolus insulin w/ slding scale and CHO coverage Qualifiers: Diabetes mellitus alf insulin use: with alf use Diabetic retinopathy severity: with unspecified retinopathy severity Diabetes mellitus macular edema: macular edema presence unspecified Laterality: bilateral Qualified Code(s): E11.319 - Type 2 diabetes mellitus with unspecified diabetic retinopathy without macular edema; Z79.4 - ocean transportation intermediary (current) use of insulin Subjective Subjective Interval history since last seen: Patient was sitting up in bed, resting comfortably. She was again adamant about being discharged and repeated to state that she needed to be home soon as possible in order to prep for [place] despite it being August 26. Explained to patient that her hemoglobin was low this morning that we would trend and if it remains stable she would be ready for discharge tomorrow, otherwise it would be in her best interest to be transferred for EGD. Exam Narrative Exam Narrative: Well-appearing older female sitting up at the edge of the bed in no acute distress, AOx4, heart regular rhythm, lungs clear to auscultation bilaterally, abdomen soft, nontender, nondistended Objective Last Vital Signs Temp 99.1 F 08/26/23 05:19 Pulse 88 08/26/23 12:19 Resp 18 08/26/23 12:19 BP 110/53 L 08/26/23 12:19 Pulse Ox 100 08/26/23 09:18 Laboratory Results - last 24 hr 08/25/23 08/26/23 08/26/23 22:03 06:25 12:20 WBC 6.15 RBC 2.43 L Hgb 8.1 L 7.8 L 8.0 L Hct 26.0 L 24.2 L 25.3 L MCV 100 H MCH 32.1 MCHC 32.2 RDW 17.3 H Plt Count 250 MPV 9.8 Immature Gran % 0.3 Neutrophils % 74.1 Lymphocytes % 7.3 Monocytes % 14.1 Eosinophils % 3.4 Basophils % 0.8 Nucleated RBC % 0.5 H Absolute Neutrophils 4.55 Absolute Lymphocytes 0.45 L Absolute Monocytes 0.87 H Absolute Eosinophils 0.21 Absolute Basophils 0.05 Sodium 139 Potassium 2.6 L* Chloride 100 Carbon Dioxide 28.3 Anion Gap 10.7 BUN 40 H Creatinine 3.5 H Est GFR (CKD-EPI 2020) 13.56 Glucose 108 H Calcium 8.3 L Time Spent with Patient Time Spent with Patient: >50 minutes Time was spent: preparing to see the patient(eg.review tests), obtaining and/or reviewing separately otained hiistory, ordering medications,tests, procedures, referring, communicating with other health workforce investment act career manager, indepentently interpreting results, counseling the patient and care coordination
[2023-08-26] MEDS: Simvastatin 40 MG TAB PO (21:17)
[2023-08-27 02:08] VITALS: PULSE 103
[2023-08-27 03:25] VITALS: BP 101/61; PULSE 95; RESP 18; TEMP 37.7; O2SAT 93
[2023-08-27] MEDS: Pantoprazole 40 MG VIAL IVP (05:02)
[2023-08-27] MEDS: Levothyroxine 112 MCG TAB PO (05:02)
[2023-08-27 06:38] LABS: HCT 23.6 % (36.0-46.0); HGB 7.4 g/dL (11.2-15.7); MCH 31.1 pg (27.0-33.0); MCHC 31.4 % (32.0-36.0); MCV 99 fL (80-95); Platelet Count 246 10^3/uL (130-400); RBC 2.38 10^6/uL (3.93-5.22); RDW 16.9 % (11.7-14.6); RDW-SD 60.4 fL; WBC 6.67 10^3/uL (4.4-10.8)
[2023-08-27 07:00] VITALS: BP 108/69; PULSE 98; RESP 16; TEMP 37.1; O2SAT 94
[2023-08-27] MEDS: Sucralfate 1 GM TAB PO ×2 (07:59→11:18)
[2023-08-27] MEDS: miSOPROStol 100 MCG TAB 200 MCG PO ×2 (07:59→11:18)
[2023-08-27] MEDS: Amiodarone 200 MG TAB PO (08:00)
[2023-08-27 08:03] LABS: HCT 24.2 % (36.0-46.0); HGB 7.6 g/dL (11.2-15.7)
--- NOTE | 2023-08-27 10:24 | DSE_ITS ---
Date of service: 08/27/23 Time of Service: 11:22 DS: Diagnosis Discharge Diagnosis (1) Upper GI bleeding: Status: Acute Asessment and Plan: -Nurse senior systems architect discussed patient with Dr. Guzman, they do not feel patient is safe to have EGD done at this facility due to severe pulmonary HTN -Patient is refusing to be transferred for her EGD. -continue aggressive medical treatment protonix twice a day and carafate and cytoteck 4 x per day. -Hemoglobin this morning 7.4 early am, back up to 7.8 on repeat -Long discussion with the patient regarding her care going forward. She is adamant about being discharged, and has agreed to have follow-up CBC in 2 days, she also has 2 follow-up appointments with at [facility] next week. -Return precautions were also discussed with the patient; coffee-ground emesis, hematemesis, bright red blood per rectum, significant melena, lightheadedness, dizziness, fatigue, chest pain, shortness of breath. -It was also explained to the patient that should she need to return to the emergency department that she should inform them that she would require transfer for EGD as anesthesia would not be able to safely sedate her at this facility (2) Chronic anticoagulation: Status: Acute Asessment and Plan: - On hold at this time due to presumed upper GI bleed as noted above (3) Anemia: Status: Chronic Asessment and Plan: - Status post transfusion on admission -Status post Venofer -Continue iron supplementation outpatient (4) Chronic HFrEF (heart failure with reduced ejection fraction): Status: Acute (5) Atrial fibrillation: Status: Chronic (6) Hypertension: Status: Acute (7) Pulmonary hypertension: Status: Acute (8) CKD (chronic kidney disease) stage 4, GFR 15-29 ml/min: Status: Acute (9) Type 2 diabetes mellitus with retinopathy: Status: Acute Discharge Plan Disposition Patient Disposition: Home Condition: Good Discharge Details Reason For Visit: UGI Bleed Admit Date/Time: 08/23/23 14:40 Admit Provider: Humble Murillo Attending Provider: Humble Murillo Primary Care Provider: Jamari Presley Hospital Course Hospital Course: Patient initially presented with symptomatic anemia concerning for an upper GI bleed. She required 3 units of packed red blood cells during hospitalization. However, given patient's documented severe pulmonary hypertension anesthesia did not feel that she was safe to have an EGD performed at this facility. However, patient declined transfer and preferred to be treated here at [facility]. Her hemoglobin posttransfusion was in the low eights and went down only as low as 7.6. It was explained to the patient that she will need close follow-up with her primary care physician and to have a CBC drawn in 2 days to follow-up on her hemoglobin level. Additionally, it was explained to her that she has very strict return precautions including significant lightheadedness, dizziness, fatigue, coffee-ground emesis or vomiting of blood, ongoing or significant increase in melanotic stools, bright red blood per rectum or chest pain that she should return to the emergency department, and upon return to the emergency department should inform them that she would not be able to have an EGD pe rformed at [facility] and would require transfer to tertiary care center. Home Meds and New Rx's Prescriptions: New sucralfate 1 gram Tablet 1 g PO AC & HS Qty: 60 0RF misoprostol 100 mcg Tablet 200 mcg PO QID Qty: 60 0RF pantoprazole [Protonix] 40 mg tablet,delayed release (DR/EC) 40 mg PO DAILY Qty: 60 0RF Continued potassium chloride 10 mEq capsule, extended release 20 meq PO BID Levemir FlexTouch U100 Insulin 100 unit/mL (3 mL) insulin pen 10 unit SC QHS Rx Instructions: 10-12 units nitroglycerin 0.4 mg tablet, sublingual 0.4 mg SL Q5-15M PRN Patient Comments: roommate aggravation ferrous sulfate [FeroSul] 325 mg (65 mg iron) tablet 325 mg PO DAILY levothyroxine 112 mcg capsule 112 mcg PO DAILY allopurinol 100 mg tablet 100 mg PO DAILY Qty: 90 3RF amiodarone 200 mg tablet 200 mg PO DAILY bumetanide 1 mg tablet 1 mg PO DAILY Hold Instructions: Home Medication placed on hold at Doctor's office Patient Comments: pt reports 5mg not 1mg repaglinide 0.5 mg tablet 0.5 mg PO TID Qty: 270 3RF Rx Instructions: administer within 30 minutes of a meal or snack loratadine 10 mg tablet 10 mg PO DAILY PRN cholecalciferol (vitamin D3) 25 mcg (1,000 unit) capsule 25 mcg PO DAILY Patient Comments: three times a week not daily simvastatin [Zocor] 40 mg tablet 40 mg PO HS Qty: 90 3RF vilazodone [Viibryd] 20 mg tablet 20 mg PO DAILY Qty: 90 3RF Rx Instructions: must administer with a meal/food mag [id number] rt xt 500-3,000-150 mg-unit-mg tablet 2 tab PO BID Patient Comments: pt reports 1 tablet a day BID Discontinued aspirin 81 mg tablet,delayed release (DR/EC) 81 mg PO DAILY Eliquis 5 mg tablet 5 mg PO BID Hold Instructions: PCP suggested pause in this med. No Action (DME) OneTouch Ultra Test Strip See Rx Instructions .Route Qty: 200 12RF Rx Instructions: Test BID (DME) pen needle, diabetic [BD Ultra-Fine Rhoda Pen Needle] 32 gauge x 5/32 needle See Rx Instructions .ROUTE .MEDSUPPLY Qty: 100 11RF Rx Instructions: daily Discharge Instructions Instructions: Gastrointestinal Bleeding (DC), Iron Rich Diet (DC), Anemia (DC) Stand Alone Forms: Nursing Discharge Form Referrals: Jamari Presley NP [Primary Care Provider] - 09/01/23 11:00 am Activity:: Activity as Tolerated Equipment/Supplies:: Blood Glucose Monitor Diet:: As Tolerated Discharge Orders Discharge Orders: Discharge Order (Routine); Ordered 08/27/23 Ordered By: Troy Patel Other Ambulatory Orders: Complete Blood Count w/Diff (Routine) Timeframe: 2 Days Location: Determined by Patient Ordered By: Troy Patel DS: Summary Time Spent with Patient providing and/or coordinating discharge services: Greater than 30 minutes Status at Discharge Functional status at discharge: independent ambulation Overall status at discharge: patient is back to baseline Mental Status: mental status grossly normal Speech and Movement: speech and movement normal Mood: congruent mood Affect: normal affect Exam Narrative Exam Narrative: Well-appearing older female sitting up at the edge of the bed in no acute distress, AOx4, heart regular rhythm, lungs clear to auscultation bilaterally, abdomen soft, nontender, nondistended Psych Mental Status: mental status grossly normal Speech and Movement: speech and movement normal Mood: congruent mood Affect: normal affect DS: Data Vitals/I&O Vitals and I&O: Vital Signs Temperature 98.8 F 08/27/23 07:00 Temperature Source Tympanic 08/27/23 07:00 Pulse 98 H 08/27/23 07:00 Pulse Rhythm Irregular 08/26/23 22:20 Pulse 97 H 08/26/23 15:25 Respiratory Rate 16 08/27/23 07:00 Respiratory Effort Normal, Non-Labored 08/26/23 22:20 Respiratory Depth Normal 08/26/23 22:20 Respiratory Pattern Normal 08/26/23 22:20 Blood Pressure 108/69 08/27/23 07:00 Blood Pressure Mean 63 08/26/23 15:25 Blood Pressure Position Supine 08/25/23 08:30 Pulse Oximetry 94 08/27/23 07:00 Oxygen Delivery Method Room Air 08/27/23 07:00 Oxygen Flow Rate 0 08/27/23 07:00 Pain Level 0 08/27/23 07:00 Intake & Output 08/26/23 08/27/23 08/27/23 17:59 05:59 17:59 Intake Total 880 / 880 400 / 1280 240 / 240 Output Total 250 / 250 Balance 630 / 630 400 / 1030 240 / 240 Weight 210 lb 5.136 oz Intake: IV 480 / 480 Oral 400 / 400 400 / 800 240 / 240 Output: Urine 250 / 250 Other: Urine Appearance Clear Comment mixed with stool voided in toilet Stool Occult Blood Positive Stool Size Small Stool Characteristics Formed Voiding Methods Bedside Commode Data Completed and Pending Labs on day of discharge: Labs from last 24 hours 08/27/23 08/27/23 08/26/23 07:55 06:09 12:20 WBC 6.67 RBC 2.38 L Hgb 7.6 L 7.4 L 8.0 L Hct 24.2 L 23.6 L 25.3 L MCV 99 H MCH 31.1 MCHC 31.4 L RDW 16.9 H Plt Count 246 MPV 10.0 PFSH All Active Problems (Updated 08/25/23 @ 16:23 by Kirsten Wilson NP) Palliative care encounter (Acute) Full code status (Acute) ACP (advance care planning) (Acute) Chronic HFrEF (heart failure with reduced ejection fraction) (Acute) Upper GI bleeding (Acute) Chronic anticoagulation (Acute) Anemia (Chronic) GI bleed (Chronic) Fatigue (Acute) Right shoulder pain (Acute) Gout (Chronic) Type 2 diabetes mellitus with retinopathy (Acute) Leg wound, left (Acute) CKD (chronic kidney disease) stage 4, GFR 15-29 ml/min (Acute) Pulmonary hypertension (Acute) [place] [facility] [place] Atrial fibrillation (Chronic) CHF (congestive heart failure) (Chronic) 2019 [facility] [place]. Zhang) Asthma (Acute) Obesity (Acute) Hypertension (Acute) Seasonal allergic rhinitis (Acute) Hyperlipidemia (Acute) Depression (Acute) Anxiety (Acute) Medical History Traumatic hematoma Cellulitis Traumatic hematoma of face History of endometrial cancer 2018. Adenocarcinoma of uterus. IIIC1. Adjuvant therapy-3 cycles of carboplatinum and Taxol followed by radiation therapy and then repeat post radiation carboplatinum and Taxol Surgical History Ligation of fallopian tube 1984 Tonsillectomy 1964 section 1982 Open Carpal Tunnel release Right 2009 Mitral valve repair 2006 Family History Mother , age 81 Diabetes Father , age 82 Hyperlipidemia Alcohol abuse Hypertension Sister , agae 57 Lung cancer Endometrial cancer Substance abuse Sister , age 5 No problems noted. Sister No problems noted. Brother , age 63 Alcohol abuse Asthma Diabetes Hyperlipidemia Brother , age 71 No problems noted. Brother , age 63 Alcohol abuse Hyperlipidemia Hypertension Son No problems noted. Daughter No problems noted. Other Personal history of malignant neoplasm Social History Smoking/Tobacco Use Status: Former Tobacco Use tobacco type: cigarettes Quit Date: 09/29/80 Tobacco: How many years used: 10 Second Hand Exposure: Yes Smoking risk assessment performed?: Yes Alcohol Intake: current Alcohol Intake frequency: holidays/special occasions o nly Alcohol type: wine Drug use: Rarely Substance use type: marijuana Caregiver/Support person: No Household members: friend(s) Housing: house Communication Needs: Corrective Lenses Do you need help understanding health information?: Rarely Pets and animals: Yes Pets and animals: cat(s) and dog(s) Sexually active: No Do you think of yourself as: straight/heterosexual Current gender identity: female What is your relationship status?: living with partner How often do you talk on the phone with friends or family?: twice per week How often do you get together with friends or relatives?: decline to answer How often do you attend hoahaoism or presybeterian services?: decline to answer Do you belong to any clubs or organized social groups?: no Panel score (0-1 are the most socially isolated patients): 1 What type of physical activity do you participate in: none Frequency: does not exercise Patricia/Cheondoism: Other Special patricia needs: No Seatbelt use: sometimes Helmet use: Yes Helmet use: sometimes Drive intox or ride w/intox stage driver: No Do you feel safe at home: Yes Do you feel safe in your relationship?: Yes Female Reproductive History Menstrual Menopause type: natural History History 2 Para 2 Hx # Term Pregnancies Multiple births Hx # Pregnancies Ectopic pregnancies AB induced Hx Number of Living Children AB spontaneous Time Spent with Patient Time Spent with Patient: <45 minutes Time was spent: preparing to see the patient(eg.review tests), obtaining and/or reviewing separately otained hiistory, ordering medications,tests, procedures, referring, communicating with other health healthcare economics consultant, indepentently interpreting results, counseling the patient and care coordination
--- NOTE | 2023-08-27 11:06 | PTTR_ITS ---
Date of service: 08/27/23 Time of Service: 10:54 PT Notes Visit Reasons: UGI Bleed Inpatient Physical Therapy Treatment Note [facility] Date: 08/27/23 PRECAUTIONS: Fall, standard, activity as tolerated. SUBJECTIVE: Patient reports that she is excited to be headed home, states to male guest that they should stop at a restaurant and get peanut butter pie on the way. OBJECTIVE: Sitting EOB. Male guest present, seated in recliner. Agreeable to therapy. ? PAIN: none reported VITALS: monitored by nursing staff. ? BED MOBILITY/TRANSFERS? Rolling L/R: independent Supine-sit: independent ? Sit-supine: independent ? Sit-stand: independent ? Stand-sit: independent ? Bed-Chair: independent ? Chair-bed: independent Gait Training ([id number]): Direct one-on-one instruction and skilled instruction in: [] employing an assistive device [] modified weight-bearing status [x] movement sequencing [] turning and movement with proper form [] Provided verbal cues for equipment management and technique [] Provided instruction in gait pattern [x] Patient education regarding pacing and breathing techniques to maximiz e activity tolerance? GAIT? Assistive Device: none? Weight bearing: full Assist: SBA ? Distance:? 200 feet? Deviation: Reduced step length, reduced flo. Patient becomes out of breath. Education provided about rest breaks, pacing, energy conservation. Standing and seated rests encouraged. ? ASSESSMENT:? Patient tolerates therapy well. PLAN: Continue global strengthening per plan of care until patient is medically cleared for discharge. TREATMENT CODE/TIME: 10 minutes beginning at 10:54
[2023-08-27] MEDS: Bacitracin 1 PACKET (11:25)
--- NOTE | 2023-08-27 19:08 | PDOC.CMDIS ---
Date of service: 08/27/23 Time of Service: 19:08 LACE Index Scoring Tool Questions: Length of Stay (in days): 4 - 6 Was the patient admitted via the E.D.?: Yes Comorbidities: Diabetes w/o Complication, Congestive Heart Failure and Liver or Renal Disease E.D. Visits: 0 Answers: Total Score: 12 Risk of Readmission: High Risk Care Management Discharge Plan Reason for Hospitalization: UGI Bleed Discharge Plan: Anjana was discharged home today with no new services. Her s/o, Nain will drive her home via private vehicle. She will follow up with her PCP and discharge plan of care. She is happy to be going home. Patient/Family Education Needs: Review discharge instructions and limitations, discussion of self care needs including ask me three.
== END 2023-08-27 11:41 | disposition home or self-care (01) | DRG 378 ==
LOC: ER 14:58 → ICU 17:11 → MS 08-26 18:30
PROVIDERS: Family Medicine; Admitting Provider Internal Medicine; Emergency Provider Nurse Practitioner Family; PCP Nurse Practitioner Family; Visit Provider Internal Medicine
DX: K92.1 Melena (principal); I13.0 Hypertensive heart and chronic kidney disease with heart failure and stage 1 through stage 4 chronic kidney disease, or unspecified chronic kidney disease; I50.22 Chronic systolic (congestive) heart failure; I48.11 Longstanding persistent atrial fibrillation; N18.4 Chronic kidney disease, stage 4 (severe); R18.8 Other ascites; Z79.01 Long term (current) use of anticoagulants; I27.20 Pulmonary hypertension, unspecified; E11.22 Type 2 diabetes mellitus with diabetic chronic kidney disease; E11.319 Type 2 diabetes mellitus with unspecified diabetic retinopathy without macular edema; Z79.4 Long term (current) use of insulin; Z95.3 Presence of xenogenic heart valve; K64.8 Other hemorrhoids; I07.1 Rheumatic tricuspid insufficiency; K57.30 Diverticulosis of large intestine without perforation or abscess without bleeding; D64.9 Anemia, unspecified; R53.83 Other fatigue; M10.9 Gout, unspecified; J45.909 Unspecified asthma, uncomplicated; E66.9 Obesity, unspecified; E78.5 Hyperlipidemia, unspecified; F32.A Depression, unspecified; F41.9 Anxiety disorder, unspecified; Z85.42 Personal history of malignant neoplasm of other parts of uterus
CPT/HCPCS: 00123; 36410; 36415; 36430; 36592; 80048; 80053; 85027; 86850; 86900; 86901; 86920; 96361; 96374; 97116; 97162; 99291; 74176; 83735; 83880; 84132; 85014; 85018; 85025; 85610; 99233; 99239; J1756; J1940; J3430; J3480; J3490; P9016

== ENCOUNTER → 2023-09-15 08:15 | Outpatient (BNVA) | payer MEDICARE, MEDICAID, SELFPAY | PROVIDERS: PCP Nurse Practitioner Family; Referring Provider Nurse Practitioner Family; Visit Provider Surgery | DX: S81.802A Unspecified open wound, left lower leg, initial encounter (principal); X58.XXXA Exposure to other specified factors, initial encounter | CPT/HCPCS: 99213 ==

== ENCOUNTER → 2023-09-26 10:18 | Outpatient (BNVA) | payer MEDICARE, MEDICAID, SELFPAY | PROVIDERS: PCP Nurse Practitioner Family; Referring Provider Nurse Practitioner Family; Visit Provider Physical Therapy Assistant | DX: S81.802D Unspecified open wound, left lower leg, subsequent encounter (principal); X58.XXXD Exposure to other specified factors, subsequent encounter | CPT/HCPCS: 99212 ==

== ENCOUNTER 2023-10-03 01:19 | Outpatient (CLI) | payer MEDICARE, MEDICAID, SELFPAY ==
[2023-10-03 12:13] LABS: Abs Immature Grans 0.01 10^3/uL (0.0-0.06); Absolute Basophil Count 0.04 10^3/uL (0.0-0.2); Absolute Eosinophil Count 0.19 10^3/uL (0.0-0.7); Absolute Monocyte Count 0.45 10^3/uL (0.1-0.8); Absolute Neutrophil Count 3.06 10^3/uL (1.2-6.7); Basophils % 0.9; Eosinophils % 4.5; HCT 30.3 % (36.0-46.0); HGB 9.4 g/dL (11.2-15.7); Immature Grans % 0.2; Lymphocytes % 11.8; MCH 30.9 pg (27.0-33.0); MCV 100 fL (80-95); MPV 10.7 fL (8.0-11.0); Monocytes % 10.6; Platelet Count 217 10^3/uL (130-400); RBC 3.04 10^6/uL (3.93-5.22); RDW 15.5 % (11.7-14.6); RDW-SD 57.9 fL; WBC 4.25 10^3/uL (4.4-10.8)
[2023-10-03 12:20] LABS: Iron 34 ug/dL (50-170); Total Iron Binding Capacity 342 ug/dL (250-450); Transferrin Sat 10 % (15-50)
[2023-10-03 12:38] LABS: Albumin 3.5 g/dL (3.4-5.0); Anion Gap 9.6 mmol/L (3-11); BUN 74 mg/dL (7-18); CO2 34.4 mmol/L (21.0-32.0); Calcium 9.9 mg/dL (8.5-10.1); Chloride 96 mmol/L (98-107); Estimated GFR 10.59 (mL/min/1.73m2); Glucose 78 mg/dL (74-106); PHOSPHORUS 4.2 mg/dL (2.6-4.7); Sodium 140 mmol/L (136-145); TSH (W/Ref FT4) 0.58 uIU/mL (0.36-3.74)
[2023-10-03 12:51] LABS: CREATININE 4.3 mg/dL (0.55-1.02); Potassium 2.2 mmol/L (3.5-5.1)
[2023-10-03 13:06] LABS: Ferritin 112 ng/mL (8-252)
[2023-10-03 13:08] LABS: COMMENT (LAB VIEW ONLY) 16.68 mg/dL; PROTEIN < 6.0 mg/dL
[2023-10-03 19:08] LABS: Parathyroid Hormone,Intact 135 pg/mL (19-88)
== END 2023-10-03 01:20 | disposition home or self-care (01) ==
LOC: LOS 01:19
PROVIDERS: PCP Nurse Practitioner Family; Visit Provider Internal Medicine Nephrology
DX: N18.4 Chronic kidney disease, stage 4 (severe) (principal); Z79.899 Other long term (current) drug therapy
CPT/HCPCS: 80048; 82040; 82565; 82728; 83540; 83550; 83970; 84100; 84156; 84443; 85025

== ENCOUNTER 2023-10-27 03:04 | Outpatient (RCR) | payer MEDICARE, MEDICAID, SELFPAY ==
[2023-10-20] MEDS: IRON SUCROSE COMPLEX 300 MG in Normal Saline 250 ML 176.667 MG IVPB (11:16)
[2023-10-20] MEDS: Normal Saline Flush 10 ML SYR IVP (11:17)
[2023-10-27] MEDS: Normal Saline Flush 10 ML SYR IVP (10:58)
[2023-10-27] MEDS: IRON SUCROSE COMPLEX 300 MG in Normal Saline 250 ML 176.667 MG IVPB (10:58)
== END 2023-10-29 23:59 | disposition home or self-care (01) ==
LOC: INF 03:04
PROVIDERS: PCP Nurse Practitioner Family; Visit Provider Internal Medicine
DX: N18.5 Chronic kidney disease, stage 5 (principal); D63.1 Anemia in chronic kidney disease; D50.9 Iron deficiency anemia, unspecified
CPT/HCPCS: 96365; 96366; J1756

== ENCOUNTER 2023-11-03 04:57 | Outpatient (RCR) | payer MEDICARE, MEDICAID, SELFPAY ==
[2023-11-03] MEDS: IRON SUCROSE COMPLEX 300 MG in Normal Saline 250 ML 176.667 MG IVPB (10:48)
[2023-11-03] MEDS: Normal Saline Flush 10 ML SYR IVP (10:51)
== END 2023-11-27 23:59 | disposition home or self-care (01) ==
LOC: INF 04:57
PROVIDERS: PCP Nurse Practitioner Family; Visit Provider Internal Medicine
DX: N18.5 Chronic kidney disease, stage 5 (principal); D63.1 Anemia in chronic kidney disease; D50.9 Iron deficiency anemia, unspecified
CPT/HCPCS: 96365; 96366; J1756

== ENCOUNTER 2023-11-11 03:44 | Outpatient (CLI) | payer MEDICARE, MEDICAID, SELFPAY ==
[2023-11-11 14:02] LABS: Abs Immature Grans 0.02 10^3/uL (0.0-0.06); Absolute Basophil Count 0.05 10^3/uL (0.0-0.2); Absolute Eosinophil Count 0.18 10^3/uL (0.0-0.7); Absolute Monocyte Count 0.44 10^3/uL (0.1-0.8); Absolute Neutrophil Count 3.25 10^3/uL (1.2-6.7); Basophils % 1.1; Eosinophils % 4.1; HCT 36.3 % (36.0-46.0); HGB 11.1 g/dL (11.2-15.7); Immature Grans % 0.5; Lymphocytes % 11.3; MCH 31.4 pg (27.0-33.0); MCHC 30.6 % (32.0-36.0); MCV 103 fL (80-95); MPV 9.9 fL (8.0-11.0); Monocytes % 9.9; Neutrophils % 73.1; Platelet Count 160 10^3/uL (130-400); RBC 3.53 10^6/uL (3.93-5.22); RDW 16.3 % (11.7-14.6); RDW-SD 61.7 fL; WBC 4.44 10^3/uL (4.4-10.8)
[2023-11-11 15:20] LABS: COMMENT (LAB VIEW ONLY) 18.34 mg/dL; Prot/Crea Ur Ratio 0.54
[2023-11-11 15:33] LABS: Iron 47 ug/dL (50-170); Total Iron Binding Capacity 297 ug/dL (250-450); Transferrin Sat 16 % (15-50)
[2023-11-11 16:54] LABS: Albumin 3.8 g/dL (3.4-5.0); Anion Gap 8.6 mmol/L (3-11); BUN 46 mg/dL (7-18); CO2 29.4 mmol/L (21.0-32.0); CREATININE 2.8 mg/dL (0.55-1.02); Calcium 9.7 mg/dL (8.5-10.1); Calculated LDL 47 mg/dL (<100); Chloride 105 mmol/L (98-107); Cholesterol 112 mg/dL (<200); Estimated GFR 17.73 (mL/min/1.73m2); Ferritin 500 ng/mL (8-252); Glucose 75 mg/dL (74-106); HDL Cholesterol 48 mg/dL (40-60); Potassium 3.6 mmol/L (3.5-5.1); Sodium 143 mmol/L (136-145); Triglyceride 89 mg/dL (<150)
[2023-11-11 17:05] LABS: Vitamin D 25 Total 66.9 ng/mL (30-100)
[2023-11-11 17:30] LABS: PHOSPHORUS 3.3 mg/dL (2.6-4.7)
[2023-11-11 23:11] LABS: Parathyroid Hormone,Intact 193 pg/mL (19-88)
[2023-11-12 21:18] LABS: Cystatin C, S 3.17 mg/L; eGFR by Cystatin C 15 mL/min/BSA (>60)
== END 2023-11-11 03:45 | disposition home or self-care (01) ==
PROVIDERS: PCP Nurse Practitioner Family; Visit Provider Internal Medicine Nephrology
DX: E11.22 Type 2 diabetes mellitus with diabetic chronic kidney disease
CPT/HCPCS: 36415; 80048; 80061; 82306; 82610; 82040; 82565; 82728; 83036; 83540; 83550; 83970; 84100; 84156; 85025

== ENCOUNTER 2023-12-05 01:31 | Outpatient (CLI) | payer MEDICARE, MEDICAID, SELFPAY ==
[2023-12-05 12:16] LABS: Abs Immature Grans 0.02 10^3/uL (0.0-0.06); Absolute Basophil Count 0.05 10^3/uL (0.0-0.2); Absolute Eosinophil Count 0.18 10^3/uL (0.0-0.7); Absolute Lymphocyte Count 0.54 10^3/uL (1.2-3.4); Absolute Monocyte Count 0.53 10^3/uL (0.1-0.8); Basophils % 0.9; Eosinophils % 3.4; HCT 37.7 % (36.0-46.0); HGB 11.9 g/dL (11.2-15.7); Immature Grans % 0.4; Lymphocytes % 10.2; MCH 31.6 pg (27.0-33.0); MCHC 31.6 % (32.0-36.0); MCV 100 fL (80-95); MPV 9.8 fL (8.0-11.0); Neutrophils % 75.1; Platelet Count 169 10^3/uL (130-400); RBC 3.77 10^6/uL (3.93-5.22); RDW 16.5 % (11.7-14.6); RDW-SD 61.5 fL; WBC 5.32 10^3/uL (4.4-10.8)
[2023-12-05 12:49] LABS: BUN 62 mg/dL (7-18); CREATININE 3.3 mg/dL (0.55-1.02); Calcium 10.2 mg/dL (8.5-10.1); Chloride 97 mmol/L (98-107); Estimated GFR 14.46 (mL/min/1.73m2); Glucose 123 mg/dL (74-106); Sodium 141 mmol/L (136-145)
[2023-12-05 12:54] LABS: Potassium 2.7 mmol/L (3.5-5.1)
[2023-12-07 09:14] LABS: Cystatin C, S 3.58 mg/L; eGFR by Cystatin C 13 mL/min/BSA (>60)
== END 2023-12-05 01:32 | disposition home or self-care (01) ==
LOC: LBO 01:32
PROVIDERS: Internal Medicine Nephrology; PCP Nurse Practitioner Family; Visit Provider Family Medicine
DX: N18.5 Chronic kidney disease, stage 5 (principal); K92.2 Gastrointestinal hemorrhage, unspecified
CPT/HCPCS: 36415; 80048; 82610; 85025

== ENCOUNTER 2023-12-19 03:44 | Outpatient (CLI) | payer MEDICARE, MEDICAID, SELFPAY ==
[2023-12-19 16:31] LABS: Anion Gap 11.2 mmol/L (3-11); CO2 32.8 mmol/L (21.0-32.0); Chloride 98 mmol/L (98-107); Estimated GFR 12.21 (mL/min/1.73m2); Glucose 177 mg/dL (74-106); Sodium 142 mmol/L (136-145)
[2023-12-19 17:59] LABS: BUN 90 mg/dL (7-18); CREATININE 3.8 mg/dL (0.55-1.02)
== END 2023-12-19 03:45 | disposition home or self-care (01) ==
LOC: LBO 03:45
PROVIDERS: PCP Nurse Practitioner Family; Visit Provider Internal Medicine
DX: I50.22 Chronic systolic (congestive) heart failure (principal)
CPT/HCPCS: 36415; 80048

== ENCOUNTER 2023-12-31 05:06 | Outpatient (CLI) | payer MEDICARE, MEDICAID, SELFPAY ==
[2023-12-31 15:26] LABS: Anion Gap 9.2 mmol/L (3-11); BUN 71 mg/dL (7-18); CO2 28.8 mmol/L (21.0-32.0); CREATININE 3.2 mg/dL (0.55-1.02); Calcium 9.6 mg/dL (8.5-10.1); Chloride 102 mmol/L (98-107); Estimated GFR 15.01 (mL/min/1.73m2); Glucose 215 mg/dL (74-106); Potassium 4.3 mmol/L (3.5-5.1); Sodium 140 mmol/L (136-145)
[2024-01-02 15:38] LABS: eGFR by Cystatin C 14 mL/min/BSA (>60)
== END 2023-12-31 05:07 | disposition home or self-care (01) ==
LOC: LBO 05:06
PROVIDERS: PCP Nurse Practitioner Family; Visit Provider Internal Medicine Nephrology
DX: N18.5 Chronic kidney disease, stage 5 (principal); E87.6 Hypokalemia; I50.22 Chronic systolic (congestive) heart failure
CPT/HCPCS: 36415; 80048; 82610

== ENCOUNTER 2024-01-29 05:11 | Outpatient (CLI) | payer MEDICARE, MEDICAID, SELFPAY ==
[2024-01-29 15:35] LABS: Abs Immature Grans 0.02 10^3/uL (0.0-0.06); Absolute Basophil Count 0.05 10^3/uL (0.0-0.2); Absolute Eosinophil Count 0.14 10^3/uL (0.0-0.7); Absolute Lymphocyte Count 0.84 10^3/uL (1.2-3.4); Absolute Monocyte Count 0.59 10^3/uL (0.1-0.8); Absolute Neutrophil Count 3.88 10^3/uL (1.2-6.7); Basophils % 0.9 %; Eosinophils % 2.5 %; HCT 43.2 % (36.0-46.0); HGB 14.5 g/dL (11.2-15.7); Immature Grans % 0.4 %; Lymphocytes % 15.2 %; MCH 32.6 pg (27.0-33.0); MCHC 33.6 % (32.0-36.0); MCV 97 fL (80-95); MPV 10.8 fL (8.0-11.0); Monocytes % 10.7 %; Neutrophils % 70.3 %; Platelet Count 179 10^3/uL (130-400); RBC 4.45 10^6/uL (3.93-5.22); RDW 13.6 % (11.7-14.6); RDW-SD 49.3 fL; WBC 5.52 10^3/uL (4.4-10.8)
[2024-01-29 16:13] LABS: COMMENT (LAB VIEW ONLY) 22.82 mg/dL; PROTEIN < 6.0 mg/dL
[2024-01-29 16:16] LABS: COMMENT (LAB VIEW ONLY) 22.53 mg/dL; Microalb ug/mg Crea 11.5 ug/mg Cr
[2024-01-29 16:18] LABS: Albumin 4.1 g/dL (3.4-5.0); Anion Gap 10.5 mmol/L (3-11); CO2 32.5 mmol/L (21.0-32.0); CREATININE 3.5 mg/dL (0.55-1.02); Calcium 9.8 mg/dL (8.5-10.1); Chloride 94 mmol/L (98-107); Estimated GFR 13.48 (mL/min/1.73m2); Glucose 154 mg/dL (74-106); PHOSPHORUS 4.5 mg/dL (2.6-4.7); Sodium 137 mmol/L (136-145); Uric Acid 8.8 mg/dL (2.6-6.0)
[2024-01-29 16:21] LABS: Bilirubin Negative (Negative); Blood Negative (Negative); Clarity Clear (Clear); Glucose Negative (Negative); Ketones Negative (Negative); Leukocyte Esterase Negative (Negative); Nitrite Negative (Negative); Specific Gravity 1.015 (1.005-1.025); Urobilinogen 0.2 mg/dL (Up to 0.2); pH 6.5 (5-8)
[2024-01-29 16:32] LABS: BUN 101 mg/dL (7-18)
[2024-01-29 17:10] LABS: Iron 122 ug/dL (50-170); Total Iron Binding Capacity 283 ug/dL (250-450); Transferrin Sat 43 % (15-50)
[2024-01-29 17:23] LABS: Ferritin 972 ng/mL (8-252)
[2024-01-29 18:32] LABS: Vitamin D 25 Total 77.7 ng/mL (30-100)
[2024-01-29 22:27] LABS: Parathyroid Hormone,Intact 141 pg/mL (19-88)
[2024-01-30 21:25] LABS: Cystatin C, S 3.75 mg/L; eGFR by Cystatin C 12 mL/min/BSA (>60)
== END 2024-01-29 05:12 | disposition home or self-care (01) ==
LOC: LBO 05:11
PROVIDERS: PCP Nurse Practitioner Family; Visit Provider Registered Nurse
DX: N18.5 Chronic kidney disease, stage 5 (principal); E21.3 Hyperparathyroidism, unspecified
CPT/HCPCS: 36415; 80048; 82306; 82610; 81003; 82040; 82043; 82565; 82570; 82728; 83540; 83550; 83970; 84100; 84156; 84550; 85025

== ENCOUNTER → 2024-02-02 13:11 | Outpatient (CLI) | payer MEDICARE, MEDICAID, SELFPAY ==
--- NOTE | 2024-02-02 12:15 | DI.CT_ITS ---
Exam(s) CT ABDOMEN PELVIS WO EXAM: CT ABDOMEN PELVIS WO CLINICAL HISTORY: R10.11 right upper quadrant pain, vomiting. TECHNIQUE: Imaging Protocol: Axial computed tomography images with coronal and sagittal reformatted images were created and reviewed. Oral: yes / COMPARISON: CT CT ABDOMEN PELVIS WO from 08/23/2023 FINDINGS: Lung Bases: No acute findings. Heart is enlarged. Liver: Normal density. No suspicious mass. Gallbladder and biliary tract: The gallbladder is contracted. Question of stone at the fundus. No biliary dilatation. No pericholecystic fluid. Pancreas: Normal density, no abnormal calcifications or inflammatory process. Spleen: Normal. Kidneys: Normal size, contour and axis. No radiodense stones or obstructive uropathy. No suspicious m asses seen. Adrenal glands: No masses seen. Lymph nodes: Within normal limits. Vasculature: Abdominal aorta non-dilated. Atherosclerotic changes. Soft tissues: Small fatty containing umbilical hernia. Bladder: No wall thickening. No mass or calculi. Bowel: Mild sigmoid diverticulosis. No obstruction or bowel wall thickening. Appendix normal. Peritoneal cavity: No ascites, collection or mesenteric inflammatory response. Reproductive organs: Status post hysterectomy. Bones: Advanced degenerative changes in lower lumbar spine. IMPRESSION: No acute abnormality in the abdomen or pelvis. Gallbladder is contracted and not well evaluated. There is question of a stone at the fundus. No bi liary dilatation. RADIATION DOSE DELIVERED: Total DLP DATA REPOSITORY: All CT scans at this facility are submitted to the National Radiology Data Registry (NRDR) Dose Index Registry (DIR) with the [employer] (ACR). RADIATION OPTIMIZATION: All CT scans at this facility use at least one of these dose optimization te chniques: automated exposure control; mA and/or kV adjustment per patient size (includes targeted exa ms where dose is matched to clinical indication); or iterative reconstruction.
[2024-02-02] MEDS: Barium Sulfate 2% W/V-Berry Smoothie 450 ML BTL PO (12:45)
== END ==
PROVIDERS: PCP Nurse Practitioner Family; Visit Provider Nurse Practitioner Family
DX: R10.11 Right upper quadrant pain (principal)
CPT/HCPCS: 74176

== ENCOUNTER 2024-02-02 15:05 | Outpatient (CLI) | payer MEDICARE, MEDICAID, SELFPAY ==
[2024-02-02 15:14] LABS: Abs Immature Grans 0.02 10^3/uL (0.0-0.06); Absolute Basophil Count 0.07 10^3/uL (0.0-0.2); Absolute Eosinophil Count 0.24 10^3/uL (0.0-0.7); Absolute Lymphocyte Count 1.12 10^3/uL (1.2-3.4); Absolute Monocyte Count 0.75 10^3/uL (0.1-0.8); Absolute Neutrophil Count 4.67 10^3/uL (1.2-6.7); Eosinophils % 3.5 %; HCT 45.8 % (36.0-46.0); HGB 15.3 g/dL (11.2-15.7); Immature Grans % 0.3 %; Lymphocytes % 16.3 %; MCHC 33.4 % (32.0-36.0); MCV 99 fL (80-95); MPV 10.3 fL (8.0-11.0); Monocytes % 10.9 %; Platelet Count 192 10^3/uL (130-400); RBC 4.64 10^6/uL (3.93-5.22); RDW 13.3 % (11.7-14.6); RDW-SD 48.7 fL; WBC 6.87 10^3/uL (4.4-10.8)
[2024-02-02 15:30] LABS: ALT 53 U/L (14-59); AST 50 U/L (15-37); Albumin 4.3 g/dL (3.4-5.0); Alkaline Phosphatase 138 U/L (46-116); Amylase 73 U/L (25-115); Bilirubin, Direct 0.5 mg/dL (0.0-0.2); Bilirubin, Total 1.2 mg/dL (0.2-1.0); Lipase 67 U/L (16-77); Total Protein 8.4 g/dL (6.4-8.2)
[2024-02-02 16:16] LABS: Vitamin B12 1164 pg/mL (193-986)
== END 2024-02-02 15:06 | disposition home or self-care (01) ==
LOC: LBO 02-04 15:06
PROVIDERS: PCP Nurse Practitioner Family; Visit Provider Nurse Practitioner Family
DX: R10.11 Right upper quadrant pain (principal)
CPT/HCPCS: 36415; 80076; 83690; 82150; 82607; 85025

== ENCOUNTER 2024-02-25 05:05 | Outpatient (CLI) | payer MEDICARE, MEDICAID, SELFPAY ==
[2024-02-25 12:44] LABS: Hemoglobin A1C 6.3 % (<5.7)
[2024-02-25 12:52] LABS: Anion Gap 5.9 mmol/L (3-11); BUN 73 mg/dL (7-18); CO2 34.1 mmol/L (21.0-32.0); CREATININE 2.9 mg/dL (0.55-1.02); Calcium 9.9 mg/dL (8.5-10.1); Chloride 98 mmol/L (98-107); Estimated GFR 16.89 (mL/min/1.73m2); Glucose 88 mg/dL (74-106); Sodium 138 mmol/L (136-145)
[2024-02-25 12:54] LABS: Potassium 2.9 mmol/L (3.5-5.1)
== END 2024-02-25 05:06 | disposition home or self-care (01) ==
LOC: LOS 05:05
PROVIDERS: PCP Nurse Practitioner Family; Visit Provider Nurse Practitioner Family
DX: N18.4 Chronic kidney disease, stage 4 (severe) (principal); Z51.81 Encounter for therapeutic drug level monitoring; E11.319 Type 2 diabetes mellitus with unspecified diabetic retinopathy without macular edema
CPT/HCPCS: 36415; 80048; 83036

== ENCOUNTER 2024-03-02 05:10 | Outpatient (CLI) | payer MEDICARE, MEDICAID, SELFPAY | END 2024-03-02 05:11 | disposition home or self-care (01) | LOC: LOS 05:10 | PROVIDERS: PCP Nurse Practitioner Family; Visit Provider Nurse Practitioner Family | DX: E87.6 Hypokalemia (principal) | CPT/HCPCS: 36415; 84132 ==

== ENCOUNTER 2024-04-02 07:15 | Outpatient (CLI) | payer MEDICARE, MEDICAID, SELFPAY ==
[2024-04-02 13:24] LABS: Anion Gap 9.4 mmol/L (3-11); BUN 49 mg/dL (7-18); CO2 28.6 mmol/L (21.0-32.0); CREATININE 2.9 mg/dL (0.55-1.02); Calcium 9.8 mg/dL (8.5-10.1); Chloride 104 mmol/L (98-107); Estimated GFR 16.89 (mL/min/1.73m2); Glucose 119 mg/dL (74-106); Potassium 3.8 mmol/L (3.5-5.1); Sodium 142 mmol/L (136-145)
[2024-04-02 19:12] LABS: CA 125 15 U/mL (<30)
[2024-04-04 11:11] LABS: Cystatin C, S 3.07 mg/L; eGFR by Cystatin C 16 mL/min/BSA (>60)
== END 2024-04-02 07:16 | disposition home or self-care (01) ==
LOC: LOS 07:16
PROVIDERS: Internal Medicine; PCP Nurse Practitioner Family; Visit Provider Colon & Rectal Surgery
DX: C54.1 Malignant neoplasm of endometrium (principal); N18.5 Chronic kidney disease, stage 5; E87.6 Hypokalemia
CPT/HCPCS: 80048; 82610; 86304

== ENCOUNTER → 2024-04-20 01:11 | Outpatient (CLI) | payer MEDICARE, MEDICAID, SELFPAY ==
--- NOTE | 2024-04-20 15:15 | DI.MAMMO_ITS ---
Exam(s) MAMMO SCREENING EXAM: MAMMO SCREENING CLINICAL HISTORY: screening TECHNIQUE: Bilateral full field digital CC and MLO mammographic images were obtained with 3D tomosyn thesis and utilizing computer aided detection (CAD). COMPARISON: Available for comparison. FINDINGS: Masses/Architectural Distortion: None seen. Microcalcifications: No suspicious pleomorphic-type are seen. Skin Thickening/Nipple Retraction: None. IMPRESSION: 1. No significant interval change with no specific features of malignancy noted. 2. Unless there is more urgent need, screening mammography is recommended, as per [place] [employer] guidelines. BI-RADS Category 1 - Negative Breast Density - Category A - Almost entirely fatty Breast density category C or D implies that the patient has dense breast tissue. Dense breast tissue is very common and is not abnormal but dense breast tissue can make it harder to find cancer on a ma mmogram. Also, dense breast tissue may increase their breast cancer risk. This information about the result of the mammogram report was provided to the patient to raise their awareness. Use this report when you speak with the patient about their risks for breast cancer, which includes their family hist ory. At that time, you may recommend for more screening tests (Ultrasound or MRI) as they might be us eful based on their risk. A negative radiographic report should not delay biopsy if a dominant or clinically suspicious mass is present. Up to ten percent of cancers are not identified on mammography. A negative report may reinforce clinical impression. Adenosis and dense breasts may obscure an underlying neoplasm. False positive reports average 6 to 10%. Patient will receive a letter notifying them of these results.
== END ==
PROVIDERS: PCP Nurse Practitioner Family; Visit Provider Obstetrics & Gynecology
DX: Z12.31 Encounter for screening mammogram for malignant neoplasm of breast (principal)
CPT/HCPCS: 77063; 77067

== ENCOUNTER 2024-04-22 12:30 | Outpatient (CLI) | payer MEDICARE, MEDICAID, SELFPAY ==
[2024-04-22 12:34] LABS: Anion Gap 8.5 mmol/L (3-11); CO2 32.5 mmol/L (21.0-32.0); CREATININE 3.5 mg/dL (0.55-1.02); Calcium 9.8 mg/dL (8.5-10.1); Chloride 98 mmol/L (98-107); Estimated GFR 13.48 (mL/min/1.73m2); Glucose 220 mg/dL (74-106); Potassium 3.7 mmol/L (3.5-5.1); Sodium 139 mmol/L (136-145)
[2024-04-22 13:03] LABS: BUN 93 mg/dL (7-18)
== END 2024-04-22 12:31 | disposition home or self-care (01) ==
LOC: LOS 12:31
PROVIDERS: PCP Nurse Practitioner Family; Visit Provider Internal Medicine
DX: I50.22 Chronic systolic (congestive) heart failure (principal)
CPT/HCPCS: 36415; 80048

== ENCOUNTER 2024-06-21 13:13 | Outpatient (CLI) | payer MEDICARE, MEDICAID, SELFPAY ==
--- NOTE | 2024-06-21 13:00 | RT.EKG_ITS ---
APPROVED REPORT Exam: Resting ECG Reason for Exam: Diabetes Patient Location: O HR:92 bpm ECG Measurements Heart Rate 92 AXIS NC [id number] P [id number] QRSd 110 QRS 237 QT 407 T 74 QTc 504 Conclusion Atrial fibrillation...? atrial activity Borderline low voltage, extremity leads...all extremity leads <0.6mV Probable right ventricular hypertrophy...prominent R or R' w/ RAD or PRABHA Nonspecific T abnormalities, lateral leads...T <-0.10mV, I aVL V5 V6 Prolonged QT interval...QTc >500mS
== END 2024-06-21 13:14 | disposition home or self-care (01) ==
LOC: DI.CM 13:15
PROVIDERS: PCP Nurse Practitioner Family; Visit Provider Nurse Practitioner Family
DX: R42 Dizziness and giddiness (principal)
CPT/HCPCS: 93010

== ENCOUNTER 2024-06-21 16:34 | Outpatient (REF) | payer MEDICARE, MEDICAID, SELFPAY ==
[2024-06-21 21:58] LABS: HCT 46.2 % (36.0-46.0); HGB 15.5 g/dL (11.2-15.7); MCH 33.6 pg (27.0-33.0); MCHC 33.5 % (32.0-36.0); MCV 100 fL (80-95); MPV 11.1 fL (8.0-11.0); Platelet Count 225 10^3/uL (130-400); RBC 4.61 10^6/uL (3.93-5.22); RDW 12.8 % (11.7-14.6); RDW-SD 47.5 fL; WBC 7.06 10^3/uL (4.4-10.8)
[2024-06-21 22:16] LABS: Anion Gap 11.9 mmol/L (3-11); CO2 30.1 mmol/L (21.0-32.0); Calcium 10.1 mg/dL (8.5-10.1); Chloride 98 mmol/L (98-107); Estimated GFR 12.61 (mL/min/1.73m2); Glucose 146 mg/dL (74-106); Potassium 3.7 mmol/L (3.5-5.1); Sodium 140 mmol/L (136-145)
[2024-06-21 22:23] LABS: BUN 100 mg/dL (7-18); CREATININE 3.7 mg/dL (0.55-1.02)
== END 2024-06-21 16:35 | disposition home or self-care (01) ==
LOC: NCHCN 16:34
PROVIDERS: PCP Nurse Practitioner Family; Visit Provider Nurse Practitioner Family
DX: N18.4 Chronic kidney disease, stage 4 (severe)
CPT/HCPCS: 80048; 85027

== ENCOUNTER 2024-10-21 02:31 | Outpatient (CLI) | payer MEDICARE, MEDICAID, SELFPAY ==
--- NOTE | 2024-10-21 07:45 | DI.MRI_ITS ---
Exam(s) MR BRAIN WO/W EXAM: MR BRAIN WO/W CLINICAL HISTORY: recurrent transient gait instability,r26.81. TECHNIQUE: Multiplanar multisequence MRI of the brain was performed. CONTRAST MATERIAL: IV Contrast: 16 ML of Dotarem contrast administered. COMPARISON: MR MR brain wo from 07/13/[address] HEAD WO from 07/13/2018 FINDINGS: VENTRICLES AND EXTRA AXIAL SPACES: Normal in size and morphology for the patient's age. HEMORRHAGE: None. CEREBRAL PARENCHYMA: No focus of restricted diffusion to suggest acute infarct. The old right fronta l infarct is unchanged. Stable amount of surrounding gliosis. No space-occupying lesion identified. BRAINSTEM/CEREBELLUM: Normal. CALVARIUM: Hyperostosis frontalis interna. ENHANCEMENT: No suspicious enhancement identified. VISUALIZED PARANASAL SINUSES/MASTOIDS: Clear. Orbits: Unremarkable. Pituitary: Not enlarged. Vasculature: Normal flow voids. IMPRESSION: Old right frontal infarct. No acute abnormality. DATA REPOSITORY:
[2024-10-21] MEDS: Gadoterate meglumine 20 ML VIAL 16 ML IVP (15:03)
[2024-10-21] MEDS: Normal Saline Flush 10 ML SYR IJ (15:04)
== END 2024-10-21 02:51 ==
LOC: DI 02:31
PROVIDERS: PCP Nurse Practitioner Family; Visit Provider Nurse Practitioner Family
DX: R26.81 Unsteadiness on feet (principal)
CPT/HCPCS: 70553

== ENCOUNTER 2024-11-08 11:33 | Outpatient (CLI) | payer MEDICARE, MEDICAID, SELFPAY ==
--- NOTE | 2024-11-08 12:15 | DI.RAD_ITS ---
Exam(s) XR CHEST 2V PA LATERAL EXAM: XR CHEST 2V PA LATERAL CLINICAL HISTORY: annual,chf, I50.9. TECHNIQUE: 2D digital imaging was performed. COMPARISON: CR XR CHEST 2V PA LATERAL from 11/15/[address] ABDOMEN PELVIS WO from 02/02/2024 FINDINGS: 2 views: Again noted are sternotomy wires and a prosthetic mitral valve, unchanged position. Cardiomegaly again noted. The mediastinum appears unchanged. There is some platelike atelectasis or scarring in the appear lingular segment of the left lung, more so than was evident in October 2021. This, however, is equivalent to what was evident on abdominal CT scanogram of February 02, 2024. There are no infiltrates nor pleural effusions. No pulmonary edema. No pneumothorax. However, in t he mid right lung zone there is a noncalcified nodular density measuring approximately 1.2 x 1.0 cm. IMPRESSION: Chronic atelectasis or scarring in the lingular segment of the left lung. No new left lung findings. However, there is subtle suggestion of a 12 x 10 mm nodular density in the mid right lung field. Thi s is probably in the anterior segment of the right upper. Recommend follow-up noninfused CT scan of the chest. DATA REPOSITORY: RADIATION DOSE DELIVERED:
== END 2024-11-08 11:53 ==
LOC: DI 11:34
PROVIDERS: PCP Nurse Practitioner Family; Visit Provider Nurse Practitioner Family
DX: J98.11 Atelectasis (principal)
CPT/HCPCS: 71046

== ENCOUNTER 2024-11-10 02:06 | Outpatient (CLI) | payer MEDICARE, MEDICAID, SELFPAY ==
--- NOTE | 2024-11-10 07:15 | DI.CT_ITS ---
Exam(s) CT CHEST WO EXAM: CT CHEST WO CLINICAL HISTORY: f/u xr,rt lung nodule,r91.1. TECHNIQUE: Imaging protocol: Axial computed tomography images were obtained and coronal and sagittal reformatted images were created and reviewed. Computer aided detection (CAD) was utilized. CONTRAST MATERIAL: Noncontrast COMPARISON: CT CHEST WITH CONTRAST from 02/27/2012 CR XR CHEST 2V PA LATERAL from 11/15/2021 CR XR CHEST 2V PA LATERAL from 11/08/2024 FINDINGS: Pulmonary parenchyma: No consolidation. There is a 10 x 9 millimeter nodule in the anterior right up per lobe. It appears unchanged compared to 2012 and therefore benign. No additional suspicious nodu les are seen. There are few scattered micro nodules. Interstitial changes: None. Emphysema: None. Tracheobronchial tree: No mucous plugging. No bronchiectasis . Pleura: No effusion or pneumothorax. Heart: The heart is moderately dilated. The coronary arteries show severe calcifications. Mitral valve prosthesis. Aorta: Thoracic aorta non-dilated. Mild atherosclerotic changes. Pulmonary arteries: Prominent. The main pulmonary artery measures 4.3 cm. Lymph nodes: No enlarged lymph nodes. Bones: Sternal wires. Prominent degenerative changes are seen in the thoracic spine.. No evidence o f compression fracture. Upper abdomen: Unremarkable. Soft tissues: Unremarkable. IMPRESSION: 10 millimeter nodule in the right upper lobe is stable since 2012. No acute abnormality. RADIATION DOSE DELIVERED: Total DLP Total DLP DATA REPOSITORY: All CT scans at this facility are submitted to the National Radiology Data Registry (NRDR) Dose Index Registry (DIR) with the [employer] (ACR). RADIATION OPTIMIZATION: All CT scans at this facility use at least one of these dose optimization te chniques: automated exposure control; mA and/or kV adjustment per patient size (includes targeted exa ms where dose is matched to clinical indication); or iterative reconstruction.
== END 2024-11-10 02:26 ==
LOC: DI 02:06
PROVIDERS: PCP Nurse Practitioner Family; Visit Provider Nurse Practitioner Family
DX: R91.1 Solitary pulmonary nodule (principal)
CPT/HCPCS: 71250

== ENCOUNTER 2024-12-29 03:13 | Outpatient (CLI) | payer MEDICARE, MEDICAID, SELFPAY ==
[2024-12-29 12:08] LABS: TSH 1.28 uIU/mL (0.36-3.74)
== END 2024-12-29 03:14 | disposition home or self-care (01) ==
LOC: LBO 03:13
PROVIDERS: PCP Nurse Practitioner Family; Visit Provider Nurse Practitioner Family
DX: Z51.81 Encounter for therapeutic drug level monitoring (principal)
CPT/HCPCS: 36415; 84443

== ENCOUNTER 2025-01-18 09:42 | Outpatient (CLI) | payer MEDICARE, MEDICAID, SELFPAY ==
--- NOTE | 2025-01-18 14:40 | DI.RAD_ITS ---
Exam(s) XR FOOT RT COMPLETE EXAM: XR FOOT RT COMPLETE CLINICAL HISTORY: Rt great toe/foot ulceration. c/f osteomyelitis, [id number]. TECHNIQUE: 2D digital imaging was performed. COMPARISON: No exams were available for comparison FINDINGS: 3 views There is a skin ulcer on the medial aspect of the foot at the level of the head of the great toe meta tarsal. There is no radiopaque foreign body at this level. There is no radiographic evidence of ost eomyelitis in the great toe metatarsal. There are no fractures nor diastasis of the Lisfranc joint. Some vascular calcifications noted. No osseous lesions nor erosions IMPRESSION: Skin ulcer but no radiographic evidence of osteomyelitis in the subjacent head of the great toe metat arsal. DATA REPOSITORY: RADIATION DOSE DELIVERED:
== END 2025-01-18 10:02 ==
LOC: DI 09:42
PROVIDERS: PCP Nurse Practitioner Family; Visit Provider Physician Assistant
DX: L97.511 Non-pressure chronic ulcer of other part of right foot limited to breakdown of skin
CPT/HCPCS: 73630

== ENCOUNTER 2025-01-18 09:49 | Outpatient (CLI) | payer MEDICARE, MEDICAID, SELFPAY ==
[2025-01-18 15:09] LABS: Abs Immature Grans 0.04 10^3/uL (0.0-0.06); Absolute Basophil Count 0.07 10^3/uL (0.0-0.2); Absolute Lymphocyte Count 1.12 10^3/uL (1.2-3.4); Absolute Monocyte Count 0.58 10^3/uL (0.1-0.8); Absolute Neutrophil Count 4.55 10^3/uL (1.2-6.7); Eosinophils % 7.3 %; HCT 44.9 % (36.0-46.0); HGB 14.3 g/dL (11.2-15.7); Immature Grans % 0.6 %; Lymphocytes % 16.3 %; MCH 33.9 pg (27.0-33.0); MCHC 31.8 % (32.0-36.0); MCV 106 fL (80-95); Monocytes % 8.5 %; Neutrophils % 66.3 %; Platelet Count 180 10^3/uL (130-400); RBC 4.22 10^6/uL (3.93-5.22); RDW 13.3 % (11.7-14.6); RDW-SD 52.5 fL; WBC 6.86 10^3/uL (4.4-10.8)
[2025-01-18 15:11] LABS: ESR 21 mm/hr (0-30)
[2025-01-18 15:53] LABS: Anion Gap 6.7 mmol/L (3-11); BUN 46 mg/dL (7-18); CO2 29.3 mmol/L (21.0-32.0); Calcium 9.7 mg/dL (8.5-10.1); Chloride 106 mmol/L (98-107); Estimated GFR 12.95 (mL/min/1.73m2); Glucose 184 mg/dL (74-106); Potassium 4.5 mmol/L (3.5-5.1); Sodium 142 mmol/L (136-145)
[2025-01-18 16:05] LABS: CREATININE 3.6 mg/dL (0.55-1.02)
[2025-01-18 16:06] LABS: C-Reactive Protein < 0.50 mg/dL (<or=0.5)
== END 2025-01-18 09:50 | disposition home or self-care (01) ==
LOC: LBO 09:49
PROVIDERS: PCP Nurse Practitioner Family; Visit Provider Physician Assistant
DX: E11.621 Type 2 diabetes mellitus with foot ulcer (principal); L97.529 Non-pressure chronic ulcer of other part of left foot with unspecified severity; E87.6 Hypokalemia; L98.9 Disorder of the skin and subcutaneous tissue, unspecified
CPT/HCPCS: 36415; 80048; 85652; 85025; 86140

== ENCOUNTER → 2025-01-20 14:03 | Outpatient (BNVA) | payer MEDICARE, MEDICAID, SELFPAY | PROVIDERS: PCP Nurse Practitioner Family; Referring Provider Nurse Practitioner Family; Visit Provider Podiatrist | DX: E11.621 Type 2 diabetes mellitus with foot ulcer (principal); L97.519 Non-pressure chronic ulcer of other part of right foot with unspecified severity; E11.319 Type 2 diabetes mellitus with unspecified diabetic retinopathy without macular edema; Z79.4 Long term (current) use of insulin; N18.4 Chronic kidney disease, stage 4 (severe); I73.89 Other specified peripheral vascular diseases; E11.43 Type 2 diabetes mellitus with diabetic autonomic (poly)neuropathy; B35.1 Tinea unguium; R60.0 Localized edema; I87.2 Venous insufficiency (chronic) (peripheral); R25.2 Cramp and spasm | CPT/HCPCS: 99214 ==

== ENCOUNTER 2025-01-24 16:06 | Outpatient (CLI) | payer MEDICARE, MEDICAID, SELFPAY ==
--- NOTE | 2025-01-24 15:45 | DI.RAD_ITS ---
Exam(s) XR WRIST LT COMPLETE EXAM: XR WRIST LT COMPLETE CLINICAL HISTORY: eval fx, wrist pain ,left M25.532. TECHNIQUE: 2D digital imaging was performed. Three views. COMPARISON: No exams were available for comparison FINDINGS: BONES: No acute fracture is present. No bony destructive lesion is seen. JOINTS: The carpal bones are normally aligned. No significant degenerative changes. SOFT TISSUE: No foreign bodies IMPRESSION: Unremarkable radiographs of the left wrist. DATA REPOSITORY: RADIATION DOSE DELIVERED:
== END 2025-01-24 16:26 ==
LOC: DI 16:07
PROVIDERS: PCP Nurse Practitioner Family; Visit Provider Nurse Practitioner Family
DX: M25.532 Pain in left wrist (principal)
CPT/HCPCS: 73110

== ENCOUNTER → 2025-02-10 13:45 | Outpatient (BNVA) | payer MEDICARE, MEDICAID, SELFPAY | PROVIDERS: PCP Nurse Practitioner Family; Referring Provider Nurse Practitioner Family; Visit Provider Podiatrist | DX: E11.621 Type 2 diabetes mellitus with foot ulcer (principal); E11.43 Type 2 diabetes mellitus with diabetic autonomic (poly)neuropathy; I73.89 Other specified peripheral vascular diseases; N18.4 Chronic kidney disease, stage 4 (severe); E11.319 Type 2 diabetes mellitus with unspecified diabetic retinopathy without macular edema; Z79.4 Long term (current) use of insulin; B35.1 Tinea unguium; R60.0 Localized edema; I87.2 Venous insufficiency (chronic) (peripheral); L97.519 Non-pressure chronic ulcer of other part of right foot with unspecified severity | CPT/HCPCS: 11042 ==

== ENCOUNTER → 2025-03-09 08:10 | Outpatient (BNVA) | payer MEDICARE, MEDICAID, SELFPAY | PROVIDERS: PCP Nurse Practitioner Family; Referring Provider Nurse Practitioner Family; Visit Provider Podiatrist | DX: L97.512 Non-pressure chronic ulcer of other part of right foot with fat layer exposed (principal); L03.115 Cellulitis of right lower limb; E11.621 Type 2 diabetes mellitus with foot ulcer; E11.319 Type 2 diabetes mellitus with unspecified diabetic retinopathy without macular edema; E11.43 Type 2 diabetes mellitus with diabetic autonomic (poly)neuropathy; E11.42 Type 2 diabetes mellitus with diabetic polyneuropathy; E11.22 Type 2 diabetes mellitus with diabetic chronic kidney disease; Z79.4 Long term (current) use of insulin; N18.4 Chronic kidney disease, stage 4 (severe); I73.89 Other specified peripheral vascular diseases; B35.1 Tinea unguium; R60.0 Localized edema; I87.2 Venous insufficiency (chronic) (peripheral) | CPT/HCPCS: 11042 ==

== ENCOUNTER 2025-03-15 01:29 | Outpatient (CLI) | payer MEDICARE, MEDICAID, SELFPAY ==
--- NOTE | 2025-03-15 07:45 | DI.RAD_ITS ---
Exam(s) XR FOOT RT COMPLETE EXAM: XR FOOT RT COMPLETE CLINICAL HISTORY: Ulcer first metatarsal head medial aspect,? osteo,L97.519. TECHNIQUE: 2D digital imaging was performed of the right foot. Three images were obtained. AP, oblique and lateral views were obtained. COMPARISON: CR XR FOOT RT COMPLETE from 01/18/2025 FINDINGS: BONES: No acute fracture is present. No bony destructive lesion is seen. JOINTS: No dislocation present. SOFT TISSUE: There is soft tissue swelling seen in the midfoot. No soft tissue gas is identified. Atherosclerotic calcification is present. IMPRESSION: No radiographic evidence to suggest osteomyelitis is seen. DATA REPOSITORY: RADIATION DOSE DELIVERED:
== END 2025-03-15 01:49 ==
LOC: DI 01:29
PROVIDERS: PCP Nurse Practitioner Family; Visit Provider Podiatrist
DX: L97.519 Non-pressure chronic ulcer of other part of right foot with unspecified severity (principal)
CPT/HCPCS: 73630

== ENCOUNTER → 2025-03-21 13:38 | Outpatient (BNVA) | payer MEDICARE, MEDICAID, SELFPAY | PROVIDERS: PCP Nurse Practitioner Family; Referring Provider Nurse Practitioner Family; Visit Provider Psychiatry & Neurology Neurology | DX: H53.19 Other subjective visual disturbances (principal); R25.1 Tremor, unspecified; N18.9 Chronic kidney disease, unspecified; E11.9 Type 2 diabetes mellitus without complications | CPT/HCPCS: 99215 ==

== ENCOUNTER → 2025-04-05 08:53 | Outpatient (BNVA) | payer MEDICARE, MEDICAID, SELFPAY | PROVIDERS: PCP Nurse Practitioner Family; Referring Provider Nurse Practitioner Family; Visit Provider Podiatrist | DX: L97.512 Non-pressure chronic ulcer of other part of right foot with fat layer exposed (principal); S90.211A Contusion of right great toe with damage to nail, initial encounter; X58.XXXA Exposure to other specified factors, initial encounter; E11.621 Type 2 diabetes mellitus with foot ulcer; E11.319 Type 2 diabetes mellitus with unspecified diabetic retinopathy without macular edema; Z79.4 Long term (current) use of insulin; N18.4 Chronic kidney disease, stage 4 (severe); I73.89 Other specified peripheral vascular diseases; E11.43 Type 2 diabetes mellitus with diabetic autonomic (poly)neuropathy; E11.42 Type 2 diabetes mellitus with diabetic polyneuropathy; B35.1 Tinea unguium; R60.0 Localized edema; I87.2 Venous insufficiency (chronic) (peripheral) | CPT/HCPCS: 10140; 11042 ==

== ENCOUNTER 2025-04-14 01:26 | Outpatient (CLI) | payer MEDICARE, MEDICAID, SELFPAY ==
[2025-04-14 12:43] LABS: Abs Immature Grans 0.05 10^3/uL (0.0-0.06); HCT 44.5 % (36.0-46.0); HGB 14.4 g/dL (11.2-15.7); Immature Grans % 0.8 %; MCH 33.4 pg (27.0-33.0); MCHC 32.4 % (32.0-36.0); MCV 103 fL (80-95); MPV 9.8 fL (8.0-11.0); Platelet Count 183 10^3/uL (130-400); RBC 4.31 10^6/uL (3.93-5.22); RDW 13.2 % (11.7-14.6); RDW-SD 50.4 fL; WBC 6.46 10^3/uL (4.4-10.8)
[2025-04-14 13:36] LABS: PROTEIN 15.6 mg/dL; Prot/Crea Ur Ratio 0.91
[2025-04-14 13:41] LABS: Albumin 4.0 g/dL (3.4-5.0); Anion Gap 11.1 mmol/L (3-11); BUN 58 mg/dL (7-18); CO2 27.9 mmol/L (21.0-32.0); Calcium 9.4 mg/dL (8.5-10.1); Chloride 103 mmol/L (98-107); Estimated GFR 17.51 (mL/min/1.73m2); Glucose 202 mg/dL (74-106); Magnesium 2.6 mg/dL (1.8-2.4); Potassium 4.0 mmol/L (3.5-5.1); Sodium 142 mmol/L (136-145); Uric Acid 6.1 mg/dL (2.6-6.0)
== END 2025-04-14 01:27 | disposition home or self-care (01) ==
LOC: LBO 01:26
PROVIDERS: PCP Nurse Practitioner Family; Visit Provider Registered Nurse
DX: N18.4 Chronic kidney disease, stage 4 (severe) (principal)
CPT/HCPCS: 36415; 80048; 82040; 82565; 83735; 83970; 84100; 84156; 84550; 85025

== ENCOUNTER → 2025-05-19 13:34 | Outpatient (BNVA) | payer MEDICARE, MEDICAID, SELFPAY | PROVIDERS: PCP Nurse Practitioner Family; Referring Provider Nurse Practitioner Family; Visit Provider Podiatrist | DX: E11.621 Type 2 diabetes mellitus with foot ulcer (principal); L97.512 Non-pressure chronic ulcer of other part of right foot with fat layer exposed; E11.319 Type 2 diabetes mellitus with unspecified diabetic retinopathy without macular edema; E11.42 Type 2 diabetes mellitus with diabetic polyneuropathy; E11.43 Type 2 diabetes mellitus with diabetic autonomic (poly)neuropathy; E11.22 Type 2 diabetes mellitus with diabetic chronic kidney disease; N18.4 Chronic kidney disease, stage 4 (severe); Z79.4 Long term (current) use of insulin; I73.89 Other specified peripheral vascular diseases; L03.115 Cellulitis of right lower limb; B35.1 Tinea unguium; R60.0 Localized edema; I87.2 Venous insufficiency (chronic) (peripheral); S90.211D Contusion of right great toe with damage to nail, subsequent encounter; X58.XXXD Exposure to other specified factors, subsequent encounter | CPT/HCPCS: 11042 ==

== ENCOUNTER 2025-05-19 14:47 | Outpatient (REF) | payer MEDICARE, MEDICAID, SELFPAY | END 2025-05-19 14:48 | disposition home or self-care (01) | LOC: LBN 14:47 | PROVIDERS: PCP Nurse Practitioner Family; Visit Provider Podiatrist | DX: L97.529 Non-pressure chronic ulcer of other part of left foot with unspecified severity (principal); L97.519 Non-pressure chronic ulcer of other part of right foot with unspecified severity; X58.XXXA Exposure to other specified factors, initial encounter | CPT/HCPCS: 87070; 87075; 87205 ==

== ENCOUNTER 2025-06-09 14:41 | Outpatient (CLI) | payer MEDICARE, MEDICAID, SELFPAY ==
--- NOTE | 2025-06-09 11:15 | DI.RAD_ITS ---
Exam(s) XR FOOT RT COMPLETE EXAM: XR FOOT RT COMPLETE CLINICAL HISTORY: Osteomyelitis? L97.512 M21.611 ULCER BUNION RT FOOT. TECHNIQUE: 2D digital imaging was performed. Three views. COMPARISON: CR XR FOOT RT COMPLETE from 03/15/2025 FINDINGS: BONES: No acute fracture is present. No bony destructive lesion is seen. Small enthesophyte at the Achilles insertion. JOINTS: No dislocation present. Some flattening of the plantar arch. SOFT TISSUE: Vascular calcifications. Soft tissue swelling medial to the 1st metatarsal head. Small amount of soft tissue air. No foreign body. IMPRESSION: Soft tissue swelling. No evidence of bony erosions. DATA REPOSITORY: RADIATION DOSE DELIVERED:
== END 2025-06-09 15:01 ==
LOC: DI 14:41
PROVIDERS: PCP Nurse Practitioner Family; Visit Provider Podiatrist
DX: L97.512 Non-pressure chronic ulcer of other part of right foot with fat layer exposed (principal); M21.611 Bunion of right foot
CPT/HCPCS: 11042; 93922; 73630

== ENCOUNTER 2025-06-17 15:11 | Outpatient (CLI) | payer MEDICARE, MEDICAID, SELFPAY ==
[2025-06-17 15:04] LABS: Hemoglobin A1C 6.6 % (<5.7)
== END 2025-06-17 15:12 | disposition home or self-care (01) ==
LOC: LBO 15:12
PROVIDERS: PCP Nurse Practitioner Family; Visit Provider Family Medicine
DX: E11.9 Type 2 diabetes mellitus without complications (principal)
CPT/HCPCS: 36415; 83036

== ENCOUNTER → 2025-06-28 14:06 | Outpatient (BNVA) | payer MEDICARE, MEDICAID, SELFPAY | PROVIDERS: PCP Nurse Practitioner Family; Referring Provider Nurse Practitioner Family; Visit Provider Podiatrist | DX: L97.512 Non-pressure chronic ulcer of other part of right foot with fat layer exposed (principal); E11.621 Type 2 diabetes mellitus with foot ulcer; E11.319 Type 2 diabetes mellitus with unspecified diabetic retinopathy without macular edema; Z79.4 Long term (current) use of insulin; E11.42 Type 2 diabetes mellitus with diabetic polyneuropathy; E11.43 Type 2 diabetes mellitus with diabetic autonomic (poly)neuropathy; I73.89 Other specified peripheral vascular diseases; N18.4 Chronic kidney disease, stage 4 (severe); B35.1 Tinea unguium; I87.2 Venous insufficiency (chronic) (peripheral) | CPT/HCPCS: 11042 ==

== ENCOUNTER → 2025-07-12 13:44 | Outpatient (BNVA) | payer MEDICARE, MEDICAID, SELFPAY | PROVIDERS: PCP Nurse Practitioner Family; Referring Provider Nurse Practitioner Family; Visit Provider Podiatrist | DX: L97.512 Non-pressure chronic ulcer of other part of right foot with fat layer exposed (principal); E11.621 Type 2 diabetes mellitus with foot ulcer; E11.319 Type 2 diabetes mellitus with unspecified diabetic retinopathy without macular edema; Z79.4 Long term (current) use of insulin; E11.43 Type 2 diabetes mellitus with diabetic autonomic (poly)neuropathy; E11.22 Type 2 diabetes mellitus with diabetic chronic kidney disease; N18.4 Chronic kidney disease, stage 4 (severe); I73.89 Other specified peripheral vascular diseases; M21.611 Bunion of right foot; I87.2 Venous insufficiency (chronic) (peripheral); R60.0 Localized edema | CPT/HCPCS: 11042 ==